=== PATIENT | female | born 1985 | race Caucasian/White ===

== ENCOUNTER 2018-10-19 10:06 | Emergency (ER) | payer OTHER, SELFPAY ==
[2018-10-19 10:07] VITALS: BP 125/81; PULSE 76; RESP 32; TEMP 36.5; O2SAT 98; BMI 34.6
--- NOTE | 2018-10-19 10:43 | RAD_ITS ---
STUDY: X-RAY CHEST REASON FOR EXAM: Female, 32 years old. Cough and bodyaches. Fatigue. TECHNIQUE: PA and lateral views of the chest. COMPARISON: None. FINDINGS: The lungs are clear and expanded. Scattered calcified granulomas. There is no demonstrated pleural abnormality. Normal size heart. Normal mediastinum and marbella. Normal visualized pulmonary arteries. Normal visualized aortic arch and descending thoracic aorta. Normal visualized thoracic spine. Normal visualized ribs, clavicles, and shoulders. There is no demonstrated abnormality of the visualized soft tissue structures of the upper abdomen. RAD/Chest PA and Lateral IMPRESSION: Normal x-ray examination of the chest. Electronically Signed: Amaury Arriaga MD at 12:21 EST , Service support ,
--- NOTE | 2018-10-19 10:48 | ED.DCSUM_ITS ---
- ER Visit Summary Date of Service: 10/19/18 Chief Complaint: fatigue and cough History of Present Illness: The patient is a 32 F who presents for 4 days of extreme fatigue and cough. Patient states she had a upper respiratory infection 2 weeks ago that improved, however she had lingering nasal congestion. 4 days ago she began having a cough and fatigue. She has since developed myalgias, vomiting secondary to cough, headache, continued congestion, generalized weakness, and is sleeping all the time. She has not been eating or drinking much. She is tried DayQuil and NyQuil without any improvement. She has not had the flu shot. She has history of migraines and hysterectomy. Physical Examination: Vital signs: afebrile, hemodynamically stable, tachypneic at 32 fuller per minute, no hypoxia on room air General: well nourished, well developed, appears ill Skin: warm, dry, no rash, no pallor HEENT: normocephalic and atraumatic; PERRL, EOMI, tacky mucous membranes, no oropharyngeal erythema, exudates or swelling, TMs are pearly with good light reflex bilaterally, no bulging, neck is supple with no meningismus or lymphadenopathy, harsh cough noted occasionally Cardiovascular: regular rate and rhythm without murmurs, no peripheral edema, 2+ pulses all distal extremities Respiratory: Mild increased work of breathing, lungs are clear to auscultation bilaterally, no rales, rhonchi or wheezing, tachypneic with deep breaths Abdominal: Abdomen is soft, nontender with normoactive bowel sounds, no guarding or rebound, no masses MSK: Moves all extremities, no deformities, generalized weakness Neuro: Awake and alert, oriented ?4. No facial droop, sensation and motor funct ion intact and symmetric Test Results: Abnormal Lab Results 10/19/18 10/19/18 11:20 11:20 WBC 6.1 RBC 4.86 Hgb 14.0 Hct 41.9 MCV 86.2 MCH 28.8 MCHC 33.4 RDW 12.9 RDW Differential 40.3 Plt Count 273 MPV 9.4 Immature Gran % (Auto) 0.000 Neut % (Auto) 62.3 Lymph % (Auto) 22.8 [place] % (Auto) 9.9 Eos % (Auto) 4.5 Baso % (Auto) 0.5 Absolute Neuts (auto) 3.8 Absolute Lymphs (auto) 1.38 Total Counted Not Reportable Sodium 141 Potassium 4.3 Chloride 113 H Carbon Dioxide 21.0 Anion Gap 7 BUN 9 Creatinine 1.01 Estim Creat Clear Calc 103.89 Est GFR (MDRD) Af Amer 81 Est GFR (MDRD) Non-Af 67 BUN/Creatinine Ratio 8.9 L Glucose 90 Calcium 8.1 L Total Bilirubin 0.50 AST 24 ALT 18 Alkaline Phosphatase 71 Total Protein 7.6 Albumin 3.5 Globulin 4.1 Albumin/Globulin Ratio 0.9 Lipase 164 Clinical Impression(s) from Imaging Studies Chest X-Ray 10/19/18 10:43 IMPRESSION: Normal x-ray examination of the chest. Electronically Signed: Amaury Arriaga MD at 12:21 EST , Service support , Medications Given Discontinued Medications Sodium Chloride () 1,000 mls @ 1,000 mls/hr IV .Q1H ONE Stop: 10/19/18 11:42 Last Admin: 10/19/18 11:46 Dose: 1,000 mls/hr Ketorolac Tromethamine (Toradol) 15 mg IV X1 ONE Stop: 10/19/18 10:44 Last Admin: 10/19/18 11:46 Dose: 15 mg Emergency Department Course and Treatment: Patient presents with rapid deep breathing and does not appear well. Her symptoms do sound influenza-like, but given the tachypnea and deep breathing, labs were performed to rule out this as a presentation of new onset diabetes. Patient had no leukocytosis. Blood glucose was within normal limits with no elevated anion gap or low bicarb that would be indicative of possible DKA. Flu was positive. EKG showed no pneumonia. Patient received IV fluids and Toradol for symptomatic relief. On reevaluation patient was sleeping and stated she felt somewhat better. Because of the severity of symptoms despite possibly being outside of the 48-hour window, patient was given a prescription for Tamiflu. She was given a work note for 3 days. She feels well enough to go home. She will return if any worsening of her condition. Treatment Plan: [] Disposition: [] Impression: Influenza A This note was generated with ESTmobation software. It may contain incorrect words, spelling, and punctuation that were not noted in review of the chart prior to signing ED Disposition - Plan for ED Patient: Disposition: Home or Assisted Living Instructions: ED Flu Prescriptions: Ondansetron [Zofran Odt] 4 mg PO Q8H PRN PRN #10 tab PRN Reason: Nausea Oseltamivir Phosphate [Tamiflu] 75 mg PO BID #10 cap Referrals: Jeet Scott DO [Primary Care Provider] - 1 Week if not improving Additional Instructions: Take the Tamiflu as prescribed. Take the first dose as soon as you get it filled this afternoon. Use Tylenol or ibuprofen as needed for discomfort and fever. Use the ondansetron as needed for nausea. Drink plenty of fluids to stay hydrated. If at any time you feel like your symptoms are worsening or you have any new concerning symptoms, return immediately to the emergency department for another evaluation.
--- NOTE | 2018-10-19 11:31 | ED.RN ---
POS FLU A CALLED FROM THE LAB. DR MACK AWARE
[2018-10-19 11:32] LABS: Absolute Lymphocyte Count 1.38 X10^3/ul (0.83-4.51); Absolute Neutrophil Count 3.8 X10^3/uL (2.0-7.7); Basophil# 0.03 X10^3/uL; Basophil% 0.5 % (0-1); Eosinophil# 0.27 X10^3/uL; Eosinophils% 4.5 % (0-5); Hematocrit 41.9 % (37-47); Lymphocyte # 1.38 X10^3/ul (4.0); Lymphocyte % 22.8 % (19-41); Mean Corp Hgb Conc 33.4 g/gl (32-36); Mean Corpuscular Hgb 28.8 pg (27.0-32.0); Mean Corpuscular Volume 86.2 fL (81-99); Mean Platelet Vol. 9.4 fl (6.2-12.0); Monocyte% 9.9 % (0-10); Neutrophil # 3.78 X10^3/uL (2.7-7.7); Neutrophil % 62.3 % (47-70); Platelet Count 273 K/mm3 (150-450); RBC Distribution Width CV 12.9 % (11.6-14.6); RBC Distribution Width SD 40.3 fl (35.1-43.9); Red Blood Count 4.86 M/mm3 (4.2-5.4); White Blood Count 6.1 K/mm3 (4.4-11.0)
[2018-10-19 11:34] LABS: POSITIVE COUNT NO; POSITIVE DIFFERENTIAL NO; POSITIVE MORPHOLOGY NO
[2018-10-19 11:45] LABS: ALB/GLOB Ratio 0.9 RATIO (0.9-2.4); AST(SGOT) 24 U/L (15-37); Alanine Aminotransfer ALT/SGPT 18 U/L (13-56); Albumin, Serum 3.5 g/dL (3.2-5.0); Alkaline Phosphatase 71 U/L (45-117); Anion Gap 7 (5-15); BUN 9 mg/dL (7-18); BUN/Creat Ratio 8.9 RATIO (10-20); Calcium,Total 8.1 mg/dL (8.5-10.1); Chloride 113 mmol/L (98-107); Creatinine, Serum 1.01 mg/dL (0.55-1.02); EST Glomerular Filtration Rate 67 mL/min (>60); Est Glom Filt Rate - Afr Amer 81 mL/min (>60); Estimated Creatinine Clearance 103.89 ml/min; Globulin 4.1 g/dL (2.2-4.2); Glucose 90 mg/dL (74-106); Lipase 164 U/L (73-393); Potassium 4.3 mmol/L (3.5-5.1); Protein, Total 7.6 g/dL (6.4-8.2); Sodium Level 141 mmol/L (136-145)
[2018-10-19] MEDS: Ketorolac 15 MG/ML Vial IV (11:46)
[2018-10-19] MEDS: 0.9% Normal Saline 1,000 ML 1000 ML IV (11:46)
[2018-10-19 11:47] VITALS: BP 124/70; PULSE 59; RESP 12; O2SAT 96
[2018-10-19 13:02] VITALS: PULSE 59; RESP 15; O2SAT 97
== END 2018-10-19 13:03 | disposition home or self-care (01) ==
PROVIDERS: Emergency Provider Emergency Medicine; Family Provider Student in an Organized Health Care Education/Training Program; PCP Student in an Organized Health Care Education/Training Program
DX: J09.X2 Influenza due to identified novel influenza A virus with other respiratory manifestations (principal); G43.909 Migraine, unspecified, not intractable, without status migrainosus; Z79.899 Other long term (current) drug therapy
CPT/HCPCS: 71046; 80053; 83690; 85025; 87804; 96361; 96374; 99283; J7030

== ENCOUNTER → 2019-03-30 | Outpatient (CLI) | payer OTHER, SELFPAY ==
[2019-03-30 12:11] LABS: Absolute Lymphocyte Count 2.06 X10^3/uL (0.83-4.51); Absolute Neutrophil Count 6.1 X10^3/uL (2.0-7.7); Basophil# 0.06 X10^3/uL; Basophil% 0.7 % (0-1); Eosinophil# 0.23 X10^3/uL; Eosinophils% 2.6 % (0-5); Hematocrit 41.1 % (37-47); Hemoglobin 13.8 g/dL (12.0-15.0); Lymphocyte # 2.06 X10^3/ul (4.0); Lymphocyte % 22.9 % (19-41); Mean Corp Hgb Conc 33.6 g/dL (32-36); Mean Corpuscular Hgb 29.1 pg (27.0-32.0); Mean Corpuscular Volume 86.7 fL (81-99); Mean Platelet Vol. 9.9 fl (6.2-12.0); Monocyte# 0.54 X10^3/uL; NRBC Flagged by Analyzer 0 % (0-5); Neutrophil # 6.08 X10^3/uL (2.7-7.7); Neutrophil % 67.5 % (47-70); Platelet Count 328 K/mm3 (150-450); RBC Distribution Width CV 12.1 % (11.6-14.6); RBC Distribution Width SD 38.5 fl (35.1-43.9); Red Blood Count 4.74 M/mm3 (4.2-5.4)
[2019-03-30 12:38] LABS: Vitamin B12 292 pg/mL (211-911); Vitamin D,25 Hydroxy 18.6 ng/mL (29.95-100.01)
[2019-03-30 13:19] LABS: ALB/GLOB Ratio 0.9 RATIO (0.9-2.4); AST(SGOT) 11 U/L (15-37); Alanine Aminotransfer ALT/SGPT 19 U/L (13-56); Albumin, Serum 3.4 g/dL (3.2-5.0); Alkaline Phosphatase 71 U/L (45-117); Anion Gap 12 (5-15); BUN 12 mg/dL (7-18); BUN/Creat Ratio 12.9 RATIO (10-20); Calcium,Total 8.3 mg/dL (8.5-10.1); Chloride 116 mmol/L (98-107); Cholesterol 168 mg/dL (200); Creatinine, Serum 0.93 mg/dL (0.55-1.02); EST Glomerular Filtration Rate 74 mL/min (>60); Est Glom Filt Rate - Afr Amer 89 mL/min (>60); Free T3 2.4 pg/mL (2.18-3.98); Globulin 3.6 g/dL (2.2-4.2); Glucose 99 mg/dL (74-106); High Density Lipoprotein 43 mg/dL; Potassium 3.9 mmol/L (3.5-5.1); Sodium Level 145 mmol/L (136-145); T4 Free Direct 1.01 ng/dL (0.76-1.46); Thyroid Stim Hormone (TSH) 1.94 uIU/mL (0.358-3.74); Triglycerides 128 mg/dL; Very Low Density Lipoprotein 26 mg/dL (5-40)
== END | disposition home or self-care (01) ==
PROVIDERS: Family Provider Family Medicine; PCP Family Medicine; Visit Provider Family Medicine
DX: Z00.00 Encounter for general adult medical examination without abnormal findings (principal); E55.9 Vitamin D deficiency, unspecified; E53.8 Deficiency of other specified B group vitamins; Z80.8 Family history of malignant neoplasm of other organs or systems
CPT/HCPCS: 36415; 80053; 80061; 82306; 82607; 82746; 84439; 84443; 84481; 85025

== ENCOUNTER → 2019-04-02 | Outpatient (CLI) | payer OTHER, SELFPAY ==
--- NOTE | 2019-04-02 12:16 | RAD_ITS ---
STUDY: X-RAY - LUMBAR SPINE REASON FOR EXAM: Female, 33 years old. Low back pain and stiffness TECHNIQUE: 5 view(s) of the lumbar spine were obtained. COMPARISON: None FINDINGS: Normal lumbar lordosis. There is no substantial scoliosis. There is a normal alignment of the vertebrae. Normal vertebral bodies and endplates. Normal disc space heights. The soft tissue structures are unremarkable. RAD/L/S Spine Min 4 Views IMPRESSION: Normal x-ray examination of the lumbar spine. Electronically Signed: Virginia Rodríguez, at 18:35 EDT Tel , Service support ,
== END | disposition home or self-care (01) ==
LOC: MTRAD 12:15
PROVIDERS: Family Provider Family Medicine; PCP Family Medicine; Referring Provider Family Medicine; Visit Provider Family Medicine
DX: L40.50 Arthropathic psoriasis, unspecified (principal)
CPT/HCPCS: 72110

== ENCOUNTER → 2019-05-18 | Outpatient (CLI) | payer OTHER, SELFPAY ==
--- NOTE | 2019-05-18 10:05 | NEURO_ITS ---
NCS and/or EMG Patient Report Ordering Doctor: Rolanda Mckinley DATE OF SERVICE: 05/18/19 This is a right upper extremity EMG and nerve conduction study performed on this 33-year-old female who has had symptoms for approximately 6 to 8 months including numbness and tingling in her arm and wrist including her right thumb. There is no neck pain and she is healthy otherwise. Right upper extremity sensory motor nerve conduction study demonstrates mild prolongation of the median motor distal latency with preservation of the median sensory distal latency. Amplitudes and conduction velocities are preserved. The ulnar motor and sensory and radial sensory responses normal in the median and ulnar F-wave latencies are normal. Right upper extremity needle electromyography is performed. Muscles evaluate included first dorsal osseous, abductor pollicis brevis, brachial radialis, biceps, triceps and deltoid muscles. All muscles demonstrated normal insertional activity with absence of pathologic spontaneous activity. Motor unit potential amplitude and recruitment pattern is normal in all muscles tested. Impression: This is an abnormal elective his logic study consistent with mild carpal tunnel syndrome at the right wrist. This should be clinically correlated. Dictated using Story[employer]ender software, not proofread
== END | disposition home or self-care (01) ==
LOC: PSN 06:42
PROVIDERS: Family Provider Family Medicine; PCP Family Medicine; Referring Provider Family Medicine; Visit Provider Family Medicine
DX: G56.00 Carpal tunnel syndrome, unspecified upper limb (principal)
CPT/HCPCS: 95886; 95910

== ENCOUNTER → 2019-10-06 09:07 | Outpatient (CLI) | payer OTHER, SELFPAY ==
[2019-09-12 11:56] VITALS: BMI 34.6
--- NOTE | 2019-10-06 09:22 | RAD_ITS ---
STUDY: X-RAY - RIGHT RADIUS AND ULNA REASON FOR EXAM: Female, 33 years old. Posterior arm pain, mid shaft, after falling this am TECHNIQUE: 2 view(s) of the forearm. COMPARISON: None. FINDINGS: Soft tissue swelling. Normal visualized radius. Normal visualized ulna. RAD/Forearm 2 Views IMPRESSION: Soft tissue swelling. Electronically Signed: Amaury Arriaga, at 16:18 EST , Service support ,
== END ==
LOC: HPRAD 09:09
PROVIDERS: PCP Family Medicine; Referring Provider Family Medicine; Visit Provider Family Medicine
DX: S59.911A Unspecified injury of right forearm, initial encounter (principal); W19.XXXA Unspecified fall, initial encounter
CPT/HCPCS: 73090

== ENCOUNTER → 2019-10-09 | Outpatient (CLI) | payer OTHER, SELFPAY ==
[2019-09-12 11:56] VITALS: BMI 34.6
--- NOTE | 2019-10-09 08:28 | US_ITS ---
STUDY: ABDOMINAL ULTRASOUND - RIGHT UPPER QUADRANT REASON FOR VISIT: Female, 33 years old RUQ PAIN- INTERMITTENT TECHNIQUE: Ultrasound evaluation of the right upper quadrant was performed with real-time and static zepeda-scale imaging. TECHNICAL QUALITY: Adequate. COMPARISON: None. FINDINGS: Liver: The liver measures 20 cm. There is mildly increased echogenicity of the liver. The bile ducts are within normal limits. There is hepatic color flow. The direction of portal flow is hepatopetal. There is no demonstrated mass lesion. Gallbladder: Normal distended gallbladder. The gallbladder wall measures 2.7 mm. There is a negative sonographic Hernandez''s sign. There is no pericholecystic fluid. There are no gallstones. Common Bile Duct (C.B.D.): The common bile duct measures 4.9 mm. Pancreas: There is normal echogenicity of the visualized pancreas. There is no demonstrated pancreatic mass or cyst. Right Kidney: Normal size of the right kidney. The right kidney measures 12.2 x 5.0 x 4.7 cm. Normal renal cortex. The right cortex measures 2.0 cm. There is no demonstrated renal mass or cyst. There is no right hydronephrosis. US/Abdomen Limited IMPRESSION: 1. No gallstones or biliary dilation. 2. Hepatomegaly. Increased echogenicity of the liver is nonspecific but most commonly associated with hepatic steatosis. Electronically Signed: Gabriel Maria MD (Brooks) at 14:42 EST , Service support ,
== END | disposition home or self-care (01) ==
LOC: US 08:59
PROVIDERS: PCP Family Medicine; Referring Provider Family Medicine; Visit Provider Family Medicine
DX: R10.11 Right upper quadrant pain (principal)
CPT/HCPCS: 76705

== ENCOUNTER → 2019-12-20 | Outpatient (CLI) | payer OTHER, SELFPAY ==
[2019-09-12 11:56] VITALS: BMI 34.6
--- NOTE | 2019-12-20 10:05 | NM_ITS ---
STUDY: HEPATOBILARY SCINTGRAPHY REASON FOR EXAM: Female, 34 years old. Abdominal pain, nausea, vomiting COMPARISON STUDIES : NM - None. CR - Not available for review at this time. CT - Not available for review at this time. MR - Not available for review at this time. Ultrasound 10/09/2019 Technique: After the administration of 5.6 mCi of technetium 99m Choletec intravenously, multiple scintigraphic images of the abdomen were obtained. After the administration of 2.6 mcg of Kinevac intravenously, a gallbladder ejection fraction was calculated. Findings: Homogeneous uptake of radiopharmaceutical throughout the hepatic parenchyma. Prompt excretion into the biliary tree first seen on the 15 minute image. Prompt visualization of the gallbladder first seen on the 15 minute image. Passage of radiopharmaceutical from the biliary tree into the small bowel ensuring patency of the common bile duct. After the administration of cholecystokinin intravenously, gallbladder ejection fraction is calculated. The gallbladder ejection fraction is 75% which is normal. NM/Hepatobilliary Img w/Pharm Int IMPRESSION: Normal hepatobiliary scintigraphy with a gallbladder ejection fraction of 75%. Electronically Signed: Kevin Valverde MD at 12:29 EDT Tel , Service support ,
== END | disposition home or self-care (01) ==
LOC: NM 10:03
PROVIDERS: PCP Family Medicine; Referring Provider Family Medicine; Visit Provider Family Medicine
DX: R10.11 Right upper quadrant pain (principal)
CPT/HCPCS: 78227; A9537; J2805

== ENCOUNTER → 2020-01-03 | Outpatient (CLI) | payer OTHER, SELFPAY ==
[2019-09-12 11:56] VITALS: BMI 34.6
[2020-01-03 15:18] LABS: Absolute Lymphocyte Count 2.84 X10^3/uL (0.83-4.51); Absolute Neutrophil Count 7.6 X10^3/uL (2.0-7.7); Basophil# 0.06 X10^3/uL; Basophil% 0.5 % (0-1); Eosinophil# 0.31 X10^3/uL; Eosinophils% 2.7 % (0-5); Hematocrit 41.5 % (37-47); Hemoglobin 13.4 g/dL (12.0-15.0); Lymphocyte # 2.84 X10^3/ul (4.0); Lymphocyte % 24.6 % (19-41); Mean Corp Hgb Conc 32.3 g/dL (32-36); Mean Corpuscular Hgb 28.4 pg (27.0-32.0); Mean Corpuscular Volume 87.9 fL (81-99); Mean Platelet Vol. 10.1 fl (6.2-12.0); Monocyte# 0.72 X10^3/uL; Monocyte% 6.2 % (0-10); NRBC Flagged by Analyzer 0 % (0-5); Neutrophil # 7.57 X10^3/uL (2.7-7.7); Neutrophil % 65.7 % (47-70); Platelet Count 292 K/mm3 (150-450); RBC Distribution Width CV 12.1 % (11.6-14.6); RBC Distribution Width SD 39.2 fl (35.1-43.9); Red Blood Count 4.72 M/mm3 (4.2-5.4); White Blood Count 11.5 K/mm3 (4.4-11.0)
[2020-01-03 15:35] LABS: ALB/GLOB Ratio 0.9 RATIO (0.9-2.4); AST(SGOT) 11 U/L (15-37); Alanine Aminotransfer ALT/SGPT 21 U/L (13-56); Albumin, Serum 3.7 g/dL (3.2-5.0); Alkaline Phosphatase 67 U/L (45-117); Anion Gap 6 (5-15); BUN 12 mg/dL (7-18); BUN/Creat Ratio 12.8 RATIO (10-20); Calcium,Total 8.8 mg/dL (8.5-10.1); Chloride 108 mmol/L (98-107); Creatinine, Serum 0.94 mg/dL (0.55-1.02); EST Glomerular Filtration Rate 73 mL/min (>60); Est Glom Filt Rate - Afr Amer 88 mL/min (>60); Globulin 3.9 g/dL (2.2-4.2); Glucose 100 mg/dL (74-106); Potassium 3.3 mmol/L (3.5-5.1); Protein, Total 7.6 g/dL (6.4-8.2); Sodium Level 138 mmol/L (136-145)
[2020-01-06 03:06] LABS: HEPATITIS B SURFACE AG Negative (Negative); Hepatitis A AB, Total Negative (Negative); Hepatitis A IgM Antibody Negative (Negative); Hepatitis B Core AB IgM Negative (Negative); Hepatitis B Core Ab Total Negative (Negative); Hepatitis C Ab <0.1 s/co ratio (0.0-0.9); QNTFERON TB Mitogen Value > 10.00 IU/mL (.); QNTFERON TB Nil Value 0.01 IU/mL (.); QNTFERON TB1+ Ag Value 0.02 IU/mL (.); QNTFERON TB2+ Ag Value 0.01 IU/mL (.)
[2020-01-06 15:43] LABS: Hep B Surface Antibodies Non Reactive (.); QNTIFERON TB Positive Criteria Negative (Negative)
== END | disposition home or self-care (01) ==
LOC: MTLAB 12:12
PROVIDERS: PCP Family Medicine; Referring Provider Dermatology Pediatric Dermatology; Visit Provider Dermatology Pediatric Dermatology
DX: L40.0 Psoriasis vulgaris (principal); L40.59 Other psoriatic arthropathy; K52.9 Noninfective gastroenteritis and colitis, unspecified; Z79.899 Other long term (current) drug therapy
CPT/HCPCS: 36415; 80053; 85025; 86480; 86704; 86705; 86706; 86708; 86709; 86803; 87340

== ENCOUNTER → 2020-02-23 | Outpatient (CLI) | payer OTHER, SELFPAY ==
[2019-09-12 11:56] VITALS: BMI 34.6
[2020-02-23 15:45] LABS: Absolute Lymphocyte Count 2.68 X10^3/uL (0.83-4.51); Absolute Neutrophil Count 8.3 X10^3/uL (2.0-7.7); Basophil# 0.08 X10^3/uL; Basophil% 0.7 % (0-1); Eosinophil# 0.32 X10^3/uL; Eosinophils% 2.6 % (0-5); Hematocrit 39.7 % (37-47); Lymphocyte # 2.68 X10^3/ul (4.0); Lymphocyte % 22.2 % (19-41); Mean Corp Hgb Conc 32.7 g/dL (32-36); Mean Corpuscular Hgb 29.3 pg (27.0-32.0); Mean Corpuscular Volume 89.6 fL (81-99); Mean Platelet Vol. 9.9 fl (6.2-12.0); Monocyte# 0.69 X10^3/uL; Monocyte% 5.7 % (0-10); NRBC Flagged by Analyzer 0 % (0-5); Neutrophil # 8.28 X10^3/uL (2.7-7.7); Neutrophil % 68.5 % (47-70); Platelet Count 303 K/mm3 (150-450); RBC Distribution Width CV 12.3 % (11.6-14.6); RBC Distribution Width SD 39.8 fl (35.1-43.9); Red Blood Count 4.43 M/mm3 (4.2-5.4); White Blood Count 12.1 K/mm3 (4.4-11.0)
[2020-02-23 16:35] LABS: ALB/GLOB Ratio 0.9 RATIO (0.9-2.4); AST(SGOT) 16 U/L (15-37); Alanine Aminotransfer ALT/SGPT 27 U/L (13-56); Albumin, Serum 3.5 g/dL (3.2-5.0); Alkaline Phosphatase 64 U/L (45-117); Anion Gap 8 (5-15); BUN 12 mg/dL (7-18); BUN/Creat Ratio 12.9 RATIO (10-20); CRP 3.05 mg/L (0.0-3.0); Calcium,Total 9.5 mg/dL (8.5-10.1); Chloride 109 mmol/L (98-107); Creatinine, Serum 0.93 mg/dL (0.55-1.02); EST Glomerular Filtration Rate 74 mL/min (>60); Est Glom Filt Rate - Afr Amer 89 mL/min (>60); Globulin 3.7 g/dL (2.2-4.2); Glucose 133 mg/dL (74-106); Potassium 3.7 mmol/L (3.5-5.1); Protein, Total 7.2 g/dL (6.4-8.2); Sodium Level 140 mmol/L (136-145)
== END | disposition home or self-care (01) ==
LOC: BFHLAB 13:02
PROVIDERS: Visit Provider Family Medicine
DX: R42 Dizziness and giddiness (principal); R07.9 Chest pain, unspecified
CPT/HCPCS: 36415; 80053; 85025; 86140

== ENCOUNTER → 2020-05-18 | Outpatient (CLI) | payer OTHER, SELFPAY ==
[2019-09-12 11:56] VITALS: BMI 34.6
--- NOTE | 2020-05-18 13:10 | RAD_ITS ---
STUDY: X-RAY - LUMBAR SPINE REASON FOR EXAM: Female, 34 years old. Pain, stiffness, psoriasis TECHNIQUE: 5 view(s) of the lumbar spine were obtained including oblique views. COMPARISON: Comparison is made with prior study dated 04/02/2019. FINDINGS: There is straightening of the normal lumbar lordosis. There is no substantial scoliosis. There is a normal alignment of the vertebrae. Disc space narrowing and spondylosis at the L4-L5 and L5-S1 levels. The soft tissue structures are unremarkable. RAD/L/S Spine Min 4 Views IMPRESSION: Degenerative changes of the spine, as detailed above. Electronically Signed: Amaury Arriaga, at 13:55 EDT , Service support ,
--- NOTE | 2020-05-18 13:10 | RAD_ITS ---
STUDY: X-RAY - CERVICAL SPINE REASON FOR EXAM: Female, 34 years old. Right shoulder pain, psoriatic arthritis TECHNIQUE: 5 view(s) of the cervical spine were obtained including oblique views. COMPARISON: None FINDINGS: Normal anterior atlantoaxial articulation. Normal odontoid process. There is straightening of the normal cervical lordosis. Normal vertebral bodies and endplates. Mild disc space narrowing at the C5-C6 level. Normal visualized intervertebral neuroforamina. The soft tissue structures are unremarkable. RAD/Cerv Spine 4 or 5 Views IMPRESSION: Straightening of the normal cervical lordosis. Mild degree of disc space narrowing at the C5-C6 level. Electronically Signed: Amaury Arriaga, at 13:38 EDT , Service support ,
== END | disposition home or self-care (01) ==
LOC: MTRAD 13:09
PROVIDERS: PCP Family Medicine; Referring Provider Family Medicine; Visit Provider Family Medicine
DX: M54.12 Radiculopathy, cervical region (principal); M54.5 Low back pain; M25.511 Pain in right shoulder; L40.50 Arthropathic psoriasis, unspecified
CPT/HCPCS: 72050; 72110

== ENCOUNTER 2020-06-15 13:30 | Outpatient (RCR) | payer OTHER, SELFPAY ==
[2019-09-12 11:56] VITALS: BMI 34.6
--- NOTE | 2020-06-08 12:52 | HP.PTEVAL_ITS ---
Patient's Visit Information DARYN HUNG is a 34 year old F referred to Physical Therapy by Dr. Rolanda Mckinley MD with a diagnosis of Lumbago. Date of Evaluation: 06/01/20 Physical Therapist: Yazan Parada DPT - Visit Plan Frequency: 1x/Week Duration: 6 Weeks Plan: Start with lumbar extension looking for reduction of symptoms. Add in core stability exercises in neutral spine. Progress HEP daily as she is coming x1 per week. Educate in proper body mechanics and exercise progression. - Subjective Pt. is here today for her initial evaluation with diagnosis of lumbago. Pt. reports having pain in her lumbar spine for years, but has started to become worse over the last few months. Pt. has had a history of sciatica with all 3 of her pregnancies. Pt. has pain in her R hip and lumbar spine. Pt. denies mech of injury. Pain is worse with standing, kneeling, bathing son, and lifting. Decreased pain: OTC meds, and heat, but only temporary changes. Pt. also reports having a family history of back pain an surgeries. 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 Pt. is hopeful to reduce her symptoms in order to have increased tolerance to all recreational and work activities. - Pain Lumbar spine Pain Intensity (Out of 10): 7 Pain Intensity Range: 3, 8 Cervical spine Pain Intensity (Out of 10): 3 Pain Intensity Range: 0, 6 - Objective POSTURE: Pt. has overall decent posture, slight flexed posture, increased kyphosis, exaggerated C/T junction and anterior pelvic tilt. PALPATION: Pt. has increased tenderness at R lumbar paraspinals, B multifidus. Pt. has some pain in her R gluteal region, but mostly SI region noted on R side. NEURO: normal se nsation and normal DTR of BLEs. ROM: LUMBAR SPINE: flexion nil/min loss mild increase NW, extension mod loss increase NW, rotation nil loss NE bilat, SB min loss B NE. Pt. has tight B HS and tight B hip flexors. MMT: Pt. has 5/5 strength throughout BLEs, except 4/5 hip abd and hip extensors. Cervical spine- 5/5 with isometrics, but 15sec with deep neck flexor endurance testing. GAIT: Pt. ambulate with equal step length, no antalgic pattern. Pt. does have reduced arm swing, guarded posture. Still has increased kyphosis with anterior pelvic tilt. STAIRS: reciprocal pattern no issues, uses 1 HR. - Goals Goal 1:: LTG: Pt. to be I with HEP. Goal Time Frame: 4-6 Weeks Goal 2:: STG: PT. to have increased lumbar ROM by 25% in all directions without increase in symptoms. Goal Time Frame: 2-4 Weeks Goal 3:: LTG: Pt. to have full lumbar ROM without increase in symptoms. Goal Time Frame: 4-6 Weeks Goal 4:: LTG: Pt. to have increase in core and cervical spine strength by 1/2 grade to reduce stress applied to the spine with all functional activities. Goal Time Frame: 4-6 Weeks Goal 5:: STG: Pt. to sleep throughout the night without increase in symptoms. Goal Time Frame: 2-4 Weeks Goal 6:: LTG: Pt. to complete all work related activities without increase in symptoms. Goal Time Frame: 4-6 Weeks - Rehabilitation Potential Physical Therapy Diagnosis: Pt. larsen signs and symptoms consistent with lumbar spine pain. She has her greatest issue at her SI joint which radiates into her hip. Pt. would benefit from core stability exercsies to reduce stress applied to lumbar spine with all functional activities. Rehabilitation Potential: Good - Anticipated Interventions Patient/Client Instruction: Educate patient on: Condition, Plan of Care, Risk Factors, Benefits of Fitness Program For the Purpose of:: To facilitate caregiver knowledge, To improve self management, To prevent re-injury, To improve ability to perform tasks related to life management, To improve tolerance to ADL's Therapeutic Exercise to Include: Strength training, Power training, Endurance training, Body mechanics, Postural training, Flexibilty training, Active ROM, Dynamic Lumbar Stabilization, Kal Exercises, Scapular Strength/Stabilization For the Purpose of:: To decrease pain, To decrease swelling/inflammation, To increase ROM, To improve nutrient delivery to tissue, To increase oxygenation perfusion, To improve muscle performance and motor function, To increase tolerance to activity/condition/position, To improve performance and independence with ADL's, To decrease level of supervision to perform tasks, To improve ability of physical actions for home/community/work/leisure, To improve health of tissue, To decrease soft tissue restriction Ultrasound (thermal/non thermal): Yes For the Purpose of:: To decrease pain, To decrease swelling/inflammation, To increase ROM, To improve nutrient delivery to tissue, To increase oxygenation perfusion, To improve muscle performance and motor function Thank you for the opportunity to evaluate your patient. For Medicare and Medicare HMO plans, please review the plan of care and approve it. It will need to be FAXED BACK to us at [phone] for Medicare purposes. For Medicare only, by signing this I certify the plan of care. Please let me know if there are questions or concerns regarding this plan of care. Physician Signature: Date:__
== END 2020-06-15 19:00 | disposition home or self-care (01) ==
LOC: PT 13:30
PROVIDERS: PCP Family Medicine; Referring Provider Family Medicine; Visit Provider Family Medicine
DX: M54.5 Low back pain (principal)
CPT/HCPCS: 97035; 97110; 97140; 97161

== ENCOUNTER → 2020-07-05 14:26 | Outpatient (CLI) | payer OTHER, SELFPAY ==
[2019-09-12 11:56] VITALS: BMI 34.6
[2020-07-05 16:33] LABS: Probe Check PASS; Specimen Processing Control PASS
== END ==
PROVIDERS: PCP Family Medicine; Visit Provider Family Medicine
DX: Z20.828 Contact with and (suspected) exposure to other viral communicable diseases (principal)
CPT/HCPCS: 87635; U0002

== ENCOUNTER → 2020-07-19 07:46 | Outpatient (CLI) | payer OTHER, SELFPAY ==
[2019-09-12 11:56] VITALS: BMI 34.6
[2020-07-19 12:26] LABS: Absolute Lymphocyte Count 2.26 X10^3/uL (0.83-4.51); Absolute Neutrophil Count 6.9 X10^3/uL (2.0-7.7); Basophil# 0.07 X10^3/uL; Basophil% 0.7 % (0-1); Hematocrit 42.8 % (37-47); Hemoglobin 13.8 g/dL (12.0-15.0); Lymphocyte # 2.26 X10^3/ul (4.0); Lymphocyte % 22.2 % (19-41); Mean Corp Hgb Conc 32.2 g/dL (32-36); Mean Corpuscular Hgb 28.7 pg (27.0-32.0); Mean Platelet Vol. 10.2 fl (6.2-12.0); Monocyte# 0.64 X10^3/uL; Monocyte% 6.3 % (0-10); NRBC Flagged by Analyzer 0 % (0-5); Neutrophil # 6.86 X10^3/uL (2.7-7.7); Neutrophil % 67.5 % (47-70); Platelet Count 309 K/mm3 (150-450); RBC Distribution Width CV 12.3 % (11.6-14.6); RBC Distribution Width SD 40.2 fl (35.1-43.9); Red Blood Count 4.81 M/mm3 (4.2-5.4); White Blood Count 10.2 K/mm3 (4.4-11.0)
[2020-07-19 12:56] LABS: ALB/GLOB Ratio 1.1 RATIO (0.9-2.4); AST(SGOT) 10 U/L (15-37); Alanine Aminotransfer ALT/SGPT 21 U/L (13-56); Albumin, Serum 3.7 g/dL (3.2-5.0); Alkaline Phosphatase 64 U/L (45-117); Anion Gap 6 (5-15); BUN 10 mg/dL (7-18); BUN/Creat Ratio 10.4 RATIO (10-20); Calcium,Total 8.4 mg/dL (8.5-10.1); Chloride 115 mmol/L (98-107); Creatinine, Serum 0.97 mg/dL (0.55-1.02); EST Glomerular Filtration Rate 70 mL/min (>60); Est Glom Filt Rate - Afr Amer 85 mL/min (>60); Globulin 3.4 g/dL (2.2-4.2); Glucose 102 mg/dL (74-106); Protein, Total 7.1 g/dL (6.4-8.2); Sodium Level 142 mmol/L (136-145)
== END ==
PROVIDERS: PCP Family Medicine; Visit Provider Dermatology Pediatric Dermatology
DX: L40.0 Psoriasis vulgaris (principal); Z79.899 Other long term (current) drug therapy
CPT/HCPCS: 36415; 80053; 85025

== ENCOUNTER → 2020-08-03 13:22 | Outpatient (CLI) | payer OTHER, SELFPAY ==
[2019-09-12 11:56] VITALS: BMI 34.6
[2020-08-07 20:07] LABS: Endomysial Antibody IgA Negative (Negative); Immunoglobulin A 247 mg/dL (87-352)
[2020-08-07 20:25] LABS: H.Pylori Breath Test Negative (Negative); t-Transglutaminase IgA <2 U/mL (0-3)
== END ==
PROVIDERS: PCP Family Medicine; Visit Provider Family Medicine
DX: K62.5 Hemorrhage of anus and rectum (principal); R10.9 Unspecified abdominal pain
CPT/HCPCS: 36415; 82784; 83013; 83516; 86255

== ENCOUNTER → 2020-08-28 10:54 | Outpatient (CLI) | payer OTHER, SELFPAY ==
[2019-09-12 11:56] VITALS: BMI 34.6
== END ==
PROVIDERS: PCP Family Medicine; Visit Provider Family Medicine
DX: U07.1 COVID-19 (principal)
CPT/HCPCS: 87635; U0002

== ENCOUNTER 2021-12-08 02:54 | Emergency (ER) | payer BC, SELFPAY ==
[2021-12-08 02:56] VITALS: BP 127/84; PULSE 104; RESP 18; TEMP 36.1; O2SAT 98; BMI 34.7
--- NOTE | 2021-12-08 03:11 | EDS_ITS ---
HPI History of Present Illness Chief Complaint: Back Detail of Chief Complaint: Back pain Informant: patient Narrative Narrative: Patient presents with back pain that she has had for several months. Patient has been seeing her primary care physician and has been seeing a appeals court associate justice. She tells me she has a history of an L5-S1 disc protrusion that was noted on an MRI in 2019. Patient has history of psoriasis and it is thought that she may have psoriatic arthritis. She was recently started on prednisone and Humira. Patient also is scheduled to have injections in her back in a couple weeks. Patient was seen by her primary care physician 6 days ago and was started on tramadol which does not seem to be helping her pain. Patient denies weakness of the extremities. She denies saddle anesthesia. She has had some constipation. She denies any new injury to her back. She denies urinary symptoms. Patient states that back problems run in her family and both her parents of had back surgeries Prior similar symptoms: Yes PFSH PFSH Medical History (Updated 12/08/21 @ 03:[address] Eric March, DO) Chronic neck and back pain Headache Lab test negative for COVID-19 virus Home Medications cyclobenzaprine 10 mg PO TID PRN #20 tablet 12/08/21 [Rx Last Taken Unknown] hydrocodone-acetaminophen 1 tab PO Q4H PRN PRN 3 Days #15 tablet 12/08/21 [Rx Last Taken Unknown] Allergy/AdvReac Type Severity Reaction Status Date / Time No Known Allergies Allergy Verified 12/08/21 02:55 Family History (Updated 05/31/21 @ 07:39 by Dia Goncalves RN) Other Cancer Diabetes Surgical History (Updated 12/08/21 @ 03:00 by Jose Raul Dejesus) S/P partial hysterectomy Surgical History no surgical history Social History Smoking Status: Never smoker ROS ROS ED Constitutional Constitutional ED: Reports systems reviewed and no addt'l complaints, except as documented; Denies body ache(s), change in weight or chills Eyes Eyes: Denies acute decrease in peripheral vision, change in vision, double vision or loss of vision ENT ENT ED: Reports none; Denies ear pain, lip swelling, loss taste/smell, neck pain, otalgia or sore throat Cardiovascular Cardiovascular: Reports none; Denies abdominal pain, chest pain with activity, leg edema, lightheadedness, palpitations, rapid heart rate or syncope Respiratory/Chest Respiratory/Chest: Reports none; Denies change in mental status, dry cough, dyspnea, hemoptysis, shortness of breath at rest or shortness of breath with exertion Gastrointestinal Gastrointestinal: Reports none; Denies abdominal pain, change in stool character, diarrhea, hematemesis, hematochezia, melena, rectal bleeding or vomiting Genitourinary Genitourinary ED: Reports none; Denies abdominal discomfort, anuria, dysuria, genital pain or polyuria Musculoskeletal Musculoskeletal: Reports none and back pain; Denies arthralgias, difficulty walking, extremity pain, muscle weakness or myalgias Integumentary Reports none; Denies abscess or rash Neurologic Neurologic: Reports none; Denies abnormal gait, confusion, focal weakness, frequent falls, headache(s), loss of vision, numbness, paresthesias, radicular pain, vertigo or weakness Psychiatric Psychiatric: Reports systems reviewed and no addt'l complaints, except as do cumented and none; Denies behavioral changes, confusion, difficulty concentrating, hallucinations, suicidal ideation, tactile hallucinations or visual hallucinations Endocrine Endocrinology: Denies none, cold intolerance, excessive sweating, fatigue or heat intolerance Hematologic/Lymphatic Hematologic/Lymphatic: Reports none; Denies anemia, easy bleeding or easy bruising Allergic/Immunologic Allergic/Immunologic ED: Denies as per HPI, none, lip swelling, mouth swelling, throat swelling, tongue swelling or hives EXAM Physical Exam Const Vital Signs: 12/08/21 02:56 Temperature 97.0 F L Temperature Source Temporal Pulse Rate 104 H Respiratory Rate 18 Blood Pressure 127/84 H Blood Pressure Mean 98 Pulse Ox 98 Oxygen Delivery Method Room Air Positive well nourished and well developed General Appearance ED: well developed and NAD HEENT Reports TM's clear and moist mucous membranes normocephalic and atraumatic; Negative for trauma or tenderness Tympanic Membrane ED: Yes TM's clear Eyes PERRL and EOMs intact bilaterally General Eye ED: Negative for pale conjunctiva or scleral icterus Neck no lymphadenopathy, supple and no JVD General: Negative for tenderness Chest Wall inspection of chest normal and palpation of chest normal Chest: Negative for tenderness Resp normal respiratory effort and clear to auscultation bilaterally Effort and Inspection: Negative for respiratory distress or pain with movement Auscultation: Negative for rhonchi, wheezes or diminished lung sounds Cardio regular rate, regular rhythm, S1 normal heart sound, S2 normal heart sound and no murmurs Peripheral Pulses: pulses 2+ throughout GI normal to inspection, nondistended, normoactive bowel sounds, soft to palpation, non-tender, non-distended and no masses Back/Spine no CVA tenderness and no thoracic nor lumbar tenderness Back/Spine Narrative: Evaluation of her back reveals no tenderness over the thoracic or lumbar spine. She has some mild tenderness over the right lumbar paraspinal musculature as well as the right SI joint and right piriformis. Patient has negative straight leg raises. Deep tendon reflexes are plus 1 out of 4 bilaterally at the patella and Achilles. She has normal 5 extension. She has normal sensation to light touch. Extremity normal to inspection General Extremety ED: Negative for edema General Extremity: Negative for edema Neuro oriented x3, CN's II-XII intact bilaterally, no sensory deficits noted and gait normal Sensorium / Orientation: awake, alert, oriented to person, oriented to place and oriented to time Motor Exam: strength 5/5 throughout and strength abnormal Psych mental status grossly normal Skin no rashes or lesions noted and no wounds MDM MDM MDM Narrative Medical decision making narrative: Patient was given Dilaudid 1 mg IM as well as Norflex 60 mg IM. At this point there are no red flag symptoms of cauda equina. I will manage her pain in the emergency department and write her prescription for Flexeril and [place] for pain. She will be given referral to back specialist for follow-up. Patient advised to return if weakness the extremity, severe pain, change in bowel or bladder function, or condition should worsen anyway. Patient understands I cannot obtain an MRI this morning at 3 in the morning and I do not feel clinically she has a surgical emergency. Discharge Plan Triage Chief Complaint: Back ED Provider: Eric March Dx/Rx/DC Orders Clinical Impression: Back pain Instructions: ED Back Pain (Acute or Chronic), ED Sciatica Prescriptions: New cyclobenzaprine [cyclobenzaprine] 10 MG tablet 10 mg PO TID PRN (Reason: Muscle Spasm) Qty: 20 RF: 0 hydrocodone-acetaminophen [hydrocodone-acetaminophen] 1 TABLET tablet 1 tab PO Q4H PRN PRN (Reason: Pain) 3 Days Qty: 15 RF: 0 Primary Care Provider: [facility] Doctor,Out of Referrals: Norbert Dobbins, [STAFF PHYSICIAN] - 3-5 Days [facility] Doctor,Out of [Primary Care Provider] - 3-5 Days Disposition Disposition: Home, Self Care
[2021-12-08] MEDS: Orphenadrine 60 MG/2 ML Ampul IM (03:23)
[2021-12-08] MEDS: HYDROmorphone 1 MG/ML Syringe IM ×2 (03:25→04:13)
[2021-12-08 04:15] VITALS: BP 147/98; PULSE 90; RESP 15; O2SAT 93
== END 2021-12-08 04:21 | disposition home or self-care (01) ==
LOC: ED 03:38
PROVIDERS: Emergency Provider Emergency Medicine; Visit Provider Emergency Medicine
DX: M54.9 Dorsalgia, unspecified (principal); L40.9 Psoriasis, unspecified; G89.29 Other chronic pain
CPT/HCPCS: 96372; 99282

== ENCOUNTER 2025-03-25 04:20 | Emergency (ER) | payer BC, SELFPAY ==
[2025-03-25 04:22] VITALS: BP 121/68; PULSE 79; RESP 18; TEMP 37.6; O2SAT 99; BMI 34.2
--- OUTSIDE RECORDS SUMMARY | 2025-03-25 05:06 | XMS RPT_ITS | CCD ---
Author Organization [facility] Care Team Providers Care Senior Clerk Name Role Phone Yvette Mancera Unavailable [phone] Unavailable Unavailable Jeet Scott DO Primary Care Provider Fiordaliza, Dr. Yvette Milner Admitting Quang Mancera, Dr. Yvette Milner Primary Care Quang Mancera, Dr. Yvette Milner Attending Unava ilcarlos alberto Unavailable Unavailable Yvette Mancera DO Primary Care Provider Yvette Mancera DO Unavailable Nafisa Donato Unavailable Unavail able Fiordaliza, Dr. Yvette Milner Primary Care Dr. Star Castillo Attending Unavailable Moustapha, Dr. Graves Attending Unavailable Fiordaliza, Dr. Yvette Milner Primary Care Dr. Star Castillo Referring Unavailable Moustapha, Dr. Graves Admitting Unavailable Moustapha, Dr. Graves Attending Unavailable Fiordaliza, Dr. Yvette Milner Primary Care Dr. Star Castillo Attending Unavailable Fiordaliza, Dr. Yvette Milner Primary Care Dr. Star Castillo Attending Unavailable Fiordaliza, Dr. Yvette Milner Primary Care Dr. Star Castillo Attending Unavailable Fiordaliza, Dr. Yvette Milner Primary Care Dr. Star Castillo Attending Unavailable Fiordaliza, Dr. Yvette Milner Primary Care BIB Anderson MD Attending Unavailable MESKO, YVETTE Primary Care Unavailable BIB PADILLA MD Attending Unavailable MESKO, YVETTE Primary Care Unavailable MESKO, YVETTE Primary Care Unavailable BIB PADILLA MD Attending Unavailable Mesko DO, Yvette L Unavailable [phone] Care Physician, No Primary Referring Unava ilable Chuck Harrington Attending Unavailable Care Physician, No Primary Primary Care Unava ilable Jake Riggins Attending Unavailable Care Physician, No Primary Primary Care Unava ilable Care Physician, No Primary Referring Unava ilable Deidre Garcia RN Unavailable Unavailable GUILLERMO MAKI Referring Unavailable MESKO, YVETTE L Primary Care Unavailable GUILLERMO MAKI Attending Unavailable MESKO, YVETTE L Primary Care Unavailable LYNDA BOO Attending Unavailable MESKO, YVETTE L Primary Care Unavailable LYNDA BOO Referring Unavailable DUSTIN NUÑEZ Admitting Unavailable DUSTIN NUÑEZ Attending Unavailable MESKO, YVETTE L Primary Care Unavailable DSUTIN NUÑEZ Attending Unavailable MESKO, YVETTE L Primary Care Unavailable MESKO, YVETTE L Referring Unavailable MESKO, YVETTE L Primary Care Unavailable MESKO, YVETTE L Referring Unavailable MESKO, YVETTE L Primary Care Unavailable DUSTIN NUÑEZ Referring Unavailable MESKO, YVETTE L Primary Care Unavailable Mesko DO, Yvette L Primary Care Provider Mesko DO, Yvette L Unavailable [phone] MESKO, YVETTE L Primary Care Unavailable MESKO, YVETTE L Attending Unavailable MESKO, YVETTE L Primary Care Unavailable MESKO, YVETTE L Attending Unavailable MESKO, YVETTE L Primary Care Unavailable MESKO, YVETTE L Primary Care Unavailable MESKO, YVETTE L Attending Unavailable MESKO, YVETTE L Primary Care Unavailable MESKO, YVETTE L Primary Care Unavailable MESKO, YVETTE L Attending Unavailable MESKO, YVETTE L Primary Care Unavailable MESKO, YVETTE L Referring Unavailable MESKO, YVETTE L Primary Care Unavailable MESKO, YVETTE L Primary Care Unavailable DUSTIN NUÑEZ Referring Unavailable MESKO, YVETTE L Primary Care Unavailable KATHRIN MANSFIELD Attending Unavailable CRISTO ROBERT Referring Unavailable MESKO, YVETTE L Primary Care Unavailable Medications Current Medications Medication Drug Class(es) Dates Sig (Normalized) Sig (Original) acetaminophen 500 mg oral tablet (20 sources) Start: 08-09-2024 End: 08-19-2024 take 1 tablet by mouth every six hours in the evening for pain acetaminophen (Tylenol) 500 mg tablet Indications: Cervical radiculitis , Postoperative pain after spinal surgery Take 1 tablet (500 mg) by mouth every 6 hours if needed for mild pain (1 - 3) for up to 10 days. 40 tablet 08/09/2024 2:26 PM EST 08/09/2024 08/19/2024 Active Start: 02-20-2022 take 325-650 mg by m outh every four hours as needed acetaminophen (Tylenol) 325 mg tablet Take 1-2 tablets (325-650 mg) by mouth every 4 hours if needed. 0 02/20/2022 Active acetaminophen 325 mg / HYDROcodone bitartrate 5 mg oral tablet (1 source) Opioid Agonist Start: 12-08-2021 take 1 tablet by mouth every four hours as needed Hydrocodone-Acetaminophen Active 1 TABLET PO EVERY 4 HOURS NEEDED 15 3 December 08, 2021 3:15am albuterol 0.83 mg/ml inhalation solution (1 source) beta2-Adrenergic Agonist Start: 08-09-2024 2.5 mg, nebulization, Once as needed, wheezing, Starting on Fri08/09/24 at 1135, For 1 dose, Recovery (only) ALPRAZolam 0.5 mg oral tablet (13 sources) Benzodiazepine Start: 10-27-2024 take 1 tablet by mouth twice daily as needed for anxiety ALPRAZolam (Xanax) 0.5 mg tablet Indications: Acute stress reaction Take 1 tablet (0.5 mg) by mouth 2 times a day as needed for anxiety for up to 5 days. 10 tablet 10/27/2024 Active Start: 01-07-2023 End: 08-31-2024 take 1 tablet by mouth twice daily as needed for anxiety ALPRAZolam (Xanax) 0.5 mg tablet Indications: Acute stress reaction Take 1 tablet (0.5 mg) by mouth 2 times a day as needed for anxiety for up to 7 days. 14 tablet 05/07/2023 08/31/2024 Discontinued (Med List Cleanup) azithromycin 250 mg oral tablet (1 source) Macrolide Antimicrobial Start: 07-18-2023 End: 11-18-2023 azithromycin (Zithromax) 250 mg tablet take 2 tablets by mouth on day 1 then 1 tablet by mouth every day after 6 tablet 0 07/18/2023 11/18/2023 Discontinued (Med List Cleanup) baclofen 10 mg oral tablet (2 sources) gamma-Aminobutyric Acid-ergic Agonist Start: 05-14-2024 End: 06-21-2024 take 1 tablet by mouth three times daily baclofen (Lioresal) 10 mg tablet Indications: Muscle spasm Take 1 tablet (10 mg) by mouth 3 times a day for 3 days. 9 tablet 05/14/2024 06/21/2024 Discontinued (Med List Cleanup) augmented betamethasone 0.5 mg/ml topical cream (14 sources) Corticosteroid Start: 04-30-2024 betamethasone, augmented, (Diprolene AF) 0.05 % cream 04/30/2024 Active betamethasone di propionate (Diprosone) 0.05 % ointment Indications: skin inflammation Apply 1 Application topically once daily. Active calcium chloride 0.0014 meq/ml / potassium chloride 0.004 meq/ml / sodium chloride 0.103 meq/ml / sodium lactate 0.028 meq/ml injectable solution (1 source) Start: 08-09-2024 End: 08-10-2024 take 100 mL intravenously every hour 100 mL/hr, intravenous, Continuous, Starting on 08/09/24 at 1200, For 1 day, Recovery (only) cephalexin 250 mg oral capsule (1 source) Cephalosporin Antibacterial Start: 08-24-2024 End: 08-31-2024 take 1 capsule by mouth four times daily cephalexin (Keflex) 250 mg capsule Indications: post-operative wound drainage Take 1 capsule (250 mg) by mouth 4 times a day for 7 days. 28 capsule 08/24/2024 08/31/2024 Active clobetasol propionate 0.5 mg/ml topical cream (17 sources) Corticosteroid Start: 06-24-2023 clobetasol (Temovate) 0.05 % cream Indications: Rash Apply to affected areas twice daily when active as needed. Use less than 14 days per month. 30 g 1 06/24/2023 Active cyclobenzaprine hydrochloride 10 mg oral tablet (1 source) Muscle Relaxant Start: 12-08-2021 take 10 mg by mouth three times daily Cyclobenzaprine Active 10 MG PO THREE TIMES A DAY December 08, 2021 3:15am docusate sodium 100 mg oral capsule (1 source) Start: 08-09-2024 End: 08-19-2024 take 1 capsule by mouth twice daily in the evening docusate sodium (Colace) 100 mg capsule Indications: Constipation due to opioid therapy Take 1 capsule (100 mg) by mouth 2 times a day for 10 days. 20 capsule 08/09/2024 2:26 PM EST 08/09/2024 08/19/2024 Active 1 ml guselkumab 100 mg/ml auto-injector (2 sources) Interleukin-23 Antagonist Start: 02-24-2023 [id number] Medication guselkumab 100 mg/mL subcutaneous auto-injector Tremfya 100 mg/mL subcutaneous auto-injector 100 mg/mL 1 Pen Needle as directed as directed 02/24/2023 Active (Current) 1 ml hydrALAZINE hydrochloride 20 mg/ml injection (1 source) Arteriolar Vasodilator Start: 08-09-2024 5 mg, intravenous, Administer over 2 Minutes, Every 30 min PRN, systolic blood pressure greater than 180 mmHg and heart rate less than 60 BPM, Starting on Fri08/09/24 at 1135, For 2 doses, Recovery (only) 0.5 ml HYDROmorphone hydrochloride 1 mg/ml prefilled syringe (2 sources) Opioid Agonist Start: 08-09-2024 0.5 mg, intravenous, Every 5 min PRN, pain severe (7-10), first line, Starting on Fri08/09/24 at 1135, Recovery (only), Max total of 4 mg regardless of dose. Start: 08-09-2024 0.2 mg, intrav enous, Every 5 min PRN, pain moderate (4-6), first line, Starting on Fri08/09/24 at 1135, Recovery (only), Max total of 4 mg regardless of dose. ketorolac tromethamine 10 mg oral tablet (1 source) Nonsteroidal Anti-inflammatory Drug, Cyclooxygenase Inhibitor Start: 08-09-2024 End: 08-14-2024 take 1 tablet by mouth every six hours in the evening for pain ketorolac (Toradol) 10 mg tablet Indications: Cervical radiculitis , Postoperative pain after spinal surgery Take 1 tablet (10 mg) by mouth every 6 hours if needed for moderate pain (4 - 6) for up to 5 days. 15 tablet 08/09/2024 2:26 PM EST 08/09/2024 08/14/2024 Active labetalol hydrochloride 5 mg/ml injectable solution (1 source) beta-Adrenergic Miriam Start: 08-09-2024 5 mg, intravenous, Administer over 1 Minutes, Once as needed, systolic blood pressure greater than 180 mmHg, dystolic blood pressure greater than 100 mmHg and heart rate greater than 60 BPM, Starting on Fri08/09/24 at 1135, For 1 dose, Recovery (only) metFORMIN hydrochloride 500 mg oral tablet (2 sources) Biguanide Start: 12-30-2024 End: 06-28-2025 take 1 tablet by mouth twice daily metFORMIN (Glucophage) 500 mg tablet Indications: Prediabetes Take 1 tablet (500 mg) by mouth 2 times daily (morning and late afternoon). 180 tablet 1 12/30/2024 06/28/2025 Active Start: 11-11-2024 End: 12-30-2024 take 1 tablet by mouth once daily at breakfast metFORMIN (Glucophage) 500 mg tablet Indications: Prediabetes Take 1 tablet (500 mg) by mouth once daily with breakfast. 90 tablet 1 11/11/2024 12/30/2024 Discontinued (Reorder) methocarbamol 500 mg oral tablet (20 sources) Muscle Relaxant Start: 08-09-2024 End: 08-31-2024 take 1 tablet by mouth four times daily as needed for muscle spasms methocarbamol (Robaxin) 500 mg tablet Indications: muscle spasm Take 1 tablet (500 mg) by mouth 4 times a day as needed for muscle spasms for up to 10 days. 40 tablet 08/09/2024 2:26 PM EST 08/09/2024 08/31/2024 Discontinued (Med List Cleanup) Start: 07-26-2024 End: 08-09-2024 take 1 tablet by mouth twice daily as needed for muscle spasms methocarbamol (Robaxin) 500 mg tablet Indications: Muscle spasm of back TAKE ONE TABLET BY MOUTH TWICE A DAY NEEDED FOR MUSCLE SPASMS 60 tablet 07/26/2024 08/09/2024 Discontinued (Stop Taking at Discharge) Start: 06-21-2024 End: 07-21-2024 take 1 tablet by mouth twice daily as needed for muscle spasms methocarbamol (Robaxin) 500 mg tablet Indications: Muscle spasm of back Take 1 tablet (500 mg) by mouth 2 times a day as needed for muscle spasms. 60 tablet 06/21/2024 07/21/2024 Active Start: 03-23-2021 take 1 tablet by tg th once daily as needed Methocarbamol 500 MG Oral Tablet 1 TABLET ONCE DAILY NEEDED Quantity: 90 Refills: 1 Ordered: 19-Sep-2021 Yvette Mancera DO Start : 23-Mar-2021 Active naratriptan 2.5 mg oral tablet (20 sources) Serotonin-1b and Serotonin-1d Receptor Agonist Start: 11-11-2024 take 1 tablet by mouth every four hours for headache naratriptan (Amerge) 2.5 mg tablet Indications: Migraine with visual aura Take 1 tablet (2.5 mg) by mouth if needed for migraine. AT ONSET OF HEADACHE, MAY REPEAT ONCE IN 4 HOURS 9 tablet 3 11/11/2024 Active Start: 11-17-2020 take 1 tablet by tg th every four hours naratriptan (Amerge) 2.5 mg tablet Take 1 tablet (2.5 mg) by mouth if needed. AT ONSET OF HEADACHE, MAY REPEAT ONCE IN 4 HOURS 11/17/2020 Active Start: 11-17-2020 Naratriptan HC l - 2.5 MG Oral Tablet Quantity: 9 Refills: 0 Ordered: 17-Nov-2020 DO Start : 17-Nov-2020 Active Comment on above: Take 1 tablet by tg th as directed. As needed for severe headaches. May repeat another dose in 4 hrs. No more than 2 tabs in 24 hrs. NON FORMULARY (12 sources) End: 06-21-2024 NON FORMULARY Vitamin D TABS 06/21/2024 Discontinued (Med List Cleanup) NON FORMULARY Vi tamin D TABS Active NON FORMULARY Vi tamin D TABS 0 Active ondansetron 4 mg oral tablet (3 sources) Serotonin-3 Receptor Antagonist Start: 08-09-2024 End: 08-14-2024 take 1 tablet by mouth every eight hours in the evening for nausea ondansetron (Zofran) 4 mg tablet Indications: Postoperative nausea Take 1 tablet (4 mg) by mouth every 8 hours if needed for nausea or vomiting for up to 5 days. 15 tablet 08/09/2024 2:26 PM EST 08/09/2024 08/14/2024 Active Start: 08-09-2024 End: 08-09-2024 4 mg, intravenous, Once as n eeded, nausea/vomiting, first line, Starting on Fri08/09/24 at 1135, For 1 dose, Recovery (only), When administering via IV Push, administer over 3-5 minutes. Start: 10-19-2018 End: 05-31-2021 take 4 mg by mouth every eight hours as needed Ondansetron Discontinued 4 MG PO EVERY 8 HOURS NEEDED October 19, 2018 1:49pm May 31, 2021 7:34am oxyCODONE hydrochloride 5 mg oral tablet (2 sources) Opioid Agonist Start: 08-09-2024 End: 08-16-2024 take 1 tablet by mouth every six hours in the evening for pain oxyCODONE (Roxicodone) 5 mg immediate release tablet Indications: Postoperative pain after spinal surgery Take 1 tablet (5 mg) by mouth every 6 hours if needed for severe pain (7 - 10) for up to 7 days. 28 tablet 08/09/2024 2:26 PM EST 08/09/2024 08/16/2024 Active Start: 08-09-2024 take 1 tablet by tg th every four hours as needed 5 mg, oral, Every 4 hours PRN, pain mild (1-3), first line, Starting on Fri08/09/24 at 1135, Recovery (only), When able to take oral medications., If ordered PRN for pain, nurse is permitted to administer this medication for higher pain scores based on patient preference? Yes oxygen (O2) therapy (1 source) Start: 08-09-2024 inhalation, Co ntinuous PRN - O2/gases, other, Starting on Fri08/09/24 at 1135, Recovery (only), Device: Nasal Cannula, Rate in liters per minute: Other, Custom Value: 1-6 LPM, Keep O2 Sat Above: 92% predniSONE 20 mg oral tablet (20 sources) Start: 06-21-2024 End: 06-28-2024 take 2 tablets by mouth once daily predniSONE (Deltasone) 20 mg tablet Indications: Chronic neck pain Take 2 tablets (40 mg) by mouth once daily for 7 days. 14 tablet 06/21/2024 06/28/2024 Active Start: 05-07-2023 End: 05-12-2023 take 2 tablets by mouth once daily predniSONE (Deltasone) 20 mg tablet Indications: Olfactory hallucination , Migraine with visual aura Take 2 tablets (40 mg) by mouth once daily for 5 days. 10 tablet 0 05/07/2023 05/12/2023 Active Start: 01-24-2022 take 1 tablet by tg once daily predniSONE 20 MG Oral Tablet TAKE 1 TABLET DAILY DIRECTED. Quantity: 7 Refills: 0 Ordered: 24-Jan-2022 Mari Saavedra PA-C Start : 24-Jan-2022 Active Start: 11-28-2021 predniSONE 20 MG Oral Tablet TAKE 2 TABLET Daily for 7 days then take 1 tablet daily for 7 days and 1/2 tablet for 6 days Quantity: 24 Refills: 0 Ordered: 28-Nov-2021 Zaria Correa MD Start : 28-Nov-2021 Active Start: 11-28-2021 take 1-2 tablets by mouth once daily as needed predniSONE 5 MG Oral Tablet take 1-2 tablets daily as needed Quantity: 60 Refills: 1 Ordered: 28-Nov-2021 Zaria Correa MD Start : 28-Nov-2021 Active Start: 08-06-2021 predniSONE 10 MG Oral Tablet 4 tabs po x 3 days then 3 tabs po x 3 days then 2 tabs po x 3 days then 1 tab po x 3 days Quantity: 30 Refills: 0 Ordered: 22-Oct-2021 Yvette Mancera DO Start : 06-Aug-2021 Active pregabalin 200 mg oral capsule (20 sources) Start: 12-05-2024 take 1 capsule by mouth three times daily pregabalin (Lyrica) 200 mg capsule Indications: Lumbar radiculopathy , Lumbar post-laminectomy syndrome Take 1 capsule (200 mg) by mouth 3 times a day. 90 capsule 12/05/2024 Active Start: 07-02-2024 take 1 capsule by mo [facility] three times daily pregabalin (Lyrica) 200 mg capsule Indications: Lumbar radiculopathy , Lumbar post-laminectomy syndrome Take 1 capsule (200 mg) by mouth 3 times a day. 90 capsule 3 07/02/2024 Active Start: 03-02-2024 take 1 capsule by mo [facility] three times daily pregabalin (Lyrica) 200 mg capsule Indications: Lumbar radiculopathy , Lumbar post-laminectomy syndrome Take 1 capsule (200 mg) by mouth 3 times a day. 90 capsule 3 03/02/2024 Active Start: 11-03-2023 take 1 capsule by mo ut three times daily pregabalin (Lyrica) 200 mg capsule Indications: Lumbar radiculopathy , Lumbar post-laminectomy syndrome Take 1 capsule (200 mg) by mouth 3 times a day. 90 capsule 3 11/03/2023 Active Start: 05-20-2023 pregabalin (Ly paloma) 200 mg capsule 1 capsule (200 mg) 3 times a day. 0 05/20/2023 Active Start: 05-20-2023 take 1 capsule by mo ut every eight hours Pregabalin 200 MG Oral Capsule TAKE 1 CAPSULE Every 8 hours Quantity: 90 Refills: 4 Ordered: 20-May-2023 Star Gerard MD Start : 20-May-2023 Active Start: 05-07-2022 End: 06-19-2023 take 1 capsule by mouth three times daily pregabalin (Lyrica) 150 mg capsule Take 1 capsule (150 mg) by mouth 3 times a day. 0 05/07/2022 06/19/2023 Discontinued (Med List Cleanup) promethazine (Phenergan) 6.25 mg in sodium chloride 0.9% 50 mL IV (1 source) Start: 08-09-2024 6.25 mg, intravenous, Administer over 15 Minutes, Once as needed, Nausea/vomiting, second line, Starting on 08/09/24 at 1135, For 1 dose, Recovery (only) spironolactone 25 mg oral tablet (1 source) Aldosterone Antagonist Start: 11-11-2024 End: 05-10-2025 take 1 tablet by mouth once daily spironolactone (Aldactone) 25 mg tablet Indications: Acne vulgaris Take 1 tablet (25 mg) by mouth once daily. 90 tablet 1 11/11/2024 05/10/2025 Active tacrolimus 0.001 mg/mg topical ointment (1 source) Calcineurin Inhibitor Immunosuppressant Start: 04-30-2024 tacrolimus (Protopic) 0.1 % ointment 04/30/2024 Active thioctic acid 600 mg oral capsule (20 sources) Start: 03-14-2022 End: 06-21-2024 take 1 capsule by mouth in the morning alpha lipoic acid 600 mg capsule Take 1 capsule by mouth in the morning and 1 capsule before bedtime. 03/14/2022 06/21/2024 Discontinued (Med List Cleanup) topiramate 50 mg oral tablet (20 sources) Start: 05-31-2024 take 3 tablets by mouth once daily topiramate (Topamax) 50 mg tablet Indications: Migraine with visual aura TAKE THREE TABLETS BY MOUTH EVERY DAY 270 tablet 3 05/31/2024 Active Start: 02-23-2024 take 3 tablets by mo uth once daily topiramate (Topamax) 50 mg tablet Indications: Migraine with visual aura TAKE THREE TABLETS BY MOUTH EVERY DAY 270 tablet 02/23/2024 Active Start: 05-27-2023 End: 11-22-2023 take 3 tablets by mouth once daily topiramate (Topamax) 50 mg tablet Indications: Migraine with visual aura TAKE THREE TABLETS BY MOUTH EVERY DAY 270 tablet 0 11/22/2023 Active Start: 11-17-2020 End: 11-19-2021 topiramate (TOPAMAX) 50 mg t ablet Indications: Migraine with aura and without status migrainosus, not intractable 1 tab in AM and 2 tabs in PM. 270 tablet 3 11/20/2021 Active Start: 10-13-2020 take 3 tablets by mo uth once daily Topiramate 50 MG Oral Tablet TAKE THREE TABLETS BY MOUTH EVERY DAY Quantity: 270 Refills: 1 Ordered: 23-May-2022 Yvette Mancera DO Start : 13-Oct-2020 Active Start: 10-13-2020 Topiramate 50 MG Oral Tablet Quantity: 90 Refills: 0 Ordered: 13-Oct-2020 DO Start : 13-Oct-2020 Active Comment on above: 1 tab in AM and 2 ta bs in PM. Completed/Discontinued Medications Medication Drug Class(es) Dates Sig (Normalized) Sig (Original) 0.4 ml adalimumab 100 mg/ml auto-injector (20 sources) Tumor Necrosis Factor Miriam Start: 09-13-2021 Humira Pen 40 MG/0.4ML Subcutaneous Pen-injector Kit inject 40mg sc every 2 weeks Quantity: 1 Refills: 5 Ordered: 13-Sep-2021 Zaria Correa MD Start : 13-Sep-2021 Active benzonatate 200 mg oral capsule (7 sources) Non-narcotic Antitussive Start: 06-04-2021 take 1 capsule by mouth three times daily as needed Benzonatate 200 MG Oral Capsule TAKE 1 CAPSULE 3 TIMES DAILY NEEDED. Quantity: 15 Refills: 0 Ordered: 04-Jun-2021 Yvette Mancera DO Start : 04-Jun-2021 Active brompheniramine maleate 0.4 mg/ml / dextromethorphan hydrobromide 2 mg/ml / pseudoephedrine hydrochloride 6 mg/ml oral solution (1 source) alpha-Adrenergic Agonist, Uncompetitive F-hghdxh-T-aspartat e Receptor Antagonist, Sigma-1 Agonist Start: 10-04-2018 take 5-10 mL by mouth every six hours as needed Brompheniramine-P seudoeph-DM (BROMFED DM) 2-30-10 mg/5 mL syrup Indications: URI with cough and congestion Take 5-10 ml po q6h prn 150 mL 0 10/04/2018 Active Comment on above: Take 5-10 ml po q6h prn busPIRone hydrochloride 5 mg oral tablet (2 sources) Start: 04-26-2021 take 1 tablet by mouth once daily as needed for anxiety busPIRone HCl - 5 MG Oral Tablet 1 tablet daily as needed for anxiety Quantity: 30 Refills: 0 Ordered: 26-Apr-2021 Yvette Mancera DO Start : 26-Apr-2021 Active Start: 05-21-2017 take 1 tablet by tg three times daily busPIRone (BUSPAR) 5 mg tablet Indications: Mood swings , Anxiety disorder, unspecified type Take 1 tablet by mouth three times daily. 30 tablet 0 05/21/2017 Active Comment on above: Take 1 tablet by tg th three times daily. calcipotriene 0.05 mg/ml topical cream (1 source) Vitamin D Analog Start: 02-04-20 calcipotriene (DOVONEX) 0.005 % cream Indications: Psoriasis Apply 1 application to affected area twice daily as needed. 60 g 3 02/03/2017 Active Comment on above: Apply 1 application to affected area twice daily as needed. celecoxib 200 mg oral capsule (20 sources) Nonsteroidal Anti-inflammatory Drug Start: 03-14-20 End: 08-09-20 take 1 capsule by mouth once daily at mealtime celecoxib (CeleBREX) 200 mg capsule Take 1 capsule (200 mg) by mouth once daily. With a meal 03/14/2022 08/09/2024 Discontinued (Stop Taking at Discharge) chlorhexidine gluconate 1.2 mg/ml mouthwash (1 source) Start: 08-03-20 End: 08-09-20 chlorhexidine (Peridex) 0.12 % solution Indications: Preop testing Swish for 30 seconds and spit 15mL of solution the night before and morning of surgery 475 mL 08/03/2024 08/09/2024 Discontinued (Stop Taking at Discharge) diclofenac sodium 75 mg delayed release oral tablet (9 sources) Nonsteroidal Anti-inflammatory Drug Start: 09-27-19 take 1 tablet by mouth twice daily Diclofenac Sodium 75 MG Oral Tablet Delayed Release Take one tablet by mouth twice a day Quantity: 60 Refills: 0 Ordered: 29-Oct-2021 Zaria Correa MD Start : 27-Sep-2021 Active doxycycline hyclate 100 mg oral capsule (2 sources) Tetracycline-class Drug Start: 06-11-20 End: 06-19-20 doxycycline (Vibramycin) 100 mg capsule Indications: Acute cough Take 1 capsule (100 mg) by mouth 2 times a day for 10 days. Take with at least 8 ounces (large glass) of water, do not lie down for 30 minutes after 20 capsule 0 06/11/2023 06/19/2023 Discontinued (Med List Cleanup) FA/MV,CA,IRON,MIN/LYC OPENE/LUT (MULTIVITAL ORAL) (1 source) FA/MV,CA,IRON,AZ N/LY COPENE/LUT (MULTIVITAL ORAL) Take by mouth. 0 Active Comment on above: Take by mouth. FLUoxetine 20 mg oral tablet (20 sources) Serotonin Reuptake Inhibitor Start: 06-21-20 End: 05-07-20 take 1 tablet by mouth once daily FLUoxetine HCl - 20 MG Oral Tablet TAKE 1 TABLET DAILY. Quantity: 90 Refills: 1 Ordered: 21-Jun-2022 Yvette Mancera DO Start : 21-Jun-2022 Active Start: 05-22-2022 take 1 tablet by tg once daily FLUoxetine HCl - 10 MG Oral Tablet TAKE 1 TABLET DAILY DIRECTED. Quantity: 30 Refills: 1 Ordered: 22-May-2022 Yvette Mancera DO Start : 22-May-2022 Active gabapentin 300 mg oral capsule (20 sources) Anti-epileptic Agent Start: 12-12-2021 take 2 capsules by mouth three times daily Gabapentin 300 MG Oral Capsule TAKE 2 CAPSULES 3 TIMES DAILY. Quantity: 180 Refills: 0 Ordered: 19-Apr-2022 Dia Borden MD Start : 12-Dec-2021 Active Start: 12-12-2021 take 1 capsule by mo [facility] three times daily Gabapentin 300 MG Oral Capsule TAKE 1 CAPSULE 3 TIMES DAILY. Quantity: 90 Refills: 1 Ordered: 12-Dec-2021 Guillaume Andrade PA-C Start : 12-Dec-2021 Active gadoterate meglumine (Dotarem) 0.5 mmol/mL contrast injection 27 mL (1 source) Start: 06-17-2023 End: 06-17-2023 gadoterate meglumine (Dotarem) 0.5 mmol/mL contrast injection 27 mL ibuprofen 600 mg oral tablet (2 sources) Nonsteroidal Anti-inflammatory Drug Start: 10-31-2016 take 1 tablet by mouth every six hours as needed ibuprofen (MOTRIN) 600 mg tablet Take 1 tablet by mouth every 6 hours as needed for Pain. 60 tablet 1 10/31/2016 Active IBUPROFEN ORAL T esperanza by mouth. 0 Active Comment on above: Take 1 tablet by tg th every 6 hours as needed for Pain. Take by mouth. 10 ml lidocaine hydrochloride 10 mg/ml injection (1 source) Antiarrhythmic, Amide Local Anesthetic Start: 06-13-20 End: 06-13-20 lidocaine PF (Xylocaine) 10 mg/mL (1 %) injection - [employer] Pull LORazepam 0.5 mg oral tablet (8 sources) Benzodiazepine Start: 05-09-20 take 1 tablet by mouth once daily as needed LORazepam 0.5 MG Oral Tablet TAKE 1 TABLET DAILY NEEDED. Quantity: 7 Refills: 0 Ordered: 09-May-2021 Yvette Mancera DO Start : 09-May-2021 Active meloxicam 15 mg oral tablet (3 sources) Nonsteroidal Anti-inflammatory Drug Start: 09-13-19 22 take 1 tablet by mouth once daily at mealtime Meloxicam 15 MG Oral Tablet TAKE 1 TABLET DAILY WITH FOOD. Quantity: 1 Refills: 1 Ordered: 13-Sep-2021 Zaria Correa MD Start : 13-Sep-2021 Active oseltamivir 75 mg oral capsule (1 source) Neuraminidase Inhibitor Start: 10-19-19 End: 05-31-20 21 take 75 mg by mouth twice daily Oseltamivir Discontinued 75 MG PO TWICE A DAY October 19, 2018 1:49pm May 31, 2021 7:33am 20 ml ropivacaine hydrochloride 5 mg/ml injection (1 source) Amide Local Anesthetic Start: 06-13-20 End: 06-13-20 ropivacaine (Naropin) injection - [employer] sennosides, residential 8.6 mg oral tablet (11 sources) Start: 12-20-19 take 1 tablet by mouth twice daily Senna 8.6 MG Oral Tablet Take 1 tablet twice a day Quantity: 60 Refills: 0 Ordered: 19-Dec-2021 Yvette Mancera DO Start : 19-Dec-2021 Active sertraline 50 mg oral tablet (20 sources) Serotonin Reuptake Inhibitor Start: 06-20-20 21 take 1 tablet by mouth once daily Sertraline HCl - 50 MG Oral Tablet TAKE 1 TABLET DAILY. Quantity: 1 Refills: 1 Ordered: 20-Jun-2021 Yvette Mancera DO Start : 20-Jun-2021 Active Start: 05-09-2021 take 1 tablet by tg th once daily Sertraline HCl - 25 MG Oral Tablet TAKE 1 TABLET DAILY DIRECTED. Quantity: 30 Refills: 1 Ordered: 09-May-2021 Yvette Mancera DO Start : 09-May-2021 Active traMADol hydrochloride 50 mg oral tablet (5 sources) Opioid Agonist Start: 12-03-2021 take 1 tablet by mouth every eight hours as needed for pain traMADol HCl - 50 MG Oral Tablet TAKE 1 TABLET BY MOUTH EVERY 8 HOURS NEEDED FOR PAIN Quantity: 21 Refills: 0 Ordered: 03-Dec-2021 Yvette Mancera DO Start : 03-Dec-2021 Active 1 ml triamcinolone acetonide 40 mg/ml injection (3 sources) Corticosteroid Start: 06-13-2023 End: 06-13-2023 triamcinolone acetonide (Kenalog-40) 40 mg/mL injection - [employer] Start: 08-06-2021 Triamcinolone Acetonide 40 MG/ML Injection Suspension INJECT 1.5 ML Intramuscular Quantity: 0 Refills: 0 Ordered: 06-Aug-2021 Yvette Mancera DO Start : 06-Aug-2021 Complete Start: 02-03-2017 triamcinolone acetonide (KENALOG) 0.1 % cream Indications: Psoriasis Apply 1 application to affected area twice daily as needed. Apply sparingly to area for rash/itching. 1 lb 3 02/03/2017 Active Comment on above: Apply 1 application to affected area twice daily as needed. Apply sparingly to area for rash/itching. Vitamin D TABS (20 sources) Vitamin D TABS Q uantity: 0 Refills: 0 Ordered: 27-Oct-2020 DO Active Problems Active Problems Problem Classification Problem Date Documented Da te Episodic/Chronic Allergic reactions (4 sources) Urticaria; Translations: [Urticaria, unspecified] Episodic Anxiety disorders (20 sources) Acute stress disorder; Translations: [Unspecified acute reaction to stress] Onset: 10-24-2022 12-10-2022 Chronic Diabetes mellitus without complication (20 sources) Hyperglycemia; Translations: [Impaired fasting glucose] Onset: 10-24-2022 Resolved: 06-19-2023 12-10-2022 Episodic Comment on above: A1c 5.5% in 2018; Disorders of lipid metabolism (1 source) Hypertriglyceridemia ; Translations: [Pure hyperglyceridemia] Onset: 12-14-2013 12-14-2013 Chronic E Codes: Adverse effects of medical drugs (2 sources) Adverse effect of other opioids, initial encounter; Translations: [Adverse effect of other opioids, initial encounter] Onset: 08-09-2024 Episodic Headache; including migraine (20 sources) Migraine with aura; Translations: [Migraine with aura, without mention of intractable migraine without mention of status migrainosus] Onset: 01-06-2013 Chronic Comment on above: Neurology: Dr.Pedro Carlisle; Hemorrhoids (1 source) Bleeding external hemorrhoids; Translations: [Residual hemorrhoidal skin tags] 11-21-2023 Episodic Malaise and fatigue (2 sources) Chronic fatigue, unspecified; Translations: [Chronic fatigue, unspecified] Onset: 01-06-2024 Chronic Nausea and vomiting (20 sources) Nausea; Translations: [Nausea alone] Onset: 08-09-2024 Resolved: 01-18-2021 08-09-2024 Episodic Nutritional deficiencies (20 sources) Vitamin D deficiency; Translations: [Unspecified vitamin D deficiency] Onset: 10-24-2022 12-10-2022 Chronic Other aftercare (3 sources) Drug therapy finding; Translations: [Long-term (current) use of other medications] Episodic Other aftercare (2 sources) 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; Translations: [Other retirement (current) drug therapy] Onset: 11-02-2024 Episodic Other connective tissue disease (2 sources) History of cervical spine fusion; Translations: [Arthrodesis status] 08-31-2024 Episodic Other connective tissue disease (2 sources) Arthrodesis status; Translations: [Arthrodesis status] Onset: 08-31-2024 Episodic Other endocrine disorders (20 sources) Polycystic ovary syndrome; Translations: [Polycystic ovaries] Onset: 10-24-2022 10-24-2022 Chronic Other gastrointestinal disorders (3 sources) Constipation; Translations: [Constipation, unspecified] 11-21-2023 Episodic Other gastrointestinal disorders (2 sources) Therapeutic opioid induced constipation; Translations: [Drug induced constipation] 08-09-2024 Episodic Other gastrointestinal disorders (2 sources) Drug induced constipation; Translations: [Drug induced constipation] Onset: 08-09-2024 Episodic Other inflammatory condition of skin (20 sources) Psoriasis; Translations: [Other psoriasis] Onset: 10-24-2022 10-24-2022 Chronic Other inflammatory condition of skin (20 sources) Psoriatic arthritis; Translations: [Psoriatic arthropathy] Onset: 10-24-2022 10-24-2022 Chronic Other inflammatory condition of skin (4 sources) Psoriasis vulgaris Onset: 01-15-2023 Chronic Other nervous system disorders (5 sources) Other chronic pain; Translations: [Other chronic pain] Onset: 10-24-2022 Chronic Other nervous system disorders (3 sources) Unspecified cord compression; Translations: [Unspecified disease of spinal cord] Onset: 07-21-2024 07-20-2024 Chronic Other nervous system disorders (9 sources) Spinal cord compression; Translations: [Unspecified cord compression] Onset: 07-21-2024 07-21-2024 Chronic Other nervous system disorders (16 sources) Paresthesia of hand ; Translations: [Anesthesia of skin] 06-21-2024 Episodic Other nervous system disorders (3 sources) Postoperative pain ; Translations: [Other acute postprocedural pain] 08-09-2024 Episodic Other nervous system disorders (2 sources) Other acute postprocedural pain; Translations: [Other acute postprocedural pain] Onset: 08-09-2024 Episodic Other nutritional; endocrine; and metabolic disorders (20 sources) Body mass index 30+ - obesity; Translations: [Body Mass Index 36.0-36.9, adult] Onset: 12-14-2013 12-14-2013 Chronic Other nutritional; endocrine; and metabolic disorders (1 source) Cholesterol level - finding; Translations: [Lipoprotein deficiency] Onset: 12-14-2013 12-14-2013 Chronic Other nutritional; endocrine; and metabolic disorders (20 sources) Obesity; Translations: [Obesity, unspecified] Onset: 10-24-2022 12-10-2022 Chronic Other skin disorders (20 sources) Loss of hair; Translations: [Alopecia, unspecified] Resolved: 05-22-2022 12-30-2024 Episodic Other skin disorders (2 sources) Nonscarring hair loss, unspecified; Translations: [Nonscarring hair loss, unspecified] Onset: 12-30-2024 Episodic Other upper respiratory disease (8 sources) Congestion of nasal sinus; Translations: [Other disease of nasal cavity and sinuses] Episodic Other upper respiratory disease (1 source) Respiratory tract congestion; Translations: [Nasal congestion] Episodic Residual codes; unclassified (1 source) Family history of malignant neoplasm of breast; Translations: [Family history of malignant neoplasm of breast] Onset: 07-11-2022 Episodic Residual codes; unclassified (2 sources) Olfactory hallucinations; Translations: [Other hallucinations] 05-07-2023 Episodic Residual codes; unclassified (2 sources) Other specified postprocedural states; Translations: [Other specified postprocedural states] Onset: 08-09-2024 Episodic Spondylosis; intervertebral disc disorders; other back problems (20 sources) Degeneration of lumbar intervertebral disc; Translations: [Other intervertebral disc degeneration, lumbar region] Onset: 02-05-2017 02-05-2017 Chronic Unclassified (1 source) Cough, unspecified; Translations: [Cough, unspecified] Onset: 02-10-2024 Unclassified (6 sources) Patient has spine surgery Onset: 07-21-2024 07-21-2024 Unclassified (1 source) History of cervical spine fusion 08-31-2024 Unclassified (1 source) Low back pain, unspecified; Translations: [Low back pain, unspecified] Onset: 10-24-2022 Past or Other Problems Problem Classification Problem Date Documented Da te Episodic/Chronic Disorders of teeth and jaw (3 sources) Jaw pain; Translations: [Jaw pain] Onset: 05-14-2024 05-14-2024 Episodic Headache; including migraine (20 sources) Acute headache; Translations: [Headache] Resolved: 01-18-2021 Episodic Immunizations and screening for infectious disease (20 sources) Patient encounter status; Translations: [Screening examination for venereal disease] Onset: 10-24-2022 Resolved: 11-19-2021 12-10-2022 Episodic Mood disorders (20 sources) Mood disorders Onset: 12-10-2022 Resolved: 05-07-2023 12-10-2022 Nonmalignant breast conditions (20 sources) Pain of breast; Translations: [Mastodynia] Onset: 07-11-2022 Resolved: 06-19-2023 Episodic Nutritional deficiencies (20 sources) Cobalamin deficiency; Translations: [Other B-complex deficiencies] Onset: 10-24-2022 12-10-2022 Episodic Other aftercare (20 sources) Follow-up orthopedic assessment; Translations: [Other orthopedic aftercare] Resolved: 05-22-2022 Episodic Other bone disease and musculoskeletal deformities (20 sources) Segmental and somatic dysfunction; Translations: [Nonallopathic lesions, sacral region] Onset: 10-24-2022 10-24-2022 Episodic Other bone disease and musculoskeletal deformities (1 source) Somatic dysfunction of head region; Translations: [Segmental and somatic dysfunction of head region] 05-14-2024 Episodic Other bone disease and musculoskeletal deformities (2 sources) Segmental and somatic dysfunction of head region; Translations: [Segmental and somatic dysfunction of head region] Onset: 05-14-2024 Episodic Other connective tissue disease (20 sources) Muscle spasm of cervical muscle of neck; Translations: [Spasm of muscle] Resolved: 11-19-2021 Episodic Other connective tissue disease (1 source) Spasm; Translations: [Other muscle spasm] 05-14-2024 Episodic Other connective tissue disease (2 sources) Other muscle spasm; Translations: [Other muscle spasm] Onset: 05-14-2024 Episodic Other female genital disorders (20 sources) History of gynecological disorder; Translations: [Personal history of other genital system and obstetric disorders] Resolved: 11-19-2021 Episodic Other female genital disorders (20 sources) Vaginal odor; Translations: [Other specified symptoms associated with female genital organs] Resolved: 08-06-2021 Episodic Other female genital disorders (1 source) Cervical intraepithelial neoplasia grade 2; Translations: [Moderate cervical dysplasia] Onset: 01-05-2013 01-05-2013 Episodic Other gastrointestinal disorders (20 sources) Acute constipation; Translations: [Constipation, unspecified] Onset: 10-24-2022 Resolved: 05-07-2023 10-24-2022 Episodic Other gastrointestinal disorders (20 sources) Diarrhea; Translations: [Diarrhea] Onset: 10-24-2022 Resolved: 05-07-2023 10-24-2022 Episodic Other gastrointestinal disorders (2 sources) Constipation, unspecified; Translations: [Constipation, unspecified] Onset: 09-17-2024 Episodic Other gastrointestinal disorders (2 sources) Diarrhea, unspecified; Translations: [Diarrhea, unspecified] Onset: 09-17-2024 Episodic Other lower respiratory disease (20 sources) H/O: respiratory disease; Translations: [Personal history of other diseases of respiratory system] Resolved: 11-19-2021 Episodic Other nervous system disorders (4 sources) Anesthesia of skin; Translations: [Anesthesia of skin] Onset: 06-21-2024 Episodic Other nervous system disorders (4 sources) Paresthesia of skin; Translations: [Paresthesia of skin] Onset: 06-21-2024 Episodic Other non-traumatic joint disorders (20 sources) Joint pain; Translations: [Pain in joint, site unspecified] Onset: 10-24-2022 10-24-2022 Episodic Other non-traumatic joint disorders (20 sources) Hip pain; Translations: [Pain in joint, pelvic region and thigh] Onset: 10-24-2022 10-24-2022 Episodic Other non-traumatic joint disorders (11 sources) Pain in right hip joint; Translations: [Pain in right hip] Onset: 10-24-2022 10-24-2022 Episodic Other screening for suspected conditions (not mental disorders or infectious disease) (2 sources) Encounter for screening mammogram for malignant neoplasm of breast; Translations: [Encounter for screening mammogram for malignant neoplasm of breast] Onset: 12-02-2023 Episodic Other skin disorders (20 sources) H/O: psoriasis; Translations: [Personal history of diseases of skin and subcutaneous tissue] Resolved: 08-06-2021 Episodic Other skin disorders (20 sources) History of urticaria; Translations: [Personal history of diseases of skin and subcutaneous tissue] Resolved: 05-22-2022 Episodic Other skin disorders (5 sources) Localized swelling, mass and lump, left upper limb; Translations: [Localized superficial swelling, mass, or lump] Onset: 12-03-2023 11-18-2023 Episodic Other upper respiratory infections (20 sources) Viral upper respiratory tract infection; Translations: [Acute upper respiratory infections of unspecified site] Resolved: 11-19-2021 Episodic Residual codes; unclassified (20 sources) Generalized aches and pains; Translations: [Generalized pain] Resolved: 11-19-2021 Episodic Residual codes; unclassified (20 sources) H/O: breast problem; Translations: [Personal history of other specified diseases] Resolved: 11-19-2021 Episodic Residual codes; unclassified (1 source) History of hysterectomy for benign disease; Translations: [Acquired absence of both cervix and uterus] Onset: 10-31-2016 10-31-2016 Episodic Spondylosis; intervertebral disc disorders; other back problems (20 sources) Chronic neck pain; Translations: [Cervicalgia] Onset: 02-05-2017 02-05-2017 Episodic Unclassified (20 sources) Normal cytology findings; Translations: [Normal Pap smear] Comment on above: 05/08/2017 (pap of vag inal cuff); Unclassified (19 sources) Onset: 06-13-2023 06-13-2023 Unclassified (1 source) Low back pain, unspecified; Translations: [Low back pain, unspecified] Onset: 08-31-2024 Viral infection (16 sources) Anal warts; Translations: [Anogenital (venereal) warts] Onset: 12-01-2023 11-26-2023 Episodic Results Test Name Value Interpretation Reference Range Facility CBC (H/H, RBC, INDICES, WBC, PLT)on 01-04-2025 Erythrocyte distribution width (RBC) [Ratio] 12.4 % Normal 11.0-15.0 [facility] Comment on above: Performed By: #### 5 081, 01898, 457, 1759, 7600, 47641 #### [facility] [place] [address] [employer] Operator: Jatin Matamoros MD Hematocrit (Bld) [Volume fraction] 38.8 % Normal 35.0-45.0 [facility] Comment on above: Performed By: #### 5 081, 10591, 457, 1759, 7600, 91107 #### [facility] [place] [address] [employer] Operator: Jatin Matamoros MD Hemoglobin (Bld) [Mass/Vol] 13.1 g/dL Normal 11.7-15.5 [facility] Comment on above: Performed By: #### 5 081, 51208, 457, 1759, 7600, 44049 #### [facility] [place] [address] [employer] Operator: Jatin Matamoros MD MCH (RBC) [Entitic mass] 29.8 pg Normal 27.0-33.0 [facility] Comment on above: Performed By: #### 5 081, 06726, 457, 1759, 7600, 93421 #### [facility] [place] [address] [employer] Operator: Jatin Matamoros MD MCHC (RBC) [Mass/Vol] 33.8 g/dL Normal 32.0-36.0 [facility] Comment on above: Result Comment: For adults, a slight decrease in the calculated MCHC value (in the range of 30 to 32 g/dL) is most likely not clinically significant; however, it should be interpreted with caution in correlation with other red cell parameters and the patient's clinical condition. Performed By: #### 5 081, 64598, 457, 1759, 7600, 71556 #### [facility] [place] [address] [employer] Operator: Jatin Matamoros MD MCV (RBC) [Entitic vol] 88.4 fL Normal 80.0-100.0 [facility] Comment on above: Performed By: #### 5 081, , 457, 175, 7600, 63443 #### [facility] [place] [address] [employer] Operator: Jatin Matamoros MD Platelet mean volume (Bld) [Entitic vol] 10.4 fL Normal 7.5-12.5 [facility] Comment on above: Performed By: #### 5 081, , 457, 1759, 7600, 41891 #### [facility] [place] [address] [employer] Operator: Jatin Matamoros MD Platelets (Bld) [#/Vol] 295 10*3/uL Normal 140-400 [facility] Comment on above: Performed By: #### 5 081, , 457, 175, 7600, 55352 #### [facility] [place] [address] [employer] Operator: Jatin Matamoros MD RBC (Bld) [#/Vol] 4.39 10*6/uL Normal 3.80-5.10 [facility] Comment on above: Performed By: #### 5 081, 59881, 457, 1759, 7600, 68182 #### [facility] [place] [address] [employer] Operator: Jatin Matamoros MD WBC (Bld) [#/Vol] 9.5 10*3/uL Normal 3.8-10.8 [facility] Comment on above: Performed By: #### 5 081, 76944, 457, 175, 7600, 86119 #### [facility] [place] [address] [employer] Operator: Jatin Matamoros MD COMPREHENSIVE METABOLIC PANE L W/ANION GAPon 01-04-2025 Albumin [Mass/Vol] 4.3 g/dL Normal 3.6-5.1 [facility] Comment on above: Performed By: #### 5 081, 73626, 457, 175, 7600, 76480 #### [facility] [place] [address] [employer] Operator: Jatin Matamoros MD ALP [Catalytic activity/Vol] 49 U/L Normal 31-125 [facility] Comment on above: Performed By: #### 5 081, 55404, 457, 175, 7600, 10229 #### [facility] [place] [address] [employer] Operator: Jatin Matamoros MD ALT [Catalytic activity/Vol] 11 U/L Normal 6-29 [facility] Comment on above: Performed By: #### 5 081, 18782, 457, 175, 7600, 32713 #### [facility] [place] [address] [employer] Operator: Jatin Matamoros MD AST [Catalytic activity/Vol] 12 U/L Normal 10-30 [facility] Comment on above: Performed By: #### 5 081, 39836, 457, 1759, 7600, 23486 #### [facility] [place] [address] [employer] Operator: Jatin Matamoros MD Bilirubin [Mass/Vol] 0.4 mg/dL Normal 0.2-1.2 [facility] Comment on above: Performed By: #### 5 081, 35333, 457, 1759, 7600, 09921 #### [facility] [place] [address] [employer] Operator: Jatin Matamoros MD Calcium [Mass/Vol] 8.7 mg/dL Normal 8.6-10.2 [facility] Comment on above: Performed By: #### 5 081, , 457, 175, 7600, 40894 #### [facility] [place] [address] [employer] Operator: Jatin Matamoros MD Chloride [Moles/Vol] 110 mmol/L Normal 98-110 [facility] Comment on above: Performed By: #### 5 081, , 457, 175, 7600, 95651 #### [facility] [place] [address] [employer] Operator: Jatin Matamoros MD CO2 [Moles/Vol] 23 mmol/L Normal 20-32 [facility] Comment on above: Performed By: #### 5 081, , 457, 175, 7600, 35248 #### [facility] [place] [address] [employer] Operator: Jatin Matamoros MD Creatinine [Mass/Vol] 0.80 mg/dL Normal 0.50-0.97 [facility] Comment on above: Performed By: #### 5 081, , 457, 175, 7600, 36892 #### [facility] [place] [address] [employer] Operator: Jatin Matamoros MD ELECTROLYTE BALANCE 9 mmol/L (calc) Normal 7-17 [facility] Comment on above: Performed By: #### 5 081, , 457, 175, 7600, 58135 #### [facility] [place] [address] [employer] Operator: Jatin Matamroos MD GFR/1.73 sq M.predicted among non-blacks MDRD (S/P/Bld) [Vol rate/Area] 96 mL/min/{1.73_m2} Normal > OR = 60 [facility] Comment on above: Performed By: #### 5 081, 24447, 457, 175, 7600, 01245 #### [facility] [place] [address] [employer] Operator: Jatin Matamoros MD Glucose [Mass/Vol] 118 mg/dL Normal 65-139 [facility] Comment on above: Result Comment: Non-fasting reference interval For someone without known diabetes, a glucose value between 100 and 125 mg/dL is consistent with prediabetes and should be confirmed with a follow-up test. Performed By: #### 5 081, 67466, 457, 175, 7600, 83280 #### [facility] [place] [address] [employer] Operator: Jatin Matamoros MD Potassium [Moles/Vol] 4.1 mmol/L Normal 3.5-5.3 [facility] Comment on above: Performed By: #### 5 081, , 457, 175, 7600, 17252 #### [facility] [place] [address] [employer] Operator: Jatin Matamoros MD Protein [Mass/Vol] 6.8 g/dL Normal 6.1-8.1 [facility] Comment on above: Performed By: #### 5 081, , 457, 175, 7600, 61747 #### [facility] [place] [address] [employer] Operator: Jatin Matamoros MD Sodium [Moles/Vol] 142 mmol/L Normal 135-146 [facility] Comment on above: Performed By: #### 5 081, , 457, 175, 7600, 84053 #### [facility] [place] [address] [employer] Operator: Jatin Matamoros MD Urea nitrogen [Mass/Vol] 20 mg/dL Normal 7-25 [facility] Comment on above: Performed By: #### 5 081, 05592, 457, 1759, 7600, 23689 #### [facility] [address], [address] [place] [address] [employer] Operator: Jatin Matamoros [facility] Ferritin [Mass/Vol] 69 ng/mL Normal 16-154 [facility] Comment on above: Performed By: #### 5 081, 79900, 457, 1759, 7600, 94628 #### [facility] [place] [address] [employer] Operator: Jatin Matamoros MD LIPID PANEL, [facility] [place] Cholesterol [Mass/Vol] 158 mg/dL Normal <200 [facility] Comment on above: Order Comment: FASTI NG:NO FASTING: NO Performed By: #### 5 081, 29125, 457, 1759, 7600, 26638 #### [facility] [place] [address] [employer] Operator: Jatin Matamoros MD Cholesterol in HDL [Mass/Vol] 38 mg/dL Low > OR = 50 [facility] Comment on above: Order Comment: FASTI NG:NO FASTING: NO Performed By: #### 5 081, 17268, 457, 1759, 7600, 22744 #### [facility] [place] [address] [employer] Operator: Jatin Matamoros MD Cholesterol in LDL [Mass/Vol] 94 mg/dL Normal [facility] Comment on above: Order Comment: FASTI NG:NO FASTING: NO Result Comment: Refe rence range: <100 Desirable range <100 mg/dL for primary prevention; <70 mg/dL for patients with CHD or diabetic patients with > or = 2 CHD risk factors. LDL-C is now calculated using the Gino calculation, which is a validated novel method providing better accuracy than the Friedewald equation in the estimation of LDL-C. Lev TORREZ et al. LALI. 2013;310(19): 0598-8118 (http://education.creads.[employer]/faq/MBS634) Performed By: #### 5 081, 87034, 457, 175, 7600, 23877 #### [facility] [address], [address] [place] [address] [employer] Operator: Jatin Matamoros MD Cholesterol.total/C holesterol in HDL [Mass ratio] 4.2 {ratio} Normal <5.0 [facility] Comment on above: Order Comment: FASTI NG:NO FASTING: NO Performed By: #### 5 081, 35517, 457, 175, 7600, 94171 #### [facility] [address], [address] [place] [address] [employer] Operator: Jatin Matamoros MD NON HDL CHOLESTEROL 120 mg/dL (calc) Normal <130 [facility] Comment on above: Order Comment: FASTI NG:NO FASTING: NO Result Comment: For patients with diabetes plus 1 major ASCVD risk factor, treating to a non-HDL-C goal of <100 mg/dL (LDL-C of <70 mg/dL) is considered a therapeutic option. Performed By: #### 5 081, , 457, 175, 7600, 35449 #### [facility] [place] [address] [employer]ill Operator: Jatin Matamoros MD Triglyceride [Mass/Vol] 163 mg/dL High <150 [facility] Comment on above: Order Comment: FASTI NG:NO FASTING: NO Performed By: #### 5 081, , 457, 175, 7600, 83554 #### [facility] [place] [address] [employer] Drill Operator: Jatin Matamoros MD THYROID PEROXIDASE ANTIBODIE Son 01-04-2025 THYROID PEROXIDASE ANTIBODIES <1 Normal <9 [facility] Comment on above: Performed By: #### 5 081, 59097, 457, 175, 7600, 10862 #### [facility] [address], [address] [place] [address] Wood Drill Operator: Jatin Matamoros MD TSH W/REFLEX TO FT4on 2024 TSH W/REFLEX TO FT4 1.30 mIU/L Normal [facility] Comment on above: Result Comment: Refe rence Range > or = 20 Years 0.40-4.50 Ranges First trimester 0.26-2.66 Second trimester 0.55-2.73 Third trimester 0.43-2.91 Performed By: #### 5 081, 20697, 457, 1759, 7600, 26834 #### [facility] of [address], [address] [place] [address] Wood Drill Operator: Jatin Matamoros MD POCT glycosylated hemoglobin (Hb A1C) manually resultedon 12-30-2024 HbA1c (Bld) [Mass fraction] 6.4 % 4.2 - 6.5 % [facility] Work Phone: Interpretation and review of laboratory results Abnormal [facility] Work Phone: [facility] Work Phone: DRUG MONITOR, PANEL 1, W/CON F, URINEon 11-04-2024 Amphetamines Negative Normal <500 [facility] Comment on above: Performed By: #### 3 9422 #### [facility] [address], [address] [place] [address] Wood Drill Operator: Jatin Matamoros MD Barbiturates Negative Normal <300 [facility] Comment on above: Performed By: #### 3 9422 #### [facility] of [address], [address] [place] [address] Wood Drill Operator: Jatin Matamoros MD Benzodiazepines Negative Normal <100 [facility] Comment on above: Performed By: #### 3 9422 #### [facility] of [address] , [address] [place] [address] Wood Drill Operator: Jatin Matamoros MD Cocaine Metabolite Negative Normal <150 [facility] Comment on above: Performed By: #### 3 9422 #### [facility] [address], [address] [place], [place] [address] Wood Drill Operator: Jatin Matamoros MD Creatinine (U) [Mass/Vol] 321.5 mg/dL Normal > or = 20.0 [facility] Comment on above: Performed By: #### 3 9422 #### [facility] of [place] [address] [address] , [address] [place] [address] Wood Drill Operator: Jatin Matamoros MD Marijuana Metabolite Negative Normal <20 [facility] Comment on above: Performed By: #### 3 9422 #### [facility] of [place] [address] [address] , [address] [place] [address] Wood Drill Operator: Jatin Matamoros MD Methadone Metabolite Negative Normal <100 [facility] Comment on above: Performed By: #### 3 9422 #### [facility] of [place] [address] [address] , [address] [place] [address] Wood Drill Operator: Jatin Matamoros MD Opiates Negative Normal <100 [facility] Comment on above: Performed By: #### 3 9422 #### [facility] of [place] [address] [address] , [address] [place] [address] Wood Drill Operator: Jatin Matamoros MD Oxidant Negative Normal <200 [facility] Comment on above: Performed By: #### 3 9422 #### [facility] of [place] [address] [address] , [address] [place] [address] Wood Drill Operator: aJtin Matamoros MD Oxycodone Negative Normal <100 [facility] Comment on above: Performed By: #### 3 9422 #### [facility] of [place] [address] [address] , [address] [place] [address] Wood Drill Operator: Jatin Matamoros MD pH (U) 5.3 [pH] Normal 4.5-9.0 [facility] Comment on above: Performed By: #### 3 9422 #### [facility] of [place] [address] [address] , [address] [place] [address] Wood Drill Operator: Jatin Matamoros MD Phencyclidine Negative Normal <25 [facility] Comment on above: Performed By: #### 3 9422 #### [facility] of [place] [address] [address] , [address] [place] [address] Wood Drill Operator: Jatin Matamoros MD DRUG MONITORING [facility] 0 11-04-2024 Notes and Comments Normal [facility] Comment on above: Result Comment: This drug testing is for medical treatment only. Analysis was performed as non-forensic testing and these results should be used only by healthcare providers to render diagnosis or treatment, or to monitor progress of medical conditions. Healthcare Providers needing Interpretation assistance, please contact us at [phone] ( ) M-F, 8am to 10pm EST Performed By: #### 3 9422 #### [facility] [address] [facility], [address] [place] [address] Wood Drill Operator: Jatin Matamoros MD COLONOSCOPYon 09-17-2024 Colonoscopy Table formatting fro m the original result was not included. Impression The ileocecal valve, appendiceal orifice, cecum, ascending colon, hepatic flexure, transverse colon, splenic flexure, descending colon, sigmoid colon, rectosigmoid and rectum appeared normal. Findings The ileocecal valve, appendiceal orifice, cecum, ascending colon, hepatic flexure, transverse colon, splenic flexure, descending colon, sigmoid colon, rectosigmoid and rectum appeared normal. Recommendation Repeat colonoscopy in 5 years, due: 09/16/2029 Family history of colon cancer Indication Constipation, unspecified constipation type, Diarrhea, unspecified type Staff Staff Role Kathrin Mansfield MD Proceduralist Medications See Anesthesia Record. Preprocedure A history and physical has been performed, and patient medication allergies have been reviewed. The patient's tolerance of previous anesthesia has been reviewed. The risks and benefits of the procedure and the sedation options and risks were discussed with the patient. All questions were answered and informed consent obtained. Details of the Procedure The patient underwent monitored anesthesia care, which was administered by an anesthesia professional. The patient's blood pressure, ECG, ETCO2, heart rate, level of consciousness, oxygen and respirations were monitored throughout the procedure. A digital rectal exam was performed. A perianal exam was performed. The scope was introduced through the anus and advanced to the cecum. The quality of bowel preparation was evaluated using the [place] Bowel Preparation Scale with scores of: right colon = 1, transverse colon = 3, left colon = 2. The total BBPS score was 6. Bowel prep was not adequate. The patient experienced no blood loss. The procedure was not difficult. The patient tolerated the procedure well. There were no apparent adverse events. Events Procedure Events Event Event Time ENDO SCOPE IN TIME 09/17/2024 10:18 AM ENDO CECUM REACHED 09/17/2024 10:23 AM ENDO SCOPE OUT TIME 09/17/2024 10:30 AM Specimens No specimens collected Procedure Location [facility] [address] [facility] [address] Referring Provider Cristo Robert, FILM EDITOR SUPERVISOR-FRETTED INSTRUMENT INSPECTOR Procedure Provider Kathrin Mansfield MD [facility] Colonoscopy studyon 09-17-19 25 Table formatting fro m the original result was not included. Impression The ileocecal valve, appendiceal orifice, cecum, ascending colon, hepatic flexure, transverse colon, splenic flexure, descending colon, sigmoid colon, rectosigmoid and rectum appeared normal. Findings The ileocecal valve, appendiceal orifice, cecum, ascending colon, hepatic flexure, transverse colon, splenic flexure, descending colon, sigmoid colon, rectosigmoid and rectum appeared normal. Recommendation Repeat colonoscopy in 5 years, due: 09/16/2029 Family history of colon cancer Indication Constipation, unspecified constipation type, Diarrhea, unspecified type Staff Staff Role Kathrin Mansfield MD Proceduralist Medications See Anesthesia Record. Preprocedure A history and physical has been performed, and patient medication allergies have been reviewed. The patient's tolerance of previous anesthesia has been reviewed. The risks and benefits of the procedure and the sedation options and risks were discussed with the patient. All questions were answered and informed consent obtained. Details of the Procedure The patient underwent monitored anesthesia care, which was administered by an anesthesia professional. The patient's blood pressure, ECG, ETCO2, heart rate, level of consciousness, oxygen and respirations were monitored throughout the procedure. A digital rectal exam was performed. A perianal exam was performed. The scope was introduced through the anus and advanced to the cecum. The quality of bowel preparation was evaluated using the [place] Bowel Preparation Scale with scores of: right colon = 1, transverse colon = 3, left colon = 2. The total BBPS score was 6. Bowel prep was not adequate. The patient experienced no blood loss. The procedure was not difficult. The patient tolerated the procedure well. There were no apparent adverse events. Events Procedure Events Event Event Time ENDO SCOPE IN TIME 09/17/2024 10:18 AM ENDO CECUM REACHED 09/17/2024 10:23 AM ENDO SCOPE OUT TIME 09/17/2024 10:30 AM Specimens No specimens collected Procedure Location [facility] [address] [facility] [address] Referring Provider Cristo Robert FILM EDITOR SUPERVISOR-FRETTED INSTRUMENT INSPECTOR Procedure Provider Kathrin Mansfield MD [facility] Work Phone: [facility] Work Phone: Radiology Study observation (narrative) [facility] Work Phone: XR CERVICAL SPINE 2-3 VIEWSo n 08-31-2024 XR CERVICAL SPINE 2-3 VIEWS Interpreted By: Dolores Dumont, STUDY: XR CERVICAL SPINE 2-3 VIEWS INDICATION: Signs/Symptoms:Post-op eval. COMPARISON: August 09 ACCESSION NUMBER(S): [id number] ORDERING CLINICIAN: GUILLERMO MAKI FINDINGS: Anterior cervical fusion C4 through C6 with a satisfactory appearance with plate and bone graft. Alignment normal. IMPRESSION: Satisfactory appearance status post C4 through C6 anterior fusion. Signed by: Dolores Dumont 09/03/2024 7:26 AM Dictation workstation: [id number] [facility] VERAB/VERIFY ABORHon 024 ABO group Nom (Bld) B [facility] Comment on above: Order Comment: Thi s is for confirming/verifying history of ABORh on file for transfusion of blood products. If this is not for transfusion, please order an ABO/RH [[id number]]. If you have any questions or unsure what to order, please call the blood bank. Review your Rh Negative female patient's potential need for Rh Immune Globulin (RhIg)administration. Performed By: #### V ERAB #### KIKI GAMEZ ([id number]) [facility] ([facility]) [address] [place] [address] [place] D Ag Ql (Bld) Negative [facility] Comment on above: Order Comment: Thi s is for confirming/verifying history of ABORh on file for transfusion of blood products. If this is not for transfusion, please order an ABO/RH [[id number]]. If you have any questions or unsure what to order, please call the blood bank. Review your Rh Negative female patient's potential need for Rh Immune Globulin (RhIg)administration. Performed By: #### V ERAB #### KIKI VERA ([id number]) [facility] ([facility]) [address] [place] [address] VERIFY ABO/Rh Group Teston 1 10-10-2023 ABO group Nom (Bld) B [facility] D Ag Ql (Bld) Negative [facility] Review your Rh Negat carolyn female patient's potential need for Rh Immune Globulin (RhIg)administration. [facility] XR CERVICAL SPINE 1 VIEWon 1 10-10-2023 XR CERVICAL SPINE 1 VIEW Interpreted By: Farnaz Feldman, STUDY: Cervical spine, single lateral view. INDICATION: Signs/Symptoms:cspine. COMPARISON: 06/04/2023 ACCESSION NUMBER(S): [id number] ORDERING CLINICIAN: DUSTIN NUÑEZ FINDINGS: Single limited lateral view intraoperative radiograph of the cervical spine. Metallic localizer device visualized at the level of C5-6 disc space anteriorly. Endotracheal tube visualized. Alignment is within normal limits. Vertebral body heights are preserved. Posterior elements are intact. Soft tissues are unremarkable. IMPRESSION: 1. Limited lateral view intraoperative cervical spine radiograph with findings as above. Correlate with real-time operative findings. MACRO: None. Signed by: Farnaz Feldman 08/10/2024 7:29 PM Dictation workstation: [id number] [facility] Comment on above: Order Comment: Intra -op XR CERVICAL SPINE 1 VIEW Interpreted By: Farnaz Feldman, STUDY: Cervical spine, single lateral view. INDICATION: Signs/Symptoms:cspine. COMPARISON: 08/09/2024 ACCESSION NUMBER(S): [id number] ORDERING CLINICIAN: DUSTIN NUÑEZ FINDINGS: Single limited lateral view intraoperative radiograph of the cervical spine. Interval ACDF changes visualized from C4-C6. Endotracheal tube visualized. Alignment is within normal limits. Vertebral body heights are preserved. Posterior elements are intact. Soft tissues are unremarkable. IMPRESSION: 1. Limited lateral view intraoperative cervical spine radiograph with findings as above. Correlate with real-time operative findings. MACRO: None. Signed by: Farnaz Feldman 08/10/2024 7:30 PM Dictation workstation: [id number] Normal [facility] Comment on above: Order Comment: Intra -op Basic metabolic 2000 panelon 08-03-2024 Anion gap [Moles/Vol] 11 mmol/L Normal 10-20 [facility] Comment on above: Performed By: #### 2 4321-2 #### KIKI GAMEZ ([id number]) [facility] ([facility]) [address] [place] [address] Calcium [Mass/Vol] 8.8 mg/dL Normal 8.6-10.3 [facility] Comment on above: Performed By: #### 2 4321-2 #### KIKI GAMEZ ([id number]) [facility] ([facility]) [address] [place] [address] Chloride [Moles/Vol] 112 mmol/L High 98-107 [facility] Comment on above: Performed By: #### 2 4321-2 #### KIKI GAMEZ ([id number]) [facility] ([facility]) [address] [place] [address] CO2 [Moles/Vol] 24 mmol/L Normal 21-32 [facility] Comment on above: Performed By: #### 2 4321-2 #### KIKI GAMEZ ([id number]) [facility] ([facility]) [address] [place] [address] Creatinine [Mass/Vol] 0.80 mg/dL Normal 0.50-1.05 [facility] Comment on above: Performed By: #### 2 4321-2 #### KIKI GAMEZ ([id number]) [facility] ([facility]) [address] [place] [address] GFR/1.73 sq M.predicted MDRD (S/P/Bld) [Vol rate/Area] mL/min/{1.73_m2} Normal >60 [facility] Comment on above: Result Comment: Calc ulations of estimated GFR are performed using the 2020 CKD-EPI Study Refit equation without the race variable for the IDMS-Traceable creatinine methods. https://jasn.asnjournals.org/content//ASN.88184459 88 Performed By: #### 2 4321-2 #### KIKI GAMEZ ([id number]) [facility] ([facility]) [address] [place] [address] Glucose [Mass/Vol] 90 mg/dL Normal 74-99 [facility] Comment on above: Performed By: #### 2 4321-2 #### KIKI GAMEZ ([id number]) [facility] ([facility]) [address] [place] [address] Potassium [Moles/Vol] 4.3 mmol/L Normal 3.5-5.3 [facility] Comment on above: Performed By: #### 2 4321-2 #### KIKI GAMEZ ([id number]) [facility] ([facility]) [address] [place], [place] [address] Sodium [Moles/Vol] 143 mmol/L Normal 136-145 [facility] Comment on above: Performed By: #### 2 4321-2 #### KIKI GAMEZ ([id number]) [facility] ([facility]) [address] [place] [address] Urea nitrogen [Mass/Vol] 12 mg/dL Normal 6-23 [facility] Comment on above: Performed By: #### 2 4321-2 #### KIKI GAMEZ ([id number]) [facility] ([facility]) [address] [place] [address] Blood type and Indirect anti body screen panel (Bld)on 08-03-2024 ABO group Nom (Bld) B Normal [facility] Comment on above: Order Comment: Revie w your Rh Negative female patient's potential need for Rh Immune Globulin (RhIg)administration. Performed By: #### 3 4532-2 #### KIKI GAMEZ ([id number]) [facility] ([facility]) [address] [place] [address] [place] Blood group antibody screen Ql Negative Normal [facility] Comment on above: Order Comment: Revie w your Rh Negative female patient's potential need for Rh Immune Globulin (RhIg)administration. Performed By: #### 3 4532-2 #### KIKI GAMEZ ([id number]) [facility] ([facility]) [address] [place] [address] [place] D Ag Ql (Bld) Negative Normal [facility] Comment on above: Order Comment: Revie w your Rh Negative female patient's potential need for Rh Immune Globulin (RhIg)administration. Result Comment: 2nd ABO test required. Order and Collect VERAB Performed By: #### 3 4532-2 #### KIKI GAMEZ ([id number]) [facility] ([facility]) [address] [place] [address] [place] CBC W Auto Differential pane l (Bld)on 08-03-2024 Basophils (Bld) [#/Vol] 0.08 x10*3/uL Normal 0.00-0.10 [facility] Comment on above: Performed By: #### 5 7021-8 #### KIKI GAMEZ ([id number]) [facility] ([facility]) [address] [place] [address] Basophils/100 WBC (Bld) 0.8 % Normal 0.0-2.0 [facility] Comment on above: Performed By: #### 5 7021-8 #### KIKI GAMEZ ([id number]) [facility] ([facility]) [address] [place] [address] Eosinophils (Bld) [#/Vol] 0.25 x10*3/uL Normal 0.00-0.70 [facility] Comment on above: Performed By: #### 5 7021-8 #### KIKI GAMEZ ([id number]) [facility] ([facility]) [address] [place] [address] Eosinophils/100 WBC (Bld) 2.6 % Normal 0.0-6.0 [facility] Comment on above: Performed By: #### 5 7021-8 #### KIKI GAMEZ ([id number]) [facility] ([facility]) [address] [place], [place] [address] Erythrocyte distribution width (RBC) [Ratio] 12.9 % Normal 11.5-14.5 [facility] Comment on above: Performed By: #### 5 7021-8 #### KIKI GAMEZ ([id number]) [facility] ([facility]) [address] [place] [address] Hematocrit (Bld) [Volume fraction] 42.6 % Normal 36.0-46.0 [facility] Comment on above: Performed By: #### 5 7021-8 #### KIKI GAMEZ ([id number]) [facility] ([facility]) [address] [place] [address] Hemoglobin (Bld) [Mass/Vol] 13.6 g/dL Normal 12.0-16.0 [facility] Comment on above: Performed By: #### 5 7021-8 #### KIKI GAMEZ ([id number]) [facility] ([facility]) [address] [place] [address] Immature granulocytes (Bld) [#/Vol] 0.03 x10*3/uL Normal 0.00-0.70 [facility] Comment on above: Performed By: #### 5 7021-8 #### KIKI GAMEZ ([id number]) [facility] ([facility]) [address] [place], [place] [phone] Immature granulocytes/100 WBC (Bld) 0.3 % Normal 0.0-0.9 [facility] Comment on above: Result Comment: Renée ture Granulocyte Count (IG) includes promyelocytes, myelocytes and metamyelocytes but does not include bands. Percent differential counts (%) should be interpreted in the context of the absolute cell counts (cells/UL). Performed By: #### 5 7021-8 #### KIKI GAMEZ ([id number]) [facility] ([facility]) [address] [place], [place] [phone] Lymphocytes (Bld) [#/Vol] 2.65 x10*3/uL Normal 1.20-4.80 [facility] Comment on above: Performed By: #### 5 7021-8 #### KIKI GAMEZ ([id number]) [facility] ([facility]) [address] [place] [phone] Lymphocytes/100 WBC (Bld) 28.0 % Normal 13.0-44.0 [facility] Comment on above: Performed By: #### 5 7021-8 #### KIKI GAMEZ ([id number]) [facility] ([facility]) [address] [place] [address] MCH (RBC) [Entitic mass] 27.9 pg Normal 26.0-34.0 [facility] Comment on above: Performed By: #### 5 7021-8 #### KIKI GAMEZ ([id number]) [facility] ([facility]) [address] [place] [address] MCHC (RBC) [Mass/Vol] 31.9 g/dL Low 32.0-36.0 [facility] Comment on above: Performed By: #### 5 7021-8 #### KIKI GAMEZ ([id number]) [facility] ([facility]) [address] [place] [address] MCV (RBC) [Entitic vol] 88 fL Normal 80-100 [facility] Comment on above: Performed By: #### 5 7021-8 #### KIKI GAMEZ ([id number]) [facility] ([facility]) [address] [place] [phone] Monocytes (Bld) [#/Vol] 0.68 x10*3/uL Normal 0.10-1.00 [facility] Comment on above: Performed By: #### 5 7021-8 #### KIKI GAMEZ ([id number]) [facility] ([facility]) [address] [place] [phone] Monocytes/100 WBC (Bld) 7.2 % Normal 2.0-10.0 [facility] Comment on above: Performed By: #### 5 7021-8 #### KIKI GAMEZ ([id number]) [facility] ([facility]) [address] [place] [address] Neutrophils (Bld) [#/Vol] 5.79 x10*3/uL Normal 1.20-7.70 [facility] Comment on above: Result Comment: Perc ent differential counts (%) should be interpreted in the context of the absolute cell counts (cells/uL). Performed By: #### 5 7021-8 #### KIKI GAMEZ ([id number]) [facility] ([facility]) [address] [place] [address] Neutrophils/100 WBC (Bld) 61.1 % Normal 40.0-80.0 [facility] Comment on above: Performed By: #### 5 7021-8 #### KIKI GAMEZ ([id number]) [facility] ([facility]) [address] [place] [address] Nucleated RBC/100 WBC (Bld) [Ratio] 0.0 /100 WBCs Normal 0.0-0.0 [facility] Comment on above: Performed By: #### 5 7021-8 #### KIKI GAMEZ ([id number]) [facility] ([facility]) [address] [place] [address] Platelets (Bld) [#/Vol] 326 x10*3/uL Normal 150-450 [facility] Comment on above: Performed By: #### 5 7021-8 #### KIKI GAMEZ ([id number]) [facility] ([facility]) [address] [place] [address] RBC (Bld) [#/Vol] 4.87 x10*6/uL Normal 4.00-5.20 [facility] Comment on above: Performed By: #### 5 7021-8 #### KIKI GAMEZ ([id number]) [facility] ([facility]) [address] [place] [address] WBC (Bld) [#/Vol] 9.5 x10*3/uL Normal 4.4-11.3 [facility] Comment on above: Performed By: #### 5 7021-8 #### KIKI GAMEZ ([id number]) [facility] ([facility]) [address] [place] [id number] ECG 12-LEADon 08-03-2024 ECG 12-LEAD Ventricular Rate 59 Atrial Rate 59 P-R Interval 144 QRS Duration 102 Q-T Interval 432 QTC Calculation(Bazett) 427 P Erlanger 16 R Erlanger -23 T Erlanger 27 QRS Count 10 Q Onset 208 P Onset 136 P Offset 176 T Offset 424 QTC Fredericia 429 Diagnosis Sinus bradycardia Incomplete right bundle branch block Borderline ECG No previous ECGs available Confirmed by Nhan Rivas ([id number]) on 08/03/2024 3:44:33 PM Normal [facility] HbA1c (Bld) [Mass fraction]o n 08-03-2024 Average glucose Estimated from glycated hemoglobin (Bld) [Mass/Vol] 117 mg/dL Normal Not Established [facility] Comment on above: Order Comment: Diagn osis of Diabetes-Adults Non-Diabetic: < or = 5.6% Increased risk for developing diabetes: 5.7-6.4% Diagnostic of diabetes: > or = 6.5% Performed By: #### 4 548-4 #### FARSHAD Burnett ([id number]) [facility] ([facility]) [address] [place] [address] Hemoglobin A1c/Hemoglobin.to anthony 08-03-2024 HbA1c (Bld) [Mass fraction] 5.7 % High See comment [facility] Comment on above: Order Comment: Diagn osis of Diabetes-Adults Non-Diabetic: < or = 5.6% Increased risk for developing diabetes: 5.7-6.4% Diagnostic of diabetes: > or = 6.5% Performed By: #### 4 548-4 #### FARSHAD Burnett ([id number]) [facility] ([facility]) [address] [place] [address] PT and aPTT panel Coag (PPP) on 08-03-2024 aPTT Coag (PPP) [Time] 32 s Normal 27-38 [facility] Comment on above: Order Comment: The A PTT is no longer used for monitoring Unfractionated Heparin Therapy. For monitoring Heparin Therapy, use the Heparin Assay. Performed By: #### 3 4529-8 #### KIKI GAMEZ ([id number]) [facility] ([facility]) [address] [place] [address] INR Coag (PPP) [Relative time] 1.0 Normal 0.9-1.1 [facility] Comment on above: Order Comment: The A PTT is no longer used for monitoring Unfractionated Heparin Therapy. For monitoring Heparin Therapy, use the Heparin Assay. Performed By: #### 3 4529-8 #### KIKI GAMEZ ([id number]) [facility] ([facility]) [address] [phone] PT Coag (PPP) [Time] 11.1 s Normal 9.8-12.8 [facility] Comment on above: Order Comment: The A PTT is no longer used for monitoring Unfractionated Heparin Therapy. For monitoring Heparin Therapy, use the Heparin Assay. Performed By: #### 3 4529-8 #### KIKI GAMEZ ([id number]) [facility] ([facility]) [address] [place] [address] Staphylococcus aureus.methic illin resistant isolateon 08-03-2024 MRSA isol Org specific cx Ql (Nose) Test: Staphylococcus aureus/MRSA colonization, Culture Specimen Source: Nares/Axilla/Groin Specimen Type: Swab Specimen Date: 08/03/2024 1441 Result Date: 08/05/2024 1152 Result Status: Final result Abnormal: No Resulting Lab: [facility] [address] [place] [address] CULTURE No Staphylococcus aureus isolated Normal [facility] Comment on above: Performed By: #### 5 2969-3 #### FARSHAD Burnett ([id number]) [facility] ([facility]) [address] [place] [address] MR CERVICAL SPINE WO IV CONT [facility] 07-06-2024 MR CERVICAL SPINE WO IV CONTRAST Interpreted By: Obed Dash, STUDY: MR CERVICAL SPINE WO IV CONTRAST; 07/06/2024 4:57 pm INDICATION: Signs/Symptoms:paresthesias , chronic worsening pain. ,M54.2 Cervicalgia,G89.29 Other chronic pain,R20.0 Anesthesia of skin,R20.2 Paresthesia of skin,R20.0 Anesthesia of skin,R20.2 Paresthesia of skin COMPARISON: None. ACCESSION NUMBER(S): [id number] ORDERING CLINICIAN: YVETTE MANCERA TECHNIQUE: The cervical spine was studied in the sagittal and axial planes utilizing T1 and T2 weighted images. FINDINGS: The craniovertebral junction is normal. The cord is normal in size and signal. The marrow signal is normal. Serial axial images reveal the following: C2/C3 There is normal alignment and vertebral body height. The disc space is normal. There is no evidence of canal or foraminal narrowing. There is no evidence of bulging or herniated disc. C3/C4 There is normal alignment and vertebral body height. The disc space is normal. There is no evidence of canal or foraminal narrowing. There is no evidence of bulging or herniated disc. C4/C5 Asymmetrical bulging and/or uncovertebral joint hypertrophy toward the left with minimal left-sided foraminal narrowing. No measurable canal stenosis.. C5/C6 Right-sided disc osteophyte complex measuring a proximally 3 mm x 7 mm in size. Flattening of the thecal sac on the right with deformity of the right hemicord. The sac measures a proximally 6 mm in AP dimension in the midline. Focal right-sided foraminal narrowing. C6/C7 There is normal alignment and vertebral body height. The disc space is normal. There is no evidence of canal or foraminal narrowing. There is no evidence of bulging or herniated disc. C7/T1 There is normal alignment and vertebral body height. The disc space is normal. There is no evidence of canal or foraminal narrowing. There is no evidence of bulging or herniated disc. IMPRESSION: * Disc osteophyte complex to the right at C5/C6 with focal narrowing of the right lateral recess and neural foramen. 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 MACRO: none Signed by: Obed Dash 07/08/2024 1:31 PM Dictation workstation: [id number] [facility] MR THORACIC SPINE WO IV CONT [facility] 07-06-2024 MR THORACIC SPINE WO IV CONTRAST Interpreted By: Obed Dash, STUDY: MR THORACIC SPINE WO IV CONTRAST; 07/06/2024 4:56 pm INDICATION: Signs/Symptoms:chronic worseing pain, numbness. 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 ACCESSION NUMBER(S): [id number] ORDERING CLINICIAN: YVETTE MANCERA TECHNIQUE: The thoracic spine was studied in the sagittal and axial planes utilizing T1 and T2 weighted images. FINDINGS: The marrow signal in vertebral body height are normal. Intervertebral disc spaces are preserved in height and signal. The cord is normal in size and signal. There is no evidence of bulging or herniated disc. There is no evidence of canal or foraminal stenosis. The visualized paraspinal soft tissues within the chest are normal. IMPRESSION: Normal exam MACRO: none Signed by: Obed Dash 07/08/2024 1:36 PM Dictation workstation: [id number] [facility] Internal Medicine Office Vis joel 02-10-2024 Internal Medicine Office Visit [facility] [place] [address] [place] [address] OFFICE VISIT Date of Service: 02/10/24 MR#: [id number] Acct: [id number] Name: TJ VILLANUEVA Rep #: [id number] : 1985 Provider: GEORGIE Turner Age/Sex: 38/F Location: [facility] Status: Signed Intake Vital Signs 11/10/23 10:22 02/10/24 06:36 Height 6 ft 4 in BP 110/84 H Blood Pressure Location Lt brachial Position Sitting Pulse 84 Pulse Source Monitor Temp 98 F Temp Source Temporal Pulse Oximetry (%) 99 Oxygen Delivery Method room air Intake Visit Reasons: COUGH/CONGESTION/BA Movers Required: No Accompanied by: Self Allergies No Known Allergies Allergy (Verified 02/10/24 06:44) Medications ???Medication ???Instructions ???Recorded ???Confirmed ???Type gabapentin 300 mg capsule 300 mg PO DAILY 02/10/24 02/10/24 History prednisone 20 mg tablet 20 mg PO BID #10 tabs 02/10/24 02/10/24 Rx topiramate 50 mg tablet (Topamax) 100 mg PO DAILY 02/10/24 02/10/24 History PFSH Medical History (Updated 02/10/24 @ 07:08 by Jake JACQUES, PA) Lab test negative for COVID-19 virus Headache Chronic neck and back pain Surgical History (Updated 12/08/21 @ 03:00 by Jose Raul Dejesus) S/P partial hysterectomy Family History (Updated 05/31/21 @ 07:39 by Dia Goncalves, RN) Other Cancer Diabetes Social History Smoking Status: Never smoker HPI HPI Details: TJ VILLANUEVA, is a 38 F who presents to the office today for cough and congestion as well as chills and bodyaches x 3 days. Patient states that initially she had a sore throat on friday and then quickly moved to where she was coughing. She states that she has not been able to check her temperature at the same time did chills with some sweats intermittently last evening. Patient has not noticed any wheezing or any shortness of breath or any chest pains or pressures. Patient's did have some upper respiratory symptoms last week at the same time she states this was more allergies and she did he did not have any type of body aches or chills or some of the symptoms she has. She has no history of having recurrent pulmonary issues and no history of asthma. At this time she has taken some cough medicine/expectorant with minimal results.. ROS Const Constitutional: Positive for body ache, chills, fatigue and decreased energy; No fever(s) or headache(s) Eyes Eyes: No change in vision or visual disturbances ENT ENT: Positive for tinnitus, sinus pressure and nasal discharge; No abnormal hearing, ear or mastoid pain, nasal congestion or headache(s) Resp Respiratory: Positive for cough Cough: Yes non-productive and chest congestion; No hemoptysis, pain on inspiration, shortness of breath, pain with cough or wheezing Cardio Cardiology: No chest pain at rest, chest pain with exertion or dyspnea on exertion Neuro Neurology: No abnormal hearing, headache(s) or visual disturbances Endo Endocrine: Positive for fatigue Aller/Imm Allergy/Immunologic: No wheezing Exam Const General: cooperative, healthy appearing, comfortable, no acute distress, well developed, well groomed, acute distress, in distress and ill appearing acutely (Can tell she does not feel well) Nutritional Appearance: overweight Orientation: alert, awake and oriented x3 HENMT Head: normocephalic and atraumatic Ears: hearing grossly normal bilaterally, external ears normal, TM's normal bilaterally and EAC's normal Nose: nares normal and nasal discharge clear bilaterally Face and sinus: sinuses nontender Mouth: tongue normal Throat: posterior oropharynx normal Neck Neck: full ROM and no lymphadenopathy Resp Effort Inspection: normal respiratory effort, able to speak in complete sentences, symmetric chest movement, normal respiratory pattern, no audible wheezes and cough Quality of cough: wet Auscultation: Bilateral: Clear to Auscultation Cardio Rate: regular rate Rhythm: regular rhythm and abnormal rhythm with ectopic beats (Patient has a few premature contractions noted throughout auscultation) Heart Sounds: S1 normal, S2 normal and no murmurs Results POC TR Covid FluAB PCR POC Tr Covid PCR Detected Last Edit by Keily Rausch on 02/10/24 07:03 POC TR FLU NOT DETECTED FLU A B Last Edit by Keily Rausch on 02/10/24 07:03 Coding Level of Care Code Off vis,est,level 3 Diagnoses COVID-19 U07.1 Assessment and Plan Assessment and Plan (1) COVID-19: Status: Acute Plan: Patient presents the office today with 3-day history of cough and upper respiratory symptoms. Patient states initially started with a little sore throat as well as some drainage developing into a cough relatively quickly. She states that she has had chills w (more content not included)... Normal [facility] CBC panel Auto (Bld)on 01-05 Erythrocyte distribution width (RBC) [Ratio] 12.6 % Normal 11.5-14.5 [facility] Comment on above: Performed By: #### 5 8410-2 #### FARSHAD Burnett ([id number]) [facility] ([facility]) [address] [place] [address] Hematocrit (Bld) [Volume fraction] 43.0 % Normal 36.0-46.0 [facility] Comment on above: Performed By: #### 5 8410-2 #### FARSHAD Burnett ([id number]) [facility] ([facility]) [address] [place] [address] Hemoglobin (Bld) [Mass/Vol] 13.8 g/dL Normal 12.0-16.0 [facility] Comment on above: Performed By: #### 5 8410-2 #### FARSHAD Burnett ([id number]) [facility] ([facility]) [address] [place] [address] MCH (RBC) [Entitic mass] 27.9 pg Normal 26.0-34.0 [facility] Comment on above: Performed By: #### 5 8410-2 #### FARSHAD Burnett ([id number]) [facility] ([facility]) [address] [place] [address] MCHC (RBC) [Mass/Vol] 32.1 g/dL Normal 32.0-36.0 [facility] Comment on above: Performed By: #### 5 8410-2 #### FARSHAD Burnett ([id number]) [facility] ([facility]) [address] [place] [address] MCV (RBC) [Entitic vol] 87 fL Normal 80-100 [facility] Comment on above: Performed By: #### 5 8410-2 #### FARSHAD Burnett ([id number]) [facility] ([facility]) [address] [place] [address] Nucleated RBC/100 WBC (Bld) [Ratio] 0.0 /100 WBCs Normal 0.0-0.0 [facility] Comment on above: Performed By: #### 5 8410-2 #### FARSHAD Burnett ([id number]) [facility] ([facility]) [id number] [place] [address] Platelets (Bld) [#/Vol] 309 x10*3/uL Normal 150-450 [facility] Comment on above: Performed By: #### 5 8410-2 #### FARSHAD Burnett ([id number]) [facility] ([facility]) [id number] [place] [address] RBC (Bld) [#/Vol] 4.94 x10*6/uL Normal 4.00-5.20 [facility] Comment on above: Performed By: #### 5 8410-2 #### FARSHAD Burnett ([id number]) [facility] ([facility]) [address] [place] [address] WBC (Bld) [#/Vol] 9.4 x10*3/uL Normal 4.4-11.3 [facility] Comment on above: Performed By: #### 5 8410-2 #### FARSHAD Burnett ([id number]) [facility] ([facility]) [address] [place] [address] Comprehensive metabolic 2000 panelon 01-06-2024 Albumin BCP dye [Mass/Vol] 4.2 g/dL Normal 3.4-5.0 [facility] Comment on above: Performed By: #### 2 4323-8 #### FARSHAD Burnett ([id number]) [facility] ([facility]) [address] [place] [address] ALP [Catalytic activity/Vol] 56 U/L Normal 33-110 [facility] Comment on above: Performed By: #### 2 4323-8 #### FARSHAD Burnett ([id number]) [facility] ([facility]) [id number] [place] [address] ALT With P-5'-P [Catalytic activity/Vol] 18 U/L Normal 7-45 [facility] Comment on above: Result Comment: Sarah ents treated with Sulfasalazine may generate falsely decreased results for ALT. Performed By: #### 2 4323-8 #### FARSHAD Burnett ([id number]) [facility] ([facility]) [address] [place] [address] Anion gap [Moles/Vol] 12 mmol/L Normal 10-20 [facility] Comment on above: Performed By: #### 2 4323-8 #### FARSHAD Burnett ([id number]) [facility] ([facility]) [address] [place] [address] AST With P-5'-P [Catalytic activity/Vol] 14 U/L Normal 9-39 [facility] Comment on above: Performed By: #### 2 4323-8 #### FARSHAD Burnett ([id number]) [facility] ([facility]) [address] [place] [address] Bilirubin [Mass/Vol] 0.3 mg/dL Normal 0.0-1.2 [facility] Comment on above: Performed By: #### 2 4323-8 #### FARSHAD Burnett ([id number]) [facility] ([facility]) [address] [place] [address] Calcium [Mass/Vol] 9.2 mg/dL Normal 8.6-10.6 [facility] Comment on above: Performed By: #### 2 4323-8 #### FARSHAD OSWALD L ([id number]) [facility] ([facility]) [address] [place] [address] Chloride [Moles/Vol] 110 mmol/L High 98-107 [facility] Comment on above: Performed By: #### 2 4323-8 #### FARSHAD Burnett ([id number]) [facility] ([facility]) [address] [place] [address] CO2 [Moles/Vol] 22 mmol/L Normal 21-32 [facility] Ambulatory Comment on above: Performed By: #### 2 4323-8 #### FARSHAD Burnett ([id number]) [facility] ([facility]) [address] [place] [address] Creatinine [Mass/Vol] 0.81 mg/dL Normal 0.50-1.05 [facility] Comment on above: Performed By: #### 2 4323-8 #### FARSHAD Burnett ([id number]) [facility] ([facility]) [address] [place] [address] GFR/1.73 sq M.predicted MDRD (S/P/Bld) [Vol rate/Area] mL/min/{1.73_m2} Normal >60 [facility] Comment on above: Result Comment: Calc ulations of estimated GFR are performed using the 2020 CKD-EPI Study Refit equation without the race variable for the IDMS-Traceable creatinine methods. https://jasn.asnjournals.org/content/early/ASN.06712912 88 Performed By: #### 2 4323-8 #### FARSHAD Burnett ([id number]) [facility] ([facility]) [address] [place] [address] Glucose [Mass/Vol] 130 mg/dL High 74-99 [facility] Comment on above: Performed By: #### 2 4323-8 #### FARSHAD Burnett ([id number]) [facility] ([facility]) [address] [place] [address] Potassium [Moles/Vol] 4.2 mmol/L Normal 3.5-5.3 [facility] Comment on above: Performed By: #### 2 4323-8 #### FARSHAD Burnett ([id number]) [facility] ([facility]) [address] [place] [address]34 Protein [Mass/Vol] 6.8 g/dL Normal 6.4-8.2 [facility] Comment on above: Performed By: #### 2 4323-8 #### FARSHAD Burnett ([id number]) [facility] ([facility]) [address] [place] [address] 21572 Sodium [Moles/Vol] 140 mmol/L Normal 136-145 [facility] Comment on above: Performed By: #### 2 4323-8 #### FARSHAD Burnett ([id number]) [facility] ([facility]) [address] [place] [address]773 Urea nitrogen [Mass/Vol] 13 mg/dL Normal 6-23 [facility] Comment on above: Performed By: #### 2 4323-8 #### FARSHAD Burnett ([id number]) [facility] ([facility]) [address] [place] [address]253 Estradiolon 01-06-2024 E2 [Mass/Vol] 22 pg/mL Normal [facility] Comment on above: Order Comment: REF V ALUES FOLLICULAR PHASE 20-144 MID CYCLE 64-357 LUTEAL PHASE 56-214 POSTMENOPAUSE < 32 PREPUBERTY < 20 FEMALE 10-18Y 8-110 MALE 10-18Y < 20 ADULT MALE < 40 Performed By: #### 2 243-4 #### FARSHAD Burnett ([id number]) [facility] ([facility]) [address] [place] [address]85[address] Follitropinon 01-06-2024 Follitropin Qn 10.4 IU/L [facility] Ambulatory Comment on above: Result Comment: FSH Ref Values Follicular 2.0-12.0 IU/L Mid-Cycle 12.0-25.0 IU/L Luteal Phase 2.0-12.0 IU/L Menopause 30.0-150.0 IU/L Pre-puberty 50% Adult IU/L Adult Male 2.0-10.0 IU/L Infants 0.0-1.0 IU/L Performed By: #### 1 5067-2 #### FARSHAD Burnett ([id number]) [facility] ([facility]) [address] [place] [address]57[address] HbA1c (Bld) [Mass fraction]o n 01-06-2024 Average glucose Estimated from glycated hemoglobin (Bld) [Mass/Vol] 123 mg/dL Normal Not Established [facility] Comment on above: Order Comment: Diagn osis of Diabetes-Adults Non-Diabetic: < or = 5.6% Increased risk for developing diabetes: 5.7-6.4% Diagnostic of diabetes: > or = 6.5% Monitoring of Diabetes Age (y)....................... Therapeutic Goal (%) Adults: >18.........................<7.0 Pediatrics: 13-18...................<7.5 Pediatrics: 7-12....................<8.0 Pediatrics: 0-6..................... 7.5-8.5 [place] [employer]. Diabetes Care 33(S1)Sep 2009 Performed By: #### 4 548-4 #### FARSHAD Burnett ([id number]) [facility] ([facility]) [address] [place] [address] Hemoglobin A1c/Hemoglobin.to anthony 01-06-2024 HbA1c (Bld) [Mass fraction] 5.9 % High see below [facility] Comment on above: Order Comment: Diagn osis of Diabetes-Adults Non-Diabetic: < or = 5.6% Increased risk for developing diabetes: 5.7-6.4% Diagnostic of diabetes: > or = 6.5% Monitoring of Diabetes Age (y)....................... Therapeutic Goal (%) Adults: >18.........................<7.0 Pediatrics: 13-18...................<7.5 Pediatrics: 7-12....................<8.0 Pediatrics: 0-6..................... 7.5-8.5 [place] [employer]. Diabetes Care 33(S1), Sep 2009 Performed By: #### 4 548-4 #### FARSHAD Burnett ([id number]) [facility] ([facility]) [address] [place] [address] Lipid 1996 panelon 4 Cholesterol [Mass/Vol] 182 mg/dL Normal 0-199 [facility] Comment on above: Result Comment: Age Desirable Borderline High High 0-19 Y 0 - 169 170 - 199 >/= 200 20-24 Y 0 - 189 190 - 224 >/= 225 >24 Y 0 - 199 200 - 239 >/= 240 All ranges are based on fasting samples. Specific therapeutic targets will vary based on patient-specific cardiac risk. Pediatric guidelines reference:Pediatrics 2011, 128(S5).Adult guidelines reference: NCEP ATPIII Guidelines,LALI 2001, 258:2486-97 Venipuncture immediately after or during the administration of Metamizole may lead to falsely low results. Testing should be performed immediately prior to Metamizole dosing. Performed By: #### 2 4331-1 #### FARSHAD Burnett ([id number]) [facility] ([facility]) [address] [place] [address] Cholesterol in HDL [Mass/Vol] 34.4 mg/dL Normal [facility] Comment on above: Result Comment: Age Very Low Low Normal High 0-19 Y < 35 < 40 40-45 ---- 20-24 Y ---- < 40 >45 ---- >24 Y ---- < 40 40-60 >60 Performed By: #### 2 4331-1 #### FARSHAD Burnett ([id number]) [facility] ([facility]) [address] [place] [address] Cholesterol in LDL [Mass/Vol] 104 mg/dL High <=99 [facility] Comment on above: Result Comment: Near Borderline AGE Desirable Optimal High High Very High 0-19 Y 0 - 109 --- 110-129 >/= 130 ---- 20-24 Y 0 - 119 --- 120-159 >/= 160 ---- >24 Y 0 - 99 100-129 130-159 160-189 >/=190 Performed By: #### 2 4331-1 #### FARSHAD Burnett ([id number]) [facility] ([facility]) [id number] [place] [address] Cholesterol in VLDL [Mass/Vol] 43 mg/dL High 0-40 [facility] Comment on above: Performed By: #### 2 4331-1 #### FARSHAD Burnett ([id number]) [facility] ([facility]) [id number] [place] [address] CHOLESTEROL/HDL RATIO 5.3 Normal [facility] Ambulatory Comment on above: Result Comment: Ref Values Desirable < 3.4 High Risk > 5.0 Performed By: #### 2 4331-1 #### FARSHAD Burnett ([id number]) [facility] ([facility]) [id number] [place] [address] 61632 NON HDL CHOLESTEROL 148 mg/dL Normal 0-149 [facility] Ambulatory Comment on above: Result Comment: Age Desirable Borderline High High Very High 0-19 Y 0 - 119 120 - 144 >/= 145 >/= 160 20-24 Y 0 - 149 150 - 189 >/= 190 ---- >24 Y 30 mg/dL above LDL Cholesterol goal Performed By: #### 2 4331-1 #### FARSHAD Burnett ([id number]) [facility] ([facility]) [id number] [place] [address] 93792 Triglyceride [Mass/Vol] 217 mg/dL High 0-149 [facility] Ambulatory Comment on above: Result Comment: Age Desirable Borderline High High Very High 0 D-90 D 19 - 174 ---- ---- ---- 91 D- 9 Y 0 - 74 75 - 99 >/= 100 ---- 10-19 Y 0 - 89 90 - 129 >/= 130 ---- 20-24 Y 0 - 114 115 - 149 >/= 150 ---- >24 Y 0 - 149 150 - 199 200- 499 >/= 500 Venipuncture immediately after or during the administration of Metamizole may lead to falsely low results. Testing should be performed immediately prior to Metamizole dosing. Performed By: #### 2 4331-1 #### FARSHAD Burnett ([id number]) [facility] ([facility]) [address] [place] [address] Lutropinon 01-06-2024 Lutropin Qn 2.9 IU/L Normal [facility] Ambulatory Comment on above: Result Comment: LH R eference Values Follicular Phase 1.9-12.5 IU/L Mid-Cycle 8.7-76.3 IU/L Luteal Phase 0.5-16.9 IU/L Post Menopause 5.0-55.2 IU/L Children 0- 6.0 IU/L Adult Male 18-70 years 1.5- 9.3 IU/L Adult Male >70 years 3.1-34.6 IU/L Performed By: #### 1 0501-5 #### FARSHAD Burnett ([id number]) [facility] ([facility]) [address] [place] [address] TSH WITH REFLEX TO FREE T4 I F ABNORMALon 01-06-2024 TSH Qn 2.71 m[IU]/L Normal 0.44-3.98 [facility] Amb[facility] Comment on above: Order Comment: TSH t esting is performed using different testing methodology at [facility] than at other [facility]. Direct result comparisons should only be made within the same method. Performed By: #### T HYDS #### FARSHAD Burnett ([id number]) [facility] ([facility]) [id number] [place], [place] [id number] Testosterone Free/Testostero ne.total [Mass fraction]on 01-06-2024 Testosterone [Mass/Vol] 11 ng/dL Normal 2-45 [facility] Comment on above: Result Comment: For additional information, please refer to http://education.Trippy/faq/ [email or web address] (This link is being provided for informational/ educational purposes only.) This test was developed and its analytical performance characteristics have been determined by [employer] [place], [place]. It has not been cleared or approved by the U.S. Food and Drug Administration. This assay has been validated pursuant to the CLIA regulations and is used for clinical purposes. Performed By: #### 1 5432-8 #### SAGRARIO DAVIS ([id number]) [address] [facility] [place], [place] Testosterone Free [Mass/Vol] 1.9 pg/mL Normal 0.1-6.4 [facility] Comment on above: Result Comment: This test was developed and its analytical performance characteristics have been determined by [employer] [place], [place]. It has not been cleared or approved by the U.S. Food and Drug Administration. This assay has been validated pursuant to the CLIA regulations and is used for clinical purposes. Performed By: #### 1 5432-8 #### QUEST SUSAN ([id number]) [address] [facility] [place], [place] BI US BREAST LIMITED LEFTon 12-03-2023 BI US BREAST LIMITED LEFT Interpreted By: Bienvenido Chiu, STUDY: BI MAMMO BILATERAL DIAGNOSTIC TOMOSYNTHESIS; BI US BREAST LIMITED LEFT; 12/02/2023 2:20 pm; 12/02/2023 2:30 pm ACCESSION NUMBER(S): [id number]; [id number] ORDERING CLINICIAN: YVETTE MANCERA INDICATION: Patient presents for annual exam with evaluation of an enlarging painful lump under her left axilla for 6 months. COMPARISON: 02/06/2021 FINDINGS: MAMMOGRAPHY: 2D and tomosynthesis images were reviewed at 1 mm slice thickness. Density: The breast tissue is heterogeneously dense, which may obscure small masses. A radiopaque marker was placed on the skin at the site of the patient's area of concern in the left axilla. No focal mammographic abnormality is seen underneath the radiopaque marker. No suspicious masses or calcifications are identified. ULTRASOUND: Targeted ultrasound was performed of the left axilla by a registered gold frame assembler for remote interpretation. No focal sonographic abnormalities are visualized in the patient's area of palpable concern in the left axilla. 3 morphologically normal lymph nodes are visualized. IMPRESSION: No mammographic or targeted sonographic evidence of malignancy. No imaging explanation for patient's palpable lump in the left axilla. Clinical follow-up and continued annual screening is recommended. BI-RADS CATEGORY: BI-RADS Category: 2 Benign. Recommendation: Clinical Follow-up and Continued Annual Screening. Recommended Date: Immediate. Laterality: Left. For any future breast imaging appointments, please call [phone]). MACRO: None Signed by: Bienvenido Chiu 12/03/2023 8:23 AM Dictation workstation: [id number] [facility] No Panel Informationon 12-02 No mammographic or t argeted sonographic evidence of malignancy. No imaging explanation for patient's palpable lump in the left axilla. Clinical follow-up and continued annual screening is recommended. BI-RADS CATEGORY: BI-RADS Category: 2 Benign. Recommendation: Clinical Follow-up and Continued Annual Screening. Recommended Date: Immediate. Laterality: Left. For any future breast imaging appointments, please call [phone] ([phone]). MACRO: None Signed by: Bienvenido Chiu 12/03/2023 8:23 AM Dictation workstation: [id number] MMODAL Interpreted By: Bienvenido Farris, STUDY: BI MAMMO BILATERAL DIAGNOSTIC TOMOSYNTHESIS; BI US BREAST LIMITED LEFT; 12/02/2023 2:20 pm; 12/02/2023 2:30 pm ACCESSION NUMBER(S): [id number]; [id number] ORDERING CLINICIAN: YVETTE MANCERA INDICATION: Patient presents for annual exam with evaluation of an enlarging painful lump under her left axilla for 6 months. COMPARISON: 02/06/2021 FINDINGS: MAMMOGRAPHY: 2D and tomosynthesis images were reviewed at 1 mm slice thickness. Density: The breast tissue is heterogeneously dense, which may obscure small masses. A radiopaque marker was placed on the skin at the site of the patient's area of concern in the left axilla. No focal mammographic abnormality is seen underneath the radiopaque marker. No suspicious masses or calcifications are identified. ULTRASOUND: Targeted ultrasound was performed of the left axilla by a registered gold frame assembler for remote interpretation. No focal sonographic abnormalities are visualized in the patient's area of palpable concern in the left axilla. 3 morphologically normal lymph nodes are visualized. MMODAL Bienvenido Chiu MD - 12/03/2023 Interpreted By: Bienvenido Chiu, STUDY: BI MAMMO BILATERAL DIAGNOSTIC TOMOSYNTHESIS; BI US BREAST LIMITED LEFT; 12/02/2023 2:20 pm; 12/02/2023 2:30 pm ACCESSION NUMBER(S): [id number]; [id number] ORDERING CLINICIAN: YVETTE MANCERA INDICATION: Patient presents for annual exam with evaluation of an enlarging painful lump under her left axilla for 6 months. COMPARISON: 02/06/2021 FINDINGS: MAMMOGRAPHY: 2D and tomosynthesis images were reviewed at 1 mm slice thickness. Density: The breast tissue is heterogeneously dense, which may obscure small masses. A radiopaque marker was placed on the skin at the site of the patient's area of concern in the left axilla. No focal mammographic abnormality is seen underneath the radiopaque marker. No suspicious masses or calcifications are identified. ULTRASOUND: Targeted ultrasound was performed of the left axilla by a registered gold frame assembler for remote interpretation. No focal sonographic abnormalities are visualized in the patient's area of palpable concern in the left axilla. 3 morphologically normal lymph nodes are visualized. IMPRESSION: No mammographic or targeted sonographic evidence of malignancy. No imaging explanation for patient's palpable lump in the left axilla. Clinical follow-up and continued annual screening is recommended. BI-RADS CATEGORY: BI-RADS Category: 2 Benign. Recommendation: Clinical Follow-up and Continued Annual Screening. Recommended Date: Immediate. Laterality: Left. For any future breast imaging appointments, please call [phone] ([phone]). MACRO: None Signed by: Bienvenido Chiu 12/03/2023 8:23 AM Dictation workstation: [id number] [facility] Work Phone: No Panel InformationOrdered By: Bienvenido Chiu on 12-03-2023 [facility] Work Phone: BI MAMMO BILATERAL DIAGNOSTI C TOMOSYNTHESISon 12-02-2023 BI MAMMO BILATERAL DIAGNOSTIC TOMOSYNTHESIS Interpreted By: Bienvenido Chiu, STUDY: BI MAMMO BILATERAL DIAGNOSTIC TOMOSYNTHESIS; BI US BREAST LIMITED LEFT; 12/02/2023 2:20 pm; 12/02/2023 2:30 pm ACCESSION NUMBER(S): [id number]; [id number] ORDERING CLINICIAN: YVETTE MANCERA INDICATION: Patient presents for annual exam with evaluation of an enlarging painful lump under her left axilla for 6 months. COMPARISON: 02/06/2021 FINDINGS: MAMMOGRAPHY: 2D and tomosynthesis images were reviewed at 1 mm slice thickness. Density: The breast tissue is heterogeneously dense, which may obscure small masses. A radiopaque marker was placed on the skin at the site of the patient's area of concern in the left axilla. No focal mammographic abnormality is seen underneath the radiopaque marker. No suspicious masses or calcifications are identified. ULTRASOUND: Targeted ultrasound was performed of the left axilla by a registered gold frame assembler for remote interpretation. No focal sonographic abnormalities are visualized in the patient's area of palpable concern in the left axilla. 3 morphologically normal lymph nodes are visualized. IMPRESSION: No mammographic or targeted sonographic evidence of malignancy. No imaging explanation for patient's palpable lump in the left axilla. Clinical follow-up and continued annual screening is recommended. BI-RADS CATEGORY: BI-RADS Category: 2 Benign. Recommendation: Clinical Follow-up and Continued Annual Screening. Recommended Date: Immediate. Laterality: Left. For any future breast imaging appointments, please call [phone] ([phone]). MACRO: None Signed by: Bienvenido Chiu 12/03/2023 8:23 AM Dictation workstation: [id number] [facility] DBT Breast - bilateral diagn osticon 12-02-2023 Radiology Study observation (narrative) [facility] Work Phone: US Breast - left limitedon 0 12-02-2023 Radiology Study observation (narrative) [facility] Work Phone: Anoscopyon 11-26-2023 AUDREY Ross RN-FRETTED INSTRUMENT INSPECTOR 11/26/2023 1:25 PM Anoscopy Date/Time: 11/26/2023 1:20 PM Performed by: SULEIMAN Ross Authorized by: SULEIMAN Ross Consent: Consent obtained: Verbal Consent given by: Patient Risks, benefits, and alternatives were discussed: yes Dennis protocol: Procedure explained and questions answered to patient or proxy's satisfaction: yes Patient identity confirmed: Verbally with patient Post-procedure details: Procedure completion: Tolerated Comments: She has 2 small anal condyloma on the right lateral position and a very tiny one on the left lateral position. No external hemorrhoids. On anoscopy, she has mild irritation of the internal hemorrhoids. No condyloma seen. No active bleeding. [facility] Work Phone: [facility] Work Phone: Urgent Care Visit Reporton 0 11-10-2023 Urgent Care Visit Report [facility] [address], [address] [place] [address] OFFICE VISIT Date of Service: 11/10/23 MR#: [id number] Acct: [id number] Name: TJ VILLANUEVA Sahndra Rep #: [id number] : 1985 Provider: GEORGIE Tsai Age/Sex: 37/F Location: [facility] Status: Signed Intake Vital Signs 12/08/21 02:56 11/10/23 10:22 11/10/23 11:14 Height 6 ft 4 in 6 ft 4 in BP 120/78 Blood Pressure Location Lt brachial Position Sitting Respiration 14 Pulse 99 Pulse Source Monitor Temp 98.7 F Temp Source Temporal Pulse Oximetry (%) 98 Oxygen Delivery Method room air Intake Visit Reasons: COUGH/SINUS PRESSURE/GRETCHEN/SORE THROAT Allergies No Known Allergies Allergy (Verified 11/10/23 11:15) PFSH Medical History (Updated 12/16/21 @ 00:02 by Katy Augustin) Chronic neck and back pain Headache Lab test negative for COVID-19 virus Surgical History (Updated 12/08/21 @ 03:00 by Jose Raul Dejesus) S/P partial hysterectomy Family History (Updated 05/31/21 @ 07:39 by Dia Goncalves, RN) Other Cancer Diabetes Social History Smoking Status: Never smoker HPI HPI Details: TJ VILLANUEVA, is a 37 F who presents to the office today for initial evaluation in the [facility] for approximately 3 day history of persistent cough, [place], fatigue, congestion. Requesting POC screening. Patient notes no complaints of chest pain or shortness of breath or dyspnea on exertion. Nonsmoker. Several close contacts recently dx???d w/ similar URI complaints. No vxds-rmc-ogiadnc taken to assist. No other associated symptoms and no other alleviating/aggravating factors. ROS Const Constitutional: No other (As above) Exam Const General: cooperative, healthy appearing and no acute distress Orientation: alert, awake and oriented x3 HENMT Head: normal to inspection Ears: hearing grossly normal bilaterally, external ears normal, TM's normal bilaterally and EAC's normal Nose: external nose normal, nares normal, septum normal and clear nasal discharge Face and sinus: normal facial exam, sinuses nontender and face symmetric Mouth: oral mucosae normal, lip normal, tongue normal and oropharynx normal Throat: posterior oropharynx normal, tonsils normal, uvula midline and no postnasal drainage Eyes General: appearance normal, both eyes and all related structures Neck Neck: normal visual inspection, full ROM, no lymphadenopathy, no meningeal signs and supple Neck mass: No Thyroid: thyroid normal Lymphatic: no lymphadenopathy noted Chest Chest palpation inspection: normal inspection of the chest Resp Effort Inspection: normal respiratory effort, able to speak in complete sentences and cough Quality of cough: wet (nonproductive in office today) Auscultation: Bilateral: Clear to Auscultation Cardio Palpation: normal PMI Rate: tachycardic Rhythm: regular rhythm Heart Sounds: S1 normal, S2 normal, no gallops, no murmurs and no rubs Pulses: radial pulses present Skin General: no rashes or lesions noted Neuro General: patient alert, patient awake and patient oriented x3 Cognition: normal cognition Speech: speech normal Psych Appearance: grossly normal Mental Status: mental status grossly normal Mood: congruent mood Affect: normal affect Speech and Movement: speech and movement normal Attitude: cooperative Diagnoses Contact with or exposure to other viral diseases Z20.828 URI (upper respiratory infection) J06.9 Assessment and Plan Assessment and Plan (1) Contact with or exposure to other viral diseases: Status: Acute (2) URI (upper respiratory infection): Status: Acute Plan: See POC results. Medrol and Benzonatate as prescribed today. Supportive measures as instructed today. Work excuse provided at patient request. Follow-up with PCP in 5 to 7 days should symptoms not improve, ED sooner should symptoms worsen or any other concerns develop. Pt states acknowledging understanding all the above Results POC TR Covid FluAB PCR POC Tr Covid PCR Not Detected Last Edit by Cathie Myrick on 11/10/23 11:34 POC TR FLU NOT DETECTED FLU A B Last Edit by Cathie Myrick on 11/10/23 11:34 Coding Level of Care Code Off vis,est,level 3 Assessment and Plan Assessment and Plan Orders: Orders POC Tr Covid FLUAB PCR Today R05.9 - Cough, unspecified Medications: New benzonatate 200 mg PO TID PRN 14 caps 0RF cough methylprednisolone (Medrol (Mani)) PO PER PKG DIR 21 tabs 0RF 11/10/23 1141 Date Chuck Jett Signature: Date (if applicable) CC: Normal [facility] Phone Msgon 10-23-2023 Phone Msg Entered by BIB PADILLA MD, FACOG on October 23, 2023 10:22:41 EST From: BIB PADILLA MD, FACOG To: [facility] Sent: 10/23/2023 10:22:41 EST Subject: Medication Management Not Approved: Patient should contact Prescriber first imiquimod topical (IMIQUIMOD 5% CREA) ONE APPLICATION TOPICALLY ON MONDAYS AND THURSDAYS Qty: 24 EA Days Supply: 290 Refills: 0 Substitutions Allowed Route To Pharmacy - [place] [id number] From: [facility] To: BIB PADILLA MD Sent: October 23, 2023 3:01:49 AM EST Subject: Medication Management Due: October 23, 2023 11:34:57 AM EST On Hold Pending Signature Drug: imiquimod topical (imiquimod 5% topical cream), ONE APPLICATION TOPICALLY ON MONDAYS AND THURSDAYS Quantity: 24 EA Days Supply: 290 Refills: 0 Substitutions Allowed Notes from Pharmacy: Dispensed Drug: imiquimod topical (imiquimod 5% topical cream), ONE APPLICATION TOPICALLY ON MONDAYS AND THURSDAYS Quantity: 24 EA Days Supply: 290 Refills: 0 Substitutions Allowed Notes from Pharmacy: Normal [facility] SARS coronavirus 2 RNAon SARS-CoV-2 (COVID-19) RNA KATT+probe Ql (Resp) Not detected Normal Not Detected [facility] Comment on above: Order Comment: This assay has received FDA Emergency Use Authorization (EUA) and is only authorized for the duration of time that circumstances exist to justify the authorization of the emergency use of in vitro diagnostic tests for the detection of SARS-CoV-2 virus and/or diagnosis of COVID-19 infection under section 564(b)(1) of the Act, 21 U.S.C. 360bbb-3(b)(1). This assay is an in vitro diagnostic nucleic acid amplification test for the qualitative detection of SARS-CoV-2 from nasopharyngeal specimens and has been validated for use at [facility]. Negative results do not preclude COVID-19 infections and should not be used as the sole basis for diagnosis, treatment, or other management decisions. Performed By: #### 9 4500-6 #### WHEATLEY MIGDALIA ([id number]) [facility] ([facility]) [address] [id number] Phone Msgon 07-29-2023 Phone Msg Entered by BIB PADILLA MD, FACOG on July 29, 2023 07:30:58 EST From: BIB PADILLA MD, FACOG To: [facility] Sent: 07/29/2023 07:30:58 EST Subject: Medication Management Submitted: Complete:imiquimod topical (Aldara 5% topical cream) Signed by BIB PADILLA MD, FACOG 07/29/2023 07:30:00 EST Approved imiquimod topical (IMIQUIMOD 5% CREA) ONE APPLICATION TOPICALLY ON MONDAYS AND THURSDAYS Qty: 24 EA Days Supply: 30 Refills: 0 Substitutions Allowed Route To Pharmacy - [facility] From: [facility] To: BIB PADILLA MD Sent: July 29, 2023 3:01:12 AM EST Subject: Medication Management Due: July 10, 2023 2:20:23 PM EST On Hold Pending Signature Drug: imiquimod topical (imiquimod 5% topical cream), ONE APPLICATION TOPICALLY ON MONDAYS AND THURSDAYS Quantity: 24 EA Days Supply: 30 Refills: 0 Substitutions Allowed Notes from Pharmacy: Dispensed Drug: imiquimod topical (imiquimod 5% topical cream), ONE APPLICATION TOPICALLY ON MONDAYS AND THURSDAYS Quantity: 24 EA Days Supply: 30 Refills: 0 Substitutions Allowed Notes from Pharmacy: Normal [facility] Phone Msgon 07-02-2023 Phone Msg - From: Ashly Bacon To: BIB PADILLA MD; Sent: 07/02/2023 10:27:20 EDT Subject: Pap smear Actions: Message Caller Name: TJ VILLANUEVA; Caller Number: H pt called in we had seen her as a referral from Dr Mancera for hx of cervical dysplasia and Genital warts, skin tag removals. 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 I tried to explain that after the hysterectomy that they were no longer needed but she requested a return phone call. Normal [facility] SURGICAL PATH REPORTon 07-01 SURGICAL PATH REPORT [facility] Department of Pathology [address] [place] [id number] [phone] Name: TJ VILLANUEVA : 1985 [facility] [phone] Number: Gender Female Locatio Lab Svc. : n: Admit 37 years Attending BIB PADILLA MD, FACOG Age: Provider: Ordering BIB PADILLA MD, FACOG Provider: Consulti Surgical Pathology Report ng: ACCESSION: COLLECTED DATE/TIME: RECEIVED DATE/TIME: PATHOLOGIST: [id number] 06/26/2023 08:10 EDT 06/27/2023 15:45 EDT MARIANEN CAMPBELL MD Final Diagnosis SKIN LESION, EXCISION: - FIBROEPITHELIAL POLYP (SKIN TAG). MARIANNE CAMPBELL PATHOLOGIST (Electronic Signature) Date Verified 07/01/2023 CL Clinical Data PRE-OP DIAGNOSIS: Skin tag POST-OP DIAGNOSIS: Not specified PROCEDURES: Skin tag removal SPECIMEN: Skin tag Gross Description Not labeled on container, requisition is labeled skin tag. Received in formalin are three shaves of pearson-pink skin. These measure in aggregate 2.0 x 1.0 x 0.8 cm. Each segment is bisected and entirely submitted in one cassette. MP/slb 06/27/2023 Microscopic Diagnosis The final diagnosis is based on a microscopic exam of pharmaceutical specialty representative sections. Codes CPT CODE: 64919 ____ Print 07/02/2023 09:50 EDT Number: Date/Time: Normal [facility] Comment on above: Performed By: #### 9 [id number] #### [facility] [address] [place] [address] Wood Drill Operator: Lev Farr MD [facility] Physician Progress No trung 06-26-2023 [facility] Physician Progress Note TJ VILLANUEVA Shandra :1985 Registration Date:06/26/2023 Assessment/Plan This Visit Diagnosis Cutaneous skin tags L91.8 removed x 3 Ordered: AMB Office/Outpt New Pt Low MDM / 30-44 min significant, separately identifiable [id number] - , 06/26/2023 09:02:00 EDT, Cutaneous skin tags / Genital warts AMB Remove skin tags any area, 15 or fewer [id number], 06/26/2023 09:01:00 EDT, Cutaneous skin tags, 1 Genital warts A63.0 will start aldara Ordered: imiquimod topical(Aldara 5% topical cream), 1 syeda, Topical, M,Th AMB Office/Outpt New Pt Low MDM / 30-44 min significant, separately identifiable [id number] - , 06/26/2023 09:02:00 EDT, Cutaneous skin tags / Genital warts Medication Reconciliation What How Much When Instructions New FLUoxetine (FLUoxetine 20 mg oral tablet) Oral 20 Unknown, 0 Refill(s), Take 1 tablet (20 mg) by mouth once daily. New pregabalin (pregabalin 200 mg oral capsule) 90 EA, 0 Refill(s) Unchanged topiramate (topiramate 50 mg oral tablet) 1 Tabs Oral THREE TIMES A DAY Chief Complaint [employer] here for vaginal lesion pt states hx of HPV and Pre-cancerous cells, menorrhagia s/p Hyst History of Present Illness Tj is a 37 year old here for possible genital warts. She had a hysterectomy for cervical dysplasia. MGM with breast cancer twice. Mom had testing and was negative. Physical Exam Vitals & Measurements BP: 124/80 HT: 193 cm WT: 145.9 kg BMI: 39.17 Depression Screening Scores Initial Depression Screen Score: 0 (06/26/23 08:21:00) Fall Risk Assessment Is the patient ambulatory (mobile): Yes (06/26/23 08:21:00) Have you had a fall within the past: No (06/26/23 08:21:00) Have you had 2 or more falls in the past: No (06/26/23 08:21:00) The vital signs were reviewed and are normal. General appearance: well developed and well nourished Lungs: Normal respiratory effort Extremities: no edema Psychiatric: Mood: normal FAST FOOD DELIVERY DRIVER: External genitalia: one skin tag on left labia majora, two others near each other on lower left labia majora Urethra: normal meatus Vagina: normal no lesions, scant discharge, vault normal Cervix: cuff Uterus: absent Perineum: warts noted near anus but several flat warts noted on right labia FAST FOOD DELIVERY DRIVER Procedure Details The skin tags were cleansed with alcohol. I then injected 0.5 mL of lidocaine into the bases of the three skin tags. I used scissors to remove the tags. The upper one stopped bleeding instantly with silver nitrate. The lower two I placed an interrupted suture for hemostasis. She tolerated it well. FAST FOOD DELIVERY DRIVER Additional Details-Patient Stated Menstrual History Menstrual StatusHysterectomy FAST FOOD DELIVERY DRIVER Screening Last Mammography Result, Pt StatedBenign Last Mammography Result CommentDense tissue Contraception Contraception MethodSterilization for contraception OB History History (3,0,0,3) # 1 Baby 1 Outcome Date: 07/05/2008 Outcome or Result: Vaginal Gest Age: 40 weeks Outcome: Live Sex: Female Wt: 5075 g [facility] Baby 1 Outcome Date: 09/16/2012 Outcome or Result: Vaginal Gest Age: 40 weeks Outcome: Live Sex: Female Wt: 4423 g [facility] Baby 1 Outcome Date: 07/21/2013 Outcome or Result: Vaginal Gest Age: 40 weeks Outcome: Live Sex: Male Wt: 3572 g Hospital: [facility] Problem List/Past Medical History Ongoing Anxiety Lower back pain Migraine with aura Historical Procedure/Surgical History Lumbar discectomy L5-S1: 12/2021 LAVH with BL Salpingectomy: 2016 Corrective eye surgery: 2000 Medications FLUoxetine(FLUoxetine 20 mg oral tablet), ORAL pregabalin(pregabalin 200 mg oral capsule) topiramate(topiramate 50 mg oral tablet), 50 mg= 1 tabs, ORAL, TID Allergies No Known Medication Allergies Social History Alcohol - Denies Alcohol Use Sexual Other contraceptive use:Hyst Substance Abuse - Denies Substance Abuse Tobacco Use:Never (less than 100 in lifetime) Family History Breast cancer: Grandmother (Dx about 50), Grandmother (Dx at 50) and Grandmother (Dx at 50). Colon cancer..: Grandmother (Dx about 70). Health Status Family Member(s) Family Member(s) Relationship: Grandmother, Name: Melquiades Osorio, Age: Unknown, Cause: Breast ca Normal [facility] Ambulatory Clinical Summaryo n 06-26-2023 Ambulatory Clinical Summary TJ VILLANUEVA Shandra :1985 Registration Date:06/26/2023 Ambulatory Visit Instructions Your Diagnosis Cutaneous skin tags Genital warts Your Care Team Attending Physician - BIB PADILLA MD, FACOG Primary Care Physician - YVETTE MANCERA Procedures Performed Lumbar discectomy L5-S1 (12/2021) LAVH with BL Salpingectomy (2016) Corrective eye surgery (2000) Discharge Vitals Blood Pressure 124/80 Height 75.98 in (193 cm) Weight 321.71 lb (145.9 kg) BMI 39.17 Systolic Blood Pressure: 124 mmHg (06/26/23 08:21:00) Diastolic Blood Pressure: 80 mmHg (06/26/23 08:21:00) Mean Arterial Pressure: 95 mmHg (06/26/23 08:21:00) Height/Length Measured: 193 cm (06/26/23 08:21:00) Weight Measured: 145.9 kg (06/26/23 08:21:00) Body Mass Index Measured: 39.17 kg/m2 (06/26/23 08:21:00) Height/Length Measured - in2: 76 in (06/26/23 08:21:00) Ht/Wt Measurement Refused by Patient?2: No (06/26/23 08:21:00) What to do next Scheduled Follow-Up Appointments No results Medications What How Much When Why Instructions New FLUoxetine (FLUoxetine 20 mg oral tablet) Oral 20 Unknown, 0 Refill(s), Take 1 tablet (20 mg) by mouth once daily. New imiquimod topical (Aldara 5% topical cream) 1 Application Topical NAM IBARRA Genital warts Pickup at [facility] New pregabalin (pregabalin 200 mg oral capsule) 90 EA, 0 Refill(s) Unchanged topiramate (topiramate 50 mg oral tablet) 1 Tabs Oral THREE TIMES A DAY Pharmacy Information [facility]: [address] [place], [place] [id number] [phone] Allergies No Known Medication Allergies Problems Ongoing - Any problem that you are currently receiving treatment for. Anxiety Lower back pain Migraine with aura Common Emergency Awareness Tips IS IT A STROKE? Act FAST and Check for these signs: FACE Does the face look uneven? ARM Does one arm drift down? SPEECH Does their speech sound strange? TIME Call at any sign of stroke Heart Attack Signs Chest discomfort: Most heart attacks involve discomfort in the center of the chest and lasts more than a few minutes, or goes away and comes back. It can feel like uncomfortable pressure, squeezing, fullness or pain. Discomfort in upper body: Symptoms can include pain or discomfort in one or both arms, back, neck, jaw or stomach. Shortness of breath: With or without discomfort. Other signs: Breaking out in a cold sweat, nausea, or lightheaded. Remember, MINUTES DO MATTER. If you experience any of these heart attack warning signs, call to get immediate medical attention! Normal [facility] Comprehensive Intake - Texto n 06-26-2023 Comprehensive Intake - Text Comprehensive Intake Entered On: 06/26/2023 8:27 EDT Performed On: 06/26/2023 8:21 EDT by Ashly Bacon Summary Chief Complaint : [employer] here for vaginal lesion pt states hx of HPV and Pre-cancerous cells, menorrhagia s/p Hyst Menstrual Status : Hysterectomy Bladder Control Issues? : No Urine Leakage? : No Presence or absence of urinary incontinence assessed : Yes CPT-II Medication list doc'd in medical record : Yes Influenza immunization administered or previously received : No Pneumococcal vaccine administered or previously received : No Ashly Bacon - 06/26/2023 8:21 EDT Measurements Ht/Wt Measurement Refused by Patient? : No Weight Measured : 145.9 kg(Converted to: 321 lb 10 oz, 321.654 lb) Height/Length Measured : 193 cm(Converted to: 6 ft 4 in, 75.98 in) Body Mass Index Measured : 39.17 kg/m2 Body Mass Index documented : Yes Height/Length Measured - in : 76 in(Converted to: 6 ft 4 in, 193 cm) Ashly Bacon - 06/26/2023 8:21 EDT Vitals Require BP : Yes Systolic Blood Pressure : 124 mmHg Diastolic Blood Pressure : 80 mmHg Mean Arterial Pressure : 95 mmHg Last Systolic BP : less than 130 mmHg Last Diastolic BP : 80-89 mmHg Pain Present : No actual or suspected pain Pain : 0 Pain severity quantified : No pain present Ashly Bacon - 06/26/2023 8:21 EDT Infection Screening - Ambulatory Exposure AND/OR close contact with a person under investigation or laboratory-confirmed COVID-19 individual within 14 days of symptom onset AND/OR any of the following: : No Do you live/work in a high risk situation (congregated living, hemodialysis, infusion clinic, jail, assisted living, alf, homeless custodial, etc.)? : No Ashly Bacon 06/26/2023 8:21 EDT Depression Screening Is patient currently : None of the Below Feeling Down, Depressed, Hopeless : Not at all Little Interest - Pleasure in Activities : Not at all Initial Depression Screen Score : 0 Depression Screening Score 0 : No Ashly Bacon 06/26/2023 8:21 EDT Problems (As Of: 06/26/2023 08:27:26 EDT) Falls Risk Assessment Is the patient ambulatory (mobile) : Yes Have you had 2 or more falls in the past year : No Have you had a fall within the past year that has caused an injury : No Patient screen for fall risk : no falls in last year OR 1 fall with no injury in last year Ashly Bacon - 06/26/2023 8:21 EDT Normal [facility] FAST FOOD DELIVERY DRIVER Visit - [place] FAST FOOD DELIVERY DRIVER Visit - Text FAST FOOD DELIVERY DRIVER Visit Entered On : 06/26/2023 8:28 EDT Performed On: 06/26/2023 8:27 EDT by Ashly Bacon FAST FOOD DELIVERY DRIVER Menstrual History Menstrual Status : Hysterectomy Ashly Bacon - 06/26/2023 8:27 EDT FAST FOOD DELIVERY DRIVER Screenings Date of Last Mammogram : 2021 Last Mammography Result : Benign Last Mammography Result Comment : Dense tissue Ashly Bacon - 06/26/2023 8:27 EDT Contraception Contraception Method : Sterilization for contraception Sterilization Type : Hysterectomy Ashly Bacon - 06/26/2023 8:27 EDT Normal [facility] MR Brain WO and W contrast I Von 06-18-2023 Unremarkable MRI of brain. Signed by: Kathya Zapata 06/18/2023 8:36 AM Dictation workstation: [id number] [facility] Interpreted By: Kathya Dorsey, STUDY: MR BRAIN W AND WO IV CONTRAST; 06/17/2023 4:54 pm INDICATION: Signs/Symptoms:change in headache, olfactory changes. COMPARISON: None. ACCESSION NUMBER(S): [id number] ORDERING CLINICIAN: YVETTE MANCERA TECHNIQUE: Axial T2, FLAIR, DWI, gradient echo T2 and T1 weighted images of brain were acquired. Post contrast T1 weighted images were acquired after administration of gadolinium based intravenous contrast. FINDINGS: CSF Spaces: The ventricles, sulci and basal cisterns are within normal limits. Parenchyma: There is no diffusion restriction abnormality to suggest acute infarct. There is no focal parenchymal signal abnormality. There is no mass effect or midline shift. There is no focus of abnormal parenchymal enhancement. There is no focus of abnormal leptomeningeal enhancement. Specifically there is no focal parenchymal abnormality, mass lesion or mass effect in the anterior cranial fossa along the olfactory bulbs. The suprasellar cistern, optic chiasm and the pituitary gland appear grossly unremarkable. Paranasal Sinuses and Mastoids: Mild mucosal thickening is seen within scattered ethmoidal air cells. Bilateral mastoids are clear. [facility] Kathya Zapata MD - 06/18/2023 Interpreted By: Kathya Zapata, STUDY: MR BRAIN W AND WO IV CONTRAST; 06/17/2023 4:54 pm INDICATION: Signs/Symptoms:change in headache, olfactory changes. COMPARISON: None. ACCESSION NUMBER(S): [id number] ORDERING CLINICIAN: YVETTE MANCERA TECHNIQUE: Axial T2, FLAIR, DWI, gradient echo T2 and T1 weighted images of brain were acquired. Post contrast T1 weighted images were acquired after administration of gadolinium based intravenous contrast. FINDINGS: CSF Spaces: The ventricles, sulci and basal cisterns are within normal limits. Parenchyma: There is no diffusion restriction abnormality to suggest acute infarct. There is no focal parenchymal signal abnormality. There is no mass effect or midline shift. There is no focus of abnormal parenchymal enhancement. There is no focus of abnormal leptomeningeal enhancement. Specifically there is no focal parenchymal abnormality, mass lesion or mass effect in the anterior cranial fossa along the olfactory bulbs. The suprasellar cistern, optic chiasm and the pituitary gland appear grossly unremarkable. Paranasal Sinuses and Mastoids: Mild mucosal thickening is seen within scattered ethmoidal air cells. Bilateral mastoids are clear. IMPRESSION: Unremarkable MRI of brain. Signed by: Kathya Zapata 06/18/2023 8:36 AM Dictation workstation: [id number] [facility] Work Phone: MR Brain WO and W contrast I VOrdered By: Kathya Zapata on 06-18-2023 [facility] Work Phone: MR Brain WO and W contrast I Von 06-17-2023 Radiology Study observation (narrative) [facility] Work Phone: Established Visit (Pain Medi cine)on 05-20-2023 Established Visit (Pain Medicine) Diagnoses/Problems Lumbar post-laminectomy syndrome (722.83) (M96.1) Lumbar radiculopathy (724.4) (M54.16) Lumbar spondylosis (721.3) (M47.816) Orders Lumbar post-laminectomy syndrome, Lumbar radiculopathy, Lumbar spondylosis Start: Pregabalin 200 MG Oral Capsule (Lyrica); TAKE 1 CAPSULE Every 8 hours Provider Impressions This 37-year-old female here for follow-up of chronic low back pain. She is status post L4-5 lumbar laminectomy and discectomy last year, however continues to have significant pain in the low back area. Last visit she had bilateral SI joint injection which did not provide her with any long-lasting relief of pain. On physical examination she does have tenderness over lower lumbar paraspinous area as well as increased pain with extension. Review of her imaging does reveal lower lumbar facet arthrosis. Would recommend trial of diagnostic lumbar medial branch blocks as next step in managing her pain. Currently also taking Lyrica and Celebrex which has provided her with more than 50% relief of pain. Would increase the Lyrica to maximum 200 mg 3 times daily. I have personally reviewed the OARRS report. This report is scanned into the electronic medical record. I have considered the risks of abuse, dependence, addiction and diversion. Chief Complaint fuv for b/l SI joint injection on 01/03 with 50% relief that lasted about 2 weeks. Todays pain is in the lower back down right leg. take Pregablin and it does help with pain want to increase it, and take alpha-lipioc acid and celebrex that help Adult Risk Screening There are no spiritual/cultural practices/values/needs that are important to know Initial Fall Risk Screening: TJ has not fallen in the last 6 months. Her fall did not result in injury. TJ does not have a fear of falling. She does not need assistance with sitting, standing or walking. Does not need assistance walking in her home. She does not need assistance in an unfamiliar setting. The patient is not using an assistive device. Fall Risk Screening: Patient is identified as a fall risk. Care Plan: Low Risk: Environmental for all patients and low risk patients: Offer assistance as needed or requested, keep environment free of obstacles, keep floor clean and dry, keep room lighting, wheelchair brakes on, bed/ stretcher locked and in low position if applicable, non-slip footwear if applicable, walker/cane available if needed, side rails up if applicable and pre-emptive toileting. Altered Mobility: none. Alteration in Mental Status: no. Relevant Medical History/Diagnosis: Multiple Dx: . Altered Elimination: no. Medications That May Alter Equilibrium: none. Sensory Deficit: no. Unable or Unwilling to Follow Directions: no. Low: current pain. Pain Scale: On a scale of 0 to 10, the patient rates the pain at 6. Please identify location of pain: right hip and buttocks. Pain Quality: aching. The pain makes it hard for the patient to do these things: walking, exercise, sleep, work and house work. Living Will. Living Will: No living will on file. Healthcare POA: No healthcare proxy on file. Declaration of Mental Health Treatment: No mental health treatment on file. Tobacco Screening: TJ does not use tobacco. Has not used tobacco in the past 6 months. Has not tried to quit or thought about quitting tobacco. Domestic Violence Screen: Does not feel threatened or abused physically, emotionally or sexually. Do you feel UNSAFE? The patient feels safe in the home. Depression/Suicide Screening: During the past 2 weeks, the patient has not felt down, depressed or hopeless. During the past 2 weeks, the patient has not felt little interest or pleasure in doing things. She does not have a risk of suicide. She has not had thoughts of harming others. [place]IA-SUICIDE SEVERITY RATING SCALE 1. Have you wished you were or wished you could go to sleep and not wake up? -NO 2. Have you actually had any thoughts of killing yourself? - NO 6. Have you done anything, started to do anything, or prepared to do anything to end your life? - NO. Single alcohol screening question: In the past year the patient has had 5 or more drinks (men) or 4 or more drinks (women)? 0 time(s). Single substance abuse screening question: In the past year the patient has used a recreational drug or used a prescription drug for non-medical reasons? 0 time(s). Procedure or Sedation Areas: patient has not had alcohol, recreational drugs, or prescription drugs for non-medical reasons this morning. Nutrition Screening: In the past month, there was not a day when I or anyone in my family went hungry because there was not enough food. Patient Education: The patient denies that they or the person with them has problems with hearing, speaking, seeing, moving around or learning The patient is comfortable filling out medical forms. Food Insecurity: 1. Within the past 12 months, you worried that your food would run out before you (more content not included)... Normal [facility] - Drug toxicology on 05-20-2023 Amphetamines Screen Ql (U) Negative NEGATIVE [facility] Work Phone: Comment on above: CUTOFF LEVEL: 500 NG /ML Cross-reactivity has been reported with high concentrations of the following drugs: buproprion, chloroquine, chlorpromazine, ephedrine, mephentermine, fenfluramine, phentermine, phenylpropanolamine, pseudoephedrine, and propranolol. Barbiturates Screen Ql (U) Negative NEGATIVE [facility] Work Phone: Comment on above: CUTOFF LEVEL: 200 NG /ML Benzodiazepines Ql (U) Negative NEGATIVE [facility] Work Phone: Comment on above: CUTOFF LEVEL: 200 NG /ML Benzoylecgonine Screen Ql (U) Negative NEGATIVE [facility] Work Phone: Comment on above: CUTOFF LEVEL: 150 NG /ML Cannabinoids Screen Ql (U) Negative NEGATIVE [facility] Work Phone: Comment on above: CUTOFF LEVEL: 50 NG/ ML Opiates Screen Ql (U) Negative NEGATIVE [facility] Work Phone: Comment on above: CUTOFF LEVEL: 300 NG /ML The opiate screen does not detect fentanyl, meperidine, or tramadol. Oxycodone is not consistently detected (refer to Oxycodone Screen, Urine result). oxyCODONE+oxyMORpho ne Screen Ql (U) Negative NEGATIVE [facility] Work Phone: Comment on above: CUTOFF LEVEL: 100 NG /ML This test will accurately detect both oxycodone and oxymorphone. Phencyclidine Ql (U) Negative NEGATIVE [facility] Work Phone: Comment on above: CUTOFF LEVEL: 25 NG/ ML Cross-reactivity has been reported with dextromethorphan. Pregabalin Confirm (U) [Mass/Vol] 54.0 ug/mL [facility] Work Phone: Comment on above: INTERPRETIVE INFORMA TION: Pregabalin, UrinePositive cutoff: 5.0 ug/mLFor medical purposes only; not valid for forensic use.The absence of expected drug(s) and/or drug metabolite(s) may indicate non-compliance, inappropriate timing of specimen collection relative to drug administration, poor drug absorption, diluted/adulterated urine, or limitations of testing. The concentration value must be greater than or equal to the cutoff to be reported as a quantitative result. Interpretive questions should be directed to the laboratory.This test was developed and its performance characteristics determined by [facility]. It has not been cleared or approved by the [place] Food and Drug Administration. This test was performed in a CLIA certified laboratory and is intended for clinical purposes.Performed By: [facility] [place] [address] [id number] Director: Suhas Cedeno MD, PhDCLIA Number: [id number] No Panel Informationon 05-20 Negative NEGATIVE [facility] Work Phone: Comment on above: CUTOFF LEVEL: 5 NG/M L SEE BELOW [facility] Work Phone: Comment on above: Drug screen results are presumptive and should not be used to assess compliance with prescribed medication. Definitive confirmatory drug testing has been added to this sample for any positive screen result and will be reported separately. .Toxicology screening results are reported qualitatively. The concentration must be greater than or equal to the cutoff to be reported as positive. The concentration at which the screening test can detect an individual drug or metabolite varies. The absence of expected drug(s) and/or drug metabolite(s) may indicate non-compliance, inappropriate timing of specimen collection relative to drug administration, poor drug absorption, diluted/adulterated urine, or limitations of testing. For medical purposes only; not valid for forensic use. .Interpretive questions should be directed to the laboratory medical directors. Established Visit (Pain Medi cine)on 12-10-2022 Established Visit (Pain Medicine) Diagnoses/Problems Sacroiliitis (720.2) (M46.1) Lumbar post-laminectomy syndrome (722.83) (M96.1) Provider Impressions This 36-year-old female here for follow-up of chronic low back pain. She is status post L4-5 laminectomy with discectomy done last year however she continues to have pain after the surgery. He is currently managing her pain with Lyrica and Celebrex which does provide her significant relief as far as radicular symptoms are concerned. Her current pain is located in low back area. She has been seen by spine surgery who recommended trial of an SI joint injection. On physical examination today she does have tenderness over bilateral sacral sulcus area as well as positive Rebecca Da, Chirag finger test and thigh thrust test. Would recommend trial of diagnostic and therapeutic bilateral SI joint injection as next up in managing her pain. Continue with Lyrica and Celebrex as previously prescribed. Chief Complaint Hip Pain FUV for pain in right side of hip and buttocks. Had xray done on 11/28. Would like to go over. currently taking alpha-lipioc acid, Celebrex,and Pregablin. Adult Risk Screening There are no spiritual/cultural practices/values/needs that are important to know Initial Fall Risk Screening: TJ has not fallen in the last 6 months. Her fall did not result in injury. TJ does not have a fear of falling. She does not need assistance with sitting, standing or walking. Does not need assistance walking in her home. She does not need assistance in an unfamiliar setting. The patient is not using an assistive device. Fall Risk Screening: Patient is identified as a fall risk. Care Plan: Low Risk: Environmental for all patients and low risk patients: Offer assistance as needed or requested, keep environment free of obstacles, keep floor clean and dry, keep room lighting, wheelchair brakes on, bed/ stretcher locked and in low position if applicable, non-slip footwear if applicable, walker/cane available if needed, side rails up if applicable and pre-emptive toileting. Altered Mobility: none. Alteration in Mental Status: no. Relevant Medical History/Diagnosis: Multiple Dx: . Altered Elimination: no. Medications That May Alter Equilibrium: none. Sensory Deficit: no. Unable or Unwilling to Follow Directions: no. Low: current pain. Pain Scale: On a scale of 0 to 10, the patient rates the pain at 5. Please identify location of pain: right hip and buttocks. Pain Quality: aching. The pain makes it hard for the patient to do these things: walking, exercise, sleep, work and house work. Living Will. Living Will: No living will on file. Healthcare POA: No healthcare proxy on file. Declaration of Mental Health Treatment: No mental health treatment on file. Tobacco Screening: TJ does not use tobacco. Domestic Violence Screen: Does not feel threatened or abused physically, emotionally or sexually. Do you feel UNSAFE? The patient feels safe in the home. Depression/Suicide Screening: During the past 2 weeks, the patient has not felt down, depressed or hopeless. During the past 2 weeks, the patient has not felt little interest or pleasure in doing things. She does not have a risk of suicide. She has not had thoughts of harming others. COLUMBIA-SUICIDE SEVERITY RATING SCALE 1. Have you wished you were or wished you could go to sleep and not wake up? -NO 2. Have you actually had any thoughts of killing yourself? - NO 6. Have you done anything, started to do anything, or prepared to do anything to end your life? - NO. Single alcohol screening question: In the past year the patient has had 5 or more drinks (men) or 4 or more drinks (women)? 0 time(s). Single substance abuse screening question: In the past year the patient has used a recreational drug or used a prescription drug for non-medical reasons? 0 time(s). Procedure or Sedation Areas: patient has not had alcohol, recreational drugs, or prescription drugs for non-medical reasons this morning. Nutrition Screening: In the past month, there was not a day when I or anyone in my family went hungry because there was not enough food. Patient Education: The patient denies that they or the person with them has problems with hearing, speaking, seeing, moving around or learning The patient is comfortable filling out medical forms. Food Insecurity: 1. Within the past 12 months, you worried that your food would run out before you got money to buy more: No 2. Within the past 12 months, the food you bought just didn't last and you didn't have money to get more: No History of Present Illness This [] year-old patient here for follow-up of []. The patient rates the pain at [] on a scale from 0-10. The patient describes pain as []. The pain is making it hard for the patient to do []. Since the last visit the pain has []. The patient denies any side effects from the current medications. Review of Systems Cardiovascular: no chest pain. Re (more content not included)... Normal [facility] Established Visit (Orthopaed ic Surgery)on 09-30-2022 Established Visit (Orthopaedic Surgery) Provider Impressions Ms. Tj Villanueva is a 36-year-old female with chronic axial low back pain and occasional right radicular leg pain. Back pain worse than leg pain. She had a previous disc extrusion at L4-L5 and is status post L4-L5 laminectomy discectomy. New MRI shows removal of the extruded disc. She does have degenerative disc disease which can contribute to her back pain she also has tight hamstrings and also had positive Rebecca on the right side which would suggest sacroiliitis. She is otherwise neurologically intact. Her back pain seems to bother her more than her leg symptoms. I recommend conservative treatments. I recommend physical therapy for core back and lower extremity stretching and strengthening. I offered her a referral for physical therapy but she deferred today. She wants to continue her home exercises. I also recommend trying a right SI joint injection with Dr. Gerard to see if that will help with some of her low back pain. Also possible trying a right L5-S1 transforaminal injection and see if that helps with the radicular leg pain. Her recent MRI does show some foraminal stenosis on the right at L5-S1 from a far lateral disc protrusion. If this does provide relief then she can continue with injection however if the leg pain gets worse then she can see me back or Dr. Tay spencer to discuss surgical options. I think these can be diagnostic and therapeutic. I also discussed the importance of weight management and getting into a aerobic exercise program or yoga and Pilates to strengthen up her core and lower back. Recommend avoiding sitting in 1 position for long peers of time. I advised her that she should get up every so often throughout the day at work so she is not sitting all the time. Patient can follow-up as needed. Chief Complaint Established patient; 2nd opinion for continue low back pain History of Present Illness Ms. Tj Villanueva is a 36-year-old female who was seen in our clinic today for second opinion for chronic low back pain. States that she has a history of chronic low back pain and was also having right radicular leg pain. She was seeing Dr. Cross at that time and was found to have a large disc extrusion at L4-L5. She underwent an L4-L5 laminectomy and discectomy in December 2021. No complication with surgery. Majority of the radicular leg pain seem to have resolved. She was having pain along the right anterior thigh and rausch and foot. After the surgery she continued to have low back pain and occasional pain in the right buttock anterior thigh And Top of the right foot. States that the leg pain comes and goes depending on activity usually worse with standing walking repetitive bending and lifting. However the low back pain is constant. About 80% of the pain is low back pain 20% leg pain. No bowel or bladder disturbances occasionally she will have some mild leakage after urination but that is been present even before her surgery likely from her history of vaginal deliveries. Patient did do some physical therapy after her surgery however she did only a couple sessions of physical therapy and then stopped going in started doing home exercises on her own. She states that she may be does not twice a week. She is also seeing Dr. Gerard from pain management. She underwent a L4-L5 right transforaminal injection in March which she states did not help. She also underwent ketamine infusion which she states also did not help with her back pain. She is currently on Lyrica which helps with the leg pain but not with the back pain. She has a pedroza does not smoke does not drink alcohol. 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 Does not follow any routine exercise program except for the occasional exercises she does on her own. Review of Systems CONSTITUTIONAL: no fatigue, no fever, chills, sweats and no weight change. EYES: no diplopia and no vision loss/change. ENMT: no hearing loss and no dizziness, no ring in the ears, no sinus problems. RESPIRATORY: no cough and no dyspnea. DENTAL: no dental problems, CARDIOVASCULAR: no chest pain and no palpitations. GASTROINTESTINAL: no nausea, no vomiting, no dysphagia and no bleeding, no diarrhea, no stomach problems GENITOURINARY: no hematuria and no urinary frequency. SKIN: no rashes, no nail changes, no skin problems/conditions NEUROLOGICAL: no headaches, no numbness, no paresthesia, no weakness, no tremors ENDORCIN: No thyroid problems. PSYCH: no sleep disturbances, no depression. MUSCULOSKELETAL: + arthritis, + muscle cramps as listed above in history HEMATOLOGIC/LYMPHATIC: no easy bruising no uncontrolled bleeding, no swollen glands, no anemia All other systems have been reviewed and are negative for complaint. All pertinent positive and negative as listed in history of present illness. Active Problems Problems Acute bilateral thoracic back pain (724.1) (M54.6) Acute stress reaction (308.9) (F43.0) Arthralgia, unspecified joint (719.40) (M25.50) Back pain, sacroiliac (724.6) (M (more content not included)... Normal [facility] No Panel Informationon 09-30 Please click on the link to view the study images Normal [facility] Work Phone: Normal MG-Orthopaed [facility] Work Phone: Established Visit (Pain Medi cine)on 09-05-2022 Established Visit (Pain Medicine) Diagnoses/Problems Lumbar post-laminectomy syndrome (722.83) (M96.1) Lumbar radiculopathy (724.4) (M54.16) Provider Impressions This 36-year-old female here for follow-up chronic low back pain extremity. She is status post L4-5 laminectomy with discectomy done last year however she continues to have pain after surgery. Most recent lead an MRI of her lumbar spine done in January did not reveal paracentral disc extrusion which may be in contact with L5 nerve root on the lateral recess at L4-5. She did not respond to L4-5 transforaminal dural steroid injection. She tried 3 ketamine infusions without any significant benefit. Currently managing her pain with combination of Lyrica, Celebrex which has been providing her with modest relief of pain. Would continue with the current regimen. Discussed various options of treatment including going back to spine surgery for consideration of surgical options, spinal stimulator trial, we are doing transforaminal injection with lysis of adhesions. Explained to the process of spinal stimulator trial. She would get a second opinion from a surgeon and get back to us if she wants to consider SCS, I would order a psych evaluation. Chief Complaint Back Pain FUV for infusion, last infusion as 08/07 and had 50% relief for 12 hours and back to baseline of 01/08. Had 3 infusions all together with no relief. currently still having back pain. no new images at the time. still taking [place]-Liporic Acid, Celebrex and Pregablin. It helps and can tell the difference when off of it. currently do not smoke. Adult Risk Screening There are no spiritual/cultural practices/values/needs that are important to know Initial Fall Risk Screening: TJ has not fallen in the last 6 months. Her fall did not result in injury. TJ does not have a fear of falling. She does not need assistance with sitting, standing or walking. Does not need assistance walking in her home. She does not need assistance in an unfamiliar setting. The patient is not using an assistive device. Fall Risk Screening: Patient is identified as a fall risk. Care Plan: Low Risk: Environmental for all patients and low risk patients: Offer assistance as needed or requested, keep environment free of obstacles, keep floor clean and dry, keep room lighting, wheelchair brakes on, bed/ stretcher locked and in low position if applicable, non-slip footwear if applicable, walker/cane available if needed, side rails up if applicable and pre-emptive toileting. Altered Mobility: none. Alteration in Mental Status: no. Relevant Medical History/Diagnosis: Multiple Dx: . Altered Elimination: no. Medications That May Alter Equilibrium: none. Sensory Deficit: no. Unable or Unwilling to Follow Directions: no. Low: current pain. Pain Scale: On a scale of 0 to 10, the patient rates the pain at 5. Please identify location of pain: lower back. Pain Quality: aching. The pain makes it hard for the patient to do these things: walking, exercise, sleep, work and house work. Living Will. Living Will: No living will on file. Healthcare POA: No healthcare proxy on file. Declaration of Mental Health Treatment: No mental health treatment on file. Domestic Violence Screen: Does not feel threatened or abused physically, emotionally or sexually. Do you feel UNSAFE? The patient feels safe in the home. Depression/Suicide Screening: During the past 2 weeks, the patient has not felt down, depressed or hopeless. During the past 2 weeks, the patient has not felt little interest or pleasure in doing things. She does not have a risk of suicide. She has not had thoughts of harming others. [place]-SUICIDE SEVERITY RATING SCALE 1. Have you wished you were or wished you could go to sleep and not wake up? -NO 2. Have you actually had any thoughts of killing yourself? - NO 6. Have you done anything, started to do anything, or prepared to do anything to end your life? - NO. Single alcohol screening question: In the past year the patient has had 5 or more drinks (men) or 4 or more drinks (women)? 0 time(s). Single substance abuse screening question: In the past year the patient has used a recreational drug or used a prescription drug for non-medical reasons? 0 time(s). Procedure or Sedation Areas: patient has not had alcohol, recreational drugs, or prescription drugs for non-medical reasons this morning. Nutrition Screening: In the past month, there was not a day when I or anyone in my family went hungry because there was not enough food. Patient Education: The patient denies that they or the person with them has problems with hearing, speaking, seeing, moving around or learning The patient is comfortable filling out medical forms. Food Insecurity: 1. Within the past 12 months, you worried that your food would run out before you got money to buy more: No 2. Within the past 12 months, the food you bought just didn't last and you didn't have money to get more: No Hist (more content not included)... Normal [facility] Initial Visit (Breast Surger y)on 08-15-2022 Initial Visit (Breast Surgery) Diagnoses/Problems Assessed Breast pain, left (611.71) (N64.4) Lump of breast, left (611.72) (N63.20) Orders SocHx: Non-smoker Tobacco Use Screening; Status:Complete; Done: [id number] Perform:Not Applicable;Ordered; For:SocHx: Non-smoker; Ordered By:Saadia Flores; Tobacco Use Screening; Status:Complete; Done: [id number] Perform:Not Applicable;Ordered; For:SocHx: Non-smoker; Ordered By:Saadia Flores; Patient Discussion/Summary Your clinical examination and imaging are normal. Breast pain education given. You no longer need to be seen by a breast specialist for an annual physical breast examination. It is important to continue annual screening mammograms and breast exams through your primary care provider. Please return to see me if you have a new breast problem or abnormal mammogram. It has been a pleasure having you as a patient. You can view your health information, review clinical summaries from office visits and test results online when you follow your health with MY [facility], a personal health care record. To sign up, go to [email or web address] . If you need assistance with signing up or trouble getting into your account, please call from 8am-8pm. My office phone number is [phone] if you need to get in touch with me or have additional questions or concerns. Thank you for choosing [facility] and trusting me as your healthcare provider. I am honored to be a provider on your health care team and I remain dedicated to helping you achieve your health goals. Provider Impressions Normal clinical exam and imaging, left 1 breast pain, left 1 breast lump, family history of breast cancer, no breast surgery or biopsy, heterogeneous fibroglandular tissue Plan: Breast pain education given. Return to office if pain persists or develops a new breast problem. 1 Amended By: Saadia Flores; Aug 15 2022 3:09 PM ESTChief Complaint New patient, left breast pain and lump History of Present IllnessTj Villanueva is a very pleasant 36 year old female [facility] by [facility] breast pain and lump. She is here today with her daughter Rodolfo. She first noticed the pain 1-2 year ago. She describes the pain as sharp and states it starts from the nipple and radiates up. She feels a lump at the site of the pain. She denies trauma to the breast. She denies trauma to the breast. She denies nipple discharge, fever or chills. She denies caffeine, fatty food and does not smoke. She has family history of breast cancer. She denies breast surgery or biopsy. BREAST IMAGIN07/14/2022 Bilateral full breast MRI: indicates, BI-RADS Category 1. FEMALE HISTORY: menarche age 12, , first age 21, breastfed x 2 years, OCP's x 10 years, menopause age unknown, hysterectomy with one ovary intact in 10/2016 due to endometriosis and precancer cells, heterogeneous fibroglandular tissue FAMILY CANCER HISTORY: Maternal Grandmother: Breast cancer, age 40, and colon/rectal cancer, 60's Maternal Great Aunt x3: Breast cancer, unknown ages Paternal Grandfather: Prostate cancer, 60's Mother: Thyroid cancer, 40's-50's Daughter: Leukemia, age 4 Father: Skin cancer, age unknown Review of Systems Constitutional: no fever, no chills, no recent weight gain and no recent weight loss. Eyes: no loss of vision, no discharge from the eyes and no itching of the eyes. no diplopia no blurred vision ENT: no hearing loss, no neck pain and no hoarseness. Cardiovascular: no chest pain, no palpitations and no lower extremity edema. Respiratory: no dyspnea, no dyspnea during exertion and no cough. Breast: as noted in HPI. Gastrointestinal: no abdominal pain, no constipation, no heartburn, no diarrhea, no vomiting, no blood in stools, bowel movement frequency normal. Genitourinary: no dysuria, no hematuria and no vaginal discharge. Musculoskeletal: no arthralgias, no myalgias and no muscle weakness. Integumentary: no rashes and no skin lesions. Neurological: no headache, no dizziness, no numbness, no tingling and no limb weakness. Psychiatric: no anxiety, no depression and no emotional problems. Endocrine: no heat or cold intolerance and no increased thirst. Hematologic/Lymphatic: no swollen glands, no tendency for easy bleeding and no tendency for easy bruising. All other systems have been reviewed and are negative for complaint. Past Medical History Problems History of Acute nonintractable headache, unspecified headache type (784.0) (R51.9) Resolved Date: 18 Jan 2021 History of Body aches (780.96) (R52) Resolved Date: 18 Jan 2021 History of Body aches (780.96) (R52) Resolved Date: 19 Nov 2021 History of Breast pain in female (611.71) (N64.4) Resolved Date: 19 Nov 2021 History of Breast pain, left (611.71) (N64.4) Resolved Date: 19 Nov 2021 History of Elevated fasting glucose (790.21) (R73.01) Resolved Date: 06 Aug 2021 A1c 5.5% in 2018 History of Encounter for other o (more content not included)... Normal [facility] LMPon 08-15-2022 Last menstrual period start date 02Oct2020 [facility] Work Phone: BR MRI BREAST BILATERAL WITH CONTRAST FULL PROTOCOLon 07-11-2022 BR MRI BREAST BILATERAL WITH CONTRAST FULL PROTOCOL Patient Name: TJ VILLANUEVA STUDY: MRI BREAST BILATERAL WITH CONTRAST FULL PROTOCOL; 07/11/2022 7:20 pm ACCESSION NUMBER(S): [id number] ORDERING CLINICIAN: YVETTE MANCERA INDICATION: Left breast pain and firmness increasing in size over the last few months. Family history of breast cancer. COMPARISON: Diagnostic mammogram and ultrasound 02/06/2021. TECHNIQUE: Using a dedicated breast coil, STIR axial and T1-weighted fat saturation axial images of the breasts were obtained, the latter both before and after intravenous administration of Gadolinium DTPA. On an independent workstation, 3-D images were formulated using [employer] including time enhancement curves, subtraction images and MIP images. Intravenous contrast: 20 milliliter of DOTAREM GADOTERATE MEGLUMINE INJECTION FINDINGS: No palpable marker is visualized. There is symmetric minimal bilateral background enhancement. There is heterogenous fibroglandular tissue. RIGHT BREAST: No suspicious mass or nonmass enhancement is identified. No axillary or internal mammary lymphadenopathy is appreciated. LEFT BREAST: No suspicious mass or nonmass enhancement is identified. No axillary or internal mammary lymphadenopathy is appreciated. NON-BREAST FINDINGS: None. IMPRESSION: No MRI evidence of malignancy in either breast. No abnormality to explain patient's symptomatology. Recommend clinical management and follow-up. BI-RADS CATEGORY: Category: 1 - Negative. Recommendation: Clinical follow-up for the patient's symptoms is recommended. I personally reviewed the images/study and I agree with the findings as stated by Dr. Diaz. Electronically signed by: KAUR FRANCIS MD Normal [facility] [place][note 2] MRI Breast Bilateral with co ntrast full protocolon 07-11-2022 MRI Breast Bilateral with contrast full protocol Normal [facility] Work Phone: MRI Breast Bilateral with contrast full protocol FINAL REPORT Interpreted by: KAUR FRANCIS MARIA, MD and TOBY DIAZ MD 07/12/22 10:06 Patient Name: TJ VILLANUEVA STUDY: MRI BREAST BILATERAL WITH CONTRAST FULL PROTOCOL; 07/11/2022 7:20 pm ACCESSION NUMBER(S): [id number] Normal [facility] Work Phone: Laboratory - Chemistry and C hemistry - challengeon 07-09-2022 Calprotectin (Stl) [Mass/Mass] <5 <=49 [facility] Work Phone: Comment on above: REFERENCE INTERVAL: Calprotectin, Fecal by Immunoassay Less than 50 ug/g.........Normal 50-120 ug/g...............Borderline elevated, test should be re-evaluated in 4-6 weeks. 121 ug/g or greater.......ElevatedPerformed By: [facility] [place] [id number] Director: Suhas Cedeno MD, PhD Coronavirus 2019 RNA by PCR, Symptomaticon 05-31-2022 Coronavirus 2019 RNA by PCR, Symptomatic Detected Abnormal See Below [facility] Work Phone: Comment on above: SOURCE: Nasal, Nasop haryngealReference Range: Not Detected.This test has received FDA Emergency Use Authorization (EUA) and has been verified by [facility]. This test is only authorized for the duration of time that circumstances exist to justify the authorization of the emergency use of in vitro diagnostic tests for the detection of SARS-CoV-2 virus and/or diagnosis of COVID-19 infection under section 564(b)(1) of the Act, 21 U.S.C. 360bbb-3(b)(1), unless the authorization is terminated or revoked sooner. [facility] is certified under CLIA-88 as qualified to perform high complexity testing. Testing is performed in the [facility] laboratory located at [address] [place] [address].SARS-CoV-2/Flu/RSV Multiplex Test: Fact sheet for providers: https://www.fda.gov/media/298773/downloadFact sheet for patients: https://www.fda.gov/media/283617/download Hepatic Function Panelon Albumin BCP dye [Mass/Vol] 4.3 g/dL 3.4 - 5.0 [facility] Work Phone: ALP [Catalytic activity/Vol] 58 U/L 33 - 110 [facility] Work Phone: ALT With P-5'-P [Catalytic activity/Vol] 15 U/L 7 - 45 [facility] Work Phone: Comment on above: Patients treated wit h Sulfasalazine may generate falsely decreased results for ALT. AST With P-5'-P [Catalytic activity/Vol] 14 U/L 9 - 39 [facility] Work Phone: Bilirubin [Mass/Vol] 0.5 mg/dL 0.0 - 1.2 [facility] Work Phone: Bilirubin.direct [Mass/Vol] 0.1 mg/dL 0.0 - 0.3 [facility] Work Phone: Protein [Mass/Vol] 6.7 g/dL 6.4 - 8.2 [facility] Work Phone: Laboratory - Allergyon 05-30 Clam IgE Qn (S) <0.10 <0.35 [facility] Work Phone: Comment on above: SEE IMMUNOCAP INTERP .IGE Codfish IgE Qn (S) <0.10 <0.35 [facility] Work Phone: Comment on above: SEE IMMUNOCAP INTERP .IGE Sealy IgE Qn (S) <0.10 <0.35 [facility] Work Phone: Comment on above: SEE IMMUNOCAP INTERP .IGE Egg white IgE Qn (S) 0.10 {KU/L} <0.35 [facility] Work Phone: Comment on above: SEE IMMUNOCAP INTERP .IGE Milk IgE Qn (S) <0.10 <0.35 [facility] Work Phone: Comment on above: SEE IMMUNOCAP INTERP .IGE Peanut IgE Qn (S) <0.10 <0.35 [facility] Work Phone: Comment on above: SEE IMMUNOCAP INTERP .IGE Scallop IgE Qn (S) <0.10 <0.35 [facility] Work Phone: Comment on above: SEE IMMUNOCAP INTERP .IGE Sesame Seed IgE Qn (S) <0.10 <0.35 [facility] Work Phone: Comment on above: SEE IMMUNOCAP INTERP .IGE Shrimp IgE Qn (S) <0.10 <0.35 [facility] Work Phone: Comment on above: SEE IMMUNOCAP INTERP .IGE Soybean IgE Qn (S) <0.10 <0.35 [facility] Work Phone: Comment on above: SEE IMMUNOCAP INTERP .IGE [place] IgE Qn (S) <0.10 <0.35 [facility] Work Phone: Comment on above: SEE IMMUNOCAP INTERP .IGE Wheat IgE Qn (S) <0.[address] [facility] Work Phone: Comment on above: SEE IMMUNOCAP INTERP .IGE Laboratory - Chemistry and C hemistry - challengeon 05-30-2022 Anion gap [Moles/Vol] 12 mmol/L 10 - 20 [facility] Work Phone: Calcium [Mass/Vol] 9.0 mg/dL 8.6 - 10.6 [facility] Work Phone: Chloride [Moles/Vol] 108 mmol/L above high threshold 98 - 107 [facility] Work Phone: CO2 [Moles/Vol] 23 mmol/L 21 - 32 [facility] Work Phone: Creatinine [Mass/Vol] 1.01 mg/dL See Below [facility] Work Phone: Comment on above: Reference Range: 0.5 0 - 1.05 Glucose [Mass/Vol] 108 mg/dL above high threshold 74 - 99 [facility] Work Phone: Potassium [Moles/Vol] 3.8 mmol/L 3.5 - 5.3 [facility] [facility] Work Phone: Sodium [Moles/Vol] 139 mmol/L 136 - 145 [facility] Work Phone: Urea nitrogen [Mass/Vol] 8 mg/dL 6 - 23 [facility] Work Phone: Laboratory - Serology - non- microon 05-30-2022 Gliadin peptide IgA IA Qn (S) <1 0 - 14 [facility] Work Phone: Comment on above: False negative Deami dated Gliadin Peptide Antibody, IgA results can occur in patients already adhering to a gluten-free diet or patients with IgA deficiency. Tissue Transglutaminase Antibody, IgA is the preferred test for screening patients with suspected Celiac Disease. tTG IgA IA Qn (S) <1 0 - 14 [facility] on [facility] Work Phone: Comment on above: Celiac disease is un likely. False negative Tissue Transglutaminase Antibody, IgA results can occur in approximately 10% of patients with celiac disease, patients already adhering to a gluten-free diet, or patients with IgA deficiency. tTG IgG IA Qn (S) <1 0 - 14 [facility] on [facility] Work Phone: Comment on above: False negative Tissu e Transglutaminase Antibody, IgG results can occur in patients already adhering to a gluten-free diet. Tissue Transglutaminase Antibody, IgA is the preferred test for screening patients with suspected Celiac Disease. Lipid Panelon 05-30-2022 Cholesterol [Mass/Vol] 180 mg/dL 0 - 199 [facility] Work Phone: Comment on above: . AGE DESIRABLE [place] HIGH HIGH 0-19 Y 0 - 169 170 - 199 >/= 200 20-24 Y 0 - 189 190 - 224 >/= 225 >24 Y 0 - 199 200 - 239 >/= 240 All ranges are based on fasting samples. Specific therapeutic targets will vary based on patient-specific cardiac risk.. Pediatric guidelines reference:Pediatrics 2011, 128(S5). Adult guidelines reference: NCEP ATPIII Guidelines, LALI 2001, 258:2486-97. Venipuncture immediately after or during the administration of Metamizole may lead to falsely low results. Testing should be performed immediately prior to Metamizole dosing. Cholesterol in HDL [Mass/Vol] 35.6 mg/dL Abnormal [facility] Work Phone: Comment on above: . AGE VERY LOW LOW N ORMAL HIGH 0-19 Y < 35 < 40 40-45 ---- 20- 24 Y ---- < 40 >45 ---- >24 Y ---- < 40 40-60 >60. Cholesterol in LDL [Mass/Vol] 117 mg/dL above high threshold 0 - 99 [facility] Work Phone: Comment on above: . NEAR BORD AGE KYRIE RABLE OPTIMAL HIGH HIGH VERY HIGH 0-19 Y 0 - 109 --- 110-129 >/= 130 ---- 20-24 Y 0 - 119 --- 120-159 >/= 160 ---- >24 Y 0 - 99 100-129 130-159 160-189 >/=190. Cholesterol.total/C holesterol in HDL [Mass ratio] 5.1 {ratio} Abnormal [facility] Work Phone: Comment on above: REF VALUESDESIRABLE < 3.4HIGH RISK > 5.0 Triglyceride [Mass/Vol] 136 mg/dL 0 - 149 [facility] Work Phone: Comment on above: . AGE DESIRABLE [place] HIGH HIGH VERY HIGH 0 D-90 D 19 - 174 ---- ---- ----91 D- 9 Y 0 - 74 75 - 99 >/= 100 ---- 10-19 Y 0 - 89 90 - 129 >/= 130 ---- 20-24 Y 0 - 114 115 - 149 >/= 150 ---- >24 Y 0 - 149 150 - 199 200- 499 >/= 500. Venipuncture immediately after or during the administration of Metamizole may lead to falsely low results. Testing should be performed immediately prior to Metamizole dosing. Lipid Panel 27 mg/dL 0 - 40 [facility] Work Phone: No Panel Informationon 05-30 <1 0 - 14 [facility] Work Phone: Comment on above: False negative Deami dated Gliadin Peptide Antibody, IgG results can occur in patients already adhering to a gluten-free diet. Tissue Transglutaminase Antibody, IgA is the preferred test for screening patients with suspected Celiac Disease. 74 {mL/min/1.73m2} >90 [facility] Work Phone: Comment on above: CALCULATIONS OF SURESH MATED GFR ARE PERFORMED USING THE 2020 CKD-EPI STUDY REFIT EQUATION WITHOUT THE RACE VARIABLE FOR THE IDMS-TRACEABLE CREATININE METHODS.https://jasn.asnjournals.org/content/early//ASN. 1828181022 SEE COMMENT [facility] Work Phone: Comment on above: REFERENCE RANGE (IMM UNOCAP) IGE KU/L CLASS INTERPRETATION < 0.10 0 BELOW DETECTION 0.10- 0.34 0/1 EQUIVOCAL 0.35- 0.69 1 LOW POSITIVE 0.70- 3.49 2 MODERATE POSITIVE 3.50- 17.49 3 HIGH [id number]- 49 4 VERY HIGH [id number] - 99 5 VERY HIGH POSITIVE >100 6 VERY HIGH POSITIVE TOBACCO SCREEN MEDICAL PL AN ONLYon 05-30-2022 Cotinine Screen Ql (U) Negative [facility] Work Phone: Comment on above: Cotinine, a metaboli te of nicotine, is measured to screen for nicotine exposure. The cut-off is set at 300ng/mL to detect active exposure (smoking).This test was developed and its performance characteristics were determined by the [facility]. PHQ-2 VITALSon 05-22-2022 Adult depression screening assessment No [facility] [place] Work Phone: Tobacco use status [facility] b) No [facility] [place] Work Phone: PHQ-2 VITALS Large [facility] [place] Work Phone: Laboratory - Drug toxicology on 05-07-2022 Pregabalin Confirm (U) [Mass/Vol] <5.0 [facility] Work Phone: Comment on above: INTERPRETIVE INFORMA TION: Pregabalin, UrinePositive cutoff: 5.0 ug/mLFor medical purposes only; not valid for forensic use.The absence of expected drug(s) and/or drug metabolite(s) may indicate non-compliance, inappropriate timing of specimen collection relative to drug administration, poor drug absorption, diluted/adulterated urine, or limitations of testing. The concentration value must be greater than or equal to the cutoff to be reported as a quantitative result. Interpretive questions should be directed to the laboratory.This test was developed and its performance characteristics determined by [facility]. It has not been cleared or approved by the US Food and Drug Administration. This test was performed in a CLIA certified laboratory and is intended for clinical purposes.Performed By: [facility] [place] [id number] Director: Suhas Cedeno MD, PhD Tobacco Screening.on 022 Fall risk assessment a) No falls within the last year [facility] Work Phone: Tobacco use status [facility] b) No [facility] Work Phone: Laboratory - Chemistry and C hemistry - challengeon 04-26-2022 TSH Qn 2.90 m[IU]/L See Below [facility] Work Phone: Comment on above: Reference Range: 0.4 4 - 3.98 TSH testing is performed using different testing methodology at [facility] than at other [facility]. Direct result comparisons should only be made within the same method. No Panel Informationon 03-27 Please click on the link to view the study images Normal [facility] Work Phone: Tobacco Screening.on 022 Adult depression screening assessment No [facility] Work Phone: Fall risk assessment a) No falls within the last year [facility] Work Phone: Tobacco use status [facility] b) No [facility] Work Phone: MRI L Spine without Contrast on 02-13-2022 MR Lumbar spine WO contrast Normal [facility] Work Phone: Radiologyon 01-01-2022 XR Lumbar spine Views Please click on the link to view the study images Normal [facility] Work Phone: Coronavirus 2019 RNA by PCR, Screening Asymptomticon 12-29-2021 Coronavirus 2019 RNA by PCR, Screening Asymptomtic Not detected Normal See Below [facility] Work Phone: Comment on above: SOURCE: Nasal, Nasop haryngealReference Range: Not Detected.This assay is designed to detect the N, ORF1ab and/or S genes of SARS-CoV-2 via nucleic acid amplification. A Negative (NOT DETECTED) result does not preclude 2019-nCoV infection since the adequacy of sample collection and/or low viral burden may result in presence of viral nucleic acids below the clinical sensitivity of this test method. Negative (NOT DETECTED) result should not be used as the sole basis for treatment or other patient management decisions. Rather negative results should be combined with clinical observations, patient history, and epidemiological information to make patient management decisions.Fact sheet for providers: https://www.fda.gov/media/830677/downloadFact sheet for patients: https://www.fda.gov/media/648551/downloadThis test has received FDA Emergency Use Authorization (EUA) and has been verified by [facility] ([facility]). This test is only authorized for the duration of time that circumstances exist to justify the authorization of the emergency use of in vitro diagnostic tests for the detection of SARS-CoV-2 virus and/or diagnosis of COVID-19 infection under section 564(b)(1) of the Act, 21 U.S.C. 360bbb-3(b)(1), unless the authorization is terminated or revoked sooner. [facility] is certified under CLIA-88 as qualified to perform high complexity testing. Testing is performed in the [facility] laboratories located at [address] [place] [address]. BASIC METABOLIC PANELon 04-2 Anion gap [Moles/Vol] 17 mmol/L Normal 10 - 20 [facility] Comment on above: Performed By: #### B MP #### [facility] [address] [place] [address] Calcium [Mass/Vol] 9.3 mg/dL Normal 8.6 - 10.3 [facility] Comment on above: Performed By: #### B MP #### [facility] [address] [place] [address] Chloride [Moles/Vol] 108 mmol/L High 98 - 107 [facility] Comment on above: Performed By: #### B MP #### [facility] [address] [place] [address] Creatinine [Mass/Vol] 0.87 mg/dL Normal 0.50 - 1.05 [facility] Comment on above: Performed By: #### B MP #### [facility] [address] [place] [address] GFR/1.73 sq M.predicted among non-blacks MDRD (S/P/Bld) [Vol rate/Area] 88 mL/min/{1.73_m2} Normal >90 [facility] Comment on above: Result Comment: CALC ULATIONS OF ESTIMATED GFR ARE PERFORMED USING THE 2020 CKD-EPI STUDY REFIT EQUATION WITHOUT THE RACE VARIABLE FOR THE IDMS-TRACEABLE CREATININE METHODS. https://jasn.asnjournals.org/content/early/ASN.81802321 88 Performed By: #### B MP #### [facility] [address] [place] [address] Glucose [Mass/Vol] 115 mg/dL High 74 - 99 [facility] Comment on above: Performed By: #### B MP #### [facility] [address] [place] [address] HCO3 (Bld) [Moles/Vol] 18 mmol/L Low 21 - 32 [facility] Comment on above: Performed By: #### B MP #### [facility] [address] [place] [address] Potassium [Moles/Vol] 3.8 mmol/L Normal 3.5 - 5.3 [facility] Comment on above: Performed By: #### B MP #### [facility] [address] [facility] [place] [address] Sodium [Moles/Vol] 139 mmol/L Normal 136 - 145 [facility] Comment on above: Performed By: #### B MP #### [facility] [address] [place] [address] Urea nitrogen [Mass/Vol] 11 mg/dL Normal 6 - 23 [facility] Comment on above: Performed By: #### B MP #### [facility] [address] [facility] [place] [address] CBC AND DIFFERENTIALon 12-20 % AUTOMATED IMMATURE GRAN 0.3 % Normal 0.0 - 0.9 [facility] Comment on above: Result Comment: Renée ture Granulocyte Count (IG) includes promyelocytes, myelocytes and metamyelocytes but does not include bands. Percent differential counts (%) should be interpreted in the context of the absolute cell counts (cells/L). Performed By: #### C BCDF #### [facility] [address] [place] [address] Basophils (Bld) [#/Vol] 0.08 10*3/uL Normal 0.00 - 0.10 [facility] Comment on above: Performed By: #### C BCDF #### [facility] [address] [facility] [place] [address] Basophils/100 WBC (Bld) 0.7 % Normal 0.0 - 2.0 [facility] Comment on above: Performed By: #### C BCDF #### [facility] [address] [place] [address] Eosinophils (Bld) [#/Vol] 0.29 10*3/uL Normal 0.00 - 0.70 [facility] Comment on above: Performed By: #### C BCDF #### [facility] [address] [place] [address] Eosinophils/100 WBC (Bld) 2.5 % Normal 0.0 - 6.0 [facility] Comment on above: Performed By: #### C BCDF #### [facility] [address] [place] [address] Erythrocyte distribution width (RBC) [Ratio] 12.7 % Normal 11.5 - 14.5 [facility] Comment on above: Performed By: #### C BCDF #### [facility] [id number] [place] [address] Hematocrit (Bld) [Volume fraction] 43.6 % Normal 36.0 - 46.0 [facility] Comment on above: Performed By: #### C BCDF #### [facility] [address] [place] [address] Hemoglobin (Bld) [Mass/Vol] 15.0 g/dL Normal 12.0 - 16.0 [facility] Comment on above: Performed By: #### C BCDF #### [facility] [id number] [place] [address] Lymphocytes (Bld) [#/Vol] 2.77 10*3/uL Normal 1.20 - 4.80 [facility] Comment on above: Performed By: #### C BCDF #### [facility] [id number] [place] [address] Lymphocytes/100 WBC (Bld) 24.0 % Normal 13.0 - 44.0 [facility] Comment on above: Performed By: #### C BCDF #### [facility] [address] [place] [address] MCHC (RBC) [Mass/Vol] 34.4 g/dL Normal 32.0 - 36.0 [facility] Comment on above: Performed By: #### C BCDF #### [facility] [id number] [place] [address] MCV (RBC) [Entitic vol] 85 fL Normal 80 - 100 [facility] Comment on above: Performed By: #### C BCDF #### [facility] [address] [place] [address] Monocytes (Bld) [#/Vol] 0.76 10*3/uL Normal 0.10 - 1.00 [facility] Comment on above: Performed By: #### C BCDF #### [facility] [id number] [place] [address] [place] [address] Monocytes/100 WBC (Bld) 6.6 % Normal 2.0 - 10.0 [facility] Comment on above: Performed By: #### C BCDF #### [facility] [id number] [place] [address] [place] [address] Neutrophils (Bld) [#/Vol] 7.61 10*3/uL Normal 1.20 - 7.70 [facility] Comment on above: Performed By: #### C BCDF #### [facility] [id number] [place] [address] Neutrophils/100 WBC (Bld) 65.9 % Normal 40.0 - 80.0 [facility] Comment on above: Performed By: #### C BCDF #### [facility] [id number] [place], [place] [address] [address] Platelets (Bld) [#/Vol] 354 10*3/uL Normal 150 - 450 [facility] Comment on above: Performed By: #### C BCDF #### [facility] [id number] [place] [address] [place] [address] RBC 5.11 x10E12/L Normal 4.00 - 5.20 [facility] Comment on above: Performed By: #### C BCDF #### [facility] [id number] [place] [address] [place] [address] WBC (Bld) [#/Vol] 11.5 10*3/uL High 4.4 - 11.3 [facility] Comment on above: Performed By: #### C BCDF #### [facility] [address] [place] [address] COAGULATION SCREENon 022 aPTT Coag (Bld) [Time] 29 s Normal 26 - 39 [facility] Comment on above: Result Comment: THE APTT IS NO LONGER USED FOR MONITORING UNFRACTIONATED HEPARIN THERAPY. FOR MONITORING HEPARIN THERAPY, USE THE HEPARIN ASSAY. Performed By: #### C OAGS #### [facility] [address] [place] [address] PT Coag (PPP) [Time] 10.2 s Normal 9.8 - 13.4 [facility] Comment on above: Performed By: #### C OAGS #### [facility] [address] [place] [address] PT, INR 0.9 Normal 0.9 - 1.1 [facility] Comment on above: Performed By: #### C OAGS #### [facility] [address] [place] [address] STAPH/MRSA SCREENon 12-21-19 22 STAPH/MRSA SCREEN PATIENT: PETE VILLANUEVA [id number] : 85 AGE: SEX: F ORDERED BY: RAISSA CROSS SOURCE: NASOPHARYNGEAL COLLECTED: 12/20/21 16:02 ANTIBIOTICS AT [facility].: RECEIVED : 12/21/21 00:13 SITE: R E S U L T S STAPH/MRSA SCREEN FINAL 12/22/21 09:26 NO Staphylococcus aureus ISOLATED. Normal [facility] Comment on above: Performed By: #### S TAPH #### [facility] [address] [place] [address] PHQ-2 VITALSon 12-19-2021 Adult depression screening assessment No [facility] Work Phone: Last menstrual period start date hyst [facility] Work Phone: PHQ-2 VITALS Large [facility] Work Phone: MRI L Spine without Contrast on 12-14-2021 MR Lumbar spine WO contrast Normal [facility] Work Phone: No Panel Informationon 12-12 Please click on the link to view the study images Normal [facility] Work Phone: Normal [facility] Work Phone: Radiologyon 12-12-2021 XR Pelvis and Hip - left 2 Views Please click on the link to view the study images Normal [facility] Work Phone: XR Pelvis and Hip - left 2 Views Normal [facility] Work Phone: Blood Pressure Cuff Sizeon 0 12-03-2021 Blood Pressure Cuff Size Large [facility] Work Phone: Radiologyon 10-02-2021 XR Sacroiliac Joint 3 Views Normal [facility] Work Phone: XR Sacroiliac Joint 3 Views FINAL REPORT Interpreted by: DOLORES DUMONT CHRISTOPHER, MD 10/03/21 17:53 Patient Name: TJ VILLANUEVA STUDY: SACROILIAC JOINTS; 3 OR MORE VIEWS INDICATION: chronic SI joint pain, degeneration noted on MRI 2019 M53.3: Back pain, sacroil Normal [facility] Work Phone: C Reactive Protein, Serumon 09-13-2021 CRP [Mass/Vol] 0.59 mg/dL [facility] [place] Work Phone: Comment on above: REF VALUE< 1.00 Laboratory - Chemistry and C hemistry - challengeon 09-13-2021 Albumin BCP dye [Mass/Vol] 4.1 g/dL 3.4 - 5.0 [facility] [place] Work Phone: ALP [Catalytic activity/Vol] 56 U/L 33 - 110 [facility] [place] Work Phone: ALT With P-5'-P [Catalytic activity/Vol] 12 U/L 7 - 45 [facility] [place] Work Phone: Comment on above: Patients treated wit h Sulfasalazine may generate falsely decreased results for ALT. Anion gap [Moles/Vol] 12 mmol/L 10 - 20 [facility] [place] Work Phone: AST With P-5'-P [Catalytic activity/Vol] 10 U/L 9 - 39 [facility] [place] Work Phone: Bilirubin [Mass/Vol] 0.3 mg/dL 0.0 - 1.2 [facility] [place] Work Phone: Calcium [Mass/Vol] 9.0 mg/dL 8.6 - 10.3 [facility] um[facility]ol [facility] [place] Work Phone: Chloride [Moles/Vol] 108 mmol/L above high threshold 98 - 107 [facility] [place] Work Phone: CO2 [Moles/Vol] 23 mmol/L 21 - 32 [facility]Rheuma rolando [facility] [place] Work Phone: Creatinine [Mass/Vol] 0.93 mg/dL See Below [facility] [place] Work Phone: Comment on above: Reference Range: 0.5 0 - 1.05 Glucose [Mass/Vol] 85 mg/dL 74 - 99 [facility] [place] Work Phone: Potassium [Moles/Vol] 3.8 mmol/L 3.5 - 5.3 [facility] [place] Work Phone: Protein [Mass/Vol] 7.1 g/dL 6.4 - 8.2 [facility] umatol [facility]michael-[place] [facility] [place] Work Phone: Sodium [Moles/Vol] 139 mmol/L 136 - 145 [facility] um[facility]ol [facility] [place] Work Phone: Urea nitrogen [Mass/Vol] 16 mg/dL 6 - 23 [facility] [place] Work Phone: Laboratory - Hematology and Cell countson 09-13-2021 Erythrocyte distribution width (RBC) [Ratio] 12.7 % See Below [facility] [place] Work Phone: Comment on above: Reference Range: 11. 5 - 14.5 Hematocrit (Bld) [Volume fraction] 43.4 % See Below [facility] [place] Work Phone: Comment on above: Reference Range: 36. 0 - 46.0 Hemoglobin (Bld) [Mass/Vol] 14.0 g/dL See Below [facility] [place] Work Phone: Comment on above: Reference Range: 12. 0 - 16.0 MCHC (RBC) [Mass/Vol] 32.3 g/dL See Below [facility] [place] Work Phone: Comment on above: Reference Range: 32. 0 - 36.0 MCV (RBC) [Entitic vol] 90 fL 80 - 100 [facility] [place] Work Phone: Platelets (Bld) [#/Vol] 324 10*3/uL 150 - 450 [facility] [place] Work Phone: RBC (Bld) [#/Vol] 4.80 {x10E12/L} See Below [facility] [place] Work Phone: Comment on above: Reference Range: 4.0 0 - 5.20 WBC (Bld) [#/Vol] 10.6 10*3/uL 4.4 - 11.3 [facility] e[facility]ol y[facility] [place] Work Phone: Laboratory - Serology - non- microon 09-13-2021 Centromere protein B Ab Qn (S) <0.2 [facility] Work Phone: Comment on above: REF VALUES < 1.0 = N EGATIVE >=1.0 = POSITIVE Chromatin Ab Qn <0.2 [facility] Work Phone: Comment on above: REF VALUES < 1.0 = N EGATIVE >=1.0 = POSITIVE DNA double strand Ab Qn (S) [IU]/mL [facility] Work Phone: Comment on above: REF VALUESNEGATIVE: <= 4 IU/MLEQUIVOCAL: 5- 9 IU/MLPOSITIVE: >=10 IU/ML Bushra-1 extractable nuclear Ab IA Ql (S) <0.2 [facility] Work Phone: Comment on above: REF VALUES < 1.0 = N EGATIVE >=1.0 = POSITIVE Ribonucleoprotein extractable nuclear Ab IA Qn (S) <0.2 [facility] Work Phone: Comment on above: REF VALUES < 1.0 = N EGATIVE >=1.0 = POSITIVE Ribosomal P Ab Qn (S) <0.2 [facility] Work Phone: Comment on above: REF VALUES < 1.0 = N EGATIVE >=1.0 = POSITIVE SCL-70 extractable nuclear Ab IA Ql (S) <0.2 [facility] Work Phone: Comment on above: REF VALUES < 1.0 = N EGATIVE >=1.0 = POSITIVE Sjogrens syndrome-A extractable nuclear Ab IA Qn (S) 0.2 {AI} [facility] Work Phone: Comment on above: REF VALUES < 1.0 = N EGATIVE >=1.0 = POSITIVE Sjogrens syndrome-B extractable nuclear Ab IA Qn (S) <0.2 [facility] Work Phone: Comment on above: REF VALUES < 1.0 = N EGATIVE >=1.0 = POSITIVE Shafer extractable nuclear Ab IA Qn (S) <0.2 [facility] Work Phone: Comment on above: REF VALUES < 1.0 = N EGATIVE >=1.0 = POSITIVE Shafer extractable nuclear Ab+Ribonucleoprotei n extractable nuclear Ab IA Ql (S) <0.2 [facility] Work Phone: Comment on above: REF VALUES < 1.0 = N EGATIVE >=1.0 = POSITIVE No Panel Informationon 09-13 82 {mL/min/1.73m2} >90 [facility] [place] Work Phone: Comment on above: CALCULATIONS OF SURESH MATED GFR ARE PERFORMED USING THE 2020 CKD-EPI STUDY REFIT EQUATION WITHOUT THE RACE VARIABLE FOR THE IDMS-TRACEABLE CREATININE METHODS.https://jasn.asnjournals.org/content/early/ASN. 6824141114 T-SPOT. TBon 09-13-2021 T-SPOT. TB Passed [facility] Work Phone: T-SPOT. TB 0 1 [facility] Work Phone: T-SPOT. TB 1 1 [facility] Work Phone: T-SPOT. TB Negative [facility] Work Phone: Comment on above: Reference Range: Nor mal Value: NegativeA negative test result does not exclude the possibility of exposure to or infection with Mycobacterium tuberculosis (M. tuberculosis). Patients with recent exposure to TB infected individuals exhibiting a negative T-SPOT.TB result should be considered for retesting within 6 weeks or if other relevant clinical symptoms indicate. Results from T-SPOT.TB testing must be used in conjunction with each individual's epidemiological history, current medical status, and results of other diagnostic evaluations. The T-SPOT.TB test is qualitative and results are reported as positive, borderline or negative, given that the test controls perform as expected. In line with the Centers for Disease Control and Prevention's 2010 recommendation to report quantitative measurements alongside the qualitative result, the laboratory provides spot counts for informational purposes only. The T-SPOT.TB test should not be interpreted as a quantitative test. This test was develo ped without FDA review. The test performancecharacteristics were defined and validated by the [facility] HLA LaboratoryDepartment of Pathology, under the accreditation guidelines of NASIM.Test performed at [facility] Histocompatibility and Immunogenetics Laboratory [facility], [address]th [address] [place], [place] [id number] Blood Pressure Cuff Sizeon 1 10-17-2020 Last menstrual period start date [facility] [place] Work Phone: Blood Pressure Cuff Size Large [facility] [place] Work Phone: Radiologyon 07-03-2021 XR Thoracic spine 3 Views FINAL REPORT Interpreted by: DOLORES DUMONT CHRISTOPHER, MD 07/04/21 19:01 Patient Name: TJ VILLANEUVA STUDY: SPINE, THORACIC, 3 VIEWS INDICATION: acute sudden onset mid back pain post injury M54.6: Acute bilateral thoracic back pain. Normal [facility] Work Phone: XR Thoracic spine 3 Views Please click on the link to view the study images Normal [facility] Work Phone: No Panel Informationon 06-19 Several days - 1 [facility] Work Phone: Over half the days - 2 [facility]: Moderate Anxiety [facility] Work Phone: Very difficult [facility] Work Phone: Comment on above: How difficult have t hose problems made it for you to do your work, take care of things at home, or get along with other people? 10 1 [facility] Work Phone: Comment on above: Over the last two we eks, how often have you been bothered by the following problems? Feeling nervous, anxious, or on edge: Over half the days - 2Not being able to stop or control worrying: Over half the days - 2Worrying too much about different things: Over half the days - 2Trouble relaxing: Several days - 1Being so restless that it's hard to sit still: Several days - 1Becoming easily annoyed or irritable: Several days - 1Feeling afraid as if something awful might happen: Several days - 1 Adult depression screening assessment Moderate Depression [facility] Work Phone: Not at all - 0 [facility] Work Phone: Several days - 1 [facility] Work Phone: More than half the days - 2 [facility] Work Phone: Very difficult [facility] Work Phone: Positive Abnormal [facility] Work Phone: Blood Pressure Cuff Sizeon 1 Last menstrual period start date [facility] Work Phone: Blood Pressure Cuff Size Large [facility] Work Phone: LMPon 05-09-2021 Last menstrual period start date hyst [facility] Work Phone: LMP Large [facility] Work Phone: No Panel Informationon 05-09 Several days - 1 [facility] Work Phone: Over half the days - 2 [facility] Work Phone: Moderate Anxiety [facility] Work Phone: Somewhat difficult [facility] Work Phone: Comment on above: How difficult have t hose problems made it for you to do your work, take care of things at home, or get along with other people? 12 1 [facility] Work Phone: Comment on above: Over the last two we eks, how often have you been bothered by the following problems? Feeling nervous, anxious, or on edge: Over half the days - 2Not being able to stop or control worrying: Over half the days - 2Worrying too much about different things: Over half the days - 2Trouble relaxing: Several days - 1Being so restless that it's hard to sit still: Over half the days - 2Becoming easily annoyed or irritable: Over half the days - 2Feeling afraid as if something awful might happen: Several days - 1 Not at all - 0 [facility] Work Phone: More than half the days - 2 [facility] Work Phone: Nearly every day - 3 [facility]: [phone] Moderate Depression [facility] Work Phone: [phone] Positive Abnormal [facility] Work Phone: Anti Nuclear Antibody Titero n 03-20-2021 Nuclear Ab IF (S) [Titer] 1:80 [facility] Work Phone: [phone] Nuclear Ab pattern (S) [Interp] HOMOGENEOUS [facility] Work Phone: CRP, High Sensitivityon 03-02 CRP High sensitivity method [Mass/Vol] 4.7 mg/L Abnormal [facility] Work Phone: Comment on above: hsCRP INTERPRETATION mg/L < 1.0 LOW RELATIVE RISK OF CVD 1.0-3.0 AVERAGE RELATIVE RISK OF CVD > 3.0 HIGH RELATIVE RISK OF CVD Source:ELENA, T. A. et al. CIRCULATION 2003;[id number]. Laboratory - Serology - non- microon 03-20-2021 Nuclear Ab Hep2 substrate Ql (S) Positive Abnormal NEGATIVE [facility] Work Phone: Comment on above: The Antinuclear Anti body (HARMEET) test was performed using indirect immunofluorescence assay with HEp-2 cells slide. Rheumatoid Factor, Serum or Plasmaon 03-20-2021 Rheumatoid factor Nephelometry Qn (S) <10 0 - 15 [facility] Work Phone: Sedimentation Rate, Erythroc yteon 03-20-2021 ESR (Bld) [Velocity] 13 mm/h 0 - 20 [facility] Work Phone: OBSOLETEon 03-07-2021 OBSOLETE Refill ([facility]) TJ VILLANUEVA ([id number]) 1985 F Date Time Provider Department 03/07/21 [facility] During your visit today, we recorded the following information about you: Liliya Spencer 03/07/2021 10:36 AM Signed Physician: Orestes Call from pharmacy requesting refill. Please E-Scribe Last OV: 10/30/2017 with Orestes Pending Prescriptions Disp Refills NARATRIPTAN 2.5 MG TABLET 10 tablet 3 Sig: Take 1 tablet by mouth as directed. As needed for severe headaches. May repeat another dose in 4 hrs. No more than 2 tabs in 24 hrs. BETSY: No Pharmacy Name: [facility] Phone #: [phone] Liliya Mendoza RN 03/07/2021 3:27 PM Addendum NEUROLOGY CARE COORDINATION [facility] QUICK NOTE Chart reviewed. Noted Dr. Carlisle's ELMO note dated 10/30/2017. Prescription reviewed. Staff message sent to front end drupal developer staff to call patient and schedule patient for f/u appointment with Dr. Carlisle. After patient scheduled for f/u appointment, encounter to be routed to [place] [facility] Pool per coverage for Dr. Carlisle. Azra Mendoza RN March 07, 2021 11:17 AM Informed by front end drupal developer staff that patient does not have insurance and that message has been sent to in regards to scheduling f/u appointment with Dr. Carlisle and that response can take anywhere from 1-2 weeks, front end drupal developer staff to call patient and schedule appointment if able to after response received. Routing encounter to covering neurologists per patient request for refill at this time. Azra Mendoza RN March 07, 2021 3:25 PM Emanuel Cross MD 03/07/2021 4:22 PM Signed Signed Azra Mendoza RN 03/07/2021 4:35 PM Addendum NEUROLOGY CARE COORDINATION [facility] QUICK NOTE Noted. No further action required by this RN at this time. Azra Mendoza RN March 07, 2021 4:35 PM Allergies As of Date: 03/07/2021 (No Known Allergies) Date Reviewed: 06/10/2019 Reviewed by: Steffany Bonilla - Fully Assessed Reason for Visit: Refill Request [94] Order(s):naratriptan (AMERGE) 2.5 mg tabletTake 1 tablet by mouth as directed. As needed for severe headaches. May repeat another dose in 4 hrs. No more than 2 tabs in 24 hrs.Disp: 10 tabletRfl: 3 Prescriptions as of 03/07/2021 - naratriptan (AMERGE) 2.5 mg tablet Take 1 tablet by mouth as directed. As needed for severe headaches. May repeat another dose in 4 hrs. No more than 2 tabs in 24 hrs. - topiramate (TOPAMAX) 50 mg tablet 1 tab in AM and 2 tabs in PM. - Oyvdslzsxnzsjwz-Qflrysqst-Z M (BROMFED DM) 2-30-10 mg/5 mL syrup Take 5-10 ml po q6h prn - IBUPROFEN ORAL Take by mouth. - busPIRone (BUSPAR) 5 mg tablet Take 1 tablet by mouth three times daily. - calcipotriene (DOVONEX) 0.005 % cream Apply 1 application to affected area twice daily as needed. - triamcinolone acetonide (KENALOG) 0.1 % cream Apply 1 application to affected area twice daily as needed. Apply sparingly to area for rash/itching. - ibuprofen (MOTRIN) 600 mg tablet Take 1 tablet by mouth every 6 hours as needed for Pain. - FA/MV,CA,IRON,MIN/LYCOPENE/ LUT (MULTIVITAL ORAL) Take by mouth. Problem List As Of Date 03/07/2021 Noted Resolved Patient requested diagnostic testing [Z01.89] 04/30/2012 07/01/2012 Obesity, unspecified [E66.9] 04/30/2012 08/31/2013 History of macrosomia in in prior pregna*04/30/2012 10/29/2012 History of hemorrhoids [Z87.19] 04/30/2012 08/31/2013 Rh negative status during [O26.899, Z*04/30/2012 10/29/2012 UTI in [O23.40] 04/30/2012 10/29/2012 Vulvar pruritus [L29.2] 05/18/2012 01/05/2013 Vulval lesion [N90.89] 05/18/2012 01/05/2013 related back pain, antepartum [O26.89*07/01/2012 10/29/2012 LGSIL (low grade squamous intraepithelial dyspl*11/25/2012 01/05/2013 JAELYN II (cervical intraepithelial neoplasia II) *01/05/2013 Migraines [G43.909] 01/06/2013 Short interval between pregnancies complicating*03/15/2013 08/31/2013 Late care [O09.30] 03/15/2013 08/31/2013 IUD [T83.31XA, Z33.1] 03/15/2013 08/31/2013 Family history of leukemia [Z80.6] 03/15/2013 08/31/2013 History of macrosomia in infant in prior pregna*03/15/2013 08/31/2013 Rash [R21] 03/15/2013 08/31/2013 Patient requested diagnostic testing [Z01.89] 03/15/2013 08/31/2013 Tattoos [L81.8] 03/15/2013 08/31/2013 Abnormal glucose complicating [O99.81*05/12/2013 08/31/2013 Low HDL (under 40) [E78.6] 12/14/2013 Hypertriglyceridemia [E78.1] 12/14/2013 Obesity (BMI 30-39.9) [E66.9] 12/14/2013 Menorrhagia with regular cycle [N92.0] 09/03/2016 11/11/2016 H/O hysterectomy for benign disease [Z90.710] 10/31/2016 DDD (degenerative disc disease), lumbar [M51.36]02/05/2017 Bilateral low back pain with sciatica [M54.40] 02/05/2017 Neck pain, bilateral posterior [M54.2] 02/05/2017 Prescriptions ordered this encounter Disp Refills Start End NARATRIPTAN 2.5 MG TAB (more content not included)... Normal [facility] Radiologyon 02-06-2021 MG Breast Diagnostic FINAL REPORT Interpreted by: ELISABETH LYN HOPE, MD 02/06/21 09:41 Patient Name: TJ VILLANUEVA STUDY: DIGITAL DIAG MAMM BILAT WITH NANI; BREAST ULTRASOUND; 02/06/2021 9:12 am; 02/06/2021 9:31 am ACCESSION NUMBER(S): [id number]; [id number] OR Normal [facility] Work Phone: Ultrasound Limited [place] 02-06-2021 MG Breast Screening FINAL REPORT Interpreted by: ELISABETH LYN HOPE, MD 02/06/21 09:41 Patient Name: TJ VILLANUEVA STUDY: DIGITAL DIAG MAMM BILAT WITH NANI; BREAST ULTRASOUND; 02/06/2021 9:12 am; 02/06/2021 9:31 am ACCESSION NUMBER(S): [id number]; [id number] OR Normal [facility] Work Phone: Blood Pressure Cuff Sizeon 0 01-18-2021 Blood Pressure Cuff Size Large [facility] Work Phone: OBSOLETEon 11-17-2020 OBSOLETE Refill (BENJAMINADH) TJ VILLANUEVA N ([id number]) 1985 F Date Time Provider [facility] your visit today, we recorded the following information about you: Azra Mendoza RN, RN 11/17/2020 2:25 PM Signed NEUROLOG[facility] CARE COORD[facility]ATION [facility] QUICK NOTE Chart reviewed. Noted Dr. Carlisle's ELMO note dated 10/30/2017. Prescription reviewed, patient due for refill. Routing to Dr. Carlisle. No further action required by this RN at this time. Azra Mendoza RN November 17, 2020 2:25 PM Allergies As of Date: 11/17/2020 (No Known Allergies) Date Reviewed: 06/10/2019 Reviewed by: Steffany Bonilla - Fully Assessed Reason for Visit: Refill Request [94] Visit Diagnosis:Migraine with aura and without status migrainosus, not intractable [G43.109] Order(s):topiramate (TOPAMAX) 50 mg tablet1 tab in AM and 2 tabs in PM.Disp: 270 tabletRfl: 3 Prescriptions as of 11/17/2020 Sig: TOPIRAMATE 50 MG TABLET 1 tab in AM and 2 tabs in PM. NARATRIPTAN 2.5 MG TABLET Take 1 tablet by mouth as dir* BROMPHENIRAMINE-PSEUDOEPHED RI* Take 5-10 ml po q6h prn Patient not taking: Reported on 06/10/2019 IBUPROFEN ORAL Take by mouth. BUSPIRONE 5 MG TABLET Take 1 tablet by mouth three * Patient not taking: Reported on 06/10/2019 CALCIPOTRIENE 0.005 % TOPICAL* Apply 1 application to affect* TRIAMCINOLONE ACETONIDE 0.1 %* Apply 1 application to affect* IBUPROFEN 600 MG TABLET Take 1 tablet by mouth every * Patient not taking: Reported on 06/10/2019 MULTIVITAL ORAL Take by mouth. Problem List As Of Date 11/17/2020 Noted Resolved Patient requested diagnostic testing [Z01.89] 04/30/2012 07/01/2012 More... Obesity, unspecified [E66.9] 04/30/2012 08/31/2013 More... History of macrosomia in in prior pregna*04/30/2012 10/29/2012 More... History of hemorrhoids [Z87.19] 04/30/2012 08/31/2013 More... Rh negative status during [O26.899, Z*04/30/2012 10/29/2012 More... UTI in [O23.40] 04/30/2012 10/29/2012 More... Vulvar pruritus [L29.2] 05/18/2012 01/05/2013 Vulval lesion [N90.89] 05/18/2012 01/05/2013 related back pain, antepartum [O26.89*07/01/2012 10/29/2012 More... LGSIL (low grade squamous intraepithelial dyspl*11/25/2012 01/05/2013 JAELYN II (cervical intraepithelial neoplasia II) *01/05/2013 Migraines [G43.909] 01/06/2013 Short interval between pregnancies complicating*03/15/2013 08/31/2013 More... Late care [O09.30] 03/15/2013 08/31/2013 More... IUD [T83.31XA, Z33.1] 03/15/2013 08/31/2013 More... Family history of leukemia [Z80.6] 03/15/2013 08/31/2013 More... History of macrosomia in in prior pregna*03/15/2013 08/31/2013 More... Rash [R21] 03/15/2013 08/31/2013 More... Patient requested diagnostic testing [Z01.89] 03/15/2013 08/31/2013 More... Tattoos [L81.8] 03/15/2013 08/31/2013 More... Abnormal glucose complicating [O99.81*05/12/2013 08/31/2013 More... Low HDL (under 40) [E78.6] 12/14/2013 Hypertriglyceridemia [E78.1] 12/14/2013 Obesity (BMI 30-39.9) [E66.9] 12/14/2013 Menorrhagia with regular cycle [N92.0] 09/03/2016 11/11/2016 H/O hysterectomy for benign disease [Z90.710] 10/31/2016 DDD (degenerative disc disease), lumbar [M51.36]02/05/2017 Bilateral low back pain with sciatica [M54.40] 02/05/2017 Neck pain, bilateral posterior [M54.2] 02/05/2017 Prescriptions ordered this encounter Disp Refills Start End TOPIRAMATE 50 MG TABLET 270 * 3 11/17/2020 Si tab in AM and 2 tabs in PM. Medications Discontinued During This Encounter Prescriptions - topiramate (TOPAMAX) 50 mg tablet (Discontinued) 1 tab in AM and 2 tabs in PM. Encounter Status:Closed by SPENCER CARLISLE MD on 11/17/20 [facility] OBSOLETE Refill ([facility]) TJ VILLANUEVA ([id number]) 1985 F Date Time Provider Department 11/17/20 [facility] During your visit today, we recorded the following information about you: Azra Mendoza RN, RN 11/17/2020 2:22 PM Signed [facility] CARE COORD[facility]ATION [facility] QUICK NOTE Chart reviewed. Noted Dr. Carlisle's ELMO note dated 10/30/2017. Prescription reviewed. Routing to Dr. Carlisle. No further action required by this RN at this time. Azra Mendoza RN November 17, 2020 2:21 PM Allergies As of Date: 11/17/2020 (No Known Allergies) Date Reviewed: 06/10/2019 Reviewed by: Steffany Bonilla - Fully Assessed Reason for Visit: Refill Request [94] Order(s):naratriptan (AMERGE) 2.5 mg tabletTake 1 tablet by mouth as directed. As needed for severe headaches. May repeat another dose in 4 hrs. No more than 2 tabs in 24 hrs.Disp: 10 tabletRfl: 3 Prescriptions as of 11/17/2020 Sig: NARATRIPTAN 2.5 MG TABLET Take 1 tablet by mouth as dir* X TOPIRAMATE 50 MG TABLET 1 tab in AM and 2 tabs in PM. BROMPHENIRAMINE-PSEUDOEPHED RI* Take 5-10 ml po q6h prn Patient not taking: Reported on 06/10/2019 IBUPROFEN ORAL Take by mouth. BUSPIRONE 5 MG TABLET Take 1 tablet by mouth three * Patient not taking: Reported on 06/10/2019 CALCIPOTRIENE 0.005 % TOPICAL* Apply 1 application to affect* TRIAMCINOLONE ACETONIDE 0.1 %* Apply 1 application to affect* IBUPROFEN 600 MG TABLET Take 1 tablet by mouth every * Patient not taking: Reported on 06/10/2019 MULTIVITAL ORAL Take by mouth. Problem List As Of Date 11/17/2020 Noted Resolved Patient requested diagnostic testing [Z01.89] 04/30/2012 07/01/2012 More... Obesity, unspecified [E66.9] 04/30/2012 08/31/2013 More... History of macrosomia in infant in prior pregna*04/30/2012 10/29/2012 More... History of hemorrhoids [Z87.19] 04/30/2012 08/31/2013 More... Rh negative status during [O26.899, Z*04/30/2012 10/29/2012 More... UTI in [O23.40] 04/30/2012 10/29/2012 More... Vulvar pruritus [L29.2] 05/18/2012 01/05/2013 Vulval lesion [N90.89] 05/18/2012 01/05/2013 related back pain, antepartum [O26.89*07/01/2012 10/29/2012 More... LGSIL (low grade squamous intraepithelial dyspl*11/25/2012 01/05/2013 JAELYN II (cervical intraepithelial neoplasia II) *01/05/2013 Migraines [G43.909] 01/06/2013 Short interval between pregnancies complicating*03/15/2013 08/31/2013 More... Late care [O09.30] 03/15/2013 08/31/2013 More... IUD [T83.31XA, Z33.1] 03/15/2013 08/31/2013 More... Family history of leukemia [Z80.6] 03/15/2013 08/31/2013 More... History of macrosomia in in prior pregna*03/15/2013 08/31/2013 More... Rash [R21] 03/15/2013 08/31/2013 More... Patient requested diagnostic testing [Z01.89] 03/15/2013 08/31/2013 More... Tattoos [L81.8] 03/15/2013 08/31/2013 More... Abnormal glucose complicating [O99.81*05/12/2013 08/31/2013 More... Low HDL (under 40) [E78.6] 12/14/2013 Hypertriglyceridemia [E78.1] 12/14/2013 Obesity (BMI 30-39.9) [E66.9] 12/14/2013 Menorrhagia with regular cycle [N92.0] 09/03/2016 11/11/2016 H/O hysterectomy for benign disease [Z90.710] 10/31/2016 DDD (degenerative disc disease), lumbar [M51.36]02/05/2017 Bilateral low back pain with sciatica [M54.40] 02/05/2017 Neck pain, bilateral posterior [M54.2] 02/05/2017 Prescriptions ordered this encounter Disp Refills Start End NARATRIPTAN 2.5 MG TABLET 10 t* 3 11/17/2020 Route: ORAL Sig: Take 1 tablet by mouth as directed. As needed for severe headaches. May repeat another dose in 4 hrs. No more than 2 tabs in 24 hrs. Medications Discontinued During This Encounter Prescriptions - naratriptan (AMERGE) 2.5 mg tablet (Discontinued) Take 1 tablet by mouth as directed. As needed for severe headaches. May repeat another dose in 4 hrs. No more than 2 tabs in 24 hrs. Encounter Status:Closed by SPENCER CARLISLE MD on 11/17/20 Normal [facility] MRI LUMBAR SPINE WO IVCONon 07-26-2020 MRI LUMBAR SPINE WO IVCON * * *Final Report* * * DATE OF EXAM: Jul 26 2020 4:25PM [facility] 0303 - MRI LUMBAR SPINE WO IVCON / PROCEDURE REASON: M46.1 SACROILIAC PAIN ,PSORIATIC ARTHRISTIS * * * * Physician Interpretation * * * * EXAMINATION: MRI LUMBAR SPINE WO IVCON CLINICAL HISTORY: Low back pain extending to right hip. TECHNIQUE: Routine lumbosacral spine MR protocol without gadolinium. MQ: [id number] COMPARISON: Lumbar radiographs 02/19/2017, sacral radiographs 01/10/2015 RESULT: Counting reference: Lumbosacral junction. For the purposes of this report, L4-5 is considered the level of the iliac crest and assume there are 5 lumbar-type vertebrae. Anatomic variant: None. Localizer images: Bilateral ovarian cysts incidentally noted. Alignment: Alignment is anatomic. Bone marrow signal/fracture: No evidence of pathologic marrow infiltration. No evidence of prior fracture. No evidence of enthesitis or other inflammatory changes. Conus: The conus is within normal limits of signal intensity and morphology. The conus terminates at T12-L1. Paraspinal soft tissues: Paraspinal soft tissues are within normal limits. Lower thoracic spine: Visualized lower thoracic canal and foramina are patent. T12-L1: Canal and foramina are patent. L1-L2: Canal and foramina are patent. L2-L3: Canal and foramina are patent L3-L4: Canal and foramina are patent L4-L5: Posterior disc bulge without significant narrowing of the spinal canal. Foramina are patent. L5-S1: Spinal canal and left foramen are patent. Moderate right foraminal stenosis due to right foraminal disc protrusion with small annular fissure. Sacrum and iliac wings: T1/T2 hypointensity adjacent to the bilateral visualized sacroiliac joints may relate to sclerotic osseous changes. Sacrum and iliac bones are otherwise unremarkable. IMPRESSION: Right foraminal disc protrusion results in moderate right foraminal stenosis at L5-S1. Otherwise, no significant spinal canal or foraminal stenosis. T1/T2 hypointensity along the bilateral sacroiliac joints may correspond to fibrotic/sclerotic osseous changes. Anatomic Thoracic/Lumbar Variant: None. L4-5 is considered the level of the iliac crest and assume there are 5 lumbar-type vertebrae. Manager Endoscopy: ROBY Transcribe Date/Time: Jul 26 2020 4:31P Dictated by : OTONIEL ALBRECHT MD This examination was interpreted and the report reviewed and electronically signed by: OTONIEL ALBRECHT MD on Jul 26 2020 4:43PM EST [id number] [facility] PROGRESSon 07-26-2020 PROGRESS HNO ID: [id number] Author: Sultana Arcos (Rt) Service: Radiology Author Type: Fire Equipment Inspector Helper Type: Progress Notes Filed: 07/26/2020 3:19 PM Note Text: Radiology Service Progress Note PATIENT NAME: Tj Villanueva DATE OF SERVICE: July 26, 2020 TIME: 3:17 PM PATIENT IDENTITY VERIFICATION COMPLETED USING TWO (2) IDENTIFIERS: Name and Date of confirmed by patient verbally and Name and Date of confirmed by identification band. FALL SCREENING: Has the patient had 2 falls in the last year or 1 fall with injury or currently using an Ambulatory Assistive Device (Walker, Cane, Wheelchair, Crutches, etc.)? No PATIENT GENDER DATA: Female. status: : No status: NO. PATIENT RELEVANT IMPLANT DATA REVIEWED: Yes RADIOLOGY DEPARTMENT: MR; Exam(s) Completed: Spine: Lumbar spine PERIPHERAL IV DATA: Not applicable SIGNED BY: chance Arcos tech July 26, 2020 3:17 PM [facility] Vital Signs Date Time Vital Sign Value Performing Clinician Facility 12-30-2024 11:38-0400 Body mass index (BMI) [Ratio] 34.65 kg/m2 Yvette Mesko DO Work Phone: [facility] 12-30-2024 11:38-0400 Body temperature 98.49 [degF] Yvette Benjaminko DO Work Phone: [facility] 12-30-2024 11:38-0400 Body weight 129.14 kg Yvette Mesko DO Work Phone: [facility] 12-30-2024 11:38-0400 Heart rate 77 /min Yvette Benjaminko DO Work Phone: [facility] 12-30-2024 11:38-0400 Respiratory rate 16 /min Yvette Mesko DO Work Phone: [facility] 12-30-2024 11:38-0400 SaO2% (BldA) [Mass fraction] 98 % Yvette Mesko DO Work Phone: [facility] 09-17-2024 11:00-0500 Diastolic blood pressure 75 mm[Hg] Kathrin Mansfield MD Work Phone: [facility] 09-17-2024 11:00-0500 Heart rate 58 /min Kathrin Mansfield MD Work Phone: [facility] 09-17-2024 11:00-0500 Respiratory rate 18 /min Kathrin Mansfield MD Work Phone: [facility] 09-17-2024 11:00-0500 SaO2% (BldA) [Mass fraction] 98 % Kathrin Mansfield MD Work Phone: [facility] 09-17-2024 11:00-0500 Systolic blood pressure 138 mm[Hg] Kathrin Mansfield MD Work Phone: [facility] 09-17-2024 10:37-0500 Body temperature 97.7 [degF] Kathrin Mansfield MD Work Phone: [facility] 09-17-2024 09:04-0500 Body mass index (BMI) [Ratio] 36.76 kg/m2 Kathrin Mansfield MD Work Phone: [facility] 09-17-2024 09:04-0500 Body weight 137 kg Kathrin [place] MD Work Phone: [facility] 08-09-2024 14:00-0500 Body temperature 97.7 [degF] Dustin Nuñez MD Work Phone: [facility] 08-09-2024 14:00-0500 Diastolic blood pressure 52 mm[Hg] Dustin Nuñez MD Work Phone: [facility] 08-09-2024 14:00-0500 Heart rate 60 /min Dustin Nuñez MD Work Phone: [facility] 08-09-2024 14:00-0500 Respiratory rate 13 /min Dustin Nuñez MD Work Phone: [facility] 08-09-2024 14:00-0500 SaO2% (BldA) [Mass fraction] 93 % Dustin Nuñez MD Work Phone: [facility] 08-09-2024 14:00-0500 Systolic blood pressure 107 mm[Hg] Dustin Nuñez MD Work Phone: [facility] 08-09-2024 08:17-0500 Body height 193 cm Dustin Nuñez MD Work Phone: [facility] 08-09-2024 08:17-0500 Body mass index (BMI) [Ratio] 36.71 kg/m2 Dustin Nuñez MD Work Phone: [facility] 08-09-2024 08:17-0500 Body weight 136.8 kg Dustin Nuñez MD Work Phone: [facility] 07-26-2024 11:14-0500 Body mass index (BMI) [Ratio] 36.17 kg/m2 Yvette Mesko DO Work Phone: [facility] 07-26-2024 11:14-0500 Body temperature 97.81 [degF] Yvette Mesko DO Work Phone: [facility] 07-26-2024 11:140500 Body weight 138.35 kg Yvette Mesko DO Work Phone: [facility] 07-26-2024 11:14-0500 Diastolic blood pressure 61 mm[Hg] Yvette Mesko DO Work Phone: [facility] 07-26-2024 11:14-0500 Heart rate 78 /min Yvette Mesko DO Work Phone: [facility] 07-26-2024 11:14-0500 Respiratory rate 16 /min Yvette Mesko DO Work Phone: [facility] 07-26-2024 11:14-0500 SaO2% (BldA) [Mass fraction] 96 % Yvette Mesko DO Work Phone: [facility] 07-26-2024 11:14-0500 Systolic blood pressure 130 mm[Hg] Yvette Mesko DO Work Phone: [facility] 07-20-2024 14:04-0500 Body height 195.6 cm Dustin Nuñez MD Work Phone: [facility] 07-20-2024 14:04-0500 Body mass index (BMI) [Ratio] 36.4 kg/m2 Dustin Nuñez MD Work Phone: [facility] 07-20-2024 14:04-0500 Body weight 139.25 kg Dustin Nuñez MD Work Phone: [facility] 06-21-2024 11:33-0400 Body mass index (BMI) [Ratio] 37.37 kg/m2 Yvette Mesko DO Work Phone: [facility] 06-21-2024 11:33-0400 Body temperature 97.3 [degF] Yvette Mesko DO Work Phone: [facility] 06-21-2024 11:33-0400 Body weight 139.25 kg Yvette Mesko DO Work Phone: [facility] 06-21-2024 11:33-0400 Diastolic blood pressure 73 mm[Hg] Yvette Mesko DO Work Phone: [facility] 06-21-2024 11:33-0400 Heart rate 70 /min Yvette Mesko DO Work Phone: [facility] 06-21-2024 11:33-0400 Respiratory rate 16 /min Yvette Mesko DO Work Phone: [facility] 06-21-2024 11:33-0400 SaO2% (BldA) [Mass fraction] 97 % Yvette Mesko DO Work Phone: [facility] 06-21-2024 11:33-0400 Systolic blood pressure 112 mm[Hg] Yvette Mesko DO Work Phone: [facility] 11-21-2023 14:50-0400 Body height 193 cm Cristo Robert FILM EDITOR SUPERVISOR-[employer]RETTED INSTRUMENT INSPECTOR Work Phone: [facility] 11-21-2023 14:50-0400 Body mass index (BMI) [Ratio] 38.22 kg/m2 Cristo Robert FILM EDITOR SUPERVISOR-FRETTED INSTRUMENT INSPECTOR Work Phone: [facility] 11-21-2023 14:50-0400 Body weight 142.43 kg Cristo Robert FILM EDITOR SUPERVISOR-FRETTED INSTRUMENT INSPECTOR Work Phone: [facility] 11-21-2023 14:50-0400 Diastolic blood pressure 76 mm[Hg] Cristo Robert FILM EDITOR SUPERVISOR-FRETTED INSTRUMENT INSPECTOR Work Phone: [facility] 11-21-2023 14:50-0400 Heart rate 74 /min Cristo Robert FILM EDITOR SUPERVISOR-FRETTED INSTRUMENT INSPECTOR Work Phone: [facility] 11-21-2023 14:50-0400 Systolic blood pressure 124 mm[Hg] Cristo Robert FILM EDITOR SUPERVISOR-FRETTED INSTRUMENT INSPECTOR Work Phone: [facility] 11-18-2023 12:32-0400 Body mass index (BMI) [Ratio] 38.22 kg/m2 Yvette Mesko DO Work Phone: [facility] 11-18-2023 12:32-0400 Body temperature 97.9 [degF] Yvette Mesko DO Work Phone: [facility] 11-18-2023 12:32-0400 Body weight 142.43 kg Yvette Mesko DO Work Phone: [facility] 11-18-2023 12:32-0400 Diastolic blood pressure 71 mm[Hg] Yvette Mesko DO Work Phone: [facility] 11-18-2023 12:32-0400 Heart rate 75 /min Yvette Mesko DO Work Phone: [facility] 11-18-2023 12:32-0400 Respiratory rate 16 /min Yvette Mesko DO Work Phone: [facility] 11-18-2023 12:32-0400 SaO2% (BldA) [Mass fraction] 98 % Yvette Mesko DO Work Phone: [facility] 11-18-2023 12:32-0400 Systolic blood pressure 121 mm[Hg] Yvette Mesko DO Work Phone: [facility] 06-13-2023 08:38-0400 Heart rate 62 /min Par Room [facility] 06-13-2023 08:38-0400 Respiratory rate 18 /min Par Room [facility] 06-13-2023 08:38-0400 SaO2% (BldA) [Mass fraction] 97 % Par Room [facility] 06-13-2023 08:11-0400 Body temperature 96.3 [degF] Par Room [facility] 05-07-2023 12:33-0400 Body mass index (BMI) [Ratio] 38.61 kg/m2 Yvette Mesko DO Work Phone: [facility] 05-07-2023 12:33-0400 Body temperature 97.2 [degF] Yvette Mesko DO Work Phone: [facility] 05-07-2023 12:33-0400 Body weight 143.88 kg Yvette Mesko DO Work Phone: [facility] 05-07-2023 12:33-0400 Diastolic blood pressure 71 mm[Hg] Yvette Mesko DO Work Phone: [facility] 05-07-2023 12:33-0400 Heart rate 62 /min Yvette Mesko DO Work Phone: [facility] 05-07-2023 12:33-0400 Respiratory rate 16 /min Yvette Mesko DO Work Phone: [facility] 05-07-2023 12:33-0400 SaO2% (BldA) [Mass fraction] 98 % Yvette Mesko DO Work Phone: [facility] 05-07-2023 12:33-0400 Systolic blood pressure 121 mm[Hg] Yvette Mesko DO Work Phone: [facility] 12-10-2022 15:23-0400 Body height 193.04 cm Yvette L Mesko Work Phone: [facility] Work Phone: 12-10-2022 15:23-0400 Body mass index (BMI) [Ratio] 36.88 kg/m2 Yvettecora Alexanderko Work Phone: [facility] Work Phone: 12-10-2022 15:23-0400 Body surface area Derived from formula 2.64 m2 Yvettecora Mancera Work Phone: [facility] Work Phone: 12-10-2022 15:23-0400 Body temperature 37.2 [degF] Yvette Mancera Work Phone: [facility] Work Phone: 12-10-2022 15:23-0400 Body weight 137.44 kg Yvette Mancera Work Phone: [facility] Work Phone: 12-10-2022 15:23-0400 Diastolic blood pressure 61 mm[Hg] Yvettecora Mancera Work Phone: [facility] Work Phone: 12-10-2022 15:23-0400 Heart rate 72 /min Yvettecora Mancera Work Phone: [facility] Work Phone: 12-10-2022 15:23-0400 Respiratory rate 18 /min Yvette Mancera Work Phone: [facility] Work Phone: 12-10-2022 15:23-0400 SaO2% (BldA) [Mass fraction] 97 % Yvette Mancera Work Phone: [facility] Work Phone: 12-10-2022 15:23-0400 Systolic blood pressure 123 mm[Hg] Yvette Mancera Work Phone: [facility] Work Phone: 12-10-2022 13:30-0400 Body height 193 cm Yvette Mancera DO Work Phone: [facility] 12-10-2022 13:30-0400 Body mass index (BMI) [Ratio] 38.38 kg/m2 Yvette Mesko DO Work Phone: [facility] 12-10-2022 13:30-0400 Body temperature 99.19 [degF] Yvette Mesko DO Work Phone: [facility] 12-10-2022 13:30-0400 Body weight 143.02 kg Yvette Mesko DO Work Phone: [facility] 12-10-2022 13:30-0400 Diastolic blood pressure 69 mm[Hg] Yvette Mesko DO Work Phone: [facility] 12-10-2022 13:30-0400 Heart rate 70 /min Yvette Mesko DO Work Phone: [facility] 12-10-2022 13:30-0400 Respiratory rate 12 /min Yvette Mesko DO Work Phone: [facility] 12-10-2022 13:30-0400 SaO2% (BldA) [Mass fraction] 96 % Yvette Mesko DO Work Phone: [facility] 12-10-2022 13:30-0400 Systolic blood pressure 110 mm[Hg] Yvette Mesko DO Work Phone: [facility] 09-30-2022 12:56-0500 Body height 193.04 cm Yvette L Benjaminko Work Phone: [facility] Work Phone: 09-30-2022 12:56-0500 Body mass index (BMI) [Ratio] 36.88 kg/m2 Yvette L Mesko Work Phone: [facility] Work Phone: 09-30-2022 12:56-0500 Body surface area Derived from formula 2.64 m2 Yvette L Mesko Work Phone: [facility] Work Phone: 09-30-2022 12:56-0500 Body weight 137.44 kg Yvettecora Mancera Work Phone: [facility] Work Phone: 09-30-2022 12:56-0500 Diastolic blood pressure 71 mm[Hg] Yvettecora Mancera Work Phone: [facility] Work Phone: 09-30-2022 12:56-0500 Heart rate 74 /min Yvettecora AlexanderMYTRND Work Phone: [facility] Work Phone: 09-30-2022 12:56-0500 Systolic blood pressure 108 mm[Hg] Yvettecora Mancera Work Phone: [facility] Work Phone: 09-05-2022 13:44-0500 Body height 193.04 cm Yvette Mancera Work Phone: SL-Sahxgqnamzvw-Dwu [address] Work Phone: 09-05-2022 13:44-0500 Body mass index (BMI) [Ratio] 35.3 kg/m2 Yvette Mancera Work Phone: EE-Gsuvryhizwox-Wnl [address] Work Phone: 09-05-2022 13:44-0500 Body surface area Derived from formula 2.59 m2 Yvette Mancera Work Phone: MH-Icatoummuqsm-Hpl [address] Work Phone: 09-05-2022 13:44-0500 Body temperature 36.5 [degF] Yvettecora Mancera Work Phone: VP-Fuhlisndlvkg-Xxb [address] Work Phone: 09-05-2022 13:44-0500 Body weight 131.54 kg Yvettecora Mancera Work Phone: AP-Saaxvrkdasln-Uys [address] Work Phone: 09-05-2022 13:44-0500 Diastolic blood pressure 68 mm[Hg] Yvettecora Mancera Work Phone: AM-Jxndagbfactr-Qvg [address] Work Phone: 09-05-2022 13:44-0500 Heart rate 70 /min Yvettecora Mancera Work Phone: XD-Kdhaeyfuxvjj-Aaz [address] Work Phone: 09-05-2022 13:44-0500 Respiratory rate 18 /min Yvettecora Mancera Work Phone: KK-Dtbgpnyvoxxc-Sjy [address] Work Phone: 09-05-2022 13:44-0500 SaO2% (BldA) [Mass fraction] 97 % Yvette Mancera Work Phone: RU-Lctudxhpqghp-Pyc [address] Work Phone: 09-05-2022 13:44-0500 Systolic blood pressure 109 mm[Hg] Yvette Mancera Work Phone: YP-Vpasuapxrvil-Qil [address] Work Phone: 08-15-2022 15:31-0500 Body height 193.04 cm Yvette Mancera Work Phone: [facility] Work Phone: 08-15-2022 15:31-0500 Body mass index (BMI) [Ratio] 35.3 kg/m2 Yvette Mancera Work Phone: [facility] Work Phone: 08-15-2022 15:31-0500 Body surface area Derived from formula 2.59 m2 Yvette Mancera Work Phone: [facility] Work Phone: 08-15-2022 15:31-0500 Body weight 131.54 kg Yvette Alexanderko Work Phone: [facility] Work Phone: 08-15-2022 15:31-0500 Diastolic blood pressure 82 mm[Hg] Yvette Alexanderko Work Phone: [facility] Work Phone: 08-15-2022 15:31-0500 Heart rate 70 /min Yvettecora Alexanderko Work Phone: [facility] Work Phone: 08-15-2022 15:31-0500 Respiratory rate 18 /min Yvettecora Alexanderko Work Phone: [facility] Work Phone: 08-15-2022 15:31-0500 Systolic blood pressure 138 mm[Hg] Yvette Mancera Work Phone: [facility] Work Phone: 08-15-2022 15:31-0500 3 1 Yvette Alexanderko Work Phone: [facility] Work Phone: Comment on above: [facility] 05-22-2022 12:06-0400 Body height 193.04 cm Yvette Mancera Work Phone: [facility] [place] Work Phone: 05-22-2022 12:06-0400 Body mass index (BMI) [Ratio] 36.98 kg/m2 Yvette Alexanderko [facility] [place] Work Phone: 05-22-2022 12:06-0400 Body surface area Derived from formula 2.65 m2 Yvette Alexanderko Work Phone: [facility] [place] Work Phone: 05-22-2022 12:06-0400 Body temperature 98 [degF] Yvettecora Alexanderko Work Phone: [facility] [place] Work Phone: 05-22-2022 12:06-0400 Body weight 137.8 kg Yvettecora Alexanderko Work Phone: [facility] [place] Work Phone: 05-22-2022 12:06-0400 Diastolic blood pressure 77 mm[Hg] Yvette L Mesko Work Phone: [facility] [place] Work Phone: 05-22-2022 12:06-0400 Heart rate 80 /min Yvettecora Alexanderko Work Phone: [facility] [place] Work Phone: 05-22-2022 12:06-0400 Respiratory rate 16 /min Yvettecora Alexanderko Work Phone: [facility] [place] Work Phone: 05-22-2022 12:06-0400 SaO2% (BldA) [Mass fraction] 97 % Yvette Alexanderko Work Phone: [facility] [place] Work Phone: 05-22-2022 12:06-0400 Systolic blood pressure 122 mm[Hg] Yvette Burnett Mesko Work Phone: [facility] [place] Work Phone: 05-07-2022 14:55-0400 Body height 193.04 cm Yvettecora Alexanderko Work Phone: [facility] Work Phone: 05-07-2022 14:55-0400 Body mass index (BMI) [Ratio] 36.15 kg/m2 Yvettecora Alexanderko Work Phone: [facility] Work Phone: 05-07-2022 14:55-0400 Body surface area Derived from formula 2.62 m2 Yvettecora Alexanderko Work Phone: [facility] Work Phone: 05-07-2022 14:55-0400 Body temperature 97.7 [degF] Yvette L Mesko Work Phone: [facility] Work Phone: 05-07-2022 14:55-0400 Body weight 134.72 kg Yvettecora Alexanderko Work Phone: [facility] Work Phone: 05-07-2022 14:55-0400 Diastolic blood pressure 62 mm[Hg] Yvettecora Alexanderko Work Phone: [facility] Work Phone: 05-07-2022 14:55-0400 Heart rate 70 /min Yvettecora Alexanderko Work Phone: [facility] Work Phone: 05-07-2022 14:55-0400 Respiratory rate 18 /min Yvettecora Alexanderko Work Phone: [facility] Work Phone: 05-07-2022 14:55-0400 SaO2% (BldA) [Mass fraction] 97 % Yvettecora Alexanderko Work Phone: [facility] Work Phone: 05-07-2022 14:55-0400 Systolic blood pressure 180 mm[Hg] Yvettecora Alexanderko Work Phone: [facility] Work Phone: 03-14-2022 09:50-0400 Body height 193.04 cm Yvettecora Alexanderko Work Phone: [facility] Work Phone: 03-14-2022 09:50-0400 Body mass index (BMI) [Ratio] 36.2 kg/m2 Yvette Mancera Work Phone: [facility] Work Phone: 03-14-2022 09:50-0400 Body surface area Derived from formula 2.62 m2 Yvette Mancera Work Phone: [facility] Work Phone: 03-14-2022 09:50-0400 Body temperature 97.34 [degF] Yvette Mancera Work Phone: [facility] Work Phone: 03-14-2022 09:50-0400 Body weight 134.89 kg Yvette Mancera Work Phone: [facility] Work Phone: 03-14-2022 09:50-0400 Diastolic blood pressure 81 mm[Hg] Yvettecora Mancera Work Phone: [facility] Work Phone: 03-14-2022 09:50-0400 Heart rate 71 /min Yvette Mancera Work Phone: [facility] Work Phone: 03-14-2022 09:50-0400 Respiratory rate 18 /min Yvette Mancera Work Phone: [facility] Work Phone: 03-14-2022 09:50-0400 SaO2% (BldA) [Mass fraction] 98 % Yvette Alexanderko Work Phone: [facility] Work Phone: 03-14-2022 09:50-0400 Systolic blood pressure 123 mm[Hg] Yvette Alexanderko Work Phone: [facility] Work Phone: 12-19-2021 13:50-0400 Body mass index (BMI) [Ratio] 36.88 kg/m2 Yvette L Mesko Work Phone: [facility] Work Phone: 12-19-2021 13:50-0400 Body surface area Derived from formula 2.6 m2 Yvette L Mesko Work Phone: [facility] Work Phone: 12-19-2021 13:50-0400 Body temperature 98 [degF] Yvette L Mesko Work Phone: [facility] Work Phone: 12-19-2021 13:50-0400 Body weight 134.72 kg Yvette L Mesko Work Phone: [facility] Work Phone: 12-19-2021 13:50-0400 Diastolic blood pressure 78 mm[Hg] Yvette L Mesko Work Phone: [facility] Work Phone: 12-19-2021 13:50-0400 Heart rate 110 /min Yvette L Mesko Work Phone: [facility] Work Phone: 12-19-2021 13:50-0400 Respiratory rate 20 /min Yvette L Mesko Work Phone: [facility] Work Phone: 12-19-2021 13:50-0400 SaO2% (BldA) [Mass fraction] 98 % Yvette L Mesko Work Phone: [facility] Work Phone: 12-19-2021 13:50-0400 Systolic blood pressure 133 mm[Hg] Yvette L Mesko Work Phone: [facility] Work Phone: 12-19-2021 13:50-0400 6 1 Yvette Mancera Work Phone: [facility] Work Phone: Comment on above: [employer] 12-08-2021 04:15-0400 Diastolic blood pressure 98 mm[Hg] [facility] Work Phone: 12-08-2021 04:15-0400 Heart rate 90 /min [facility] Work Phone: 12-08-2021 04:15-0400 Respiratory rate 15 /min [facility] Work Phone: 12-08-2021 04:15-0400 SaO2% (BldA) [Mass fraction] 93 % [facility] Work Phone: 12-08-2021 04:15-0400 Systolic blood pressure 147 mm[Hg] [facility] Work Phone: 12-08-2021 02:56-0400 Body height 193.04 cm [facility] Work Phone: 12-08-2021 02:56-0400 Body mass index (BMI) [Ratio] 34.7 kg/m2 [facility] Work Phone: 12-08-2021 02:56-0400 Body temperature 97 [degF] [facility] Work Phone: 12-08-2021 02:56-0400 Body weight 129.27 kg [facility] Work Phone: 12-03-2021 10:53-0400 Body mass index (BMI) [Ratio] 36.85 kg/m2 Yvettecora Alexanderko Work Phone: [facility] Work Phone: 12-03-2021 10:53-0400 Body surface area Derived from formula 2.6 m2 Yvette Hortencia Benjaminko Work Phone: [facility] Work Phone: 12-03-2021 10:53-0400 Body temperature 98 [degF] Yvette L Mesko Work Phone: [facility] Work Phone: 12-03-2021 10:53-0400 Body weight 134.63 kg Yvette L Mesko Work Phone: [facility] Work Phone: 12-03-2021 10:53-0400 Diastolic blood pressure 77 mm[Hg] Yvette L Mesko Work Phone: [facility] Work Phone: 12-03-2021 10:53-0400 Heart rate 80 /min Yvette L Mesko Work Phone: [facility] Work Phone: 12-03-2021 10:53-0400 Respiratory rate 16 /min Yvette L Mesko Work Phone: [facility] Work Phone: 12-03-2021 10:53-0400 SaO2% (BldA) [Mass fraction] 97 % Yvette L Mesko Work Phone: [facility] Work Phone: 12-03-2021 10:53-0400 Systolic blood pressure 118 mm[Hg] Yvette L Mesko Work Phone: [facility] Work Phone: 12-03-2021 10:53-0400 10 1 Yvette L Mesko Work Phone: [facility] Work Phone: Comment on above: [employer] 09-13-2021 08:14-0500 Body height 191.13 cm Yvette L Mesko Work Phone: TL-Ivelbzycwblx-Jwk [facility] [address] [place] Work Phone: 09-13-2021 08:14-0500 Body mass index (BMI) [Ratio] 36.87 kg/m2 Yvette Alexanderko Work Phone: ZJ-Kmqlhpkopciq-Egc [facility] [address] [place] Work Phone: 09-13-2021 08:14-0500 Body surface area Derived from formula 2.6 m2 Yvette Alexanderko Work Phone: JS-Npmeyirfnsxa-Dju [facility] [address] [place] Work Phone: 09-13-2021 08:14-0500 Body temperature 97.9 [degF] Yvettecora Alexanderko Work Phone: GW-Htobpejrdzdo-Vrf [facility] [address] [place] Work Phone: 09-13-2021 08:14-0500 Body weight 134.72 kg Yvette Alexanderko Work Phone: WX-Gdqvmtpiatnw-Cbt son [address] [place] Work Phone: 09-13-2021 08:14-0500 Diastolic blood pressure 74 mm[Hg] Yvette Alexanderko Work Phone: FJ-Hepuzfrycbvp-Awx [facility] [address] [place] Work Phone: 09-13-2021 08:14-0500 Systolic blood pressure 118 mm[Hg] Yvette Burnett Mesko Work Phone: KH-Hvtkjpnvggjg-Uie [facility] [address] [place] Work Phone: 08-16-2021 12:12-0500 Body temperature 98 [degF] Yvette Burnett Mesko Work Phone: ER-Ebwkrohmhjyl-Qgk [facility] [address] [place] Work Phone: 08-16-2021 12:12-0500 Diastolic blood pressure 73 mm[Hg] Yvette Burnett Mesko Work Phone: DX-Hjxntdulvvch-Jpa son [address] [place] Work Phone: 08-16-2021 12:12-0500 Heart rate 68 /min Yvette L Mesko Work Phone: MD-Hbrxhfnhovih-Rvr son [address] [place] Work Phone: 08-16-2021 12:12-0500 Respiratory rate 20 /min Yvette L Mesko Work Phone: II-Icbgnghdotgp-Vfu son [address] [place] Work Phone: 08-16-2021 12:12-0500 SaO2% (BldA) [Mass fraction] 96 % Yvette L Mesko Work Phone: MA-Ruwgoumbwuem-Awc son [address] [place] Work Phone: 08-16-2021 12:12-0500 Systolic blood pressure 119 mm[Hg] Yvette L Mesko Work Phone: SM-Sftzrybjllyi-Fbh son [address] [place] Work Phone: 06-04-2021 12:09-0400 Body mass index (BMI) [Ratio] 31.03 kg/m2 Yvette L Mesko Work Phone: [facility] Work Phone: 06-04-2021 12:09-0400 Body surface area Derived from formula 2.42 m2 Yvette L Mesko Work Phone: [facility] Work Phone: 06-04-2021 12:09-0400 Body temperature 98.6 [degF] Yvette L Mesko Work Phone: [facility] Work Phone: 06-04-2021 12:09-0400 Body weight 113.35 kg Yvette L Mesko Work Phone: [facility] Work Phone: 06-04-2021 12:09-0400 Diastolic blood pressure 66 mm[Hg] Yvette L Mesko Work Phone: [facility] Work Phone: 06-04-2021 12:09-0400 Heart rate 68 /min Yvette L Mesko Work Phone: [facility] Work Phone: 06-04-2021 12:09-0400 Respiratory rate 16 /min Yvette L Mesko Work Phone: [facility] Work Phone: 06-04-2021 12:09-0400 SaO2% (BldA) [Mass fraction] 98 % Yvette L Mesko Work Phone: [facility] Work Phone: 06-04-2021 12:09-0400 Systolic blood pressure 112 mm[Hg] Yvette L Mesko Work Phone: [facility] Work Phone: 05-09-2021 12:09-0400 Body height 191.13 cm Yvette L Mesko Work Phone: [facility] Work Phone: 05-09-2021 12:09-0400 Body mass index (BMI) [Ratio] 37.12 kg/m2 Yvette L Mesko Work Phone: [facility] Work Phone: 05-09-2021 12:09-0400 Body surface area Derived from formula 2.61 m2 Yvette L Mesko Work Phone: [facility] Work Phone: 05-09-2021 12:09-0400 Body temperature 98.5 [degF] Yvette L Mesko Work Phone: [facility] Work Phone: 05-09-2021 12:09-0400 Body weight 135.63 kg Yvette L Mesko Work Phone: [facility] Work Phone: 05-09-2021 12:09-0400 Diastolic blood pressure 71 mm[Hg] Yvette L Mesko Work Phone: [facility] Work Phone: 05-09-2021 12:09-0400 Heart rate 60 /min Yvette L Mesko Work Phone: [facility] Work Phone: 05-09-2021 12:09-0400 Respiratory rate 18 /min Yvette L Mesko Work Phone: [facility] Work Phone: 05-09-2021 12:09-0400 SaO2% (BldA) [Mass fraction] 98 % Yvette L Mesko Work Phone: [facility] Work Phone: 05-09-2021 12:09-0400 Systolic blood pressure 110 mm[Hg] Yvette L Mesko Work Phone: [facility] Work Phone: 01-18-2021 12:35-0400 Body mass index (BMI) [Ratio] 37.23 kg/m2 Yvette L Mesko Work Phone: [facility] Work Phone: 01-18-2021 12:35-0400 Body surface area Derived from formula 2.61 m2 Yvette L Mesko Work Phone: [facility] Work Phone: 01-18-2021 12:35-0400 Body temperature 96.9 [degF] Yvette L Mesko Work Phone: [facility] Work Phone: 01-18-2021 12:35-0400 Body weight 135.99 kg Yvette L Mesko Work Phone: [facility] Work Phone: 01-18-2021 12:35-0400 Diastolic blood pressure 69 mm[Hg] Yvette L Mesko Work Phone: [facility] Work Phone: 01-18-2021 12:35-0400 Heart rate 73 /min Yvettecora Alexanderko Work Phone: [facility] Work Phone: 01-18-2021 12:35-0400 Respiratory rate 16 /min Yvette L Mesko Work Phone: [facility] Work Phone: 01-18-2021 12:35-0400 SaO2% (BldA) [Mass fraction] 97 % Yvettecora [place] Work Phone: [facility] Work Phone: 01-18-2021 12:35-0400 Systolic blood pressure 113 mm[Hg] Yvettecora Alexanderko Work Phone: [facility] Work Phone: 01-10-2021 09:30-0400 Body temperature 97.2 [degF] Yvettecora Alexanderko Work Phone: [facility] Work Phone: 1985 23:00-0500 >na< Nafisa Donato Dept. of Dermatology Encounters Encounter Date Encounter Type Care Provider Facility Start: 12-30-2024 End: 12-30-2024 Office outpatient visit 25 minutes Yvette Mancera DO Work Phone: [facility] Comment on above: Prediabetes (Primary Dx); Elevated glucose level; Hair loss; Routine health maintenance; Anxiety; Acute stress reaction Start: 12-30-2024 End: 12-30-2024 Patient encounter status Yvette Mancera DO Work Phone: [facility] Work Phone: Start: 12-30-2024 End: 12-30-2024 ambulatory [facility] Start: 11-02-2024 End: 11-02-2024 ambulatory [facility] Start: 09-17-2024 End: 09-17-2024 Subsequent hospital visit by physician Fazel Dinary MD Work Phone: [facility] Comment on above: Constipation, unspec ified constipation type; Diarrhea, unspecified type Start: 09-17-2024 End: 09-17-[facility] Start: 08-31-2024 End: 08-31-2024 Postop follow up visit related to original px Guillermo Ihsan PA-C Work Phone: [facility] Comment on above: Status post cervical spinal fusion (Primary Dx); Lumbar pain; Cervical radiculitis Start: 08-31-2024 End: 08-31-2024 Subsequent hospital visit by physician Daylin Hallman X-[facility] 1 [facility] Comment on above: Status post cervical spinal fusion Start: 08-31-2024 End: 08-31-2024 ambulatory [facility] Start: 08-12-2024 End: 08-12-2024 ambulatory [facility] Start: 08-09-2024 End: 08-09-2024 [facility] Start: 08-09-2024 End: 08-09-2024 Subsequent hospital visit by physician Dustin Nuñez MD Work Phone: [facility] [place] Comment on above: Cervical radiculitis (Primary Dx); Cervical spinal stenosis; Spinal cord compression (Multi); Constipation due to opioid therapy; Postoperative nausea; Postoperative pain after spinal surgery Start: 08-03-2024 End: 08-03-2024 ambulatory LYNDA [facility] Start: 08-03-2024 End: 08-03-2024 Encounter for other preprocedural examination LYNDA Arsalan [facility] Start: 07-30-2024 End: 07-30-2024 ambulatory [facility] Start: 07-26-2024 End: 07-26-2024 Office outpatient visit 25 minutes Yvette Mancera DO Work Phone: [facility] Comment on above: Preoperative clearan ce (Primary Dx) Start: 07-26-2024 End: 07-26-2024 Preoperative state Yvette Mancera DO Work Phone: [facility] Work Phone: Start: 07-26-2024 End: 07-26-2024 ambulatory [facility] Start: 07-26-2024 End: 07-26-2024 Encounter for other preprocedural examination [facility] Start: 07-20-2024 End: 07-20-2024 Office outpatient new 45 minutes Dustin [facility] Comment on above: Cervical spinal sten osis (Primary Dx); Cervical spinal cord compression; Cervical radiculopathy; Cervical disc displacement Start: 07-20-2024 End: 07-20-2024 ambulatory DUSTIN [facility] Start: 07-06-2024 End: 07-06-2024 Subsequent hospital visit by physician [facility] Comment on above: Chronic neck pain; Numbness and tingling in left hand; Numbness and tingling in right hand Chronic midline thor acic back pain; DDD (degenerative disc disease), thoracic; Numbness and tingling in left hand; Numbness and tingling in right hand Start: 07-06-2024 End: 07-06-2024 ambulatory [facility] Start: 06-30-2024 End: 06-30-2024 ambulatory [facility] Start: 06-21-2024 End: 06-21-2024 ambulatory [facility] Start: 06-21-2024 End: 06-21-2024 Office outpatient visit 15 minutes Yvette Mancera DO Work Phone: [facility] Comment on above: Chronic neck pain (P rimary Dx); Chronic midline thoracic back pain; DDD (degenerative disc disease), thoracic; Numbness and tingling in left hand; Numbness and tingling in right hand; Muscle spasm of back Start: 05-14-2024 End: 05-14-2024 Office outpatient visit 15 minutes Yvette Mancera DO Work Phone: [facility] Comment on above: Jaw pain (Primary Dx ); Muscle spasm; Somatic dysfunction of head region Start: 05-14-2024 End: 05-14-2024 ambulatory [facility] Start: 02-10-2024 End: 02-10-2024 ambulatory Jake JACQUES [facility] Start: 01-06-2024 End: 01-06-2024 ambulatory [facility] Start: 01-06-2024 End: 01-06-2024 Encounter for general adult medical examination without abnormal findings [facility] Start: 12-02-2023 End: 12-03-2023 ambulatory [facility] Start: 12-02-2023 End: 12-02-2023 ambulatory [facility] Start: 12-02-2023 End: 12-02-2023 Subsequent hospital visit by physician Daylin FioreWakwfka312p Mammo 1 [facility] Comment on above: Screening mammogram for breast cancer Axillary mass, left Start: 11-21-2023 End: 11-21-2023 Office outpatient new 30 minutes Cristo Robert FILM EDITOR SUPERVISOR-FRETTED INSTRUMENT INSPECTOR Work Phone: [facility] Comment on above: Constipation, unspec ified constipation type (Primary Dx); Bleeding external hemorrhoids; Diarrhea, unspecified type; Anal condyloma Start: 11-18-2023 End: 11-18-2023 Office outpatient visit 15 minutes Yvette Alexanderko DO Work Phone: [facility] Comment on above: Axillary mass, left (Primary Dx); Screening mammogram for breast cancer Start: 11-10-2023 End: 11-10-2023 ambulatory No Primary Care Physician Facility:[facility] Start: 06-26-2023 End: 06-27-2023 ambulatory BIB PADILLA MD Facility:[id number] Start: 06-26-2023 End: 06-27-2023 ambulatory BIB PADILLA MD Facility:[id number] Start: 06-17-2023 End: 06-17-2023 Subsequent hospital visit by physician [facility] Comment on above: Olfactory hallucinat ion; Migraine with visual aura Start: 06-13-2023 End: 06-13-2023 Subsequent hospital visit by physician Star Gerard MD Work Phone: [facility] Comment on above: Lumbosacral spondylo sis without myelopathy Start: 05-23-2023 Chart Update Yvette Delcid sko Work Phone: [facility] Work Phone: Start: 05-22-2023 Chart Update Yvette Delcid sko Work Phone: [facility] Work Phone: Start: 05-20-[address] Yvette Mancera Facility:[id number] Start: 05-07-2023 End: 05-07-2023 Office outpatient visit 25 minutes Yvette Mancera DO Work Phone: [facility] Comment on above: Class 2 obesity due to excess calories without serious comorbidity with body mass index (BMI) of 38.0 to 38.9 in adult (Primary Dx); Acute stress reaction; Olfactory hallucination; Migraine with visual aura Start: 01-15-2023 Office outpatient ne w 45 minutes Nafisa Donato Dept. of Dermatology Start: 01-15-2023 Office outpatient vi sit 15 minutes Nafisa Donato Dept. of Dermatology Start: 01-03-2023 Current tobacco non- user cad cap copd pv dm Yvette Mancera Work Phone: [facility] Work Phone: Start: 01-03-2023 INJECTION, Provider: Star Gerard, Status: Pen, Time: 8:30 AM Yvette Mancera Work Phone: [facility] Work Phone: Start: 01-03-2023 End: 01-03-[address] Star Gerard Facility:[id number] Start: 01-01-2023 AUDIT Yvette Delcid sko Work Phone: [facility] Work Phone: Start: 12-26-2022 AUDIT Yvette Delcid sko Work Phone: [facility] Work Phone: Start: 12-10-2022 Current tobacco non- user cad cap copd pv dm Yvette L Bejnaminko Work Phone: [facility] Work Phone: Start: 12-10-[address] Star Gerard Faci lity:[id number] Start: 12-10-2022 End: 12-10-2022 Patient encounter status Yvette Hortencia Mancera DO Work Phone: [facility] Work Phone: Start: 12-10-2022 End: 12-10-2022 Periodic preventive med est patient 18-39 yrs Yvette Mancera DO Work Phone: [facility] Comment on above: Encounter for [facility] ss examination in adult (Primary Dx); Elevated fasting glucose; Vitamin D deficiency; Vitamin B12 deficiency; Immunization due; Acute stress reaction; History of hysterectomy; Class 2 obesity due to excess calories without serious comorbidity with body mass index (BMI) of 38.0 to 38.9 in adult Start: 10-23-2022 AUDIT Yvette Burnett sko Work Phone: [facility] Work Phone: Start: 10-02-2022 Chart Update Yvette Burnett sko Work Phone: HY-Tyeusgsymjbw-Ssvmaq 209 Work Phone: Start: 09-30-2022 Office outpatient vi sit 15 minutes Yvette Alexanderko Work Phone: [facility] Work Phone: Start: 09-25-2022 AUDIT Yvette L Me sko Work Phone: OA-Rpvvdmbhzyuv-Yfwrqw 209 Work Phone: Start: 09-05-[address] Star Bardales lity:[id number] Start: 08-19-2022 AUDIT Yvette L Me sko Work Phone: [facility] Work Phone: Start: 08-15-2022 Office outpatient ne w 30 minutes Yvette Hortencia Mesko Work Phone: [facility] Work Phone: Start: 07-21-2022 AUDIT Yvette L Me sko Work Phone: [facility] Work Phone: Start: 07-19-2022 AUDIT Yvette L Me sko Work Phone: [facility] Work Phone: Start: 07-18-2022 [id number], Provider: GEORGIE MCKAY [facility] INFUSION ROOM 02,[id number], Status: Pen, Time: 9:30 AM Yvette Burnett Mesko Work Phone: [facility] Work Phone: Start: 07-18-[address] Star Gerard Facpretty lity:[id number] Start: 07-16-2022 AUDIT Yvette L Me sko Work Phone: [facility] Work Phone: Start: 07-14-2022 Chart Update Yvette L Me sko Work Phone: [facility] Work Phone: Start: 07-11-[address] Yvette Mancera Facility:[facility] Start: 07-04-[address] Star Bardales lity:[id number] Start: 06-26-2022 AUDIT Yvette L Me sko Work Phone: [facility] Work Phone: Start: 06-20-2022 AUDIT Yvette L Me sko Work Phone: [facility] Work Phone: Start: 06-17-[address] Star Gerard Faci lity:[id number] Start: 06-03-2022 [id number], Provider: GEORGIE MCK[facility] INFUSION ROOM 02,[id number], Status: Pen, Time: 1:00 PM Yvette L Mesko Work Phone: [facility] Work Phone: Start: 06-02-2022 Chart Update Yvette L Me sko Work Phone: [facility] Work Phone: Start: 05-30-2022 Chart Update Yvette L Me sko Work Phone: [facility] Work Phone: Start: 05-24-2022 AUDIT Yvette L Me sko Work Phone: [facility] Work Phone: Start: 05-23-2022 Rx Renewal Yvette L Me sko Work Phone: [facility] Work Phone: Start: 05-22-2022 Office outpatient vi sit 25 minutes Yvette L Mesko Work Phone: [facility] Work Phone: Start: 05-22-2022 Chart Update Yvette L Me sko Work Phone: [facility] [address] [place] Work Phone: Start: 05-14-2022 Chart Update Yvette L Me sko Work Phone: [facility] Work Phone: Start: 05-07-2022 Office outpatient vi sit 15 minutes Yvette L Mesko Work Phone: [facility] Work Phone: Start: 04-27-2022 Chart Update Yvette L Me sko Work Phone: [facility] Work Phone: Start: 04-24-2022 Patient encounter procedure Yvette Burnett Mesko Work Phone: [facility] Work Phone: Start: 04-24-2022 AUDIT Yvette L Me sko Work Phone: [facility] Work Phone: Start: 04-19-2022 AUDIT Yvette L Me sko Work Phone: [facility] Work Phone: Start: 04-17-2022 AUDIT Yvette L Me sko Work Phone: [facility] Work Phone: Start: 03-27-2022 AUDIT Yvette Burnett Me sko Work Phone: [facility] Work Phone: Start: 03-14-2022 [id number], Provider : Delia Cabezas, Status: Pen, Time: 5:45 PM Yvette Alexanderko Work Phone: [facility] [place] Work Phone: Start: 03-14-2022 Current tobacco non- user cad cap copd pv dm Yvettecora Alexanderko Work Phone: [facility] Work Phone: Start: 03-14-2022 NPV, Provider: Star Gerard, Status: Pen, Time: 9:30 AM Yvette Alexanderko Work Phone: [facility] [place] Work Phone: Start: 03-12-2022 Chart Update Yvette Burnett Me sko Work Phone: [facility] [place] Work Phone: Start: 03-07-2022 [id number], Provider : Delia Cabezas, Status: Pen, Time: 5:45 PM Yvette Alexanderko Work Phone: LS-Whqnrdmfwitp-Wkmpbl 200 Work Phone: Start: 03-06-2022 AUDIT Yvette Delcid sko Work Phone: EY-Poeeqgeecncn-Aullli 200 Work Phone: Start: 02-28-2022 Patient encounter procedure Yvette Mancera Work Phone: [facility] [place] Work Phone: Start: 02-14-2022 Chart Update Yvette Delcid sko Work Phone: YJ-Ulenqzjbwhhl-Spqzxg Work Phone: Start: 02-04-2022 AUDIT Yvette Delcid sko Work Phone: VH-Rnsawnknijlp-Qzutqwh rg Work Phone: Start: 01-24-2022 Postop follow up vis it related to original px Yvette Alexanderko Work Phone: IQ-Oemcqndmjcja-Cebmqo Work Phone: Start: 01-01-2022 [facility] Provider: Raissa Cross, Status: Pen, Time: 4:00 PM Yvette Alexanderko Work Phone: WC-Ttoywfzejdrump-Eggmh an Work Phone: Start: 12-31-2021 Chart Update Yvette Delcid sko Work Phone: AT-Adpwhuxwcwjnaa-Ttkyk an Work Phone: Start: 12-20-2021 [facility], Provider: Raissa Cross, Status: Pen, Time: 3:15 PM Yvette Alexanderko Work Phone: [facility] Work Phone: Start: 12-20-2021 Office outpatient ne w 60 minutes Yvette L Mesko Work Phone: BJ-Bweenenjegip-Tgekgp Work Phone: Start: 12-19-2021 EPV, Provider: Yvette Mancera, Status: Pen, Time: 1:30 PM Yvette L Mesko Work Phone: [facility] Work Phone: Start: 12-19-2021 Office outpatient vi sit 15 minutes Yvette L Mesko Work Phone: [facility] Work Phone: Start: 12-15-2021 AUDIT Yvette L Me sko Work Phone: VT-Cvdotwjolhwm-Yqtfjf 210 Work Phone: Start: 12-12-2021 NPV, Provider: Guillaume Andrade, Status: Pen, Time: 2:00 PM Yvette L Mesko Work Phone: [facility] Work Phone: Start: 12-12-2021 Office consultation new/estab patient 80 min Yvette L Mesko Work Phone: VE-Fbbyfdojbodt-Hkctrr Work Phone: Start: 12-10-2021 AUDIT Yvette L Me sko Work Phone: [facility] Work Phone: Start: 12-08-2021 End: 12-08-2021 Emergency department patient visit [facility] Start: 12-03-2021 Office outpatient vi sit 15 minutes Yvette L Mesko Work Phone: [facility] Work Phone: Start: 11-28-2021 AUDIT Yvette L Me sko Work Phone: WS-Pthozlczzbkk-Uhonjy 105 [place] Work Phone: Start: 11-27-2021 Image Encounter Yvette Burnett Me sko Work Phone: zz DO NOT USE - [employer] Only Start: 11-19-2021 AUDIT Yvette L Me sko Work Phone: [facility] Work Phone: Start: 11-19-2021 Refill Spencer hemphill MD Work Phone: Neurosurgery Comment on above: Refill Request Start: 10-29-2021 Rx Renewal Yvette Burnett Me sko Work Phone: [facility] Work Phone: Start: 10-22-2021 AUDIT Yvette L Me sko Work Phone: [facility] Work Phone: Start: 10-04-2021 Chart Update Yvette L Me sko Work Phone: [facility] Work Phone: Start: 09-27-2021 AUDIT Yvette L Me sko Work Phone: [facility] Work Phone: Start: 09-19-2021 AUDIT Yvette L Me sko Work Phone: [facility] Work Phone: Start: 09-13-2021 Chart Update Yvette L Me sko Work Phone: MZ-Vwoujfleiynu-Lrgbkb 105 [place] Work Phone: Start: 09-13-2021 Office consultation new/estab patient 60 min Yvette L Mesko Work Phone: YH-Tojhjmwdybin-Nigpjc 105 [place] Work Phone: Start: 08-06-2021 Office outpatient vi sit 15 minutes Yvette L Mesko Work Phone: [facility] Work Phone: Start: 07-05-2021 Chart Update Yvette L Me sko Work Phone: [facility] Work Phone: Start: 07-04-2021 AUDIT Yvette L Me sko Work Phone: [facility] Work Phone: Start: 07-03-2021 AUDIT Yvette L Me sko Work Phone: [facility] Work Phone: Start: 06-20-2021 AUDIT Yvette L Me sko Work Phone: [facility] Work Phone: Start: 06-04-2021 Office outpatient vi sit 15 minutes Yvette L Mesko Work Phone: [facility] Work Phone: Start: 05-09-2021 Office outpatient vi sit 15 minutes Yvette L Mesko Work Phone: [facility] Work Phone: Start: 04-26-2021 AUDIT Yvette L Me sko Work Phone: [facility] Work Phone: Start: 03-23-2021 AUDIT Yvette L Me sko Work Phone: [facility] Work Phone: Start: 03-21-2021 Chart Update Yvette L Me sko Work Phone: [facility] Work Phone: Start: 03-16-2021 AUDIT Yvette L Me sko Work Phone: [facility] Work Phone: Start: 02-07-2021 Chart Update Yvette L Me sko Work Phone: [facility] Work Phone: Start: 01-31-2021 AUDIT Yvette L Me sko Work Phone: [facility] Work Phone: Patient encounter status Nehemias Mancera Work Phone: [facility] [place] Work Phone: Procedures Date Procedure Procedure Detail Performing Clinician Start: 12-30-2024 Hemoglobin glycosyla melodie a1c Yvette Mancera DO Work Phone: Start: 09-17-2024 Colonoscopy flx dx w/collj spec when pfrmd Cristo Arsalan Robert FILM EDITOR SUPERVISOR-FRETTED INSTRUMENT INSPECTOR Work Phone: Start: 09-17-2024 PULSE OXIMETRY, SPOT Am steve Gerard MD Work Phone: Start: 09-17-2024 Colonoscopy Kathrin reyez MD Work Phone: Start: 08-09-2024 PULSE OXIMETRY, CONTINUOUS Victoriano Frances MD Work Phone: Start: 08-09-2024 VERAB/VERIFY PEACEH Herminia Nuñez MD Work Phone: Start: 01-06-2024 CBC panel - Blood by Automated count YVETTE MANCERA Start: 01-06-2024 Comprehensive metabo lic 2000 panel - Serum or Plasma YVETTE FIORDALIZA Start: 01-06-2024 ESTRADIOL YVETTE MANCERA Start: 01-06-2024 FOLLICLE STIMULATING HORMONE YVETTE MESKO Start: 01-06-2024 Hemoglobin A1c/Hemoglobin.total in Blood YVETTE MESKO Start: 01-06-2024 Lipid panel YVETTECORA MANCERA Start: 01-06-2024 LUTEINIZING HORMONE KEVIN PHANIE FIORDALIZA Start: 01-06-2024 TESTOSTERONE,FREE AN D TOTAL YVETTE MANCERA Start: 01-06-2024 TSH WITH REFLEX TO F REE T4 IF ABNORMAL YVETTE MANCERA Start: 01-06-2024 Lipid 1996 panel - S kylah or Plasma Yvette Mancera DO Work Phone: Start: 12-02-2023 BI US BREAST LIMITED LEFT GUILLERMO MAKI Start: 12-02-2023 BI MAMMO BILATERAL DIAGNOSTIC TOMOSYNTHESIS GUILLERMO MAKI Start: 12-02-2023 Us breast uni real t jonny with image limited Yvette Mancera DO Work Phone: Start: 12-02-2023 Diagnostic mammograp hy computer-aided detcj bi Yvette Mancera DO Work Phone: Start: 11-26-2023 Anoscopy dx w/collj spec br/wa spx when prfrmd Cristo M [place] FILM EDITOR SUPERVISOR-FRETTED INSTRUMENT INSPECTOR Work Phone: Start: 06-17-2023 Mri brain brain stem w/o w/contrast material Yvette Mancera DO Work Phone: Start: 02-11-2023 Lipid 1996 panel - S kylah or Plasma Yvette Mancera DO Work Phone: Start: 05-30-2022 Lipid 1996 panel - S kylah or Plasma Yvette Mancera DO Work Phone: Start: 05-21-2017 Adult depression screening assessment Spencer Carlisle MD Work Phone: H/O: hysterectomy History of hysterectomy Yvette Mancera DO Work Phone: Hysterectomy Yvette morgan Work Phone: Comment on above: h/o endometriosis an d PCOS-IRREGULAR MENSES. ABNORMAL PAP SMEARS. HPV PRECANCEROUS CELLS.10/31/2016; Surgical procedure o n eye proper Yvette Mancera Work Phone: Plan of Treatment Date Care Activity Detail Author Start: 11-25-2035 Zoster Vaccines (1 of 2) Zoste r Vaccines (1 of 2) [facility] Start: 12-10-2032 DTaP/Tdap/Td Vaccine s (3 - Td or Tdap) DTaP/Tdap/Td Vaccines (3 - Td or Tdap) [facility] Start: 09-16-2029 Screening for malign ant neoplasm of colon [facility] Start: 01-05-2029 Lipid panel Lipid Panel [facility] Start: 02-12-2028 Lipid panel Lipid Panel [facility] Start: 05-30-2027 Lipid panel Lipid Panel [facility] Start: 12-30-2025 Hemoglobin A1c measurement Abimbola betes: Hemoglobin A1C [facility] Start: 08-03-2025 Diabetes mellitus screening Diabetes Screening [facility] Start: 08-03-2025 Hemoglobin A1c measurement Abimbola betes: Hemoglobin A1C [facility] Start: 01-05-2025 Diabetes mellitus screening Diabetes Screening [facility] Start: 01-05-2025 Hemoglobin A1c measurement Abimbola betes: Hemoglobin A1C [facility] Start: 12-30-2024 End: 12-30-2025 CBC panel - Blood by Automated count CBC Lab Routine Routine health maintenance Expected: 12/30/2024 (Approximate), Expires: 12/30/2025 [facility] Work Phone: Comment on above: Expected: 12/30/2024 (Approximate), Expires: 12/30/2025 Start: 12-30-2024 End: 12-30-2025 Comprehensive metabolic 2000 panel - Serum or Plasma Comprehensive metabolic panel Lab Routine Routine health maintenance Expected: 12/30/2024 (Approximate), Expires: 12/30/2025 [facility] Work Phone: Comment on above: Expected: 12/30/2024 (Approximate), Expires: 12/30/2025 Start: 12-30-2024 End: 12-30-2025 Ferritin [Mass/volume] in Serum or Plasma Ferritin Lab Routine Routine health maintenance Expected: 12/30/2024 (Approximate), Expires: 12/30/2025 [facility] Work Phone: Comment on above: Expected: 12/30/2024 (Approximate), Expires: 12/30/2025 Start: 12-30-2024 End: 12-30-2025 Lipid 1996 panel - Serum or Plasma Lipid Panel Lab Routine Routine health maintenance Expected: 12/30/2024 (Approximate), Expires: 12/30/2025 [facility] Work Phone: Comment on above: Expected: 12/30/2024 (Approximate), Expires: 12/30/2025 Start: 12-30-2024 End: 12-30-2025 Thyroperoxidase Ab [Units/volume] in Serum or Plasma Thyroid Peroxidase (TPO) Antibody Lab Routine Routine health maintenance Expected: 12/30/2024 (Approximate), Expires: 12/30/2025 [facility] Service Area Work Phone: Comment on above: Expected: 12/30/2024 (Approximate), Expires: 12/30/2025 Start: 12-30-2024 End: 12-30-2025 Tsh With Reflex To Free T4 If Abnormal Tsh With Reflex To Free T4 If Abnormal Lab Routine Hair loss Expected: 12/30/2024 (Approximate), Expires: 12/30/2025 [facility] Work Phone: Comment on above: Expected: 12/30/2024 (Approximate), Expires: 12/30/2025 Start: 09-23-2024 End: 09-23-2024 Nutrition therapy 09/23/2024 11:30 AM EST Nutrition [place] [id number] [facility] [address] [phone] Kamini Mcginnis, RD 6707 [facility] 2, [address] [id number] [place] [id number] Start: 09-23-2024 End: 09-23-2024 Patient encounter procedure 09/23/2024 10:45 AM EST Office Visit [place] [id number] [facility] [address] [phone] [place] [id number] [address] [place] [address] [place] [id number] Start: 09-20-2024 End: 09-20-2024 Patient encounter procedure 09/20/2024 9:45 AM EST Appointment [facility] [address] [place] [phone] [facility] Start: 09-17-2024 End: 09-17-2024 Patient encounter procedure 09/17/2024 9:30 AM EST Appointment [facility] [address] [place] [phone] Kathrin Mansfield MD [address] [facility] [address] [place], [place] [id number] [facility] Start: 08-31-2024 End: 08-31-2024 Patient encounter procedure 08/31/2024 12:30 PM EST Office Visit Jumanaalicia Hallmanyarelis [facility] [address] [place] [id number] Guillermo Maki PA-C [address] [place] [address] [facility] Start: 08-09-2024 End: 08-09-2024 Admission to same day surgery center 08/09/2024 2:00 PM EST - 08/09/2024 4:00 PM EST Surgery [facility] [place] 2] OR [address] [place] [place] [address] Dustin [place] [address] [address] Department [place] [address] C4-C6 ACDF [57041 (CPT ) +4 more] [facility] [place] OR Comment on above: C4-C6 ACDF [19064 (C PT ) +4 more] Start: 08-09-2024 Subsequent hospital visit by physician 08/09/2024 12:30 PM EST Hospital Encounter [facility] [place] OR [address] [place] [address] Dustin Nuñez [place] [address] [address] Department [place] [address] [facility] [place][note 2] OR Start: 08-09-2024 End: 08-09-2024 Arthrd ant interbody decompress cervical belw c2 [facility] OR Start: 08-03-2024 End: 08-03-2024 Admission to establishment 08/03/2024 2:30 PM EST Pre-Admission Testing [facility] [place][note 2] [address] [place] [phone] Lynda Boo PA-C [address] [place] [address] [facility] [place][note 2] Start: 07-30-2024 End: 07-30-2024 Clinical Support 07/30/2024 9:00 AM EST Clinical Support [facility] [place][note 2] [address] [place] [phone] [facility] [place][note 2] Start: 07-23-2024 End: 07-23-2024 Patient encounter procedure 07/23/2024 9:30 AM EST Appointment [facility] [address] [place] [phone] Dontrell Gerard MD [address] [facility] [address] [place] [address] [facility] Start: 07-22-2024 End: 07-22-2024 Patient encounter procedure 07/22/2024 2:00 PM EST Appointment [facility] [address] [place] [address] [facility] Start: 07-20-2024 End: 07-20-2024 Patient encounter procedure 07/20/2024 2:30 PM EST Office Visit Jumana Hayden [facility] [address] [place] [phone] Dustin Nuñez [place] [address] [address] Department [place] [address] Jumana Ventura Start: 07-06-2024 End: 07-06-2024 Patient encounter procedure [facility] Start: 07-01-2024 End: 07-01-2024 Patient encounter procedure 07/01/2024 12:30 PM EDT Office Visit [facility] [address] [place] [address] Yvette Mancera DO [address] [facility], [address] [place] [address] [facility] Start: 06-21-2024 End: 06-21-2025 EMG & nerve conduction EMG & nerve conduction Neurology Routine Chronic neck pain Numbness and tingling in left hand Numbness and tingling in right hand Expected: 06/21/2024 (Approximate), Expires: 06/21/2025 [facility] Work Phone: Comment on above: Expected: 06/21/2024 (Approximate), Expires: 06/21/2025 Start: 06-21-2024 End: 06-21-2025 MR Cervical spine WO contrast MR cervical spine wo IV contrast Imaging Routine Chronic neck pain Numbness and tingling in left hand Numbness and tingling in right hand Expected: 06/21/2024, Expires: 06/21/2025 [facility] Service Area Work Phone: Comment on above: Expected: 06/21/2024 , Expires: 06/21/2025 Start: 06-21-2024 End: 06-21-2025 MR Thoracic spine WO contrast MR thoracic spine wo IV contrast Imaging Routine Chronic midline thoracic back pain DDD (degenerative disc disease), thoracic Numbness and tingling in left hand Numbness and tingling in right hand Expected: 06/21/2024, Expires: 06/21/2025 [facility] Work Phone: Comment on above: Expected: 06/21/2024 , Expires: 06/21/2025 Start: 05-02-2024 COVID-19 Vaccine () COVID-19 Vaccine () [facility] Start: 05-02-2024 COVID-19 Vaccine () COVID-19 Vaccine () [facility] Start: 05-02-2024 Influenza vaccination Influenza Vacc ine (#1) [facility] Start: 01-16-2024 End: 01-16-2024 Admission to same day surgery center 01/16/2024 2:30 PM EDT - 01/16/2024 3:15 PM EDT Surgery [facility] OR [address] [place] [phone] [place] [address] [address] [facility] [place] [address] High Resolution Anoscopy with Biopsy, Excision of condyloma [61767 (CPT )] [facility] OR Comment on above: High Resolution Anos copy with Biopsy, Excision of condyloma [77697 (CPT )] Start: 01-16-2024 End: 01-16-2024 Anoscopy ablation lesion Anoscopy with Excision Lesion Condyloma 01/16/2024 2:30 PM EDT [facility] OR Start: 01-16-2024 Subsequent hospital visit by physician 01/16/2024 1:00 PM EDT Hospital Encounter [facility] [place] [address] [place] [phone] [place] [address] [address] [facility] [place] [address] [facility] OR Start: 12-18-2023 End: 12-18-2023 Patient encounter procedure 12/18/2023 12:30 PM EDT Office Visit [facility] [address] [place] [phone] Yvette Mancera DO [address] [facility], [address] [place] [address] [facility] Start: 12-12-2023 Yearly Adult Physical Yearly Adult P hysical [facility] Start: 12-02-2023 End: 12-02-2023 Patient encounter procedure Jumana Salmeron [facility] Start: 11-21-2023 End: 11-21-2023 Patient encounter procedure 11/21/2023 3:10 PM EDT Office Visit [facility] [address] [place] [address] Cristo Robert, FILM EDITOR SUPERVISOR-FRETTED INSTRUMENT INSPECTOR [address] [facility], [address] [place] [address] [facility] Start: 11-21-2023 End: 11-20-2024 Colonoscopy study Colonoscopy Screening; Average Risk Patient Endoscopy Routine Constipation, unspecified constipation type Diarrhea, unspecified type Expected: 11/21/2023, Expires: 11/20/2024 [facility] Service Area Work Phone: Comment on above: Expected: 11/21/2023 , Expires: 11/20/2024 Start: 11-18-2023 End: 01-17-2025 DBT Breast - bilateral BI mammo bilateral screening tomosynthesis Imaging Routine Screening mammogram for breast cancer Expected: 11/18/2023, Expires: 01/17/2025 [facility] Work Phone: Comment on above: Expected: 11/18/2023 , Expires: 01/17/2025 Start: 11-18-2023 End: 11-17-2024 US guidance for percutaneous biopsy of Lymph node US lymph nodes Imaging Routine Axillary mass, left Expected: 11/18/2023, Expires: 11/17/2024 [facility] Service Area Work Phone: Comment on above: Expected: 11/18/2023 , Expires: 11/17/2024 Start: 10-26-2023 Diabetes mellitus screening Diabetes Screening [facility] Start: 05-02-2023 COVID-19 Vaccine () COVID-19 Vaccine () [facility] Start: 05-02-2023 Influenza vaccination U [facility] Start: 01-22-2023 NPV, Provider: Jing Ritter, Status: Pen, Time: 2:00 PM NPV, Provider: Jing Ritter, Status: Pen, Time: 2:00 PM [facility] Work Phone: Start: 01-03-2023 INJECTION, Provider: Star Gerard, Status: Pen, Time: 8:30 AM INJECTION, Provider: Star Gerard, Status: Pen, Time: 8:30 AM [facility] Work Phone: Start: 09-30-2022 NEWPROB, Provider: Qiana Trujillo, Status: Pen, Time: 1:00 PM NEWPROB, Provider: Qiana Trujillo, Status: Pen, Time: 1:00 PM QH-Xiqudodtadde-Tfo tor [address] Work Phone: Start: 09-05-2022 FUV, Provider: Star Gerard, Status: Pen, Time: 1:15 PM FUV, Provider: Star Gerard, Status: Pen, Time: 1:15 PM [facility] Work Phone: Start: 09-04-2022 FUV, Provider: Star Gerard, Status: Pen, Time: 9:30 AM FUV, Provider: Star Gerard, Status: Pen, Time: 9:30 AM [facility] Work Phone: Start: 08-22-2022 [id number], Provider: GEORGIE MCKAY [facility] INFUSION ROOM 01,[id number], Status: Pen, Time: 10:30 AM [id number], Provider: LYRIC OP CTR INFUSION ROOM 01,[id number], Status: Pen, Time: 10:30 AM [facility] Work Phone: Start: 08-15-2022 [id number], Provider: Saadia Flores, Status: Pen, Time: 2:30 PM MAMMOGVST, Provider: Saadia Flores, Status: Pen, Time: 2:30 PM [facility] Work Phone: Start: 08-07-2022 NPV, Provider: Kyung Amato, Status: Pen, Time: 1:30 PM NPV, Provider: Kyung Amato, Status: Pen, Time: 1:30 PM [facility] Work Phone: Start: 08-07-2022 [id number], Provider: GEORGIE RMA OP CTR INFUSION ROOM 04,[id number], Status: Pen, Time: 8:00 AM [id number], Provider: PARMA OP CTR INFUSION ROOM 04,[id number], Status: Pen, Time: 8:00 AM [facility] Work Phone: Start: 07-18-2022 [id number], Provider: GEORGIE RMA OP CTR INFUSION ROOM 02,[id number], Status: Pen, Time: 9:30 AM [id number], Provider: PARMA OP CTR INFUSION ROOM 02,[id number], Status: Pen, Time: 9:30 AM [facility] Work Phone: Start: 07-16-2022 Urine microalbumin profile DTA P,TDAP,TD (2 - Td or Tdap) [facility] Start: 07-04-2022 [id number], Provider: GEORGIE RMA OP CTR INFUSION ROOM 01,[id number], Status: Pen, Time: 10:30 AM [id number], Provider: PARMA OP CTR INFUSION ROOM 01,[id number], Status: Pen, Time: 10:30 AM [facility] Work Phone: Start: 06-17-2022 [id number], Provider: GEORGIE RMA OP CTR INFUSION ROOM 02,[id number], Status: Pen, Time: 2:30 PM [id number], Provider: PARMA OP CTR INFUSION ROOM 02,[id number], Status: Pen, Time: 2:30 PM [facility] Work Phone: Start: 06-03-2022 [id number], Provider: GEORGIE RMA OP CTR INFUSION ROOM 02,[id number], Status: Pen, Time: 1:00 PM [id number], Provider: PARMA OP CTR INFUSION ROOM 02,[id number], Status: Pen, Time: 1:00 PM [facility] Work Phone: Start: 05-22-2022 PHYSICAL, Provider: Yvette Mancera, Status: Pen, Time: 12:00 PM PHYSICAL, Provider: Yvette Mancera, Status: Pen, Time: 12:00 PM [facility] Work Phone: Start: 05-08-2022 PAP TESTING PAP TESTING [facility] Start: 05-07-2022 FUV, Provider: Star Gerard, Status: Pen, Time: 2:45 PM FUV, Provider: Star Gerard, Status: Pen, Time: 2:45 PM [facility] Work Phone: Start: 03-28-2022 FUV, Provider: Mari Saavedra, Status: Pen, Time: 10:30 AM FUV, Provider: Mari Saavedra, Status: Pen, Time: 10:30 AM AS-Bpmafgljxpxg-Cgg uga Work Phone: Start: 03-27-2022 INJECTION, Provider: Star Gerard, Status: Pen, Time: 2:00 PM INJECTION, Provider: Star Gerard, Status: Pen, Time: 2:00 PM [facility] Work Phone: Start: 03-14-2022 PTFUADULT4, Provider : Delia Cabezas, Status: Pen, Time: 5:30 PM PTFUADULT4, Provider: Delia Cabezas, Status: Pen, Time: 5:30 PM OS-Nwjlbtvuocey-Bbb uga Work Phone: Start: 03-14-2022 NPV, Provider: Star Gerard, Status: Pen, Time: 9:30 AM NPV, Provider: Star Gerard, Status: Pen, Time: 9:30 AM [facility] Work Phone: Start: 03-12-2022 [id number], Provider : Delia Cabezas, Status: Pen, Time: 5:30 PM PTFUADULT4, Provider: Delia Cabezas, Status: Pen, Time: 5:30 PM NI-Dyntkifkgkyk-Uwq uga Work Phone: Start: 03-07-2022 PTFUADULT4, Provider : Delia Cabezas, Status: Pen, Time: 5:45 PM PTFUADULT4, Provider: Delia Cabezas, Status: Pen, Time: 5:45 PM IM-Wkcmwonwfvjd-Soy uga Work Phone: Start: 02-28-2022 PTFUADULT4, Provider : Delia Cabezas, Status: Pen, Time: 5:45 PM PTFUADULT4, Provider: Delia Cabezas, Status: Pen, Time: 5:45 PM AK-Gsncjbqnxuye-Osn uga Work Phone: Start: 02-20-2022 PTFUADULT4, Provider : Delia Cabezas, Status: Pen, Time: 7:45 AM PTFUADULT4, Provider: Delia Cabezas, Status: Pen, Time: 7:45 AM FS-Gukxzngossmh-Vce uga Work Phone: Start: 02-14-2022 [id number], Provider : Delia Cabezas, Status: Pen, Time: 5:00 PM [id number], Provider: Delia Cabezas, Status: Pen, Time: 5:00 PM QX-Jmotfxrshanw-Lkm [place] Work Phone: Start: 01-24-2022 FUV, Provider: Zaria Correa, Status: Pen, Time: 2:00 PM FUV, Provider: Zaria Correa, Status: Pen, Time: 2:00 PM DN-Yqhddsafcwqt-Qfy son [address] [place] Work Phone: Start: 01-24-2022 POV, Provider: Mari Saavedra, Status: Pen, Time: 9:00 AM POV, Provider: Mari Saavedra, Status: Pen, Time: 9:00 AM XG-Gcpogeffpbguyg-M eidman Work Phone: Start: 01-01-2022 SURGCMC, Provider: Raissa Cross, Status: Pen, Time: 4:00 PM SURGCMC, Provider: Raissa Cross, Status: Pen, Time: 4:00 PM [facility] Work Phone: Start: 12-21-2021 FUV, Provider: Guillaume Andrade, Status: Pen, Time: 3:00 PM FUV, Provider: Guillaume Andrade, Status: Pen, Time: 3:00 PM LS-Oykkouydqggq-Qms man [address] Work Phone: Start: 12-20-2021 NEWPROB, Provider: Raissa Cross, Status: Pen, Time: 3:15 PM NEWPROB, Provider: Raissa Cross, Status: Pen, Time: 3:15 PM [facility] Work Phone: Start: 12-19-2021 EPV, Provider: Yvette Mancera, Status: Pen, Time: 1:30 PM EPV, Provider: Yvette Mancera, Status: Pen, Time: 1:30 PM PL-Jdxilmovnhin-Hzv man [address] Work Phone: Start: 12-17-2021 NPV, Provider: Miguel Ángel Walker, Status: Pen, Time: 4:20 PM NPV, Provider: Miguel Ángel Parrish, Status: Pen, Time: 4:20 PM [facility] Work Phone: Start: 10-26-2021 Diabetes mellitus screening Diabetes Screening [facility] Start: 09-13-2021 NPV, Provider: Zaria Correa, Status: Pen, Time: 8:20 AM NPV, Provider: Zaria Correa, Status: Pen, Time: 8:20 AM [facility] Work Phone: Start: 07-08-2021 HPV TESTING HPV TESTING [facility] Start: 06-19-2021 NPV, Provider: Yanet Mauricio, Status: Pen, Time: 9:00 AM NPV, Provider: Yanet Mauricio, Status: Pen, Time: 9:00 AM [facility] Work Phone: Start: 12-11-2020 COVID-19 Vaccine (3 - Booster for Moderna series) COVID-19 Vaccine (3 - Booster for Moderna series) [facility] Start: 12-11-2020 COVID-19 Vaccine (3 - Moderna series) COVID-19 Vaccine (3 - Moderna series) [facility] Start: 11-13-2020 COVID-19 Vaccine (3 - Moderna risk series) COVID-19 Vaccine (3 - Moderna risk series) [facility] Start: 05-21-2018 Adult depression scr eening assessment DEPRESSION SCREENING [facility] Start: 2004 Hepatitis B Vaccines (1 of 3 - 19+ 3-dose series) Hepatitis B Vaccines (1 of 3 - 19+ 3-dose series) [facility] Start: 1998 Varicella vaccination Varicell a Vaccines (1 of 2 - 13+ 2-dose series) [facility] Start: 1990 COVID-19 VACCINE (1) COVID-19 VACCIN E (1) [facility] Start: 1986 MMR Vaccines (1 of 1 - Standard series) MMR Vaccines (1 of 1 - Standard series) [facility] Start: 1986 Varicella vaccination Varicell a Vaccines (1 of 2 - 2-dose childhood series) [facility] Start: 1985 Hepatitis B Vaccines (1 of 3 - 3-dose series) Hepatitis B Vaccines (1 of 3 - 3-dose series) [facility] Start: 1985 Screening for malign ant neoplasm of colon [facility] Start: 1985 Yearly Adult Physical Yearly Adult P hysical [facility] End: 08-09-2024 Choriogonadotropin ( test) [Presence] in Urine [facility] Work Phone: Comment on above: Once (Lab) for 1 Occ urrences starting 08/09/2024 until 08/09/2024 End: 09-17-2024 Choriogonadotropin ( test) [Presence] in Urine POCT , urine Point of Care Testing Routine Once (Lab) for 1 Occurrences starting 09/17/2024 until 09/17/2024 [facility] Service Area Work Phone: Comment on above: Once (Lab) for 1 Occ urrences starting 09/17/2024 until 09/17/2024 End: 12-02-2023 DBT Breast - bilateral diagnostic [facility] Service Area Work Phone: Comment on above: Once for 1 Occurrenc es starting 12/02/2023 until 12/02/2023 End: 06-13-2023 Medial Nerve Branch Block Medial Nerve Branch Block Procedures Routine Lumbosacral spondylosis without myelopathy Once for 1 Occurrences starting 06/13/2023 until 06/13/2023 [facility] Service Area Work Phone: Comment on above: Once for 1 Occurrenc es starting 06/13/2023 until 06/13/2023 End: 07-06-2024 MR Cervical spine WO contrast [facility] Work Phone: Comment on above: Once for 1 Occurrenc es starting 07/06/2024 until 07/06/2024 End: 07-06-2024 MR Thoracic spine WO contrast [facility] Work Phone: Comment on above: Once for 1 Occurrenc es starting 07/06/2024 until 07/06/2024 Patient Education ED Back Pain ( Acute or Chronic) ED Sciatica [facility] Work Phone: Patient referral [facility] Work Phone: End: 09-17-2024 Pulse oximetry, continuous Pulse oximetry, continuous Respiratory Care Routine Continuous until discontinued starting 09/17/2024 [facility] Work Phone: Comment on above: Continuous until dis continued starting 09/17/2024 End: 08-31-2024 XR Cervical spine 2 or 3 Views [facility] Service Area Work Phone: Comment on above: Once for 1 Occurrenc es starting 08/31/2024 until 08/31/2024 End: 08-09-2024 XR Cervical spine Single view [facility] Work Phone: Comment on above: Once for 1 Occurrenc es starting 08/09/2024 until 08/09/2024 Immunizations Immunization Date Immunization Notes Care Provider Morena bunn 06-30-2024 influenza, seasonal, injectable, preservative free [facility] 06-17-2023 influenza virus vaccine, unspecified formulation Yvette Mesko DO Work Phone: [facility] Work Phone: 12-10-2022 tetanus toxoid, redu derek diphtheria toxoid, and acellular pertussis vaccine, adsorbed Yvette Mesko DO Work Phone: [facility] 10-16-2020 Moderna COVID-19 Vaccine 100 MCG/0.5ML Intramuscular Suspension Yvette L Mesko Work Phone: [facility] 09-18-2020 Moderna COVID-19 Vaccine 100 MCG/0.5ML Intramuscular Suspension Yvette L Mesko Work Phone: [facility] 06-01-2020 influenza, injectabl e, quadrivalent, preservative free Yvette L Mesko Work Phone: [facility] Work Phone: Comment on above: Series: 06-01-2020 influenza, seasonal, injectable Yvette Mesko DO Work Phone: [facility] Work Phone: 06-01-2020 influenza virus vaccine, unspecified formulation Yvette Mesko DO Work Phone: [facility] Work Phone: 06-18-2017 influenza virus vaccine, unspecified formulation Spencer Carlisle MD Work Phone: [facility] 06-04-2016 influenza virus vaccine, unspecified formulation Spencer Carlisle MD Work Phone: [facility] 06-14-2015 influenza virus vaccine, unspecified formulation Spencer Carlisle MD Work Phone: [facility] 06-22-2014 influenza, seasonal, injectable Yvette L Mesko Work Phone: [facility] Work Phone: 05-12-2013 RHO(D) immune globul in- IV or IM Spencer Carlisle MD Work Phone: [facility] 09-15-2012 RHO(D) immune globul in- IV or IM Spencer Carlisle MD Work Phone: [facility] Work Phone: 07-16-2012 tetanus toxoid, redu derek diphtheria toxoid, and acellular pertussis vaccine, adsorbed Yvette Mancera Work Phone: [facility] Work Phone: Comment on above: Series: 06-16-2012 influenza virus vaccine, unspecified formulation Spencer Carlisle MD Work Phone: [facility] 06-16-2012 RHO(D) immune globul in- IV or IM Spencer Carlisle MD Work Phone: [facility] 1985 pneumococcal conjuga te vaccine, 7 valent [facility] Donato [facility] Payers Date Payer Category Payer Self-pay [id number] 2022 Managed Care (Private) 1.2.8 [id number] 2022 Unknown 2022 Unknown [id number] 1985 Unknown [id number] 2.16.840.1.530629.3.579.2.356 1985 Unknown [id number] 2.16.840.1.283924.3.579.2.1045 1985 Unknown [id number] 2.16.840.1.309880.3.579.2.1045 1985 Unknown [id number] 2.16.840.1.191695.3.579.2.1045 1985 Unknown [id number] 2.16.840.1.615220.3.579.2.6 1985 Unknown [id number] 2.16.840.1.395920.3.579.2.1045 1985 Unknown [id number] 2.16.840.1.123314.3.579.2.1046 1985 Unknown [id number] 2.16.840.1.932665.3.579.2.6 1985 Unknown [id number] 2.16.840.1.595229.3.579.2.159 1985 Unknown [id number] 2.16.840.1.359034.3.579.2.159 1985 Unknown [id number] 2.16.840.1.646135.3.579.2.1241 1985 Unknown [id number] 2.16.840.1.309115.3.579.2.1241 1985 Unknown [id number] 2.16.840.1.982673.3.579.2.1241 1985 Unknown [id number] 2.16.840.1.487460.3.579.2.1241 1985 Unknown [id number] 2.16.840.1.640317.3.579.2.1241 1985 Unknown [id number] 2.16.840.1.711960.3.579.2.1241 1985 Unknown [id number] 2.16.840.1.589350.3.579.2.1241 1985 Unknown [id number] 2.16.840.1.119368.3.579.2.1241 1985 Unknown [id number] 2.16.840.1.997667.3.579.2.1243 1985 Unknown [id number] 2.16.840.1.250884.3.579.2.1243 1985 Unknown [id number] 2.16.840.1.783569.3.579.2.4 1985 Unknown [id number] 2.16.840.1.050314.3.579.2.1243 1985 Unknown [id number] 2.16.840.1.341668.3.579.2.1243 1985 Unknown [id number] 2.16.840.1.788724.3.579.2.1244 1985 Unknown [id number] 2.16.840.1.660682.3.579.2.124 1985 Unknown [id number] 2.16840.1.830875.3.579.2.1244 1985 Unknown [id number] 2.16.840.1.190496.3.579.2.1244 1985 Unknown [id number] 2.16.840.1.547150.3.579.2.1244 1985 Unknown [id number] 2.16840.1.936011.3.579.2.1244 1985 Unknown [id number] 2.16840.1.723265.3.579.2.1247 Unknown [id number] Unknown [employer] INSURANCE [id number] Unknown SELF PAY INSURANCE [id number] Unknown [id number] Unknown [id number] 2..840.1.775547.3.579.2.462 Unknown [id number] 2.16.840.1.284017.3.579.2.462 Social History Date Type Detail Facility Start: 12-10-2022 End: 06-21-2024 No tobacco smoke exposure No tobacco smoke exposure [facility] Work Phone: Start: 04-30-2012 End: 05-07-2023 Tobacco smoking status ARIS Never smoked tobacco [facility] Work Phone: Start: 04-30-2012 End: 05-07-2023 Tobacco use and exposure Smokeless tobacco non-user [facility] Work Phone: Start: 06-10-2019 Alcohol intake Current drinker of alcohol (finding) [facility] Start: 04-30-2012 History SDOH Alcohol Comment 2 DRINKS A YEAR, NOT WHILE [facility] Start: 1985 Sex Assigned At Not on file [facility] Start: 02-24-2023 Tobacco smoking status NHIS Unknown if ever smoked [facility] Work Phone: Start: 1985 End: 1985 Sex Assigned At Female [facility] Start: 12-10-2022 End: 12-30-2024 Alcohol intake Ex-drinker (finding) [facility] Work Phone: Start: 12-10-2022 End: 06-21-2024 Tobacco use panel [facility] Work Phone: Start: 12-10-2022 Alcohol Comment Sober for 2 years [facility] Work Phone: Start: 10-25-2022 Gender identity Identifies as female gender (finding) [facility] Work Phone: Start: 10-25-2022 Sexual orientation Heterosexual (finding) [facility] Work Phone: Start: 11-30-2022 End: 09-17-2024 Exposure to SARS-CoV-2 (event) Not sure [facility] Work Phone: History of tobacco use Passive smoker [facility] Work Phone: How often do you fee l lonely or isolated from those around you [CMS Assessment] Never [facility] Work Phone: Lack of Transportati on (Medical) No [facility] Work Phone: Medical Equipment Procedure Code Equipment Code Equipment Origin al Text Equipment Identifier Dates Plate, Matrix St r - [id number] - [id number], [id number] FDA Start: 08-09-2024 [id number] Start: 08-09-2024 [id number] Start: 08-09-2024 [id number] Start: 08-09-2024 Spacer [id number] Start: 08-09-2024 Spacer [id number] Start: 08-09-2024 Goals Date Patient Goal Desired Activity /State Personal health goal Functional Status Date Assessment Result Facility 06-19-2021 PHQ-9 Adult Depressi on Score PHQ-9 Adult Depression Score 12 [facility] Work Phone: Comment on above: Q1: 2, Q2: 2, Q3: 2, Q4: 2, Q5: 1, Q6: 2, Q7: 0, Q8: 1, Q9: 0, 05-09-2021 PHQ-9 Adult Depressi on Score PHQ-9 Adult Depression Score 12 [facility] Work Phone: Comment on above: Q1: 1, Q2: 2, Q3: 2, Q4: 3, Q5: 1, Q6: 0, Q7: 1, Q8: 2, Q9: 0, Clinical Notes 09-03-2016 to 12-30-2024 Yvette Mancera DO - 12/30/2024 11:30 AM EDTDischarkelly Mansfield MD - 09/17/2024 10:00 AM Nadine Mansfield MD - 09/17/2024 10:00 AM Adrián Maki PA-C - 08/31/2024 12:30 PM EST Note Date & Type Note Facility 12-30-2024 History of Present illness Narrative Subjective Patient ID: Tj Villanueva is a 39 y.o. female who presents for Follow-up (The patient was made aware that AI (artificial intelligence) technology will be utilized during today's visit. The patient expressed understanding and verbally accepts the use of AI technology. /). History of Present Illness Tj Villanueva is a 39 year old female with prediabetes who presents for follow-up on blood sugar management and anxiety. Prediabetes Her HbA1c has increased to 6.4% from 5.7%. She is currently on metformin once a day, which she feels has helped with her symptoms, particularly with hair growth on her chin, and she has no gastrointestinal side effects. She acknowledges stress eating (carbs) and is trying to increase her physical activity as the weather improves. There is a family history of diabetes on her father's side. She has not started spironolactone. She is trying to manage her diet by reducing sugar and carbohydrate intake and is considering healthier food swaps. She has not seen a dietitian. Stress/Anxiety PHQ-9: 8 ADAMA-7: 9 She experiences significant stress and anxiety due to personal and family issues. She has a history of using Wellbutrin and Prozac for mood management without finding them effective. Xanax is used for acute anxiety episodes, which she finds helpful, using it a couple of times a day (2x) only when needed and sparingly. Her anxiety causes irritability and difficulty staying asleep, though she can fall asleep easily. She has experienced heart racing in the past, associated with potential panic attacks. She is set up to start counseling on Friday, she has engaged in counseling in the past. Hair loss She reports hair loss, noticing excessive shedding in the shower and hairbrush. There is a family history of thyroid cancer on her mother's side, and she is concerned about thyroid issues contributing to her symptoms. She has not been diagnosed with iron deficiency and has not had hormone levels checked. She underwent a hysterectomy but retains her ovaries. She experiences occasional hot flashes and temperature fluctuations, which she attributes to possible hormonal changes. Review of Systems ROS otherwise negative aside from what was mentioned above in HPI. Objective Pulse 77 Temp 36.9 C (98.5 F) (Temporal) Resp 16 Wt 129 kg (284 lb 11.2 oz) LMP 10/02/2020 SpO2 98% BMI 34.65 kg/m Current Outpatient Medications Medication Instructions ALPRAZolam (XANAX) 0.5 mg, oral, 2 times daily PRN betamethasone dipropionate (Diprosone) 0.05 % ointment 1 Application, Daily betamethasone, augmented, (Diprolene AF) 0.05 % cream clobetasol (Temovate) 0.05 % cream Apply to affected areas twice daily when active as needed. Use less than 14 days per month. metFORMIN (GLUCOPHAGE) 500 mg, oral, 2 times daily (morning and late afternoon) naratriptan (AMERGE) 2.5 mg, oral, As needed, AT ONSET OF HEADACHE, MAY REPEAT ONCE IN 4 HOURS pregabalin (LYRICA) 200 mg, oral, 3 times daily spironolactone (ALDACTONE) 25 mg, oral, Daily tacrolimus (Protopic) 0.1 % ointment topiramate (TOPAMAX) 150 mg, oral, Daily Physical Exam Constitutional: Well developed, well nourished, alert and in no acute distress Eyes: Normal external exam. Neck: Supple, no lymphadenopathy or masses. No thyromegaly. Cardiovascular: No peripheral edema. Pulmonary: No respiratory distress Skin: Warm, well perfused, normal skin turgor and color. Neurologic: Cranial nerves II-XII grossly intact. Psychiatric: Mood calm and affect normal. Results Lab Results Component Value Date HGBA1C 6.4 12/30/2024 HGBA1C 5.7 (H) 08/03/2024 HGBA1C 5.9 (H) 01/06/2024 Assessment & Plan Prediabetes A1c increased to 6.4 from 5.7, indicating progression. Family history of diabetes on the paternal side. Tolerating metformin well without gastrointestinal side effects. Diet and stress eating may contribute to increased A1c. Motivated to improve lifestyle and started counseling for stress management. - Increase metformin to twice daily with food. - Recheck A1c in three months. - Discussed glucometer for daily fasting glucose monitoring; she prefers to wait and will inform me if she wants to start this. - Encouraged lifestyle modifications, including increased physical activity and dietary changes. - Discussed dietary swaps to reduce carbohydrate intake, such as chickpea pasta and mashed cauliflower. Anxiety Experiences anxiety related to situational stressors, including family dynamics and personal relationships. Xanax effective for acute episodes. Reports irritability, sleep disturbances, and occasional palpitations. Previous trials of Wellbutrin and Prozac were ineffective. Starting counseling to address underlying stressors. Discussed potential need for alternative medications if Xanax use increases. - Continue Xanax as needed for acute episodes. I personally have reviewed the OARRS report for this patient. This report is scanned into the electronic medical record. I have considered the risks of abuse, dependence, addiction and diversion. I believe that it is clinically appropriate for the patient to be prescribed this medication. - Consider alternative medications such as buspirone or propranolol if Xanax use increases. - Encourage continuation of counseling for stress management and coping strategies. Hair loss Significant hair loss potentially related to stress, thyroid dysfunction, or iron deficiency. Family history of thyroid cancer. Has not started spironolactone. Discussed evaluating thyroid function and iron levels. - Order TSH, TPO antibody, CBC, and ferritin to evaluate for thyroid dysfunction and iron deficiency. VISIT SUMMARY: During your visit, we discussed your blood sugar management, anxiety, and hair loss. Your HbA1c has increased, indicating a progression in your prediabetes. We also talked about your anxiety and its impact on your daily life, as well as your concerns about hair loss and potential thyroid issues. Yvette Mancera DO This medical note was created with the assistance of artificial intelligence (AI) for documentation purposes. The content has been reviewed and confirmed by the healthcare provider for accuracy and completeness. Patient consented to the use of audio recording and use of AI during their visit. documented in this encounter [facility] Work Phone: 09-17-2024 Hospital Discharge instructions Kathrin Mansfield MD - 09/17/2024 10:32 AM EST Patient Instructions after a Colonoscopy The anesthetics, sedatives or narcotics which were given to you today will be acting in your body for the next 24 hours, so you might feel a little sleepy or groggy. This feeling should slowly wear off. Carefully read and follow the instructions. You received sedation today: - Do not drive or operate any machinery or power tools of any kind. - No alcoholic beverages today, not even beer or wine. - Do not make any important decisions or sign any legal documents. - No over the counter medications that contain alcohol or that may cause drowsiness. - Do not make any important decisions or sign any legal documents. - Make sure you have someone with you for first 24 hours. While it is common to experience mild to moderate abdominal distention, gas, or belching after your procedure, if any of these symptoms occur following discharge from the GI Lab or within one week of having your procedure, call the [facility] to be advised whether a visit to your nearest Urgent Care or Emergency Department is indicated. Take this paper with you if you go. - If you develop an allergic reaction to the medications that were given during your procedure such as difficulty breathing, rash, hives, severe nausea, vomiting or lightheadedness. - If you experience chest pain, shortness of breath, severe abdominal pain, fevers and chills. -If you develop signs and symptoms of bleeding such as blood in your spit, if your stools turn black, tarry, or bloody - If you have not urinated within 8 hours following your procedure. - If your IV site becomes painful, red, inflamed, or looks infected. If you received a biopsy/polypectomy/sphincterotomy the following instructions apply below: __ Do not use Aspirin containing products, non-steroidal medications or anti-coagulants for one week following your procedure. (Examples of these types of medications are: Advil, Arthrotec, Aleve, Coumadin, Ecotrin, Heparin, Ibuprofen, Indocin, Motrin, Naprosyn, Nuprin, Plavix, Vioxx, and Voltarin, or their generic forms. This list is not all-inclusive. Check with your physician or pharmacist before resuming medications.) __ Eat a soft diet today. Avoid foods that are poorly digested for the next 24 hours. These foods would include: nuts, beans, lettuce, red meats, and fried foods. Start with liquids and advance your diet as tolerated, gradually work up to eating solids. __ Do not have a Barium Study or Enema for one week. Your physician recommends the additional following instructions: -You have a contact number available for emergencies. The signs and symptoms of potential delayed complications were discussed with you. You may return to normal activities tomorrow. -Resume your previous diet. -Continue your present medications. -We are waiting for your pathology results. -Your physician has recommended a repeat colonoscopy (date to be determined after pending pathology results are reviewed) for surveillance based on pathology results. -The findings and recommendations have been discussed with you. -The findings and recommendations were discussed with your family. - Please see Medication Reconciliation Form for new medication/medications prescribed. If you experience any problems or have any questions following discharge from the GI Lab, please call: Nurse Signature Date Patient/Responsible Libertarian Signature Date documented in this encounter [facility] Work Phone: 09-17-2024 Attending History and physical note H&P reviewed. The patient was examined and there are no changes to the H&P. Source Note - Guillermo Maki PA-C - 08/31/2024 12:30 PM EST HPI: Tj Villanueva is a 38-year-old female who presents today for initial postoperative visit for C4-C6 anterior cervical discectomy and fusion with Dr. Nuñez on 08/09/2024. Overall, she is doing well. She has very occasional radicular pain in the right shoulder/upper arm which is coming and going. She still has some numbness and tingling in the hands. No issues with balance and coordination, no issues with dexterity. She is not taking anything for pain control currently. Overall, pleased with the surgical outcome thus far. Of note, the patient has a history of L4-5 laminectomy and right-sided partial discectomy with Dr. Cross on 01/28/2022. She states she has been struggling with pain since the surgery. Her pain is mainly in L4/5 distribution in the right leg. Occasional symptoms in the left leg. Numbness and tingling periodically throughout the day. She has not done physical therapy within the past year. She has tried injections which did not help. No other questions or concerns at time of visit. ROS: Reviewed on EMR and patient intake sheet. PMH/SH: Reviewed on EMR and patient intake sheet. Exam: MSK: Full strength range of motion of upper extremities bilaterally. Cervical collar removed and anterior cervical incision appears well-healing without signs of infection, erythema, drainage. General: No acute distress. Awake and conversant. Eyes: Normal conjunctiva, anicteric. Round symmetric pupils. ENT: Hearing grossly intact. No nasal discharge. Neck: Neck is supple. No masses or thyromegaly. Respiratory: Respirations are non-labored. No wheezing. Skin: Warm. No rashes or ulcers. Psych: Alert and oriented. Cooperative, appropriate mood and affect, normal judgement. CV: No lower extremity edema. Neuro: Sensation and CN II-XII grossly normal. Radiology: X-rays personally reviewed and demonstrate stable C4-C6 ACDF with interbody spacers and instrumentation seated appropriately. Alignment with normal limits. No signs of hardware failure. Diagnosis: Status post cervical fusion Lumbar radiculopathy Assessment and Plan: Status post cervical fusion Patient was seen today for initial post-operative visit following ACDF. Overall, the patient is doing well. I educated the patient on their soft collar and they may wear it on an as-needed basis. Patient should continue to limit excessive flexion and extension of the neck, but may start to implement gentle ROM of flexion, extension, and rotation to help reduce stiffness. They should avoid NSAIDs for 2 more months as NSAIDs may decrease the efficacy of the fusion. Patient should avoid excessive overhead lifting as this may aggravate the neck and shoulders. We discussed a slow return to activity over the next 1-2 months. Patient feels all questions were answered appropriately at time of visit today. Patient should follow up in 1 year, or sooner if needed. Patient agrees to the plan above. Lumbar radiculopathy We discussed her lumbar radicular symptoms today. She should continue her current pain regimen for this. I referred her to physical therapy today. She should follow-up after completion of physical therapy if her symptoms are still persisting or worsening. At that point, a new MRI may be appropriate. Guillermo Maki PA-C Department of Orthopaedic Surgery 12:55 PM 08/31/24 [id number] [place] [address] Voicemail: Appts: [phone] [facility] Work Phone: 09-17-2024 History and physical note H&P reviewed. The patient was examined and there are no changes to the H&P. Source Note - Guillermo Maki PA-C - 08/31/2024 12:30 PM EST HPI: Tj Villanueva is a 38-year-old female who presents today for initial postoperative visit for C4-C6 anterior cervical discectomy and fusion with Dr. Nuñez on 08/09/2024. Overall, she is doing well. She has very occasional radicular pain in the right shoulder/upper arm which is coming and going. She still has some numbness and tingling in the hands. No issues with balance and coordination, no issues with dexterity. She is not taking anything for pain control currently. Overall, pleased with the surgical outcome thus far. Of note, the patient has a history of L4-5 laminectomy and right-sided partial discectomy with Dr. Cross on 01/28/2022. She states she has been struggling with pain since the surgery. Her pain is mainly in L4/5 distribution in the right leg. Occasional symptoms in the left leg. Numbness and tingling periodically throughout the day. She has not done physical therapy within the past year. She has tried injections which did not help. No other questions or concerns at time of visit. ROS: Reviewed on EMR and patient intake sheet. PMH/SH: Reviewed on EMR and patient intake sheet. Exam: MSK: Full strength range of motion of upper extremities bilaterally. Cervical collar removed and anterior cervical incision appears well-healing without signs of infection, erythema, drainage. General: No acute distress. Awake and conversant. Eyes: Normal conjunctiva, anicteric. Round symmetric pupils. ENT: Hearing grossly intact. No nasal discharge. Neck: Neck is supple. No masses or thyromegaly. Respiratory: Respirations are non-labored. No wheezing. Skin: Warm. No rashes or ulcers. Psych: Alert and oriented. Cooperative, appropriate mood and affect, normal judgement. CV: No lower extremity edema. Neuro: Sensation and CN II-XII grossly normal. Radiology: X-rays personally reviewed and demonstrate stable C4-C6 ACDF with interbody spacers and instrumentation seated appropriately. Alignment with normal limits. No signs of hardware failure. Diagnosis: Status post cervical fusion Lumbar radiculopathy Assessment and Plan: Status post cervical fusion Patient was seen today for initial post-operative visit following ACDF. Overall, the patient is doing well. I educated the patient on their soft collar and they may wear it on an as-needed basis. Patient should continue to limit excessive flexion and extension of the neck, but may start to implement gentle ROM of flexion, extension, and rotation to help reduce stiffness. They should avoid NSAIDs for 2 more months as NSAIDs may decrease the efficacy of the fusion. Patient should avoid excessive overhead lifting as this may aggravate the neck and shoulders. We discussed a slow return to activity over the next 1-2 months. Patient feels all questions were answered appropriately at time of visit today. Patient should follow up in 1 year, or sooner if needed. Patient agrees to the plan above. Lumbar radiculopathy We discussed her lumbar radicular symptoms today. She should continue her current pain regimen for this. I referred her to physical therapy today. She should follow-up after completion of physical therapy if her symptoms are still persisting or worsening. At that point, a new MRI may be appropriate. Guillermo Maki PA-C Department of Orthopaedic Surgery 12:55 PM 08/31/[address] [place] [address] Voicemail: Appts: [phone] documented in this encounter [facility] Work Phone: 08-31-2024 History of Present illness Narrative HPI: Tj Villanueva is a 38-year-old female who presents today for initial postoperative visit for C4-C6 anterior cervical discectomy and fusion with Dr. Nuñez on 08/09/2024. Overall, she is doing well. She has very occasional radicular pain in the right shoulder/upper arm which is coming and going. She still has some numbness and tingling in the hands. No issues with balance and coordination, no issues with dexterity. She is not taking anything for pain control currently. Overall, pleased with the surgical outcome thus far. Of note, the patient has a history of L4-5 laminectomy and right-sided partial discectomy with Dr. Cross on 01/28/2022. She states she has been struggling with pain since the surgery. Her pain is mainly in L4/5 distribution in the right leg. Occasional symptoms in the left leg. Numbness and tingling periodically throughout the day. She has not done physical therapy within the past year. She has tried injections which did not help. No other questions or concerns at time of visit. ROS: Reviewed on EMR and patient intake sheet. PMH/SH: Reviewed on EMR and patient intake sheet. Exam: MSK: Full strength range of motion of upper extremities bilaterally. Cervical collar removed and anterior cervical incision appears well-healing without signs of infection, erythema, drainage. General: No acute distress. Awake and conversant. Eyes: Normal conjunctiva, anicteric. Round symmetric pupils. ENT: Hearing grossly intact. No nasal discharge. Neck: Neck is supple. No masses or thyromegaly. Respiratory: Respirations are non-labored. No wheezing. Skin: Warm. No rashes or ulcers. Psych: Alert and oriented. Cooperative, appropriate mood and affect, normal judgement. CV: No lower extremity edema. Neuro: Sensation and CN II-XII grossly normal. Radiology: X-rays personally reviewed and demonstrate stable C4-C6 ACDF with interbody spacers and instrumentation seated appropriately. Alignment with normal limits. No signs of hardware failure. Diagnosis: Status post cervical fusion Lumbar radiculopathy Assessment and Plan: Status post cervical fusion Patient was seen today for initial post-operative visit following ACDF. Overall, the patient is doing well. I educated the patient on their soft collar and they may wear it on an as-needed basis. Patient should continue to limit excessive flexion and extension of the neck, but may start to implement gentle ROM of flexion, extension, and rotation to help reduce stiffness. They should avoid NSAIDs for 2 more months as NSAIDs may decrease the efficacy of the fusion. Patient should avoid excessive overhead lifting as this may aggravate the neck and shoulders. We discussed a slow return to activity over the next 1-2 months. Patient feels all questions were answered appropriately at time of visit today. Patient should follow up in 1 year, or sooner if needed. Patient agrees to the plan above. Lumbar radiculopathy We discussed her lumbar radicular symptoms today. She should continue her current pain regimen for this. I referred her to physical therapy today. She should follow-up after completion of physical therapy if her symptoms are still persisting or worsening. At that point, a new MRI may be appropriate. Guillermo Maki PA-C Department of Orthopaedic Surgery 12:55 PM 08/31/[address] [place] [address] Voicemail: Appts: [phone] documented in this encounter [facility] Work Phone: 08-09-2024 Miscellaneous Notes C4-C6 Anterior Cervical Discectomy and Fusion Operative Note Date: 08/09/2024 OR Location: [facility] OR Name: Tj Villanueva, : 1985, Age: 38 y.o., , Sex: female Diagnosis Pre-op Diagnosis * Cervical spinal stenosis [M48.02] * Cervical radiculitis [M54.12] * Spinal cord compression (Multi) [G95.20] Post-op Diagnosis * Cervical spinal stenosis [M48.02] * Cervical radiculitis [M54.12] * Spinal cord compression (Multi) [G95.20] Procedures C4 to C6 anterior cervical discectomy and fusion with allograft spacer, demineralized bone matrix, and [place] anterior cervical instrumentation Surgeons * Dustin Nuñez - Primary Resident/Fellow/Other [place]: Surgeons and Role: * Gretchen Aguiar PA-C - Assisting Staff: Scrub Person: Assistant: Desiree Assistant: Kaylen Assistant: Buzz Anesthesia Staff: Anesthesiologist: Victoriano Frances MD C-AA: MERI Batista Procedure Summary Anesthesia: General ASA: II Estimated Blood Loss: 10mL Intra-op Medications: Administrations occurring from 0930 to 1130 on 08/09/24: Medication Name Total Dose gelatin absorbable (Gelfoam) 100 sponge 1 each lidocaine 4 % patch 1 patch sodium chloride 0.9 % irrigation solution 1,000 mL thrombin-bovine (JMI) 5,000 unit topical solution 10,000 Units ceFAZolin (Ancef) vial 1 g 3 g dexAMETHasone (Decadron) injection 4 mg/mL 10 mg fentaNYL (Sublimaze) injection 50 mcg/mL 100 mcg gentamicin (Garamycin) injection 40 mg/mL 400 mg HYDROmorphone (Dilaudid) injection 1 mg/mL 0.4 mg ketorolac (Toradol) injection 30 mg 30 mg lidocaine PF (Xylocaine-MPF) local injection 2 % 100 mg methocarbamol (Robaxin) injection 1,000 mg midazolam PF (Versed) injection 1 mg/mL 2 mg ondansetron (Zofran) 2 mg/mL injection 4 mg propofol (Diprivan) injection 10 mg/mL 200 mg rocuronium (ZeMuron) 50 mg/5 mL injection 90 mg NaCl 0.9 % infusion 210.42 mL Anesthesia Record Intraprocedure I/O Totals None Specimen: No specimens collected Drains and/or Catheters: * None in log * Tourniquet Times: Implants: Implants Type Name Action Serial No. Tissue SPACER Implanted [id number] Screw PLATE, [employer] STR - [id number] - [id number] Implanted [id number] SPACER Implanted [id number] Spinal Hardware PLATE, 42.5MM VISION ELITE - [id number] Implanted Spinal Hardware SCREW, CERV 4.[address] VA - [id number] Implanted Spinal Hardware SCREW, CERV 4.[address] FA - [id number] Implanted Indications: Tj Villanueva is an 38 y.o. female who is having surgery for Cervical spinal stenosis [M48.02] Cervical radiculitis [M54.12] Spinal cord compression (Multi) [G95.20]. The patient was seen in the preoperative area. The risks, benefits, complications, treatment options, non-operative alternatives, expected recovery and outcomes were discussed with the patient. The possibilities of reaction to medication, pulmonary aspiration, injury to surrounding structures, bleeding, recurrent infection, the need for additional procedures, failure to diagnose a condition, and creating a complication requiring transfusion or operation were discussed with the patient. The patient concurred with the proposed plan, giving informed consent. The site of surgery was properly noted/marked if necessary per policy. The patient has been actively warmed in preoperative area. Preoperative antibiotics have been ordered and given within 1 hours of incision. Venous thrombosis prophylaxis have been ordered including bilateral sequential compression devices Procedure Details: Patient was taken to the operating room where a formal timeout was done according to hospital protocol. Patient was intubated without difficulty. Patient was given preoperative antibiotics. Patient was positioned supine on the OR table. The neck was gently extended and then prepped and draped in usual fashion. We did a standard left-sided approach to the cervical spine. We got an x-ray to confirm our level at C5-C6. Attention was turned to that level. Retractors were placed. [place] pins were placed. Under slight distraction we then did a complete discectomy from uncus to uncus. We took down the posterior longitudinal ligament. Patient had a very large osteophyte on the right side extending into the neuroforamen. This required a considerable amount of bony resection of the inferior portion of C5 to sufficiently decompress into the neuroforamen and remove the osteophyte until the nerve was free traversing out to the neuroforamen. Once we completed the decompression a allograft spacer packed with demineralized bone matrix was then placed in the appropriate position. Attention was then turned proximally up to C4-5 where we did an identical procedure including a complete discectomy, and then subsequent interbody fusion with a similar allograft spacer. Floseal was placed around the implants. There was good hemostasis. Finally, attention was turned to placing an [place] anterior cervical plate. Screws were tightened to the manufacture specification. X-ray confirmed satisfactory placement. Wound was then closed in the usual fashion. Sterile dressing was applied. Patient was placed to a soft cervical collar. I was present and scrubbed for the entire procedure. The physician shampoo assistant was present, scrubbed and participated in all portions of the procedure, as no qualified surgeon physician and/or resident surgeon was available to assist in the case. Dustin Nuñez MD Chief of Spine Surgery, [facility] Director of Spine Service, [facility] [employer], Department of Orthopaedics [facility] [employer] [facility] [address] [place] [address] P: [phone] This note was dictated with voice recognition software. It has not been proofread for grammatical errors, typographical mistakes or other semantic inconsistencies. Complications: None; patient tolerated the procedure well. Disposition: PACU - hemodynamically stable. Condition: stable Attending Attestation: Dustin Nuñez documented in this encounter [facility] Work Phone: 08-09-2024 Note Formatting of this n ote is different from the original. C4-C6 Anterior Cervical Discectomy and Fusion Operative Note Date: 08/09/2024 OR Location: [facility] OR Name: Tj Villanueva, : 1985, Age: 38 y.o., , Sex: female Diagnosis Pre-op Diagnosis * Cervical spinal stenosis [M48.02] * Cervical radiculitis [M54.12] * Spinal cord compression (Multi) [G95.20] Post-op Diagnosis * Cervical spinal stenosis [M48.02] * Cervical radiculitis [M54.12] * Spinal cord compression (Multi) [G95.20] Procedures C4 to C6 anterior cervical discectomy and fusion with allograft spacer, demineralized bone matrix, and [place] anterior cervical instrumentation Surgeons * Dustin Nuñez - Primary Resident/Fellow/Other Register Of Wills: Surgeons and Role: * Gretchen Aguiar PA-C - Assisting Staff: Scrub Person: Assistant: Desiree Assistant: Kaylen Assistant: Buzz Anesthesia Staff: Anesthesiologist: Victoriano Frances MD C-AA: MERI Batista Procedure Summary Anesthesia: General ASA: II Estimated Blood Loss: 10mL Intra-op Medications: Administrations occurring from 0930 to 1130 on 08/09/24: Medication Name Total Dose gelatin absorbable (Gelfoam) 100 sponge 1 each lidocaine 4 % patch 1 patch sodium chloride 0.9 % irrigation solution 1,000 mL thrombin-bovine (JMI) 5,000 unit topical solution 10,000 Units ceFAZolin (Ancef) vial 1 g 3 g dexAMETHasone (Decadron) injection 4 mg/mL 10 mg fentaNYL (Sublimaze) injection 50 mcg/mL 100 mcg gentamicin (Garamycin) injection 40 mg/mL 400 mg HYDROmorphone (Dilaudid) injection 1 mg/mL 0.4 mg ketorolac (Toradol) injection 30 mg 30 mg lidocaine PF (Xylocaine-MPF) local injection 2 % 100 mg methocarbamol (Robaxin) injection 1,000 mg midazolam PF (Versed) injection 1 mg/mL 2 mg ondansetron (Zofran) 2 mg/mL injection 4 mg propofol (Diprivan) injection 10 mg/mL 200 mg rocuronium (ZeMuron) 50 mg/5 mL injection 90 mg NaCl 0.9 % infusion 210.42 mL Anesthesia Record Intraprocedure I/O Totals None Specimen: No specimens collected Drains and/or Catheters: * None in log * Tourniquet Times: Implants: Implants Type Name Action Serial No. Tissue SPACER Implanted [id number] Screw PLATE, MATRIX STR - [id number] - [id number] Implanted [id number] SPACER Implanted [id number] Spinal Hardware PLATE, 42.5MM VISION [place]ITE - [id number] Implanted Spinal Hardware SCREW, CERV 4.[address] VA - [id number] Implanted Spinal Hardware SCREW, CERV 4.[address] FA - [id number] Implanted Indications: Tj Villanueva is an 38 y.o. female who is having surgery for Cervical spinal stenosis [M48.02] Cervical radiculitis [M54.12] Spinal cord compression (Multi) [G95.20]. The patient was seen in the preoperative area. The risks, benefits, complications, treatment options, non-operative alternatives, expected recovery and outcomes were discussed with the patient. The possibilities of reaction to medication, pulmonary aspiration, injury to surrounding structures, bleeding, recurrent infection, the need for additional procedures, failure to diagnose a condition, and creating a complication requiring transfusion or operation were discussed with the patient. The patient concurred with the proposed plan, giving informed consent. The site of surgery was properly noted/marked if necessary per policy. The patient has been actively warmed in preoperative area. Preoperative antibiotics have been ordered and given within 1 hours of incision. Venous thrombosis prophylaxis have been ordered including bilateral sequential compression devices Procedure Details: Patient was taken to the operating room where a formal timeout was done according to hospital protocol. Patient was intubated without difficulty. Patient was given preoperative antibiotics. Patient was positioned supine on the OR table. The neck was gently extended and then prepped and draped in usual fashion. We did a standard left-sided approach to the cervical spine. We got an x-ray to confirm our level at C5-C6. Attention was turned to that level. Retractors were placed. [place] pins were placed. Under slight distraction we then did a complete discectomy from uncus to uncus. We took down the posterior longitudinal ligament. Patient had a very large osteophyte on the right side extending into the neuroforamen. This required a considerable amount of bony resection of the inferior portion of C5 to sufficiently decompress into the neuroforamen and remove the osteophyte until the nerve was free traversing out to the neuroforamen. Once we completed the decompression a allograft spacer packed with demineralized bone matrix was then placed in the appropriate position. Attention was then turned proximally up to C4-5 where we did an identical procedure including a complete discectomy, and then subsequent interbody fusion with a similar allograft spacer. Floseal was placed around the implants. There was good hemostasis. Finally, attention was turned to placing an [place] anterior cervical plate. Screws were tightened to the manufacture specification. X-ray confirmed satisfactory placement. Wound was then closed in the usual fashion. Sterile dressing was applied. Patient was placed to a soft cervical collar. I was present and scrubbed for the entire procedure. The physician shampoo assistant was present, scrubbed and participated in all portions of the procedure, as no qualified surgeon physician and/or resident surgeon was available to assist in the case. Dustin Nuñez MD Chief of Spine Surgery, [facility] Director of Spine Service, [facility] [employer], Department of Orthopaedics [facility] [employer] [address] [place] [address] P: [phone] This note was dictated with voice recognition software. It has not been proofread for grammatical errors, typographical mistakes or other semantic inconsistencies. Complications: None; patient tolerated the procedure well. Disposition: PACU - hemodynamically stable. Condition: stable Attending Attestation: Dustin Nuñez [facility] Work Phone: 08-09-2024 Hospital Discharge instructions Gretchen Aguiar PA-C - 08/09/2024 9:29 AM EST Cervical Decompression and Fusion (Dr. Nuñez) ACTIVITY / RESTRICTIONS: Do not drive for at least 24 hours after surgery or while taking narcotics (Percocet/oxycodone, hydrocodone, tramadol, etc) pain medication. No pushing, pulling, or lifting of objects greater than 5-10 pounds for 3 weeks. A gallon of milk is 8 pounds for reference Limit Excessive neck rotation, flexion/extension in cervical collar Caution with overhead lifting, activities that strain the head/neck No NSAIDs (Advil, Aleve, Motrin, ibuprofen, naproxen, diclofenac, meloxicam, Celebrex, etc) for 3 months following fusion surgery Exception: you may be prescribed one week of Ketorolac postop COLLAR Instruction: If given a collar, MUST wear cervical collar at all times (including sleep) take off when showering/hygiene/changing clothing. No driving while in Cervical Collar Hard collar instructions: Two pieces Velcro on sides. Should be placed under the chin. Dial around [place] pulls forward and twists to change height of collar under chin. Hard collar pads may be removed and hand washed. There should be a second set of cervical collar pads with personal items to alternate. Collar may be off to exchange pads. Soft collar instructions: Curve rests under chin and Velcro in back of neck. BLOOD THINNERS / ANTICOAGULANTS / ANTIPLATELETS: Anticoagulants: (Coumadin, warfarin, Lovenox, etc) Restart 5 days after surgery, or as directed by prescribing provider. Antiplatelets: (Plavix, etc) Restart 5 days after surgery, or as directed by prescription provider Continue aspirin daily without restriction. WOUND CARE: Do not shower for 48 hours following surgery. Keep surgical incision clean and dry until shower. Change with non-adherent dressing daily and as needed. If no drainage, may cover or leave uncovered based on personal preference. Showering: let warm soapy water run down back. Do not scrub. Pat dry. Do not remove Steri-Strips they will fall off on their own after getting wet Any nylon sutures will be removed by provider at follow up visit. Remove lidocaine patch after 12 hours. DIET: Continue on soft diet until swelling/difficulty swallowing has decreased. Then may resume regular diet. Continue Bowel Regimen until bowel movement. If you do not have a bowel movement in 72 hours with addition of magnesium citrate, go to the Emergency Department. REMEMBER: It is normal to have post-surgical neck and back pain/spasms, even with small incisions. Ice and/or heat may be helpful. It is normal to have coming and going nerve pain in the arms as the nerve heals. Nerve pain may be replaced initially with numbness and tingling/ pins and needles. Week to week, post-surgical pain should become less often and less intense. Continue medication as prescribed. CALL PHYSICIAN: Signs of infection at incision site: progressive drainage or an unusual odor increased redness and or swelling increased pain and or tenderness Excessive Bleeding: Slow general oozing that completely soaks dressing Fresh bright red bleeding or bleeding that will not stop. It is normal to have a couple of days of drainage, but continues beyond 5 days of surgery Inability to go to the bathroom FOR PRESCRIPTION REFILLS GIVE 48 HOURS NOTICE. Please do not wait until Friday after 3pm to call Follow-up 2-3 weeks from surgery for radiographs and suture removal if needed Dr. Dustin Nuñez' Office [facility] Lock - Tray Line Worker: GEORGIE Voicemail (Reese): *Please leave Name, , & call back number Deidre Garcia RN - 08/09/2024 9:23 AM EST Please call Deidre Garcia RN (at [phone]) for any post-op questions. As part of the [employer] enhanced benefit, you will receive a total of 5 home care visits. This will include one nursing visit, three physical therapy visits and one occupational therapy visit. Please reach out to your nurse navigator if you have any additional questions regarding this enhanced benefit. documented in this encounter [facility] Work Phone: 08-09-2024 Attending History and physical note H&P reviewed. The patient was examined and there are no changes to the H&P. Source Note - Lynda Boo PA-C - 08/03/2024 2:30 PM EST Images from the original note were not included. [facility]/PAT Evaluation Name: Tj Villanueva (Tj Villanueva) /Age: 311/24/1985/38 y.o. Date of Consult: 08/03/24 Referring Provider: Dr. Nuñez Surgery, Date, and Length: C4-C6 ACDF , 08/09/24, 120MIN Tj Villanueva is a 38 year-old female who presents to the [facility] for perioperative risk assessment prior to surgery. Patient presents with a primary diagnosis of cervical spinal stenosis. She underwent lumbar spine surgery in 2021 which unfortunately did not relieve her symptoms. Over the last few months she has developed bilateral upper extremity numbness and tingling. She reports arm pain and neck pain. She denies dropping objects, but does admit to weakness in R>L hand. She has tried ASTER injections without much relief. She takes Lyrica which does not help much with pain relief. She has had medications including methocarbimol as well as pain management. This note was created in part upon personal review of patient's medical records. Patient is scheduled to have C4-C6 ACDF Pt denies any past history of anesthetic complications such as PONV, awareness, prolonged sedation, dental damage, aspiration, cardiac arrest, difficult intubation, difficult I.V. access or unexpected hospital admissions. NO malignant hyperthermia and or pseudocholinesterase deficiency. No history of blood transfusions The patient is not a Buddhist and will accept blood and blood products if medically indicated. Type and screen sent. Past Medical History: Diagnosis Date Anxiety Breast cyst 2022 Breast pain, left 10/24/2022 Chronic pain disorder Constipation Depression Eczema Elevated hemoglobin A1c 01/06/24 5.9 Essential tremor waiting to see neurology Headache, unspecified 01/10/2021 Acute nonintractable headache, unspecified headache type Impaired fasting glucose 10/26/2020 01/06/24 glucose 130 Low back pain Mass of upper outer quadrant of left breast 10/24/2022 Mastodynia 01/31/2021 Breast pain, left Migraine Neck pain Ovarian cyst 10/24/2020 Psoriasis 08/06/2021 Psoriatic arthritis (Multi) Spinal stenosis Past Surgical History: Procedure Laterality Date BACK SURGERY OTHER SURGICAL HISTORY 10/24/2020 Eye surgery OTHER SURGICAL HISTORY 10/30/2020 Hysterectomy WISDOM TOOTH EXTRACTION Patient reports being sexually active and has had partner(s) who are male. She reports using the following method of control/protection: None. Family History Problem Relation Name Age of Onset Hyperlipidemia Mother Mani Thyroid cancer Mother Mani Surgically removed- radiation done Cancer Mother Mani Other (histoplasmosis) Father Otoniel Skin cancer Father Otoniel Diabetes Father Otoniel Arthritis Father Otoniel Cancer Father Otoniel GI problems Father Otoniel Aplastic anemia Brother Buzz in remission Hyperlipidemia Brother Buzz Acute lymphoblastic leukemia Daughter Bernabe in remission Cancer Daughter Bernabe Depression Daughter Bernabe ADD / ADHD Daughter Alex Depression Daughter Alex Breast cancer Maternal Grandmother Maria Elena Colon cancer Maternal Grandmother Maria Elena Rectal cancer Maternal Grandmother Maria Elena Dementia Maternal Grandmother Maria Elena Alzheimer's disease Maternal Grandmother Maria Elena Cancer Maternal Grandmother Maria Elena Breast cancer Paternal Grandmother Debo Lung cancer Paternal Grandmother Edbo Skin cancer Paternal Grandmother Debo Celiac disease Paternal Grandmother Debo Arthritis Paternal Grandmother Debo Cancer Paternal Grandmother Debo GI problems Paternal Grandmother Debo Prostate cancer Paternal Grandfather Cledipete Metastisized into bone cancer Cancer Paternal Grandfather Cledith Diabetes Paternal Grandfather Cledith Social History Socioeconomic History Marital status: Spouse name: Not on file Number of children: Not on file Years of education: Not on file Highest education level: Not on file Occupational History Not on file Tobacco Use Smoking status: Never Passive exposure: Past Smokeless tobacco: Never Vaping Use Vaping status: Some Days Substance and Sexual Activity Alcohol use: Not Currently Comment: Sober for 2 years Drug use: Never Sexual activity: Yes Partners: Male control/protection: None Other Topics Concern Not on file Social History Narrative Not on file Social Drivers of Health Financial Resource Strain: Not on file Food Insecurity: Not on file Transportation Needs: Not on file Physical Activity: Not on file Stress: Not on file Social Connections: Not on file Intimate Partner Violence: Not on file Housing Stability: Not on file No Known Allergies Current Outpatient Medications: acetaminophen (Tylenol) 500 mg tablet, Take by mouth every 6 hours if needed for mild pain (1 - 3)., Disp: , Rfl: betamethasone, augmented, (Diprolene AF) 0.05 % cream, , Disp: , Rfl: celecoxib (CeleBREX) 200 mg capsule, Take 1 capsule (200 mg) by mouth once daily. With a meal, Disp: , Rfl: clobetasol (Temovate) 0.05 % cream, Apply to affected areas twice daily when active as needed. Use less than 14 days per month., Disp: 30 g, Rfl: 1 methocarbamol (Robaxin) 500 mg tablet, TAKE ONE TABLET BY MOUTH TWICE A DAY NEEDED FOR MUSCLE SPASMS, Disp: 60 tablet, Rfl: 0 naratriptan (Amerge) 2.5 mg tablet, Take 1 tablet (2.5 mg) by mouth if needed. AT ONSET OF HEADACHE, MAY REPEAT ONCE IN 4 HOURS, Disp: , Rfl: pregabalin (Lyrica) 200 mg capsule, Take 1 capsule (200 mg) by mouth 3 times a day., Disp: 90 capsule, Rfl: 3 topiramate (Topamax) 50 mg tablet, TAKE THREE TABLETS BY MOUTH EVERY DAY, Disp: 270 tablet, Rfl: 3 ALPRAZolam (Xanax) 0.5 mg tablet, Take 1 tablet (0.5 mg) by mouth 2 times a day as needed for anxiety for up to 7 days., Disp: 14 tablet, Rfl: 0 chlorhexidine (Peridex) 0.12 % solution, Swish for 30 seconds and spit 15mL of solution the night before and morning of surgery, Disp: 475 mL, Rfl: 0 PAT ROS: Constitutional: no fever no chills no unexpected weight change Neuro/Psych: no numbness no weakness no light-headedness no confusion Eyes: no discharge no pain no vision loss no diplopia no visual disturbance use of corrective lenses Ears: no ear pain no hearing loss no tinnitus Nose: no nasal discharge no sinus congestion no epistaxis Mouth: no dental issues no mouth pain no oral bleeding no mouth lesions Throat: no throat pain no dysphagia Neck: neck pain no neck stiffness Cardio: Functional 4 Mets. 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 no palpitations no peripheral edema no dyspnea no MATTSON Respiratory: no cough no wheezing no hemoptysis no shortness of breath Endocrine: no cold intolerance no heat intolerance GI: no abdominal distention no abdominal pain no constipation no diarrhea no nausea no vomiting no blood in stool : no difficulty urinating no dysuria no oliguria Musculoskeletal: arthralgias (neck, LBP) no myalgias decreased ROM (neck; decreased right rotation) Hematologic: does not bruise/bleed easily no excessive bleeding no history of blood transfusion no blood clots Skin: no skin changes no sores/wound rash (left forearm eczema) Physical Exam Constitutional: General: She is not in acute distress. Appearance: Normal appearance. She is not ill-appearing, toxic-appearing or diaphoretic. HENT: Head: Normocephalic and atraumatic. Nose: Nose normal. No congestion or rhinorrhea. Mouth/Throat: Mouth: Mucous membranes are moist. Pharynx: No posterior oropharyngeal erythema. Eyes: Extraocular Movements: Extraocular movements intact. Conjunctiva/sclera: Conjunctivae normal. Cardiovascular: Rate and Rhythm: Normal rate and regular rhythm. Pulses: Normal pulses. Heart sounds: Normal heart sounds. No murmur heard. No friction rub. No gallop. Pulmonary: Effort: Pulmonary effort is normal. No respiratory distress. Breath sounds: Normal breath sounds. No stridor. No wheezing, rhonchi or rales. Abdominal: General: Bowel sounds are normal. There is no distension. Palpations: Abdomen is soft. There is no mass. Tenderness: There is no abdominal tenderness. There is no guarding or rebound. Hernia: No hernia is present. Musculoskeletal: General: Tenderness (pain with right neck rotation, causing limited ROM in neck) present. No swelling, deformity or signs of injury. Cervical back: Normal range of motion and neck supple. No rigidity or tenderness. Skin: General: Skin is warm and dry. Coloration: Skin is not jaundiced or pale. Findings: No bruising, erythema or rash. Neurological: General: No focal deficit present. Mental Status: She is alert and oriented to person, place, and time. Cranial Nerves: No cranial nerve deficit. Sensory: No sensory deficit. Motor: Weakness (right manager it security is < left manager it security strength) present. Coordination: Coordination normal. Psychiatric: Mood and Affect: Mood normal. Behavior: Behavior normal. PAT AIRWAY: Airway: Mallampati:: II Neck ROM:: Full No broken teeth, no dentures and no missing teeth Visit Vitals BP 135/61 Pulse 60 Temp 36.2 C (97.2 F) Resp 18 Ht 1.93 m (6' 4) Wt 138 kg (304 lb 3.8 oz) LMP 10/02/2020 SpO2 97% BMI 37.03 kg/m OB Status Hysterectomy Smoking Status Never BSA 2.72 m LABS: Lab Results Component Value Date WBC 9.5 08/03/2024 HGB 13.6 08/03/2024 HCT 42.6 08/03/2024 MCV 88 08/03/2024 PLT 326 08/03/2024 Lab Results Component Value Date GLUCOSE 90 08/03/2024 CALCIUM 8.8 08/03/2024 NA 143 08/03/2024 K 4.3 08/03/2024 CO2 24 08/03/2024 CL 112 (H) 08/03/2024 BUN 12 08/03/2024 CREATININE 0.80 08/03/2024 Coagulation Screen Order: [id number] Status: Final result Visible to patient: Yes (seen) Dx: Preop testing 1 Result Note 1 Patient Communication Component Ref Range & Units 2 d ago 2 yr ago Protime 9.8 - 12.8 seconds 11.1 10.2 R INR 0.9 - 1.1 1.0 0.9 aPTT 27 - 38 seconds 32 29 R, CM Resulting Agency [facility] Narrative Performed by: [facility] The APTT is no longer used for monitoring Unfractionated Heparin Therapy. For monitoring Heparin Therapy, use the Heparin Assay. Specimen Collected: 08/03/24 15:01 Lab Results Component Value Date HGBA1C 5.7 (H) 08/03/2024 EKG 08/03/24 NSR Incomplete RBBB Borderline EKG Vent rate = 59 bpm Assessment and Plan: Patient is a 38-year-old female scheduled for a C4-C6 ACDF with Dr. Nuñez on 08/09/24. Patient has no active cardiac symptoms. Patient denies any chest pain, tightness, heaviness, pressure, radiating pain, palpitations, irregular heartbeats, lightheadedness, cough, congestion, shortness of breath, MATTSON, PND, near syncope, weight loss or gain. RCRI 0 , 3.9 % Risk of MACE Neuro: Migraine H/A - hold triptan dos; cont topiramate on dos Hematology: Patient instructed to ambulate as soon as possible postoperatively to decrease thromboembolic risk. Initiate mechanical DVT prophylaxis as soon as possible and initiate chemical prophylaxis when deemed safe from a bleeding standpoint post surgery. LABS: CBC, BMP, T&S, Coag, MRSA , A1c and EKG ordered Followup: Labs, MRSA and A1c pending Addendum 08/05/24: Labs reviewed and unremarkable STOP BANG: obese = 1 Caprini: 3 Risk assessment complete. Patient is scheduled for a intermediate surgical risk procedure. Preoperative medication instructions were provided and reviewed with the patient. Any additional testing or evaluation was explained to the patient. Nothing by mouth instructions were discussed and patient's questions were answered prior to conclusion to this encounter. Patient verbalized understanding of preoperative instructions given in preadmission testing; discharge instructions available in EMR. This note was dictated by a speech recognition. Minor errors may have been detected in a speech recognition. [facility] Work Phone: 08-09-2024 History and physical note H&P reviewed. The patient was examined and there are no changes to the H&P. Source Note - Lynda Boo PA-C - 08/03/2024 2:30 PM EST Images from the original note were not included. [facility]/PAT Evaluation Name: Tj Villanueva (Tj Villanueva) /Age: 311/24/1985/38 y.o. Date of Consult: 08/03/24 Referring Provider: Dr. Nuñez Surgery, Date, and Length: C4-C6 ACDF , 08/09/24, 120MIN Tj Villanueva is a 38 year-old female who presents to the [facility] for perioperative risk assessment prior to surgery. Patient presents with a primary diagnosis of cervical spinal stenosis. She underwent lumbar spine surgery in 2021 which unfortunately did not relieve her symptoms. Over the last few months she has developed bilateral upper extremity numbness and tingling. She reports arm pain and neck pain. She denies dropping objects, but does admit to weakness in R>L hand. She has tried ASTER injections without much relief. She takes Lyrica which does not help much with pain relief. She has had medications including methocarbimol as well as pain management. This note was created in part upon personal review of patient's medical records. Patient is scheduled to have C4-C6 ACDF Pt denies any past history of anesthetic complications such as PONV, awareness, prolonged sedation, dental damage, aspiration, cardiac arrest, difficult intubation, difficult I.V. access or unexpected hospital admissions. NO malignant hyperthermia and or pseudocholinesterase deficiency. No history of blood transfusions The patient is not a Buddhist and will accept blood and blood products if medically indicated. Type and screen sent. Past Medical History: Diagnosis Date Anxiety Breast cyst 2022 Breast pain, left 10/24/2022 Chronic pain disorder Constipation Depression Eczema Elevated hemoglobin A1c 01/06/24 5.9 Essential tremor waiting to see neurology Headache, unspecified 01/10/2021 Acute nonintractable headache, unspecified headache type Impaired fasting glucose 10/26/2020 01/06/24 glucose 130 Low back pain Mass of upper outer quadrant of left breast 10/24/2022 Mastodynia 01/31/2021 Breast pain, left Migraine Neck pain Ovarian cyst 10/24/2020 Psoriasis 08/06/2021 Psoriatic arthritis (Multi) Spinal stenosis Past Surgical History: Procedure Laterality Date BACK SURGERY OTHER SURGICAL HISTORY 10/24/2020 Eye surgery OTHER SURGICAL HISTORY 10/30/2020 Hysterectomy WISDOM TOOTH EXTRACTION Patient reports being sexually active and has had partner(s) who are male. She reports using the following method of control/protection: None. Family History Problem Relation Name Age of Onset Hyperlipidemia Mother Mani Thyroid cancer Mother Mani Surgically removed- radiation done Cancer Mother Mani Other (histoplasmosis) Father Otoniel Skin cancer Father Otoniel Diabetes Father Otoniel Arthritis Father Otoniel Cancer Father Otoniel GI problems Father Otoniel Aplastic anemia Brother Buzz in remission Hyperlipidemia Brother Buzz Acute lymphoblastic leukemia Daughter Bernabe in remission Cancer Daughter Bernabe Depression Daughter Bernabe ADD / ADHD Daughter Alex Depression Daughter Alex Breast cancer Maternal Grandmother Maria Elena Colon cancer Maternal Grandmother Maria Elena Rectal cancer Maternal Grandmother Maria Elena Dementia Maternal Grandmother Maria Elena Alzheimer's disease Maternal Grandmother Maria Elena Cancer Maternal Grandmother Maria Elena Breast cancer Paternal Grandmother Debo Lung cancer Paternal Grandmother Debo Skin cancer Paternal Grandmother Debo Celiac disease Paternal Grandmother Debo Arthritis Paternal Grandmother Debo Cancer Paternal Grandmother Debo GI problems Paternal Grandmother Debo Prostate cancer Paternal Grandfather Cleadalberto Metastisized into bone cancer Cancer Paternal Grandfather Cledith Diabetes Paternal Grandfather Cledith Social History Socioeconomic History Marital status: Spouse name: Not on file Number of children: Not on file Years of education: Not on file Highest education level: Not on file Occupational History Not on file Tobacco Use Smoking status: Never Passive exposure: Past Smokeless tobacco: Never Vaping Use Vaping status: Some Days Substance and Sexual Activity Alcohol use: Not Currently Comment: Sober for 2 years Drug use: Never Sexual activity: Yes Partners: Male control/protection: None Other Topics Concern Not on file Social History Narrative Not on file Social Drivers of Health Financial Resource Strain: Not on file Food Insecurity: Not on file Transportation Needs: Not on file Physical Activity: Not on file Stress: Not on file Social Connections: Not on file Intimate Partner Violence: Not on file Housing Stability: Not on file No Known Allergies Current Outpatient Medications: acetaminophen (Tylenol) 500 mg tablet, Take by mouth every 6 hours if needed for mild pain (1 - 3)., Disp: , Rfl: betamethasone, augmented, (Diprolene AF) 0.05 % cream, , Disp: , Rfl: celecoxib (CeleBREX) 200 mg capsule, Take 1 capsule (200 mg) by mouth once daily. With a meal, Disp: , Rfl: clobetasol (Temovate) 0.05 % cream, Apply to affected areas twice daily when active as needed. Use less than 14 days per month., Disp: 30 g, Rfl: 1 methocarbamol (Robaxin) 500 mg tablet, TAKE ONE TABLET BY MOUTH TWICE A DAY NEEDED FOR MUSCLE SPASMS, Disp: 60 tablet, Rfl: 0 naratriptan (Amerge) 2.5 mg tablet, Take 1 tablet (2.5 mg) by mouth if needed. AT ONSET OF HEADACHE, MAY REPEAT ONCE IN 4 HOURS, Disp: , Rfl: pregabalin (Lyrica) 200 mg capsule, Take 1 capsule (200 mg) by mouth 3 times a day., Disp: 90 capsule, Rfl: 3 topiramate (Topamax) 50 mg tablet, TAKE THREE TABLETS BY MOUTH EVERY DAY, Disp: 270 tablet, Rfl: 3 ALPRAZolam (Xanax) 0.5 mg tablet, Take 1 tablet (0.5 mg) by mouth 2 times a day as needed for anxiety for up to 7 days., Disp: 14 tablet, Rfl: 0 chlorhexidine (Peridex) 0.12 % solution, Swish for 30 seconds and spit 15mL of solution the night before and morning of surgery, Disp: 475 mL, Rfl: 0 PAT ROS: Constitutional: no fever no chills no unexpected weight change Neuro/Psych: no numbness no weakness no light-headedness no confusion Eyes: no discharge no pain no vision loss no diplopia no visual disturbance use of corrective lenses Ears: no ear pain no hearing loss no tinnitus Nose: no nasal discharge no sinus congestion no epistaxis Mouth: no dental issues no mouth pain no oral bleeding no mouth lesions Throat: no throat pain no dysphagia Neck: neck pain no neck stiffness Cardio: Functional 4 Mets. 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 no palpitations no peripheral edema no dyspnea no MATTSON Respiratory: no cough no wheezing no hemoptysis no shortness of breath Endocrine: no cold intolerance no heat intolerance GI: no abdominal distention no abdominal pain no constipation no diarrhea no nausea no vomiting no blood in stool : no difficulty urinating no dysuria no oliguria Musculoskeletal: arthralgias (neck, LBP) no myalgias decreased ROM (neck; decreased right rotation) Hematologic: does not bruise/bleed easily no excessive bleeding no history of blood transfusion no blood clots Skin: no skin changes no sores/wound rash (left forearm eczema) Physical Exam Constitutional: General: She is not in acute distress. Appearance: Normal appearance. She is not ill-appearing, toxic-appearing or diaphoretic. HENT: Head: Normocephalic and atraumatic. Nose: Nose normal. No congestion or rhinorrhea. Mouth/Throat: Mouth: Mucous membranes are moist. Pharynx: No posterior oropharyngeal erythema. Eyes: Extraocular Movements: Extraocular movements intact. Conjunctiva/sclera: Conjunctivae normal. Cardiovascular: Rate and Rhythm: Normal rate and regular rhythm. Pulses: Normal pulses. Heart sounds: Normal heart sounds. No murmur heard. No friction rub. No gallop. Pulmonary: Effort: Pulmonary effort is normal. No respiratory distress. Breath sounds: Normal breath sounds. No stridor. No wheezing, rhonchi or rales. Abdominal: General: Bowel sounds are normal. There is no distension. Palpations: Abdomen is soft. There is no mass. Tenderness: There is no abdominal tenderness. There is no guarding or rebound. Hernia: No hernia is present. Musculoskeletal: General: Tenderness (pain with right neck rotation, causing limited ROM in neck) present. No swelling, deformity or signs of injury. Cervical back: Normal range of motion and neck supple. No rigidity or tenderness. Skin: General: Skin is warm and dry. Coloration: Skin is not jaundiced or pale. Findings: No bruising, erythema or rash. Neurological: General: No focal deficit present. Mental Status: She is alert and oriented to person, place, and time. Cranial Nerves: No cranial nerve deficit. Sensory: No sensory deficit. Motor: Weakness (right manager it security is < left manager it security strength) present. Coordination: Coordination normal. Psychiatric: Mood and Affect: Mood normal. Behavior: Behavior normal. PAT AIRWAY: Airway: Mallampati:: II Neck ROM:: Full No broken teeth, no dentures and no missing teeth Visit Vitals BP 135/61 Pulse 60 Temp 36.2 C (97.2 F) Resp 18 Ht 1.93 m (6' 4) Wt 138 kg (304 lb 3.8 oz) LMP 10/02/2020 SpO2 97% BMI 37.03 kg/m OB Status Hysterectomy Smoking Status Never BSA 2.72 m LABS: Lab Results Component Value Date WBC 9.5 08/03/2024 HGB 13.6 08/03/2024 HCT 42.6 08/03/2024 MCV 88 08/03/2024 PLT 326 08/03/2024 Lab Results Component Value Date GLUCOSE 90 08/03/2024 CALCIUM 8.8 08/03/2024 NA 143 08/03/2024 K 4.3 08/03/2024 CO2 24 08/03/2024 CL 112 (H) 08/03/2024 BUN 12 08/03/2024 CREATININE 0.80 08/03/2024 Coagulation Screen Order: [id number] Status: Final result Visible to patient: Yes (seen) Dx: Preop testing 1 Result Note 1 Patient Communication Component Ref Range & Units 2 d ago 2 yr ago Protime 9.8 - 12.8 seconds 11.1 10.2 R INR 0.9 - 1.1 1.0 0.9 aPTT 27 - 38 seconds 32 29 R, CM Resulting Agency [facility] Narrative Performed by: [facility] The APTT is no longer used for monitoring Unfractionated Heparin Therapy. For monitoring Heparin Therapy, use the Heparin Assay. Specimen Collected: 08/03/24 15:01 Lab Results Component Value Date HGBA1C 5.7 (H) 08/03/2024 EKG 08/03/24 NSR Incomplete RBBB Borderline EKG Vent rate = 59 bpm Assessment and Plan: Patient is a 38-year-old female scheduled for a C4-C6 ACDF with Dr. Nuñez on 08/09/24. Patient has no active cardiac symptoms. Patient denies any chest pain, tightness, heaviness, pressure, radiating pain, palpitations, irregular heartbeats, lightheadedness, cough, congestion, shortness of breath, MATTSON, PND, near syncope, weight loss or gain. RCRI 0 , 3.9 % Risk of MACE Neuro: Migraine H/A - hold triptan dos; cont topiramate on dos Hematology: Patient instructed to ambulate as soon as possible postoperatively to decrease thromboembolic risk. Initiate mechanical DVT prophylaxis as soon as possible and initiate chemical prophylaxis when deemed safe from a bleeding standpoint post surgery. LABS: CBC, BMP, T&S, Coag, MRSA , A1c and EKG ordered Followup: Labs, MRSA and A1c pending Addendum 08/05/24: Labs reviewed and unremarkable STOP BANG: obese = 1 Caprini: 3 Risk assessment complete. Patient is scheduled for a intermediate surgical risk procedure. Preoperative medication instructions were provided and reviewed with the patient. Any additional testing or evaluation was explained to the patient. Nothing by mouth instructions were discussed and patient's questions were answered prior to conclusion to this encounter. Patient verbalized understanding of preoperative instructions given in preadmission testing; discharge instructions available in EMR. This note was dictated by a speech recognition. Minor errors may have been detected in a speech recognition. documented in this encounter [facility] Work Phone: 07-26-2024 History of Present illness Narrative Subjective Patient ID: Tj Villanueva is a 38 y.o. female who presents for HPI Date of surgery: 08/09/2024 Who is the doctor performing the surgery: Dr.Eubanks PAMELA What is the patient having done: C4,5,6 discectomy and fusion Does the patient have a form that needs to be filled out: N Tests required for clearance: Y History of problems with anesthesia: denies Family history of problems with anesthesia: denies History of difficult intubation: denies. No denture or removable oral items. Exercise capacity: able to walk four blocks without symptoms. Lifestyle factors: denies alcohol and tobacco use. Symptoms: none, no chest pain, no dyspnea, no edema and no palpitations. The [employer] recommends use of a validated tool to assess risk for major adverse cardiac events in order to complete preoperative risk assessment (surgical clearance evaluation). One such tool is the RCRI score (1 point for each). High-risk surgery (intrathoracic, intraabdominal or vascular surgery): N Coronary artery disease or [place]: N Congestive heart failure: N Stroke or TIA: N Insulin treatment for diabetes mellitus: N Preoperative serum creatinine > 2.0 mg/dL: lab pending You have none of these (score 0). A score of 0 or 1 indicates low risk of major cardiac adverse events. If risk by this calculator is elevated (2 or more), risk is determined by functional capacity. If excellent functional capacity- 10 mets or more, such as strenuous sports participation- clear for surgery. If good functional capacity- 7-10 mets, such as run a short distance, climb stairs, doubles tennis- clear for surgery. If moderate functional capacity- 4-6 mets, such as walk on level ground at 4mph, do light housework- clear for surgery. If poor functional capacity- 1-3 mets, such as eating, dressing, walking a block or two at 2-3 mph, but cardiac symptoms at any higher activity- need cardiac consultation, consideration of stress test or cath before procedure. You are at 7 functional capacity. Review of Systems All other systems reviewed and are negative. Objective BP 130/61 (BP Location: Right arm, Patient Position: Sitting, BP Cuff Size: Large adult) Pulse 78 Temp 36.6 C (97.8 F) (Temporal) Resp 16 Wt 138 kg (305 lb) LMP 10/02/2020 SpO2 96% BMI 36.17 kg/m Physical Exam Constitutional: Well developed, well nourished, alert and in no acute distress Eyes: Normal external exam. Neck: Supple, no lymphadenopathy or masses. No thyromegaly. Cardiovascular: Regular rate and rhythm, normal S1 and S2, no murmurs, gallops, or rubs. Radial pulses normal. No peripheral edema. Pulmonary: No respiratory distress, lungs clear to auscultation bilaterally. No wheezes, rhonchi, rales. Skin: Warm, well perfused, normal skin turgor and color. Neurologic: Cranial nerves II-XII grossly intact. Psychiatric: Mood calm and affect normal. Assessment/Plan RCRI score is 0. Functional capacity is estimated to be 7. Pending pre-anesthesia evaluation on 08/03 (EKG, labs) Currently, this patient is considered low risk for surgical procedures. documented in this encounter [facility] Work Phone: 07-20-2024 History of Present illness Narrative HPI:Tj Villanueva is a 38-year-old woman with past medical history significant for prior lumbar decompression with Dr. Raissa Cross in 2021. According the patient, her radicular and back symptoms did not improve after that surgery. She continues to have back and radicular symptoms. Unfortunately, more recently, last few months she has developed bilateral upper extremity numbness and tingling. She reports arm pain and neck pain. She has had medications including Lyrica as well as pain management. An MRI was recently done which she comes review today. She is unable to do some of her activities of daily living secondary to terrible radicular pain. ROS: Reviewed on EMR and patient intake sheet. PMH/SH: Reviewed on EMR and patient intake sheet. Exam: Physical Exam Constitutional: Well appearing; no acute distress Eyes: pupils are equal and round Psych: normal affect Respiratory: non-labored breathing Cardiovascular: regular rate and rhythm GI: non-distended abdomen Musculoskeletal: no pain with range of motion of the shoulders bilaterally; no signs of impingement Neurologic: [4+]/5 strength in the upper extremities bilaterally]; [negative] Jacob's; [no hyper-reflexia] Radiology: MRI was personally reviewed. She has a left paracentral disc osteophyte complex at C4-5 with resulting moderate foraminal narrowing and cord rotation. She has a very large C5-C6 disc herniation producing severe spinal cord compression and deformation and the suggestion of some cord signal change. Diagnosis: Cervical stenosis; cervical spinal cord compression; cervical radiculopathy Assessment and Plan: 38-year-old woman with intractable cervical radiculopathy secondary to a massive C5-6 disc herniation producing spinal cord compression. Because of the significant spinal cord compression and intractable pain, the patient is not a good candidate for physical therapy. Indeed physical therapy is contraindicated. She will require an anterior cervical discectomy and fusion to prevent further neurologic worsening and to achieve relief of her terrible radicular pain. We discussed doing a C4-C6 ACDF. Relative CPT codes include: 14313 and 70710 [place] [address] [place] [address] for the MTF allograft spacer [place] demineral[place] [address] for the anterior cervical plate. Patient is a non-smoker. We discussed surgery today at length, including the specifics of the actual proposed procedure, the projected hospital course and post-operative recovery or rehabilitation, and the expected results of this surgery. The potential benefits and risks of the proposed surgery include, but are not limited to, those of infection, spinal fluid leaks, nerve injury or paralysis, whether that be complete or partial paralysis, C5 palsy, dysphagia, hoarseness or vocal cord paralysis, instrumentation failure, non-union, future adjacent segment disease, epidural hematoma, wound dehiscence, esophageal injury, vascular injury, and the general risks of anaesthesia including, but not limited to those of stroke, heart attack, respiratory difficulties and . The patient understands that there are no guarantees in regard to outcome or potential complications associated with the proposed procedure. After this discussion, the patient articulated understanding of the topics covered and felt that all questions had been covered and answered satisfactorily. She would like to proceed to soon as possible. The patient was in agreement with the plan. At the end of the visit today, the patient felt that all questions had been answered satisfactorily. The patient was pleased with the visit and very appreciative for the care rendered. Thank you very much for the kind referral. It is a privilege, and a pleasure, to partner with you in the care of your patients. I would be delighted to assist you with any further consultations as needed. Dustin Nuñez MD Chief of Spine Surgery, [facility] Director of Spine Service, [facility] [employer], Department of Orthopaedics [facility] Medicine [address] [place] [address] P: [phone] [facility] This note was dictated with voice recognition software. It has not been proofread for grammatical errors, typographical mistakes or other semantic inconsistencies. documented in this encounter [facility] Work Phone: 06-21-2024 History of Present illness Narrative Subjective Patient ID: Tj Villanueva is a 38 y.o. female who presents for Neck Pain and Back Pain. HPI Chronic Neck Pain Average pain is 7/10 Progressively worsening Has numbness in bilateral hands/fingers, no weakness Has to hug a pillow at night time to alleviate the hand/finger symptoms, but this is no longer helping The pressure from her bra straps causes worsening neck pain and she develops lower cervical and upper thoracic numbness Xray cervical 05/2023- IMPRESSION: No acute osseous abnormality of the cervical spine Never had an MRI Dad had DDD No ALY to neck Patient has been taking ibuprofen, already taking gabapentin but still has breakthrough pain Has not tried a muscle relaxer, steroid Had a NCT in 2018 at [facility] Xray thoracic 2021- IMPRESSION: Mild upper thoracic multilevel discogenic degenerative disease. No acute findings thoracic spine. Has not tried PT or massotherapy for her neck yet Has not been to pain management recently due to school,injections were not helping alleviate her pain (low back issues) Review of Systems Musculoskeletal: Positive for arthralgias, back pain, myalgias and neck pain. Neurological: Positive for numbness. Negative for weakness. All other systems reviewed and are negative. Objective BP 112/73 (BP Location: Right arm, Patient Position: Sitting, BP Cuff Size: Large adult) Pulse 70 Temp 36.3 C (97.3 F) (Temporal) Resp 16 Wt 139 kg (307 lb) LMP 10/02/2020 SpO2 97% BMI 37.37 kg/m Physical Exam Constitutional: Well developed, well nourished, alert and in no acute distress Eyes: Normal external exam. Neck: Supple, no lymphadenopathy or masses. Vertebral spinous process NTTP, +spurling exam on right, +muscle tissue tension and spasm on right T 3-7, decreased sensation to touch from C7-T4 region midline, discomfort with cervical flexion. Normal hand manager it security bilaterally and finger to thumb ROM, negative tap testing. Cardiovascular: No peripheral edema. Pulmonary: No respiratory distress Skin: Warm, well perfused, normal skin turgor and color. Neurologic: Cranial nerves II-XII grossly intact. Psychiatric: Mood calm and affect normal. Assessment/Plan NCT/EMG ordered MRI Cervical and thoracic spine ordered Start Robaxin muscle relaxer at night time. This may cause drowsiness. Start prednisone burst x 7 days as directed. Practice proper posture, continue daily stretches/exercises documented in this encounter [facility] Work Phone: 11-21-2023 History of Present illness Narrative Associated Order(s): Anoscopy Subjective Patient ID: Tj Villanueva is a 37 y.o. female who presents today with hemorrhoidal issues. HPI She has had the hemorrhoids since the of her children. She started having issues with the hemorrhoids over the past few years. She has been having constipation and diarrhea for the past few years. She will have a soft-hard BM every other day to every few days with straining. She can sit long on the toilet to have a BM. If she has diarrhea, she will have 2-6 loose BM's every day. She has taken fiber gummies and Miralax but nothing is helping. She will have rectal bleeding that comes and goes with her BM's. She will have pain with her BM's as well. The pain can be sharp glass like pain and achy pains with her BM's. No c/o any accidents of stool but she will have a little leakage of stool over the past 6 months. She has had 3 vaginal births with 1 tear. No colonoscopy or any perianal surgeries. Maternal grandmother colon and rectal cancer Hx of a vaginal wart many years ago that was not removed. Review of Systems All other systems reviewed and are negative. Objective Physical Exam Constitutional: Appearance: Normal appearance. HENT: Head: Normocephalic and atraumatic. Pulmonary: Effort: Pulmonary effort is normal. Musculoskeletal: General: Normal range of motion. Skin: General: Skin is warm and dry. Neurological: General: No focal deficit present. Mental Status: She is alert and oriented to person, place, and time. Psychiatric: Mood and Affect: Mood normal. Behavior: Behavior normal. Anoscopy Date/Time: 11/26/2023 1:20 PM Performed by: SULEIMAN Ross Authorized by: SULEIMAN Ross Consent: Consent obtained: Verbal Consent given by: Patient Risks, benefits, and alternatives were discussed: yes Dennis protocol: Procedure explained and questions answered to patient or proxy's satisfaction: yes Patient identity confirmed: Verbally with patient Post-procedure details: Procedure completion: Tolerated Comments: She has 2 small anal condyloma on the right lateral position and a very tiny one on the left lateral position. No external hemorrhoids. On anoscopy, she has mild irritation of the internal hemorrhoids. No condyloma seen. No active bleeding. Assessment/Plan Tj has 3 areas of small anal condyloma that need to be removed. We talked about the risk and benefits of removing the condyloma and she would like to proceed. I will schedule her to have and EUA, excision of condyloma and HRA with Dr. Tarango. For her constipation, she will start taking Metamucil 1-2x/day and Smooth move tea and/or Miralax to keep her stools more soft. For her change in BM's, she will schedule to have a colonoscopy in the near future. She will call with any issues. SULEIMAN Ross 11/21/23 3:02 PM documented in this encounter [facility] Work Phone: 11-18-2023 History of Present illness Narrative Subjective Patient ID: Tj Villanueva is a 37 y.o. female who presents for lump in armpit x3-4 months. Patient states that she noticed the change in size on Friday. HPI X 3 weeks Patient has noted a swelling/mass noted at proximal axilla There is some TTP No skin changes, rashes, fevers Has had a mammogram in past, showed dense tissue No recent vaccinations Had a recent URI 1-2 weeks ago Review of Systems Constitutional: Negative for chills and fever. Skin: Negative for color change and rash. Objective BP 121/71 (BP Location: Left arm, Patient Position: Sitting, BP Cuff Size: Large adult) Pulse 75 Temp 36.6 C (97.9 F) (Temporal) Resp 16 Wt 142 kg (314 lb) LMP 10/02/2020 SpO2 98% BMI 38.22 kg/m Physical Exam Constitutional: Well developed, well nourished, alert and in no acute distress Eyes: Normal external exam. Cardiovascular: No peripheral edema. Pulmonary: No respiratory distress Skin: Warm, well perfused, normal skin turgor and color. Neurologic: Cranial nerves II-XII grossly intact. Psychiatric: Mood calm and affect normal. Axilla: +large, soft, mobile superficial subcutaneous mass palpated at proximal/medial region of left axilla with mild TTP Assessment/Plan US lymph node left axilla Screening mammogram ordered for the year documented in this encounter [facility] Work Phone: 06-13-2023 History and physical note History Of Present Illness Tj Villanueva is a 37 y.o. female presenting for lumbar medial branch block. Past Medical History Past Medical History: Diagnosis Date Acute upper respiratory infection, unspecified 06/04/2021 Viral URI with cough Acute upper respiratory infection, unspecified 08/16/2021 Viral URI with cough Encounter for other orthopedic aftercare 02/28/2022 Encounter for other orthopedic aftercare Encounter for screening for infections with a predominantly sexual mode of transmission 12/18/2020 Screening for STDs (sexually transmitted diseases) Headache, unspecified 01/10/2021 Acute nonintractable headache, unspecified headache type Impaired fasting glucose 10/26/2020 Elevated fasting glucose Mastodynia 01/31/2021 Breast pain in female Mastodynia 01/31/2021 Breast pain, left Nausea 01/10/2021 Nausea in adult Nonscarring hair loss, unspecified 03/07/2022 Hair loss Other muscle spasm 12/05/2020 Trapezius muscle spasm Other specified noninflammatory disorders of vagina 12/18/2020 Vaginal odor Pain, unspecified 03/16/2021 Body aches Pain, unspecified 01/10/2021 Body aches Personal history of diseases of the skin and subcutaneous tissue 08/06/2021 History of psoriasis Personal history of diseases of the skin and subcutaneous tissue 04/24/2022 History of urticaria Personal history of other diseases of the female genital tract 10/24/2020 History of ovarian cyst Personal history of other diseases of the respiratory system 08/16/2021 History of paranasal sinus congestion Surgical History Past Surgical History: Procedure Laterality Date OTHER SURGICAL HISTORY 10/24/2020 Eye surgery OTHER SURGICAL HISTORY 10/30/2020 Hysterectomy Social History She reports that she has never smoked. She has been exposed to tobacco smoke. She has never used smokeless tobacco. She reports that she does not currently use alcohol. She reports that she does not use drugs. Family History Family History Problem Relation Name Age of Onset Hyperlipidemia Mother Thyroid cancer Mother Surgically removed- radiation done Other (histoplasmosis) Father Skin cancer Father Diabetes Father Aplastic anemia Brother in remission Hyperlipidemia Brother Acute lymphoblastic leukemia Daughter Bernabe in remission ADD / ADHD Daughter Alex Breast cancer Maternal Grandmother Colon cancer Maternal Grandmother Rectal cancer Maternal Grandmother Dementia Maternal Grandmother Breast cancer Paternal Grandmother Lung cancer Paternal Grandmother Skin cancer Paternal Grandmother Celiac disease Paternal Grandmother Prostate cancer Paternal Grandfather Metastisized into bone cancer Allergies Patient has no allergy information on record. Review of Systems Respiratory: Negative for shortness of breath. Cardiovascular: Negative for chest pain. Psychiatric/Behavioral: Negative for suicidal ideas. Physical Exam Cardiovascular: Rate and Rhythm: Normal rate. Pulmonary: Effort: Pulmonary effort is normal. Neurological: Mental Status: She is alert and oriented to person, place, and time. Psychiatric: Mood and Affect: Mood normal. Last Recorded Vitals Pulse 65, temperature 35.7 C (96.3 F), temperature source Tympanic, resp. rate 20, last menstrual period 10/02/2020, SpO2 97 %. Assessment/Plan Active Problems: There are no active Hospital Problems. No contraindication for the scheduled procedure. Star Gerard MD [facility] Work Phone: 06-13-2023 History and physical note History Of Present Illness Tj Villanueva is a 37 y.o. female presenting for lumbar medial branch block. Past Medical History Past Medical History: Diagnosis Date Acute upper respiratory infection, unspecified 06/04/2021 Viral URI with cough Acute upper respiratory infection, unspecified 08/16/2021 Viral URI with cough Encounter for other orthopedic aftercare 02/28/2022 Encounter for other orthopedic aftercare Encounter for screening for infections with a predominantly sexual mode of transmission 12/18/2020 Screening for STDs (sexually transmitted diseases) Headache, unspecified 01/10/2021 Acute nonintractable headache, unspecified headache type Impaired fasting glucose 10/26/2020 Elevated fasting glucose Mastodynia 01/31/2021 Breast pain in female Mastodynia 01/31/2021 Breast pain, left Nausea 01/10/2021 Nausea in adult Nonscarring hair loss, unspecified 03/07/2022 Hair loss Other muscle spasm 12/05/2020 Trapezius muscle spasm Other specified noninflammatory disorders of vagina 12/18/2020 Vaginal odor Pain, unspecified 03/16/2021 Body aches Pain, unspecified 01/10/2021 Body aches Personal history of diseases of the skin and subcutaneous tissue 08/06/2021 History of psoriasis Personal history of diseases of the skin and subcutaneous tissue 04/24/2022 History of urticaria Personal history of other diseases of the female genital tract 10/24/2020 History of ovarian cyst Personal history of other diseases of the respiratory system 08/16/2021 History of paranasal sinus congestion Surgical History Past Surgical History: Procedure Laterality Date OTHER SURGICAL HISTORY 10/24/2020 Eye surgery OTHER SURGICAL HISTORY 10/30/2020 Hysterectomy Social History She reports that she has never smoked. She has been exposed to tobacco smoke. She has never used smokeless tobacco. She reports that she does not currently use alcohol. She reports that she does not use drugs. Family History Family History Problem Relation Name Age of Onset Hyperlipidemia Mother Thyroid cancer Mother Surgically removed- radiation done Other (histoplasmosis) Father Skin cancer Father Diabetes Father Aplastic anemia Brother in remission Hyperlipidemia Brother Acute lymphoblastic leukemia Daughter Bernabe in remission ADD / ADHD Daughter Alex Breast cancer Maternal Grandmother Colon cancer Maternal Grandmother Rectal cancer Maternal Grandmother Dementia Maternal Grandmother Breast cancer Paternal Grandmother Lung cancer Paternal Grandmother Skin cancer Paternal Grandmother Celiac disease Paternal Grandmother Prostate cancer Paternal Grandfather Metastisized into bone cancer Allergies Patient has no allergy information on record. Review of Systems Respiratory: Negative for shortness of breath. Cardiovascular: Negative for chest pain. Psychiatric/Behavioral: Negative for suicidal ideas. Physical Exam Cardiovascular: Rate and Rhythm: Normal rate. Pulmonary: Effort: Pulmonary effort is normal. Neurological: Mental Status: She is alert and oriented to person, place, and time. Psychiatric: Mood and Affect: Mood normal. Last Recorded Vitals Pulse 65, temperature 35.7 C (96.3 F), temperature source Tympanic, resp. rate 20, last menstrual period 10/02/2020, SpO2 97 %. Assessment/Plan Active Problems: There are no active Hospital Problems. No contraindication for the scheduled procedure. Star Gerard MD documented in this encounter [facility] Work Phone: 06-13-2023 Miscellaneous Notes *Procedure Note Date: 06/13/2023 OR Location: [facility] NON-OR PROCEDURES Name: Tj Villanueva, : 1985, Age: 37 y.o., , Sex: female Diagnosis Preprocedure diagnosis: lumbar spondylosis Postprocedure diagnosis: Same Procedures Bilateral L3, 4, 5 lumbar medial branch block The patient was seen in the preoperative area. The risks, benefits, complications, treatment options, non-operative alternatives, expected recovery and outcomes were discussed with the patient. The patient concurred with the proposed plan, giving informed consent. Procedure Details: The patient was taken to the procedure area, placed in prone position. The low back was cleaned with ChloraPrep and draped with the usual sterile precautions. Junctions of superior articular process and transverse process was identified in oblique fluoroscopy, 25-gauge 5 inch needles as advanced under AP, oblique, lateral fluoroscopy to junction of SAP and transverse process for Bilateral L3 and L4 medial branches. For dorsal ramus of L5 the needle was advanced to the sacral ala. Contact with the os was made. The position of the needles were confirmed with 0.5 mL of Omnipaque. After negative aspiration 0.5 mL of 0.5% ropivacaine was injected at each level. Fletcher were then removed, the patient tolerated the procedure without any complications. Complications: None; patient tolerated the procedure well. Disposition: home Condition: stable Additional Details: NA Attending Attestation: I performed the procedure. Star Gerard MD documented in this encounter [facility] Work Phone: 06-13-2023 Note Formatting of this n ote might be different from the original. *Procedure Note Date: 06/13/2023 OR Location: [facility] NON-OR PROCEDURES Name: Tj Villanueva, : 1985, Age: 37 y.o., , Sex: female Diagnosis Preprocedure diagnosis: lumbar spondylosis Postprocedure diagnosis: Same Procedures Bilateral L3, 4, 5 lumbar medial branch block The patient was seen in the preoperative area. The risks, benefits, complications, treatment options, non-operative alternatives, expected recovery and outcomes were discussed with the patient. The patient concurred with the proposed plan, giving informed consent. Procedure Details: The patient was taken to the procedure area, placed in prone position. The low back was cleaned with ChloraPrep and draped with the usual sterile precautions. Junctions of superior articular process and transverse process was identified in oblique fluoroscopy, 25-gauge 5 inch needles as advanced under AP, oblique, lateral fluoroscopy to junction of SAP and transverse process for Bilateral L3 and L4 medial branches. For dorsal ramus of L5 the needle was advanced to the sacral ala. Contact with the os was made. The position of the needles were confirmed with 0.5 mL of Omnipaque. After negative aspiration 0.5 mL of 0.5% ropivacaine was injected at each level. Fletcher were then removed, the patient tolerated the procedure without any complications. Complications: None; patient tolerated the procedure well. Disposition: home Condition: stable Additional Details: NA Attending Attestation: I performed the procedure. Star Gerard MD [facility] Work Phone: 05-07-2023 History of Present illness Narrative Subjective Patient ID: Tj Villanueva is a 37 y.o. female who presents for Headache and smelling issue (Smelling cigarette smoke x3 months- no one smokes in home or around pt). Pt declined flu shot today. HPI X 3-4 month Headaches-reports h/o migraines States she has been noticing a cigarette smoke smell in various locations when it is not present. This occurs intermittently, no triggers or trend noted. [place]IN is located around forehead, similar to a tension [place]. Better with napping. Migraines occur typically 1x/month on average. Does have visual aura. Has no associated s/s, [place]IN does not wake her up out of sleep, not worse with activity or coughing Last episode of covid was 2020, had lost sense of smell at that time Takes tylenol and ibuprofen which does improve the headache Has a headache few times a week Admits to stress-work She is not sleeping, but not new due to back pain Not taking Prozac, has been off of it the past few months Denies nasal congestion or allergies,no nosebleeds, change in vision No new supplements or changes in medications Denies neck pain PHQ-9:14 ADAMA:20 Admits to anxiety and depression, feels overwhelmed Emotions are cycling Denies SI Appetite-reduced, but eating regularly Hydrating well Contacted her prior counselor, pending appointment Review of Systems See HPI Objective BP 121/71 (BP Location: Left arm, Patient Position: Sitting, BP Cuff Size: Large adult) Pulse 62 Temp 36.2 C (97.2 F) (Temporal) Resp 16 Wt 144 kg (317 lb 3.2 oz) LMP 10/02/2020 SpO2 98% BMI 38.61 kg/m Physical Exam Constitutional: Well developed, well nourished, alert and in no acute distress Eyes: Normal external exam. Nose: +bilateral dryness with erythema and mild swelling of turbinates. Neck: Supple, no lymphadenopathy or masses. No vertebral TTP. +muscle tension bilateral suboccipital region with TTP. Cardiovascular: No peripheral edema. Pulmonary: No respiratory distress Skin: Warm, well perfused, normal skin turgor and color. Neurologic: Cranial nerves II-XII grossly intact. Psychiatric: Mood calm and affect normal. Assessment/Plan START counseling I personally have reviewed the [place]AR[place] report for this patient. This report is scanned into the electronic medical record. I have considered the risks of abuse, dependence, addiction and diversion. I believe that it is clinically appropriate for the patient to be prescribed this medication. RESTART Xanax only as needed Practice deep breathing and relaxation techniques Use pressure point techniques on suboccipital region START nasal saline rinse 2-3x/day for the next 2 weeks Consider FMLA Follow up in 4 weeks or sooner if needed documented in this encounter [facility] Work Phone: 01-03-2023 Note Pre-procedure Verifi cation and Time Out: Pre-Procedure Verification and Time Out: Procedure Locationprocedure area HUDDLE - Pre-procedure Verificationcompleted TIME OUT - Final Verificationcompleted immediately prior to procedure start DEBRIEFcompleted General Information: Anesthesia Critical Care: Non-Anesthesia Date/Time of Procedure: 03-Jan-2023 08:42 Post-Procedure Diagnosis: Bilateral sacroiliac joint dysfunction Procedure Name: Bilateral sacroiliac joint injection Findings: grossly normal anatomy Procedure performed by: ri Register Of Wills(s): none Estimated Blood Loss (mL): none Specimen: no Informed Consent: written consent obtained Procedure Details: Procedure Details: The patient does not have contraindications for the procedure. Discussed risk, benefits and alternatives. Also risk related to COVID-19 infection discussed with the patient including the contiguous nature of COVID-19 that there is an inherent risk of being infected with COVID-19 by proceeding with this elective procedure. The patient understands the risk and wishes to proceed with elective procedure. The patient was placed in the prone position, and the skin overlying the bilateral sacroiliac joint space was properly prepared with antiseptic solution. With strict aseptic technique, the posterior superior spine of the ilium was identified. The skin at the needle entry site was anesthetized with 5 mL 1% lidocaine with a 25-gauge needle. At this point, a 3.5 inch 35-gauge spinal needle was carefully advanced through the skin and subcutaneous tissues at a 45-degree angle toward the bilateral sacroiliac joint. After the joint space was entered, after negative aspiration a solution containing 40 mg of Kenalog and 2mL of 0.5% ropivacaine was injected into each SI joint, without any resistance or paresthesia. The needle was then removed, and a sterile dressing was applied. The patient was then moved to recovery in stable condition. Tolerance: good Attestation: Note Completion: Attending AttestationI performed the procedure without a resident Electronic Signatures: Star Gerard) (Signed 03-Jan-2023 08:43) Authored: Pre-procedure Verification and Time Out, General Information, Procedure Details, Note Completion Last Updated: 03-Jan-2023 08:43 by Star Gerard) [facility] 12-10-2022 History of Present illness Narrative Subjective Patient ID: Tj Villanueva is a 37 y.o. female who presents for Annual Exam (Pain in right side of stomach for last 2 weeks. Can feel a bump under the skin that she can move when touching. ) HPI Diet: well rounded Supplements/vitamins: none Alcohol use: none Caffeine intake: Y, coffee daily Exercise: Minimal Sleep: not well, due to pain. Last dental appointment: few years Last eye appointment: wears corrective lenses, appt scheduled in January Anxiety/Depression: PHQ-9:6, ADAMA-7: 6 . Taking Prozac 40mg daily. Denies depression or anxiety. More so acute stress. Wants to trial 20mg. Contraception: hysterectomy Last pap smear: no [employer]. Had precancerous cells, +HPV. Hysterectomy and endometriosis. Mammogram: . Saw breast specialist. Taking evening primrose, which has helped somewhat. Fmhx breast cancer: N Cscope: n/a Fmhx colon cancer: Maternal Gma (rectal/colon) Tobacco use/Lung cancer screening: N Recreational drug use: N Immunizations: due for Tdap Specialists: Pain Management, Ortho, Breast specialist Migraine with aura Taking Topamax Gets a migraine 1-2x/month Review of Systems All other systems reviewed and are negative. Objective BP 110/69 (BP Location: Left arm, Patient Position: Sitting, BP Cuff Size: Large adult) Pulse 70 Temp 37.3 C (99.2 F) (Temporal) Resp 12 Ht 1.93 m (6' 4) Wt 143 kg (315 lb 4.8 oz) LMP 10/02/2020 SpO2 96% BMI 38.38 kg/m Physical Exam Constitutional: Well developed, well nourished, alert and in no acute distress. Head and Face: Normocephalic, atraumatic. Eyes: Normal external exam. Pupils equally round and reactive to light with normal accommodation and extraocular movements intact. ENT: External inspection of ears normal, tympanic membranes visualized and normal. Nasal mucosa, septum, and turbinates normal. Oral mucosa moist, oropharynx clear. Neck: Supple, no lymphadenopathy or masses. Thyroid not enlarged, no palpable nodules. Cardiovascular: Regular rate and rhythm, normal S1 and S2, no murmurs, gallops, or rubs. Radial pulses normal. No peripheral edema. No carotid bruits. Pulmonary: No respiratory distress, lungs clear to auscultation bilaterally. No wheezes, rhonchi, rales. Abdomen: Soft, nontender, nondistended, normal bowel sounds. No masses palpated. Musculoskeletal: Gait normal. Muscle strength/tone normal of all 4 extremities. Normal range of motion of all extremities. Skin: Warm, well perfused, normal skin turgor and color, no lesions or rashes noted. Neurologic: Cranial nerves II-XII grossly intact. Deep tendon reflexes were 2+ and symmetric. Sensation normal bilaterally. Psychiatric: Mood calm and affect normal. Assessment/Plan Recommendations for women annual wellness exam: Make sure screenings for cervical and breast cancer are up to date if applicable- pap smears age 21-65-[employer] Discuss mammogram starting at age 40 or sooner if positive family history of breast cancer STD screening Follow a healthy diet (Dash diet, Mediterranean diet) Exercise 150 min/wk Maintain healthy weight (BMI < 25)-your BMI is 38. Do not smoke Alcohol in moderation (up to 1 drink/day) Get enough sleep (7-8 hours/night) Take a vitamin with folic acid if possibility of Make sure immunizations are up to date (influenza, Tdap)-Tdap administered today. Premenopausal women need minimum 1,000 mg calcium and 600-800 IU vitamin D daily (combination of diet + supplement) Talk to your physician if you have concerns about depression or anxiety Visit dentist twice yearly Colon Cancer Screening-n/a Due for labs in the Fall 2022, recheck a1c documented in this encounter [facility] Work Phone: 01-01-2022 History of Present illness Narrative Tj is 3 weeks postop from a L4-5 laminectomy and right-sided partial discectomy performed by Dr. Cross on 01/01.She is currently concerned with some of her residual symptoms since surgery. She states her right leg radiculopathy has not improved since surgery, she has pain in her right buttock that radiates down to her thigh with residual numbness and tingling down her foot. Her right foot weakness has slowly been improving since surgery. She has been participating in at home physical therapy, which she recently completed. Her low back pain has improved since surgery, but continues to be at least 5/10 and at its worst 8/10. She is having difficulty sleeping due to pain.She continues to take gabapentin which she states not helping her symptoms. She is taking Tylenol and Robaxin for pain control. She discontinued use of the oxycodone and would not like a refill today.On exam slow balanced gait with use of a cane. Full strength lower extremities bilaterally with the exception of 3/5 strength of the right foot with dorsiflexion. Her incision is we healing well without excessive drainage or redness.A prescription for prednisone 20 mg was sent to her pharmacy for inflammation. A referral for outpatient physical therapy was provided today. I would like her to call the office to check in in the next 1 to 2 weeks, if the prednisone does not help calm down some of her residual radicular symptoms I would consider a updated MRI of the lumbar spine.This note was dictated using speech recognition software and was not corrected for spelling or grammatical errors. OQ-Aacphsqgggjw-Cfyrzv Work Phone: 12-30-2021 History of Present illness Narrative Ms. Tj Villanueva is a 36-year-old female who was seen in our clinic today for second opinion for chronic low back pain. States that she has a history of chronic low back pain and was also having right radicular leg pain. She was seeing Dr. Cross at that time and was found to have a large disc extrusion at L4-L5. She underwent an L4-L5 laminectomy and discectomy in December 2021. No complication with surgery. Majority of the radicular leg pain seem to have resolved. She was having pain along the right anterior thigh and rausch and foot. After the surgery she continued to have low back pain and occasional pain in the right buttock anterior thigh And Top of the right foot. States that the leg pain comes and goes depending on activity usually worse with standing walking repetitive bending and lifting. However the low back pain is constant. About 80% of the pain is low back pain 20% leg pain. No bowel or bladder disturbances occasionally she will have some mild leakage after urination but that is been present even before her surgery likely from her history of vaginal deliveries.Patient did do some physical therapy after her surgery however she did only a couple sessions of physical therapy and then stopped going in started doing home exercises on her own. She states that she may be does not twice a week. She is also seeing Dr. Gerard from pain management. She underwent a L4-L5 right transforaminal injection in March which she states did not help. She also underwent ketamine infusion which she states also did not help with her back pain. She is currently on Lyrica which helps with the leg pain but not with the back pain.She has a pedroza does not smoke does not drink alcohol. 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 Does not follow any routine exercise program except for the occasional exercises she does on her own. -[facility] Work Phone: 12-12-2021 History of Present illness Narrative New Consult NoteReferring Provider: PCP 's Date: 12/12/2021ssessment: Very pleasant 36-year-old female presenting with low back pain and right lower extremity symptoms. History of psoriatic arthritis with positive HARMEET. sHe is established with rheumatology who recently started her on Humira. Currently on steroid taper without relief of her symptoms. Symptoms continue to be intermittently severe and affecting her ADLs.-Lumbar spondylosis with lumbar radiculopathy symptoms are severe and affecting her ADLs. Primarily affecting right lower extremity. She has both subjective and objective weakness throughout her right lower extremity with progressive neurogenic deficits.-Right hip pain-distribution of pain down right lower extremity does not fully match with findings that were appreciated on CT scan. Additionally, she notes occasional pain down the anterior thigh and into hip crease region. Some suspicion of hip involvement.PLAN:1) Imaging/Diagnostic Studies: Reviewed x-rays of the patient's sacroiliac joints from October 2021 showing mild osteoarthritis of bilateral SI joints. Reviewed thoracic spine x-rays from July 05, 2021 showing mild multilevel discogenic degenerative disease of the upper thoracic region. Order dedicated imaging of lumbar spine and right hip for further evaluation after today's visit. Ordered stat lumbar MRI for diagnostic and therapeutic planning purposes. Patient will be unable to fully participate in physical therapy at this time as she is experiencing severe pain. Additionally, she has objective weakness throughout right lower extremity with progressive neurogenic deficits. Patient had last lumbar MRI in 2019 however her symptoms have changed and have progressed substantially since that time. Report of last MRI details disc bulges at the L4-L5 and L5-S1 level. The L5-S1 level shows moderate right foraminal stenosis as well as an annular fissure.2) Therapy/Rehabilitation: New consult provided for physical therapy. Emphasized the importance of both physical therapy and a consistent at home exercise routine to reduce pain, increase function, and prevent reoccurrence of symptoms. Patient was advised to hold off on physical therapy until updated lumbar MRI.3) Pharmacological Management: New Rx for Gabapentin with instructions to titrate up to 600 mg TID. Patient was advised of potential sedative side effects. Patient was given a handout detailing proper tapering of this medication.4) Spine/Surgical Interventions: Pending updated MRI5) Alternative Treatments: May consider alternative treatment options in the future including manipulation (chiropractor versus osteopathic) and/or acupuncture if patient does not obtain optimal relief with initial treatment plan.6) Consultations: None at this time7) Follow -up: Post MRI to review findings and plan therapeutic options.8) Future treatment considerations: Pending updated MRI of the lumbar spine. Patient understands if she experiences worsening neurogenic deficit loss of bowel or bladder function that she is to seek immediate medical attention.Patient advised of the difference between hurt and harm and advised to continue with all normal activities and exercises. Patient verbalized understanding of the above plan and was happy with the care provided.The above clinical summary has been dictated with voice recognition software. It has not been proofread for grammatical errors, typographical mistakes, or other semantic inconsistencies.Thank you for visiting our office today. It was our pleasure to take part in your healthcare.Do not hesitate to call with any questions regarding your plan of care after leaving at To clinicians, thank you very much for this kind referral. It is a privilege to partner with you in the care of your patients. My office would be delighted to assist you with any further consultations or with questions regarding the plan of care outlined. Do not hesitate to call the office or contact me directly.Sincerely,Guillaume Andrade [facility], [place] - PM&R Interventional SpineWhalyssa Villanueva is a 36-year-old female who presents with LBP and right lower extremity symptoms. Seen in ED last week for severe pain.Location:Asserts b/l LBP starting at the thoracolumbar junction and down b/l aspects of lumbar region. Slightly worse on the R.Radiation: Pain radiates into Rt buttocks and down anterior aspect of the Rt LE into her great toe. Asserts N/T in this same distribution. Does assert sense of weaknessQuality: Sharp shooting pain down leg current 7/10, at its worst 10/10- throughout the last weekExacerbated by lifting objects/ bendingRelieved by nothingOnset, traumatic event: lengthy history of back pain that started with radicular symptoms with her . Worsening over the pastHas tried: ibuprofen, Voltaren gel. On humira for likely psoriatic arthritis. [place]-codone. Ice and heat. Received Dilaudid injecton in ED. Still on prednisone taper through Rheumatology.Valsalva sign is negativeSmoker: noAffects getting to and staying asleepLitigation: noPatient denies bowel/bladder incontinence, denies fever, denies unintentional weight loss, denies clumsiness of hands, feet, or dropping things. Denies any constitutional or myelopathic symptomatology.- some clumsiness of feetPREVIOUS TREATMENTS IN THE LAST SIX MONTHSActive conservative therapy in the last six months (see below)1. Physical therapy: no - last in . Home exercise program after PT: no3. A physician supervised home exercise program (HEP): no4. Advanced Manufacturing Consultant: noPassive conservative therapy in the last six months (see below)1. NSAIDS: yes, OTC2. Prescription pain medication: hydrocodon, several muscle relaxants3. Acupuncture: no4. 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 These were also obtained on new patient forms.PHYSICAL EXAM: Vitals taken and recorded separately. BP, Height/Weight reviewed.GENERAL APPEARANCE: Well nourished, well developed, and no apparent distress.NEURO PSYCH: Patient oriented to person, place, Mood pleasant. Benign affect.MUSCULOSKELETAL and NEUROLOGICALVISUAL INSPECTIONCERVICAL: WNLTHORACIC: WNLLUMBAR: WNLSPINE ROM:CERVICAL ROM: Grossly intact without pain elicitedLUMBAR ROM: Moderate reduction of flexion with reproduction of severe back pain. Extension slightly reduced without reproduction of painPALPATION:SPINOUS PROCESS: Nontender lumbarPARASPINALS: TTP over bilateral lower lumbar paraspinals worse on rightFACET LOADING: Positive on right lumbarMUSCLE BULK: Normal and symmetrical in the upper & lower extremities.MUSCLE TONE: NormalMOTOR: 5/5 in all muscle groups tested in left lower extremity. 4/5 in all muscle groups tested on the right lower extremity most prominent with knee extensionSENSORY: Reduced sensation throughout right L4, L5 and S1 distributionsGAIT: Antalgic gait. Slight difficulty with toe walk/raiseREFLEXES: +2 to bilateral U/L extremitiesLONG TRACT SIGNS: No clonus, Neg Hoffmans.STRAIGHT LEG TEST: Positive on right. Left-sided straight leg test cause pain on right sidePERIPHERAL JOINT ROM:HIP ROM: Full bilaterally-with vague reproduction of pain bilaterally worse on rightFABER/Thigh Thrust/Compression/Chirag Finger: Negative bilaterally with exception of positive right-sided FaberHip Exam including thigh thrust and LOG ROLL: Positive on rightSHOULDER ROM: Full bilaterallyDATA REVIEW:The below imaging studies were personally reviewed and discussed with the patient.Medical Decision Making: The above note constitutes a Moderate to High level of medical decision making based on past data and imaging review, new and chronic symptoms with exacerbation, change in weakness or sensation, new imaging and diagnostic studies ordered, discussion of potential interventional or surgical treatment options, acute or chronic pain that may pose a threat to bodily function. AF-Xistzmkserqw-Xibixc Work Phone: 12-08-2021 History of Present illness Narrative 1. [facility]: [facility]Reason: back painTaking Prednisone and Humira via Rheumatology. Tramadol didn't help her pain.Discharged with Flexeril and [place] #15Imaging:Xray SI joint-mild bilateral arthritic changesMRI L spine: L4 and L5 have patchy areas of edema and sclerosis next to L4-5 disc. L4-5 disc and L5-S1 disc have degenerative dessication and loss of height. L2-3 show mild arthritis, no stenosis. L4-5 severe central right spinal canal and mild left lateral recess stenosis 2/2 to disc protrusion. L5-S1 mildly stenosed by lateral disc protrusion.Ortho note 12/12/21:Seen by GEORGIE AndradeDX: lumbar spondylosis, lumbar radiculopathy, right hip painStarted on Gabapentin 300mg TID (titrating to 600mg TID), Physical Therapy. Has not started gabapentin yet as she has not been able to afford it yet due to finances.Meets with tomorrow (Neurosurgeon)Pain level today is 6/10Norco only takes the edge offComplains of weakness in RLE and bilateral thigh numbness (chronic on right inner thigh and new on left the past 1-2 weeks). Has not been able to drive.denies loss of urine/bladderReports her mother had back surgery around her ageConstipationTaking dulcolax, miralaxHaving daily BMs but are small and has to straindenies nausea, vomiting, abodminal pain+bloating [facility] Work Phone: 11-30-2021 History of Present illness Narrative 36-year-old female referred for evaluation of chronic lower back pain and acute to subacute right lower extremity pain. She has had chronic back pain for several years, over the last few weeks it has been particularly debilitating. She has had steadily worsening right buttock and leg radiating pain, L4/L5 nerve root distribution, for the last several months. It became so severe that a few weeks ago she had to go to the emergency room. She did physical therapy in 2019 for her lower back, things continue to worsen and when the leg pain began she was evaluated by our PM&R department. MRI was obtained that demonstrated a very large disc herniation and she was subsequently referred to me.She denies bowel or bladder incontinence.She is otherwise in fairly good health. She has been on prednisone for possible diagnosis of psoriatic arthritis.She does not smoke.I reviewed the complete 30-point review of systems that was documented on the scanned patient intake form. All other systems are non-contributory except as defined in history of present illness.Const: Well-appearing, well-nourished female in no distress.Eyes: Normal appearing sclera and conjunctiva, no jaundice, pupils normal in appearance.Resp: breathing comfortably, normal respiratory rate.CV: No upper or lower extremity edema.Musculoskeletal: Forward leaning, antalgic gait. Lumbar ROM is greatly restricted in all directions due to pain. Strength exam of the lower extremities reveals 5/5 strength in all major muscle groups with the exception of her right ankle dorsiflexors which are graded at 4/5. Positive straight leg raise test on the right.Neuro: Sensation is intact and equal bilaterally. Deep tendon reflexes are normal and symmetric. No clonus.Skin: Intact without any lesions, normal turgor.Psych: Alert and oriented x3, normal mood and affect.Reviewed x-rays and an MRI of her lumbar spine. X-rays demonstrate kyphotic alignment at the L4-5 disc space with straightening of the lumbar lordosis. This is consistent with muscle spasm. Her MRI shows a large, extruded disc herniation at L4-5 with cephalad migration up behind the L4 pedicle on the right side. This is causing severe central lateral recess stenosis.36-year-old female with massive disc herniation at L4-5, intractable right leg radicular symptoms for over 6 months acutely worsening over the last month. She is absolutely miserable at this point. We discussed continued conservative care versus surgical treatment, given the massive size of the disc herniation in her severe pain I am not so certain that injections are going to help this much at this point. She is physically unable to participate in physical therapy, she has some weakness in her right ankle dorsiflexors as well. I agree with her that pursuing surgery is the best option to alleviate her pain both in the short-term and long-term.I discussed the risks of surgery including bleeding, infection, paralysis, muscle weakness, CSF leak, bowel or bladder dysfunction, incomplete resolution of pain or numbness, DVT/PE, heart attack, stroke, and other unforeseen medical and anesthesia complications. I also explained that the typical success rates for operation such as this fall in the 80-85% range, and that there is a small chance that there will be no improvement, or even less commonly, worsening of the preoperative symptoms. She verbalized understanding of the risks, benefits, and alternatives to surgical treatment. The plan will be for L4-5 laminectomy and discectomy. Surgery was scheduled for January 01.This note was dictated using speech recognition software and was not corrected for spelling or grammatical errors. JB-Witbdzgwumse-Xncfbw Work Phone: 11-26-2021 History of Present illness Narrative Patient is coming in today with complaints of SI join pain on the right sideNo know injuryPatient is seeing Rheumatology and is currently on prednisone (started this last week), taking Humira (4 injections) for psoriatic arthritis. Next appointment is in December. Has not had relief from either medication. She failed diclofenac. She tried Voltaren gel which didn't help. Steroids are only taking the edge off of her pain.Has tried alternating ice/heatShe is going in for back injections ([facility]- Dr. Parrish) on 12/17/21Her pain level currently is a 10/10She c/o constipation due to the prednisone (which is exacerbating her back pain)Has pain in her right hip with radiation into her right thighCan't do house chores without excruciating painShe is taking OTC Aleve and TylenolDidn't do anything to exacerbate her s/sDid PT a long time agoHas pain with ambulationLast BM was Friday, normally has a BM once a dayHas pain sitting as well [facility] Work Phone: 11-19-2021 Miscellaneous Notes Patient requesting refill of Topamax 50 mg. Medication, dose, and refill interval all appropriate. However, patient not seen by an NI provider in 4 years. This RN called patient and advised her to make an office visit gadiel with Dr. Carlisle. Phone number provided for patient to make an appointment. Please review and process accordingly. ELMO: 10/30/2017 IMPRESSION: Migraine headache w aura PLAN: Increase topamax to 50/100. Relpax 40 mg as needed up to twice a day. Headache calendar. Return in 2 months. Physician: lety Fax from pharmacy requesting refill. Please E-Scribe Last OV: 10/30/2017 with Orestes Pending Prescriptions Disp Refills TOPIRAMATE 50 MG TABLET 270 tablet 3 Si tab in AM and 2 tabs in PM. BETSY: No [facility] Phone #:[phone] Liliya Spencer documented in this encounter [facility] 09-01-2021 History of Present illness Narrative AnxietyGAD-7: 9PHQ-9: 7+irritable+stress (work/home)+chronic back pain s/p surgery this yearAnxiety has been chronic, denies depressionHas tried to journal and done counselingTried Buspirone and sertraline in the past, not sure if sertraline helpedBreast Pain, LEFTx January 2021Negative mammogram in 1Patient feels breast tissue has changed, firmer and larger since the past few monthsPain is worseNo rashes, no nipple discharge+fmhx breast cancerDigestive Concerns (Diarrhea)Patient wants to pursue colon cancer screening+paternal fmhx IBS/CeliacPatient has had chronic digestive issues+maternal fmhx colon cancerDiarrhea after eating, severe crampingNo food triggersStill has her gallbladderAlso has constipationTried fiber and miralaxHas a BM every other dayHas not seen GI in the pastRecent abx- none for months [facility] Work Phone: 05-28-2021 History of Present illness Narrative 1. Short Term DisabilityDaughter came home with strep throat early last weekThe patient developed sinus congestion, sneezing and dry cough on Friday, called off work on Friday. Potentially had a close exposure at work with a covid + personPatient is covid-19 vaccinatedWent to the [facility] for covid-like symptoms, swabbed negative for covid-19. She was told she likely had rhinovirus and was told to practice supportive carePatient is feeling improved, but still has a dry cough, no fevers, no dyspnea [facility] Work Phone: 04-09-2021 History of Present illness Narrative Patient is coming in to discuss issue with anxiety and migrainesPatient is going through some issues at home and is having higher anxiety levels than normalHas had at least 3 migraines the last monthStates that they are starting to change positions- in back of head, numbing in face, vision disturbances, nausea and vomiting.She is taking Buspirone just as needed (not working well), Topamax daily since 2009 and Naratriptan only as needed (RX from Neurologist), but it is not helpingStarted getting migraines in gradeDid take Robaxin and it helped somewhat, made her a little drowsyLast migraine was Friday++ stress (family member just passed from covid-), stress at home [facility] Work Phone: 08-16-2020 History of Present illness Narrative Tj Villanueva is a very pleasant 36 year old female [facility] and [facility]. She is here today with her daughter Rodolfo. She first noticed the pain 1-2 year ago. She describes the pain as sharp and states it starts from the nipple and radiates up. She feels a lump at the site of the pain. She denies trauma to the breast. She denies trauma to the breast. She denies nipple discharge, fever or chills. She denies caffeine, fatty food and does not smoke. She has family history of breast cancer. She denies breast surgery or biopsy.BREAST IMAGIN07/14/2022 Bilateral full breast MRI: indicates, BI-RADS Category 1.FEMALE HISTORY: menarche age 12, , first age 21, breastfed x 2 years, OCP's x 10 years, menopause age unknown, hysterectomy with one ovary intact in 10/2016 due to endometriosis and precancer cells, heterogeneous fibroglandular tissueFAMILY CANCER HISTORY:Maternal Grandmother: Breast cancer, age 40, and colon/rectal cancer, 60'sMaternal Great Aunt x3: Breast cancer, unknown agesPaternal Grandfather: Prostate cancer, 60'sMother: Thyroid cancer, 40's-50'sDaughter: Leukemia, age 4Father: Skin cancer, age unknown [facility] Work Phone: 03-19-2020 History of Present illness Narrative This 36 year old female here for evaluation of low back pain, radiating to right lower extremity. The patient has been experiencing these symptoms for last couple of years. The patient describes the pain as aching, sharp and shooting pain. The patient's current pain score is 6-7 on a scale from 0-10. The pain is worsened by standing, activity and is alleviated by resting. Since the start of the symptoms the pain has been slightly improved.The patient denies any fever, chills, weight loss, bladder/ bowel incontinence, history of cancer, history of IV drug abuse, recent trauma. [facility] Work Phone: 09-13-2019 History of Present illness Narrative 35-year-old female referred by Dr. Mancera for positive HARMEET, musculoskeletal symptoms and history of psoriasis.Patient symptoms started about 2 years ago. She has been in physical therapy for her back pain and has been on muscle relaxers, [id number] pain medications, and has had x-rays and MRIs of her back.An MRI of the lumbar spine in 2019 showed disc protrusion moderate right foraminal stenosis at L5-S1 otherwise no significant spinal canal or foraminal stenosis.She does have history of psoriasis, migraines and anxiety. She had a hysterectomy in 2016.Current medications include Topamax, sertraline, methocarbamol.She had been following with a manager hiv and had been on Stelara as well as Tremfya. Neither were effective for her symptoms.She recently had a steroid pack with her PCP because of lower back issues. She has had an episode of Planter fasciitis but it is not recurrent. No history of inflammatory bowel or eye problems. Occasionally her index fingers will hurt especially when he gets cold but they do not really swell.Social history is negative for tobacco, alcohol, illicit drug use. 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 RE-Ixjfvdjnoctu-Npggyx [facility] [place] Work Phone: 09-03-2016 History of Past i llness Narrative Problem Noted Date Resolved Date Menorrhagia with regular cycle 09/03/2016 0 11/11/2016 Abnormal glucose complicating 05/12/20 13 08/31/2013 Overview: 3 hr GTT normal. MH Short interval between pregn ancies complicating , antepartum 03/15/2013 08/31/2013 Overview: 03/15/2013Patient delivered her previous child September 16, 2012. TKRN Late care 03/15/2013 08/31/2013 Overview: 03/15/2013She recently found out she was on March [address] Steffany Bonilla for irregular menses. TKRN April 26, 2013 Had low lying placenta, has resolved. Steffany Bonilla MD IUD 03/15/2013 08/31/2013 Overview: 03/15/2013She had an IUD inserted 11/25/2012. No strings from the IUD were visualized on exam by Dr. Steffany Bonilla. An US was done, EGA was approximately 18w 6 days which would mean conception date was before IUD inserted but a neg hcg was obtained before inserting IUD. TKRN Family history of leukemia 03/15/201308/31 Overview: 03/15/2013 Patient has a 4-year-old daughter that was diagnosed with leukemia November 30, 2012. She is interested in cord blood banking. Information from several blood [place] given to patient. TKRN History of macrosomia in inf ant in prior , currently 03/15/2013 08/31/2013 Overview: 03/15/2013 Patient states her previous deliveries were 11 lbs. 3 oz. and 9 lbs. 15 oz. TKRN Rash 03/15/2013 08/31/2013 Overview: 03/15/2013Patient has a rash on her left arm that has been present for 2 weeks on and off. Patient is advised to go to urgent care to have this looked at. TKRN Patient requested diagnostic testing 03/15/2013 08/31/2013 Overview: 03/15/2013Patient desires quad marker screen. Will plan on obtaining quad marker screen at the next visit when her recent ultrasound results are available.TKRN Tattoos 03/15/2013 08/31/2013 Overview: 03/15/2013 Patient has multiple tattoos. Offered hepatitis C labwork and patient desires to proceed with this. Dr. Webb ordered lab work. LGSIL (low grade squamous intraepithelial dyspla magno) 11/25/2012 01/05/2013 related back pain, antepartum 07/01/20 12 10/29/2012 Overview: referal to PT Vulvar pruritus 05/18/2012 01/05/2013 Vulval lesion 05/18/2012 01/05/2013 Patient requested diagnostic testing 04/30/2012 07/01/2012 Overview: 04/30/2012 Patient is 19w4d by dates. She has felt movement for the past week. She last saw her doctor in [place] one week ago. She states she has already signed a release of records form to have her records sent here from [place]. She states that she would like to have a quad marker screen done. She does not believe this was done in [place] last week but we will wait her records for review. Patient will call her doctor's office today to see if this was done and will let Dr. Bonilla's office know if it still needs to be done. Patient's weight was obtained today and was 281.9 pounds. Patient states she did have an ultrasound early in in [place]. Obesity, unspecified 04/30/2012 08/31/2013 Overview: 03/15/2013Patient is obese. One-hour GCT done today.TKRN History of macrosomia in inf ant in prior , currently 04/30/2012 10/29/2012 Overview: Patient is obese. Patient states her previous delivery was 11 lbs. 3 oz. She does not believe she has not had a one-hour GCT done this yet. Will await medical records from [facility] History of hemorrhoids 04/30/2012 3 Overview: 03/15/2013Patient states she had hemorrhoids with her last . No problems since delivery. Patient is aware to avoid constipation and straining with her bowel movements. Dietary considerations discussed. She may use Colace when necessary. TKRN Rh negative status during 04/30/2012 10/29/2012 Overview: 04/30/2012 patient is Rh-. She is a RhoGAM candidate UTI in 04/30/2012 10/29/2012 Overview: Patient had a positive urinalysis 02/19/2012. She was treated with Keflex. documented as of this encounter (statuses as of 11/20/2021) [facility] note* Diagnosis Migraine with aura and without status migrainosus, not intractable Migraine with aura, without mention of intractable migraine without mention of status migrainosus documented in this encounter [facility] noteNo assessment information availableWSelect [facility] [place] Work Phone: Evaluation note* Diagnosis Encounter for wellness examination in adult- Primary Elevated fasting glucose Impaired fasting glucose Vitamin D deficiency Vitamin B12 deficiency Other B-complex deficiencies Immunization due Acute stress reaction Unspecified acute reaction to stress History of hysterectomy Acquired absence of both cervix and uterus Class 2 obesity due to excess calories without serious comorbidity with body mass index (BMI) of 38.0 to 38.9 in adult documented in this encounter [facility] Work Phone: Evaluation noteN/ADept. of Dermatology Evaluation note* Diagnosis Class 2 obesity due to excess calories without serious comorbidity with body mass index (BMI) of 38.0 to 38.9 in adult- Primary Acute stress reaction Unspecified acute reaction to stress Olfactory hallucination Hallucinations Migraine with visual aura documented in this encounter [facility] Work Phone: Evaluation note* Diagnosis Lumbosacral spondylosis without myelopathy documented in this encounter [facility] Work Phone: Evaluation note* Diagnosis Olfactory hallucination Hallucinations Migraine with visual aura documented in this encounter [facility] Work Phone: Evaluation note* Diagnosis Axillary mass, left- Primary Screening mammogram for breast cancer documented in this encounter [facility] Work Phone: Evaluation note* Diagnosis Constipation, unspecified constipation type- Primary Bleeding external hemorrhoids External hemorrhoids with other complication Diarrhea, unspecified type Anal condyloma Condyloma acuminatum documented in this encounter [facility] Work Phone: Evaluation note* Diagnosis Condyloma- Primary Condyloma acuminatum Screening mammogram for breast cancer Condyloma Condyloma acuminatum documented in this encounter [facility] Work Phone: [phone] note* Diagnosis Condyloma- Primary Condyloma acuminatum Screening mammogram for breast cancer Condyloma Condyloma acuminatum documented in this encounter [facility] Work Phone: [phone] note* Diagnosis Condyloma- Primary Condyloma acuminatum Axillary mass, left Condyloma Condyloma acuminatum documented in this encounter [facility] Work Phone: [phone] note* Diagnosis Chronic neck pain- Primary Cervicalgia Chronic midline thoracic back pain DDD (degenerative disc disease), thoracic Degeneration of thoracic or thoracolumbar intervertebral disc Numbness and tingling in left hand Disturbance of skin sensation Numbness and tingling in right hand Disturbance of skin sensation Muscle spasm of back documented in this encounter [facility] Work Phone: [phone] note* Diagnosis Chronic neck pain Cervicalgia Numbness and tingling in left hand Disturbance of skin sensation Numbness and tingling in right hand Disturbance of skin sensation documented in this encounter [facility] Work Phone: [phone] note* Diagnosis Chronic midline thoracic back pain DDD (degenerative disc disease), thoracic Degeneration of thoracic or thoracolumbar intervertebral disc Numbness and tingling in left hand Disturbance of skin sensation Numbness and tingling in right hand Disturbance of skin sensation documented in this encounter [facility] Work Phone: [phone] note* Diagnosis Cervical spinal stenosis- Primary Spinal stenosis in cervical region Cervical spinal cord compression Unspecified disease of spinal cord Cervical radiculopathy Brachial neuritis or radiculitis nos Cervical disc displacement Displacement of cervical intervertebral disc without myelopathy documented in this encounter [facility] Work Phone: [phone] note* Diagnosis Cervical spinal stenosis Spinal stenosis in cervical region Cervical radiculitis Brachial neuritis or radiculitis nos Spinal cord compression (Multi) Unspecified disease of spinal cord Preoperative clearance- Primary Unspecified pre-operative examination Cervical spinal stenosis Spinal stenosis in cervical region Cervical radiculitis Brachial neuritis or radiculitis nos Spinal cord compression (Multi) Unspecified disease of spinal cord documented in this encounter [facility] Work Phone: Evaluation note* Diagnosis Cervical radiculitis- Primary Brachial neuritis or radiculitis nos Cervical radiculitis Brachial neuritis or radiculitis nos Cervical spinal stenosis Spinal stenosis in cervical region Spinal cord compression (Multi) Unspecified disease of spinal cord Constipation due to opioid therapy Postoperative nausea Postoperative pain after spinal surgery Cervical spinal stenosis Spinal stenosis in cervical region Spinal cord compression (Multi) Unspecified disease of spinal cord documented in this encounter [facility] Work Phone: [phone] note* Diagnosis Jaw pain- Primary Muscle spasm Spasm of muscle Somatic dysfunction of head region documented in this encounter [facility] Work Phone: Evaluation note* Diagnosis Status post cervical spinal fusion- Primary Arthrodesis status Lumbar pain Lumbago Cervical radiculitis Brachial neuritis or radiculitis nos documented in this encounter [facility] Work Phone: [phone] note* Diagnosis Status post cervical spinal fusion Arthrodesis status documented in this encounter [facility] Work Phone: Evaluation note* Diagnosis Constipation, unspecified constipation type Diarrhea, unspecified type documented in this encounter [facility] Work Phone: Evaluation note* Diagnosis Prediabetes- Primary Other abnormal glucose Elevated glucose level Hair loss Unspecified alopecia Routine health maintenance Unspecified examination Anxiety Anxiety state, unspecified Acute stress reaction Unspecified acute reaction to stress documented in this encounter [facility] Work Phone: History of Present illness Narrative* 1. * Xrays thoracic spine showed several level of arthritic changes * Has been taking muscle relaxer, tylenol, ibuprofen, heat/ice without relief. Today she has taken motrin only. * Pain is across low back * When sitting, right hip is numb * Thinks she worsened her back when watching her niece and picking her up out of the pack n play * +fmhx back surgery * Did PT 07/2020 * Had an MRI in the past-thought it was psoriatic arthritis (never saw Ortho, but did see Derm for psoriasis), never went to [facility] due to PTO * Pain level is an 8/10 * ++stress * Used to be treated by derm for psoriasis with several medications, none worked well and currently not taking any * Unable to lay flat due to her pain * Has to keep shifting weight while sitting due to her tingling sensation of her right hip, no numbness * denies weakness or recent falls -[facility] Work Phone: History of Present illness Narrative* Patient identified by name and * Patient presents with antalgic gait pattern with WBOS noted this date. Patient demo's lumbopelvic and BLE weakness, but able to tolerate treatment with no increased symptoms. [facility] [place] Work Phone: History of Present illness NarrativeThis 36 year-old patient here for follow-up of low back pain radiating to right lower extremity. The patient rates the pain at 5 on a scale from 0-10. The patient describes pain as aching. The pain is making it hard for the patient to do walking, sleep, work. Since the last visit the pain has been unchanged. The patient denies any side effects from the current medications.[facility] Work Phone: History of Present illness NarrativeThis [] year-old patient here for follow-up of []. The patient rates the pain at [] on a scale from0-10. The patient describes pain as []. The pain is making it hard for the patient to do []. Since the last visit the pain has []. The patient denies any side effects from the current medications.[facility] Work Phone: History of Present illness Narrative* Yvette Mancera, DO - 05/14/2024 3:30 PM EDT Subjective Patient ID: Tj Villanueva is a 38 y.o. female who presents for left sided jaw pain. HPI Patient has had pain x 1 week. Denies fevers, bruxism, clenching or TMJ. Sees the dentist routinely. Reports limited range of motion of jaw with opening secondary to left sided pain. Unknown trigger/etiology. Has not taken any muscle relaxers. Has had this occur periodically in the past. Review of Systems HENT: Negative for dental problem, drooling and trouble swallowing. All other systems reviewed and are negative. Objective LMP 10/02/2020 Physical Exam Constitutional: Well developed, well nourished, alert and in no acute distress Eyes: Normal external exam. Mouth: MMM, significant jaw deviation to the left with opening, limited opening. +tight maseter muscles on left. Neck: Supple, no lymphadenopathy or masses. Cardiovascular: No peripheral edema. Pulmonary: No respiratory distress Skin: Warm, well perfused, normal skin turgor and color. Neurologic: Cranial nerves II-XII grossly intact. Psychiatric: Mood calm and affect normal. Assessment/Plan Osteopathic manipulation performed with improved range of motion and reduced leftward deviation with jaw opening. Improved muscle tension. Ligamentous balancing, ME, suboccipital release and myofascial release performed today and tolerated well. Start baclofen muscle relaxer at night time as this may cause drowsiness, refer to hand out for more information. Perform gentle massage, jaw deviation/stretching as discussed during visit and per hand out attached to summary Please contact me if not improving [facility] Work Phone: Instructions* Attachments The following attachments cannot be sent through Care Everywhere. * Baclofen, ADULT (Bahamian) * TMJ Exercises (Bahamian) documented in this encounterUnMary[facility] Work Phone: Reason for referral (narrative)* Name Reason for referral NA NA Dept. of Dermatology Reason for referral (narrative)* Procedure (Routine) - Authorized Specialty Diagnoses / Procedures Referred By Clara junior Referred To Contact Pain Medicine Diagnoses Lumbosacral spondylosis without myelopathy Procedures Medial Nerve Branch Block ID NJX DX/THER AGT PVRT FACET JT LMBR/SAC 1 LEVEL Star Gerard MD [address] [facility] [place] [address] Referral ID Status Reason Start Date Expiration Date Visits Requested Visits Authorized [id number] Authorized Perform Procedure 3 12/09/2023 1 2 [facility] Work Phone: reason for visit Narrative* Procedure (Routine) - Authorized Specialty Diagnoses / Procedures Referred By Contac t Referred To Contact Pain Medicine Diagnoses Lumbosacral spondylosis without myelopathy Procedures Medial Nerve Branch Block ID NJX DX/THER AGT PVRT FACET JT LMBR/SAC 1 LEVEL Star Gerard MD [address] [place] [address] Referral ID Status Reason Start Date Expiration Date Visits Requested Visits Authorized [id number] Authorized Perform Procedure 3 12/09/2023 1 2 [facility] Work Phone: reason for visit Narrative* Consultation (Routine) - Authorized Specialty Diagnoses / Procedures Referred By Contac t Referred To Contact Colon and Rectal Surgery / General Surgery Diagnoses Bleeding external hemorrhoids Yvette Mancera DO [address] [facility] [address] [place] [id number] Referral ID Status Reason Start Date Expiration Date Visits Requested Visits Authorized [id number] Authorized Specialty Services Required 3 06/18/2024 1 1 [facility] Work Phone: reason for visit Narrative* Imaging (Routine) - Authorized Specialty Diagnoses / Procedures Referred By Contac t Referred To Contact Radiology Diagnoses Chronic neck pain Numbness and tingling in left hand Numbness and tingling in right hand Procedures MR cervical spine wo IV contrast Yvette Mancera DO [address] [facility] [address] [place] [address] Phone: tel: fax: Referral ID Status Reason Start Date Expiration Date Visits Requested Visits Authorized [id number] Authorized Perform Procedure 4 06/21/2025 1 1 [facility] Work Phone: Rexlsl for visit Narrative* Imaging (Routine) - Authorized Specialty Diagnoses / Procedures Referred By Contac t Referred To Contact Radiology Diagnoses Chronic midline thoracic back pain DDD (degenerative disc disease), thoracic Numbness and tingling in left hand Numbness and tingling in right hand Procedures MR thoracic spine wo IV contrast Yvette Mancera, DO [address] [facility] [place] [address] [place] [address] Phone: tel: fax: Referral ID Status Reason Start Date Expiration Date Visits Requested Visits Authorized [id number] Authorized Perform Procedure 4 06/21/2025 1 1 [facility] Work Phone: reason for visit Narrative* Auth/Cert Specialty Diagnoses / Procedures Referred By Clara t Referred To Contact Diagnoses Cervical spinal stenosis Cervical radiculitis Spinal cord compression (Multi) Cervical spinal stenosis [M48.02] Cervical radiculitis [M54.12] Spinal cord compression (Multi) [G95.20] Procedures ID ARTHRD ANT INTERBODY DECOMPRESS CERVICAL BELW C2 ID ARTHRD ANT INTERDY CERVCL BELW C2 EA ADDL NTRSPC ID ALLOGRAFT FOR SPINE SURGERY ONLY MORSELIZED ID ALLOGRAFT FOR SPINE SURGERY ONLY STRUCTURAL ID ANTERIOR INSTRUMENTATION 2-3 VERTEBRAL SEGMENTS ID ARTHRD ANT INTERDY CERVCL BELW C2 EA ADDL NTRSPC ID ALLOGRAFT FOR SPINE SURGERY ONLY MORSELIZED ID ALLOGRAFT FOR SPINE SURGERY ONLY STRUCTURAL C4-C6 Anterior Cervical Discectomy and Fusion C4-C6 Anterior Cervical Discectomy and Fusion C4-C6 Anterior Cervical Discectomy and Fusion C4-C6 Anterior Cervical Discectomy and Fusion C4-C6 Anterior Cervical Discectomy and Fusion Dustin Nuñ[place] [address] [address] Department [place] [address] Phone: tel: fax: [facility] [place]note 2[place] [address] [place] [address] fax: Referral ID Status Reason Start Date Expiration Date Visits Re quested Visits Authorized [id number] 1 1 [facility] Work Phone: Reason for visit Narrative* Imaging (Routine) - Authorized Specialty Diagnoses / Procedures Referred By Contac t Referred To Contact Radiology Diagnoses Status post cervical spinal fusion Procedures XR cervical spine 2-3 views Guillermo Maki PA-C [address] [place] [address] Phone: tel: fax: Referral ID Status Reason Start Date Expiration Date Visits Requested Visits Authorized [id number] Authorized Perform Procedure 4 08/24/2025 1 1 [facility] Work Phone: Reason for visit Narrative* Endoscopy (Routine) - Authorized Specialty Diagnoses / Procedures Referred By Clara t Referred To Contact Gastroenterology Diagnoses Constipation, unspecified constipation type Diarrhea, unspecified type Procedures Colonoscopy Screening; Average Risk Patient ID COLONOSCOPY FLX DX W/COLLJ SPEC WHEN PFRMD ID COLON CA SCRN NOT HI RSK IND ID COLORECTAL SCRN; HI RISK IND ID COLONOSCOPY W/BIOPSY SINGLE/MULTIPLE ID COLSC FLX W/RMVL OF TUMOR POLYP LESION SNARE TQ ID COLSC FLX W/REMOVAL LESION BY HOT BX FORCEPS Cristo Robert, FILM EDITOR SUPERVISOR-FRETTED INSTRUMENT INSPECTOR [address] [facility], [place] [address] [place] [address] Phone: tel: fax: Referral ID Status Reason Start Date Expiration Date V isits Requested Visits Authorized [id number] Authorized 11/21/2023 11/20/2024 1 1 [facility] Work Phone: Summary Purpose Family History No Family History Records FoundUnknown Family Member Name Dates Details Family history of malignant neoplasm of skin: Father(V16.8, Z80.8) Status:Active Family history of histoplasm osis: Father(V18.8, Z83.1) Status:Active Family history of malignant neoplasm of thyroid: Mother(V16.8, Z80.8) Status:Active Family history of hyperlipid emia: Mother(V18.19, Z83.438) Status:Active Family history of breast can cer: Maternal Grandmother(V16.3, Z80.3) Status:Active Family history of malignant neoplasm of colon: Maternal Grandmother(V16.0, Z80.0) Status:Active Rectal carcinoma: Maternal G randmother Status:Active Family history of malignant neoplasm of breast: Maternal Grandmother, Paternal Grandmother(V16.3, Z80.3) Status:Active Family history of acute lymp hoblastic leukemia (ALL) in remission: Daughter(V16.6, Z80.6) Status:Active Unknown Family Member Name Dates Details Family history of malignant neoplasm of skin: Father(V16.8, Z80.8) Status:Active Family history of histoplasm osis: Father(V18.8, Z83.1) Status:Active Family history of malignant neoplasm of thyroid: Mother(V16.8, Z80.8) Status:Active Family history of hyperlipid emia: Mother(V18.19, Z83.438) Status:Active Family history of breast can cer: Maternal Grandmother(V16.3, Z80.3) Status:Active Family history of malignant neoplasm of colon: Maternal Grandmother(V16.0, Z80.0) Status:Active Rectal carcinoma: Maternal G randmother Status:Active Family history of malignant neoplasm of breast: Maternal Grandmother, Paternal Grandmother(V16.3, Z80.3) Status:Active Family history of acute lymp hoblastic leukemia (ALL) in remission: Daughter(V16.6, Z80.6) Status:Active Unknown Family Member Name Dates Details Family history of malignant neoplasm of skin: Father(V16.8, Z80.8) Status:Active Family history of histoplasm osis: Father(V18.8, Z83.1) Status:Active Family history of malignant neoplasm of thyroid: Mother(V16.8, Z80.8) Status:Active Family history of hyperlipid emia: Mother(V18.19, Z83.438) Status:Active Family history of breast can cer: Maternal Grandmother(V16.3, Z80.3) Status:Active Family history of malignant neoplasm of colon: Maternal Grandmother(V16.0, Z80.0) Status:Active Rectal carcinoma: Maternal G randmother Status:Active Family history of malignant neoplasm of breast: Maternal Grandmother, Paternal Grandmother(V16.3, Z80.3) Status:Active Family history of acute lymp hoblastic leukemia (ALL) in remission: Daughter(V16.6, Z80.6) Status:Active Unknown Family Member Name Dates Details Family history of acute lymp hoblastic leukemia (ALL) in remission: Daughter(V16.6, Z80.6) Status:Active Family history of malignant neoplasm of breast: Maternal Grandmother, Paternal Grandmother(V16.3, Z80.3) Status:Active Rectal carcinoma: Maternal G randmother Status:Active Family history of malignant neoplasm of colon: Maternal Grandmother(V16.0, Z80.0) Status:Active Family history of breast can cer: Maternal Grandmother(V16.3, Z80.3) Status:Active Family history of hyperlipid emia: Mother(V18.19, Z83.438) Status:Active Family history of malignant neoplasm of thyroid: Mother(V16.8, Z80.8) Status:Active Family history of histoplasm osis: Father(V18.8, Z83.1) Status:Active Family history of malignant neoplasm of skin: Father(V16.8, Z80.8) Status:Active Unknown Family Member Name Dates Details Family history of malignant neoplasm of skin: Father(V16.8, Z80.8) Status:Active Family history of histoplasm osis: Father(V18.8, Z83.1) Status:Active Family history of malignant neoplasm of thyroid: Mother(V16.8, Z80.8) Status:Active Family history of hyperlipid emia: Mother(V18.19, Z83.438) Status:Active Family history of breast can cer: Maternal Grandmother(V16.3, Z80.3) Status:Active Family history of malignant neoplasm of colon: Maternal Grandmother(V16.0, Z80.0) Status:Active Rectal carcinoma: Maternal G randmother Status:Active Family history of malignant neoplasm of breast: Maternal Grandmother, Paternal Grandmother(V16.3, Z80.3) Status:Active Family history of acute lymp hoblastic leukemia (ALL) in remission: Daughter(V16.6, Z80.6) Status:Active Unknown Family Member Name Dates Details Family history of malignant neoplasm of skin: Father(V16.8, Z80.8) Status:Active Family history of histoplasm osis: Father(V18.8, Z83.1) Status:Active Family history of malignant neoplasm of thyroid: Mother(V16.8, Z80.8) Status:Active Family history of hyperlipid emia: Mother(V18.19, Z83.438) Status:Active Family history of breast can cer: Maternal Grandmother(V16.3, Z80.3) Status:Active Family history of malignant neoplasm of colon: Maternal Grandmother(V16.0, Z80.0) Status:Active Rectal carcinoma: Maternal G randmother Status:Active Family history of malignant neoplasm of breast: Maternal Grandmother, Paternal Grandmother(V16.3, Z80.3) Status:Active Family history of acute lymp hoblastic leukemia (ALL) in remission: Daughter(V16.6, Z80.6) Status:Active Unknown Family Member Name Dates Details Family history of malignant neoplasm of skin: Father(V16.8, Z80.8) Status:Active Family history of histoplasm osis: Father(V18.8, Z83.1) Status:Active Family history of malignant neoplasm of thyroid: Mother(V16.8, Z80.8) Status:Active Family history of hyperlipid emia: Mother(V18.19, Z83.438) Status:Active Family history of breast can cer: Maternal Grandmother(V16.3, Z80.3) Status:Active Family history of malignant neoplasm of colon: Maternal Grandmother(V16.0, Z80.0) Status:Active Rectal carcinoma: Maternal G randmother Status:Active Family history of malignant neoplasm of breast: Maternal Grandmother, Paternal Grandmother(V16.3, Z80.3) Status:Active Family history of acute lymp hoblastic leukemia (ALL) in remission: Daughter(V16.6, Z80.6) Status:Active Unknown Family Member Name Dates Details Rectal carcinoma: Maternal G randmother Status:Active Family history of acute lymp hoblastic leukemia (ALL) in remission: Daughter(V16.6, Z80.6) Status:Active Family history of malignant neoplasm of breast: Maternal Grandmother, Paternal Grandmother(V16.3, Z80.3) Status:Active Family history of malignant neoplasm of colon: Maternal Grandmother(V16.0, Z80.0) Status:Active Family history of breast can cer: Maternal Grandmother(V16.3, Z80.3) Status:Active Family history of hyperlipid emia: Mother(V18.19, Z83.438) Status:Active Family history of malignant neoplasm of thyroid: Mother(V16.8, Z80.8) Status:Active Family history of histoplasm osis: Father(V18.8, Z83.1) Status:Active Family history of malignant neoplasm of skin: Father(V16.8, Z80.8) Status:Active Unknown Family Member Name Dates Details Family history of malignant neoplasm of skin: Father(V16.8, Z80.8) Status:Active Family history of histoplasm osis: Father(V18.8, Z83.1) Status:Active Family history of malignant neoplasm of thyroid: Mother(V16.8, Z80.8) Status:Active Family history of hyperlipid emia: Mother(V18.19, Z83.438) Status:Active Family history of breast can cer: Maternal Grandmother(V16.3, Z80.3) Status:Active Family history of malignant neoplasm of colon: Maternal Grandmother(V16.0, Z80.0) Status:Active Rectal carcinoma: Maternal G randmother Status:Active Family history of malignant neoplasm of breast: Maternal Grandmother, Paternal Grandmother(V16.3, Z80.3) Status:Active Family history of acute lymp hoblastic leukemia (ALL) in remission: Daughter(V16.6, Z80.6) Status:Active Unknown Family Member Name Dates Details Family history of malignant neoplasm of skin: Father(V16.8, Z80.8) Status:Active Family history of histoplasm osis: Father(V18.8, Z83.1) Status:Active Family history of malignant neoplasm of thyroid: Mother(V16.8, Z80.8) Status:Active Family history of hyperlipid emia: Mother(V18.19, Z83.438) Status:Active Family history of breast can cer: Maternal Grandmother(V16.3, Z80.3) Status:Active Family history of malignant neoplasm of colon: Maternal Grandmother(V16.0, Z80.0) Status:Active Rectal carcinoma: Maternal G randmother Status:Active Family history of malignant neoplasm of breast: Maternal Grandmother, Paternal Grandmother(V16.3, Z80.3) Status:Active Family history of acute lymp hoblastic leukemia (ALL) in remission: Daughter(V16.6, Z80.6) Status:Active Unknown Family Member Name Dates Details Family history of malignant neoplasm of skin: Father(V16.8, Z80.8) Status:Active Family history of histoplasm osis: Father(V18.8, Z83.1) Status:Active Family history of malignant neoplasm of thyroid: Mother(V16.8, Z80.8) Status:Active Family history of hyperlipid emia: Mother(V18.19, Z83.438) Status:Active Family history of breast can cer: Maternal Grandmother(V16.3, Z80.3) Status:Active Family history of malignant neoplasm of colon: Maternal Grandmother(V16.0, Z80.0) Status:Active Rectal carcinoma: Maternal G randmother Status:Active Family history of malignant neoplasm of breast: Maternal Grandmother, Paternal Grandmother(V16.3, Z80.3) Status:Active Family history of acute lymp hoblastic leukemia (ALL) in remission: Daughter(V16.6, Z80.6) Status:Active Unknown Family Member Name Dates Details Family history of malignant neoplasm of skin: Father(V16.8, Z80.8) Status:Active Family history of histoplasm osis: Father(V18.8, Z83.1) Status:Active Family history of malignant neoplasm of thyroid: Mother(V16.8, Z80.8) Status:Active Family history of hyperlipid emia: Mother(V18.19, Z83.438) Status:Active Family history of breast can cer: Maternal Grandmother(V16.3, Z80.3) Status:Active Family history of malignant neoplasm of colon: Maternal Grandmother(V16.0, Z80.0) Status:Active Rectal carcinoma: Maternal G randmother Status:Active Family history of malignant neoplasm of breast: Maternal Grandmother, Paternal Grandmother(V16.3, Z80.3) Status:Active Family history of acute lymp hoblastic leukemia (ALL) in remission: Daughter(V16.6, Z80.6) Status:Active Unknown Family Member Name Dates Details Family history of malignant neoplasm of skin: Father(V16.8, Z80.8) Status:Active Family history of histoplasm osis: Father(V18.8, Z83.1) Status:Active Family history of malignant neoplasm of thyroid: Mother(V16.8, Z80.8) Status:Active Family history of hyperlipid emia: Mother(V18.19, Z83.438) Status:Active Family history of breast can cer: Maternal Grandmother(V16.3, Z80.3) Status:Active Family history of malignant neoplasm of colon: Maternal Grandmother(V16.0, Z80.0) Status:Active Rectal carcinoma: Maternal G randmother Status:Active Family history of malignant neoplasm of breast: Maternal Grandmother, Paternal Grandmother(V16.3, Z80.3) Status:Active Family history of acute lymp hoblastic leukemia (ALL) in remission: Daughter(V16.6, Z80.6) Status:Active Unknown Family Member Name Dates Details Family history of malignant neoplasm of skin: Father(V16.8, Z80.8) Status:Active Family history of histoplasm osis: Father(V18.8, Z83.1) Status:Active Family history of malignant neoplasm of thyroid: Mother(V16.8, Z80.8) Status:Active Family history of hyperlipid emia: Mother(V18.19, Z83.438) Status:Active Family history of breast can cer: Maternal Grandmother(V16.3, Z80.3) Status:Active Family history of malignant neoplasm of colon: Maternal Grandmother(V16.0, Z80.0) Status:Active Rectal carcinoma: Maternal G randmother Status:Active Family history of malignant neoplasm of breast: Maternal Grandmother, Paternal Grandmother(V16.3, Z80.3) Status:Active Family history of acute lymp hoblastic leukemia (ALL) in remission: Daughter(V16.6, Z80.6) Status:Active Unknown Family Member Name Dates Details Family history of acute lymp hoblastic leukemia (ALL) in remission: Daughter(V16.6, Z80.6) Status:Active Family history of malignant neoplasm of breast: Maternal Grandmother, Paternal Grandmother(V16.3, Z80.3) Status:Active Rectal carcinoma: Maternal G randmother Status:Active Family history of malignant neoplasm of colon: Maternal Grandmother(V16.0, Z80.0) Status:Active Family history of breast can cer: Maternal Grandmother(V16.3, Z80.3) Status:Active Family history of hyperlipid emia: Mother(V18.19, Z83.438) Status:Active Family history of malignant neoplasm of thyroid: Mother(V16.8, Z80.8) Status:Active Family history of histoplasm osis: Father(V18.8, Z83.1) Status:Active Family history of malignant neoplasm of skin: Father(V16.8, Z80.8) Status:Active Unknown Family Member Name Dates Details Family history of breast can cer: Maternal Grandmother(V16.3, Z80.3) Status:Active Family history of malignant neoplasm of colon: Maternal Grandmother(V16.0, Z80.0) Status:Active Rectal carcinoma: Maternal G randmother Status:Active Family history of malignant neoplasm of breast: Maternal Grandmother, Paternal Grandmother(V16.3, Z80.3) Status:Active Family history of acute lymp hoblastic leukemia (ALL) in remission: Daughter(V16.6, Z80.6) Status:Active Family history of hyperlipid emia: Mother(V18.19, Z83.438) Status:Active Family history of malignant neoplasm of thyroid: Mother(V16.8, Z80.8) Status:Active Family history of histoplasm osis: Father(V18.8, Z83.1) Status:Active Family history of malignant neoplasm of skin: Father(V16.8, Z80.8) Status:Active Unknown Family Member Name Dates Details Family history of malignant neoplasm of skin: Father(V16.8, Z80.8) Status:Active Family history of histoplasm osis: Father(V18.8, Z83.1) Status:Active Family history of malignant neoplasm of thyroid: Mother(V16.8, Z80.8) Status:Active Family history of hyperlipid emia: Mother(V18.19, Z83.438) Status:Active Family history of breast can cer: Maternal Grandmother(V16.3, Z80.3) Status:Active Family history of malignant neoplasm of colon: Maternal Grandmother(V16.0, Z80.0) Status:Active Rectal carcinoma: Maternal G randmother Status:Active Family history of malignant neoplasm of breast: Maternal Grandmother, Paternal Grandmother(V16.3, Z80.3) Status:Active Family history of acute lymp hoblastic leukemia (ALL) in remission: Daughter(V16.6, Z80.6) Status:Active Unknown Family Member Name Dates Details Family history of malignant neoplasm of skin: Father(V16.8, Z80.8) Status:Active Family history of histoplasm osis: Father(V18.8, Z83.1) Status:Active Family history of malignant neoplasm of thyroid: Mother(V16.8, Z80.8) Status:Active Family history of hyperlipid emia: Mother(V18.19, Z83.438) Status:Active Family history of breast can cer: Maternal Grandmother(V16.3, Z80.3) Status:Active Family history of malignant neoplasm of colon: Maternal Grandmother(V16.0, Z80.0) Status:Active Rectal carcinoma: Maternal G randmother Status:Active Family history of malignant neoplasm of breast: Maternal Grandmother, Paternal Grandmother(V16.3, Z80.3) Status:Active Family history of acute lymp hoblastic leukemia (ALL) in remission: Daughter(V16.6, Z80.6) Status:Active Unknown Family Member Name Dates Details Family history of malignant neoplasm of skin: Father(V16.8, Z80.8) Status:Active Family history of histoplasm osis: Father(V18.8, Z83.1) Status:Active Family history of malignant neoplasm of thyroid: Mother(V16.8, Z80.8) Status:Active Family history of hyperlipid emia: Mother(V18.19, Z83.438) Status:Active Family history of breast can cer: Maternal Grandmother(V16.3, Z80.3) Status:Active Family history of malignant neoplasm of colon: Maternal Grandmother(V16.0, Z80.0) Status:Active Rectal carcinoma: Maternal G randmother Status:Active Family history of malignant neoplasm of breast: Maternal Grandmother, Paternal Grandmother(V16.3, Z80.3) Status:Active Family history of acute lymp hoblastic leukemia (ALL) in remission: Daughter(V16.6, Z80.6) Status:Active Unknown Family Member Name Dates Details Family history of malignant neoplasm of skin: Father(V16.8, Z80.8) Status:Active Family history of histoplasm osis: Father(V18.8, Z83.1) Status:Active Family history of malignant neoplasm of thyroid: Mother(V16.8, Z80.8) Status:Active Family history of hyperlipid emia: Mother(V18.19, Z83.438) Status:Active Family history of breast can cer: Maternal Grandmother(V16.3, Z80.3) Status:Active Family history of malignant neoplasm of colon: Maternal Grandmother(V16.0, Z80.0) Status:Active Rectal carcinoma: Maternal G randmother Status:Active Family history of malignant neoplasm of breast: Maternal Grandmother, Paternal Grandmother(V16.3, Z80.3) Status:Active Family history of acute lymp hoblastic leukemia (ALL) in remission: Daughter(V16.6, Z80.6) Status:Active Unknown Family Member Name Dates Details Family history of malignant neoplasm of skin: Father(V16.8, Z80.8) Status:Active Family history of histoplasm osis: Father(V18.8, Z83.1) Status:Active Family history of malignant neoplasm of thyroid: Mother(V16.8, Z80.8) Status:Active Family history of hyperlipid emia: Mother(V18.19, Z83.438) Status:Active Family history of breast can cer: Maternal Grandmother(V16.3, Z80.3) Status:Active Family history of malignant neoplasm of colon: Maternal Grandmother(V16.0, Z80.0) Status:Active Rectal carcinoma: Maternal G randmother Status:Active Family history of malignant neoplasm of breast: Maternal Grandmother, Paternal Grandmother(V16.3, Z80.3) Status:Active Family history of acute lymp hoblastic leukemia (ALL) in remission: Daughter(V16.6, Z80.6) Status:Active Unknown Family Member Name Dates Details Family history of malignant neoplasm of skin: Father(V16.8, Z80.8) Status:Active Family history of histoplasm osis: Father(V18.8, Z83.1) Status:Active Family history of malignant neoplasm of thyroid: Mother(V16.8, Z80.8) Status:Active Family history of hyperlipid emia: Mother(V18.19, Z83.438) Status:Active Family history of breast can cer: Maternal Grandmother(V16.3, Z80.3) Status:Active Family history of malignant neoplasm of colon: Maternal Grandmother(V16.0, Z80.0) Status:Active Rectal carcinoma: Maternal G randmother Status:Active Family history of malignant neoplasm of breast: Maternal Grandmother, Paternal Grandmother(V16.3, Z80.3) Status:Active Family history of acute lymp hoblastic leukemia (ALL) in remission: Daughter(V16.6, Z80.6) Status:Active Unknown Family Member Name Dates Details Family history of acute lymp hoblastic leukemia (ALL) in remission: Daughter(V16.6, Z80.6) Status:Active Family history of malignant neoplasm of breast: Maternal Grandmother, Paternal Grandmother(V16.3, Z80.3) Status:Active Rectal carcinoma: Maternal G randmother Status:Active Family history of malignant neoplasm of colon: Maternal Grandmother(V16.0, Z80.0) Status:Active Family history of breast can cer: Maternal Grandmother(V16.3, Z80.3) Status:Active Family history of hyperlipid emia: Mother(V18.19, Z83.438) Status:Active Family history of malignant neoplasm of thyroid: Mother(V16.8, Z80.8) Status:Active Family history of histoplasm osis: Father(V18.8, Z83.1) Status:Active Family history of malignant neoplasm of skin: Father(V16.8, Z80.8) Status:Active Unknown Family Member Name Dates Details Family history of malignant neoplasm of skin: Father(V16.8, Z80.8) Status:Active Family history of histoplasm osis: Father(V18.8, Z83.1) Status:Active Family history of malignant neoplasm of thyroid: Mother(V16.8, Z80.8) Status:Active Family history of hyperlipid emia: Mother(V18.19, Z83.438) Status:Active Family history of breast can cer: Maternal Grandmother(V16.3, Z80.3) Status:Active Family history of malignant neoplasm of colon: Maternal Grandmother(V16.0, Z80.0) Status:Active Rectal carcinoma: Maternal G randmother Status:Active Family history of malignant neoplasm of breast: Maternal Grandmother, Paternal Grandmother(V16.3, Z80.3) Status:Active Family history of acute lymp hoblastic leukemia (ALL) in remission: Daughter(V16.6, Z80.6) Status:Active Unknown Family Member Name Dates Details Family history of malignant neoplasm of skin: Father(V16.8, Z80.8) Status:Active Family history of histoplasm osis: Father(V18.8, Z83.1) Status:Active Family history of malignant neoplasm of thyroid: Mother(V16.8, Z80.8) Status:Active Family history of hyperlipid emia: Mother(V18.19, Z83.438) Status:Active Family history of breast can cer: Maternal Grandmother(V16.3, Z80.3) Status:Active Family history of malignant neoplasm of colon: Maternal Grandmother(V16.0, Z80.0) Status:Active Rectal carcinoma: Maternal G randmother Status:Active Family history of malignant neoplasm of breast: Maternal Grandmother, Paternal Grandmother(V16.3, Z80.3) Status:Active Family history of acute lymp hoblastic leukemia (ALL) in remission: Daughter(V16.6, Z80.6) Status:Active Unknown Family Member Name Dates Details Family history of malignant neoplasm of skin: Father(V16.8, Z80.8) Status:Active Family history of histoplasm osis: Father(V18.8, Z83.1) Status:Active Family history of malignant neoplasm of thyroid: Mother(V16.8, Z80.8) Status:Active Family history of hyperlipid emia: Mother(V18.19, Z83.438) Status:Active Family history of breast can cer: Maternal Grandmother(V16.3, Z80.3) Status:Active Family history of malignant neoplasm of colon: Maternal Grandmother(V16.0, Z80.0) Status:Active Rectal carcinoma: Maternal G randmother Status:Active Family history of malignant neoplasm of breast: Maternal Grandmother, Paternal Grandmother(V16.3, Z80.3) Status:Active Family history of acute lymp hoblastic leukemia (ALL) in remission: Daughter(V16.6, Z80.6) Status:Active Relationship Condition Age at Onset Recorded Date/T jonny Not Specified Diabetes mellitus Unknown Malignant neoplasm Unknown Unknown Family Member Name Dates Details Family history of malignant neoplasm of skin: Father(V16.8, Z80.8) Status:Active Family history of histoplasm osis: Father(V18.8, Z83.1) Status:Active Family history of malignant neoplasm of thyroid: Mother(V16.8, Z80.8) Status:Active Family history of hyperlipid emia: Mother(V18.19, Z83.438) Status:Active Family history of breast can cer: Maternal Grandmother(V16.3, Z80.3) Status:Active Family history of malignant neoplasm of colon: Maternal Grandmother(V16.0, Z80.0) Status:Active Rectal carcinoma: Maternal G randmother Status:Active Family history of malignant neoplasm of breast: Maternal Grandmother, Paternal Grandmother(V16.3, Z80.3) Status:Active Family history of acute lymp hoblastic leukemia (ALL) in remission: Daughter(V16.6, Z80.6) Status:Active Unknown Family Member Name Dates Details Family history of malignant neoplasm of skin: Father(V16.8, Z80.8) Status:Active Family history of histoplasm osis: Father(V18.8, Z83.1) Status:Active Family history of malignant neoplasm of thyroid: Mother(V16.8, Z80.8) Status:Active Family history of hyperlipid emia: Mother(V18.19, Z83.438) Status:Active Family history of breast can cer: Maternal Grandmother(V16.3, Z80.3) Status:Active Family history of malignant neoplasm of colon: Maternal Grandmother(V16.0, Z80.0) Status:Active Rectal carcinoma: Maternal G randmother Status:Active Family history of malignant neoplasm of breast: Maternal Grandmother, Paternal Grandmother(V16.3, Z80.3) Status:Active Family history of acute lymp hoblastic leukemia (ALL) in remission: Daughter(V16.6, Z80.6) Status:Active Unknown Family Member Name Dates Details Family history of malignant neoplasm of skin: Father(V16.8, Z80.8) Status:Active Family history of histoplasm osis: Father(V18.8, Z83.1) Status:Active Family history of malignant neoplasm of thyroid: Mother(V16.8, Z80.8) Status:Active Family history of hyperlipid emia: Mother(V18.19, Z83.438) Status:Active Family history of breast can cer: Maternal Grandmother(V16.3, Z80.3) Status:Active Family history of malignant neoplasm of colon: Maternal Grandmother(V16.0, Z80.0) Status:Active Family history of malignant neoplasm of breast: Maternal Grandmother, Paternal Grandmother(V16.3, Z80.3) Status:Active Family history of acute lymp hoblastic leukemia (ALL) in remission: Daughter(V16.6, Z80.6) Status:Active Rectal carcinoma: Maternal G randmother Status:Active Unknown Family Member Name Dates Details Family history of malignant neoplasm of skin: Father(V16.8, Z80.8) Status:Active Family history of histoplasm osis: Father(V18.8, Z83.1) Status:Active Family history of malignant neoplasm of thyroid: Mother(V16.8, Z80.8) Status:Active Family history of hyperlipid emia: Mother(V18.19, Z83.438) Status:Active Family history of breast can cer: Maternal Grandmother(V16.3, Z80.3) Status:Active Family history of malignant neoplasm of colon: Maternal Grandmother(V16.0, Z80.0) Status:Active Rectal carcinoma: Maternal G randmother Status:Active Family history of malignant neoplasm of breast: Maternal Grandmother, Paternal Grandmother(V16.3, Z80.3) Status:Active Family history of acute lymp hoblastic leukemia (ALL) in remission: Daughter(V16.6, Z80.6) Status:Active Unknown Family Member Name Dates Details Family history of malignant neoplasm of skin: Father(V16.8, Z80.8) Status:Active Family history of histoplasm osis: Father(V18.8, Z83.1) Status:Active Family history of malignant neoplasm of thyroid: Mother(V16.8, Z80.8) Status:Active Family history of hyperlipid emia: Mother(V18.19, Z83.438) Status:Active Family history of breast can cer: Maternal Grandmother(V16.3, Z80.3) Status:Active Family history of malignant neoplasm of colon: Maternal Grandmother(V16.0, Z80.0) Status:Active Rectal carcinoma: Maternal G randmother Status:Active Family history of malignant neoplasm of breast: Maternal Grandmother, Paternal Grandmother(V16.3, Z80.3) Status:Active Family history of acute lymp hoblastic leukemia (ALL) in remission: Daughter(V16.6, Z80.6) Status:Active Unknown Family Member Name Dates Details Family history of malignant neoplasm of skin: Father(V16.8, Z80.8) Status:Active Family history of histoplasm osis: Father(V18.8, Z83.1) Status:Active Family history of malignant neoplasm of thyroid: Mother(V16.8, Z80.8) Status:Active Family history of hyperlipid emia: Mother(V18.19, Z83.438) Status:Active Family history of breast can cer: Maternal Grandmother(V16.3, Z80.3) Status:Active Family history of malignant neoplasm of colon: Maternal Grandmother(V16.0, Z80.0) Status:Active Rectal carcinoma: Maternal G randmother Status:Active Family history of malignant neoplasm of breast: Maternal Grandmother, Paternal Grandmother(V16.3, Z80.3) Status:Active Family history of acute lymp hoblastic leukemia (ALL) in remission: Daughter(V16.6, Z80.6) Status:Active Unknown Family Member Name Dates Details Family history of malignant neoplasm of skin: Father(V16.8, Z80.8) Status:Active Family history of histoplasm osis: Father(V18.8, Z83.1) Status:Active Family history of malignant neoplasm of thyroid: Mother(V16.8, Z80.8) Status:Active Family history of hyperlipid emia: Mother(V18.19, Z83.438) Status:Active Family history of breast can cer: Maternal Grandmother(V16.3, Z80.3) Status:Active Family history of malignant neoplasm of colon: Maternal Grandmother(V16.0, Z80.0) Status:Active Rectal carcinoma: Maternal G randmother Status:Active Family history of malignant neoplasm of breast: Maternal Grandmother, Paternal Grandmother(V16.3, Z80.3) Status:Active Family history of acute lymp hoblastic leukemia (ALL) in remission: Daughter(V16.6, Z80.6) Status:Active Unknown Family Member Name Dates Details Family history of malignant neoplasm of skin: Father(V16.8, Z80.8) Status:Active Family history of histoplasm osis: Father(V18.8, Z83.1) Status:Active Family history of malignant neoplasm of thyroid: Mother(V16.8, Z80.8) Status:Active Family history of hyperlipid emia: Mother(V18.19, Z83.438) Status:Active Family history of breast can cer: Maternal Grandmother(V16.3, Z80.3) Status:Active Family history of malignant neoplasm of colon: Maternal Grandmother(V16.0, Z80.0) Status:Active Rectal carcinoma: Maternal G randmother Status:Active Family history of malignant neoplasm of breast: Maternal Grandmother, Paternal Grandmother(V16.3, Z80.3) Status:Active Family history of acute lymp hoblastic leukemia (ALL) in remission: Daughter(V16.6, Z80.6) Status:Active Unknown Family Member Name Dates Details Family history of malignant neoplasm of skin: Father(V16.8, Z80.8) Status:Active Family history of histoplasm osis: Father(V18.8, Z83.1) Status:Active Family history of malignant neoplasm of thyroid: Mother(V16.8, Z80.8) Status:Active Family history of hyperlipid emia: Mother(V18.19, Z83.438) Status:Active Family history of breast can cer: Maternal Grandmother(V16.3, Z80.3) Status:Active Family history of malignant neoplasm of colon: Maternal Grandmother(V16.0, Z80.0) Status:Active Rectal carcinoma: Maternal G randmother Status:Active Family history of malignant neoplasm of breast: Maternal Grandmother, Paternal Grandmother(V16.3, Z80.3) Status:Active Family history of acute lymp hoblastic leukemia (ALL) in remission: Daughter(V16.6, Z80.6) Status:Active Unknown Family Member Name Dates Details Family history of acute lymp hoblastic leukemia (ALL) in remission: Daughter(V16.6, Z80.6) Status:Active Family history of malignant neoplasm of breast: Maternal Grandmother, Paternal Grandmother(V16.3, Z80.3) Status:Active Rectal carcinoma: Maternal G randmother Status:Active Family history of malignant neoplasm of colon: Maternal Grandmother(V16.0, Z80.0) Status:Active Family history of breast can cer: Maternal Grandmother(V16.3, Z80.3) Status:Active Family history of hyperlipid emia: Mother(V18.19, Z83.438) Status:Active Family history of malignant neoplasm of thyroid: Mother(V16.8, Z80.8) Status:Active Family history of histoplasm osis: Father(V18.8, Z83.1) Status:Active Family history of malignant neoplasm of skin: Father(V16.8, Z80.8) Status:Active Unknown Family Member Name Dates Details Family history of malignant neoplasm of skin: Father(V16.8, Z80.8) Status:Active Family history of histoplasm osis: Father(V18.8, Z83.1) Status:Active Family history of malignant neoplasm of thyroid: Mother(V16.8, Z80.8) Status:Active Family history of hyperlipid emia: Mother(V18.19, Z83.438) Status:Active Family history of breast can cer: Maternal Grandmother(V16.3, Z80.3) Status:Active Family history of malignant neoplasm of colon: Maternal Grandmother(V16.0, Z80.0) Status:Active Rectal carcinoma: Maternal G randmother Status:Active Family history of malignant neoplasm of breast: Maternal Grandmother, Paternal Grandmother(V16.3, Z80.3) Status:Active Family history of acute lymp hoblastic leukemia (ALL) in remission: Daughter(V16.6, Z80.6) Status:Active Unknown Family Member Name Dates Details Family history of malignant neoplasm of skin: Father(V16.8, Z80.8) Status:Active Family history of histoplasm osis: Father(V18.8, Z83.1) Status:Active Family history of malignant neoplasm of thyroid: Mother(V16.8, Z80.8) Status:Active Family history of hyperlipid emia: Mother(V18.19, Z83.438) Status:Active Family history of breast can cer: Maternal Grandmother(V16.3, Z80.3) Status:Active Family history of malignant neoplasm of colon: Maternal Grandmother(V16.0, Z80.0) Status:Active Rectal carcinoma: Maternal G randmother Status:Active Family history of malignant neoplasm of breast: Maternal Grandmother, Paternal Grandmother(V16.3, Z80.3) Status:Active Family history of acute lymp hoblastic leukemia (ALL) in remission: Daughter(V16.6, Z80.6) Status:Active Unknown Family Member Name Dates Details Family history of malignant neoplasm of skin: Father(V16.8, Z80.8) Status:Active Family history of histoplasm osis: Father(V18.8, Z83.1) Status:Active Family history of malignant neoplasm of thyroid: Mother(V16.8, Z80.8) Status:Active Family history of hyperlipid emia: Mother(V18.19, Z83.438) Status:Active Family history of breast can cer: Maternal Grandmother(V16.3, Z80.3) Status:Active Family history of malignant neoplasm of colon: Maternal Grandmother(V16.0, Z80.0) Status:Active Rectal carcinoma: Maternal G randmother Status:Active Family history of malignant neoplasm of breast: Maternal Grandmother, Paternal Grandmother(V16.3, Z80.3) Status:Active Family history of acute lymp hoblastic leukemia (ALL) in remission: Daughter(V16.6, Z80.6) Status:Active Unknown Family Member Name Dates Details Family history of malignant neoplasm of skin: Father(V16.8, Z80.8) Status:Active Family history of histoplasm osis: Father(V18.8, Z83.1) Status:Active Family history of malignant neoplasm of thyroid: Mother(V16.8, Z80.8) Status:Active Family history of hyperlipid emia: Mother(V18.19, Z83.438) Status:Active Family history of breast can cer: Maternal Grandmother(V16.3, Z80.3) Status:Active Family history of malignant neoplasm of colon: Maternal Grandmother(V16.0, Z80.0) Status:Active Rectal carcinoma: Maternal G randmother Status:Active Family history of malignant neoplasm of breast: Maternal Grandmother, Paternal Grandmother(V16.3, Z80.3) Status:Active Family history of acute lymp hoblastic leukemia (ALL) in remission: Daughter(V16.6, Z80.6) Status:Active Unknown Family Member Name Dates Details Family history of malignant neoplasm of skin: Father(V16.8, Z80.8) Status:Active Family history of histoplasm osis: Father(V18.8, Z83.1) Status:Active Family history of malignant neoplasm of thyroid: Mother(V16.8, Z80.8) Status:Active Family history of hyperlipid emia: Mother(V18.19, Z83.438) Status:Active Family history of breast can cer: Maternal Grandmother(V16.3, Z80.3) Status:Active Family history of malignant neoplasm of colon: Maternal Grandmother(V16.0, Z80.0) Status:Active Rectal carcinoma: Maternal G randmother Status:Active Family history of malignant neoplasm of breast: Maternal Grandmother, Paternal Grandmother(V16.3, Z80.3) Status:Active Family history of acute lymp hoblastic leukemia (ALL) in remission: Daughter(V16.6, Z80.6) Status:Active Unknown Family Member Name Dates Details Family history of malignant neoplasm of skin: Father(V16.8, Z80.8) Status:Active Family history of histoplasm osis: Father(V18.8, Z83.1) Status:Active Family history of malignant neoplasm of thyroid: Mother(V16.8, Z80.8) Status:Active Family history of hyperlipid emia: Mother(V18.19, Z83.438) Status:Active Family history of breast can cer: Maternal Grandmother(V16.3, Z80.3) Status:Active Family history of malignant neoplasm of colon: Maternal Grandmother(V16.0, Z80.0) Status:Active Rectal carcinoma: Maternal G randmother Status:Active Family history of malignant neoplasm of breast: Maternal Grandmother, Paternal Grandmother(V16.3, Z80.3) Status:Active Family history of acute lymp hoblastic leukemia (ALL) in remission: Daughter(V16.6, Z80.6) Status:Active Unknown Family Member Name Dates Details Family history of malignant neoplasm of skin: Father(V16.8, Z80.8) Status:Active Family history of histoplasm osis: Father(V18.8, Z83.1) Status:Active Family history of malignant neoplasm of thyroid: Mother(V16.8, Z80.8) Status:Active Family history of hyperlipid emia: Mother(V18.19, Z83.438) Status:Active Family history of breast can cer: Maternal Grandmother(V16.3, Z80.3) Status:Active Family history of malignant neoplasm of colon: Maternal Grandmother(V16.0, Z80.0) Status:Active Rectal carcinoma: Maternal G randmother Status:Active Family history of malignant neoplasm of breast: Maternal Grandmother, Paternal Grandmother(V16.3, Z80.3) Status:Active Family history of acute lymp hoblastic leukemia (ALL) in remission: Daughter(V16.6, Z80.6) Status:Active Unknown Family Member Name Dates Details Family history of acute lymp hoblastic leukemia (ALL) in remission: Daughter(V16.6, Z80.6) Status:Active Family history of malignant neoplasm of breast: Maternal Grandmother, Paternal Grandmother(V16.3, Z80.3) Status:Active Rectal carcinoma: Maternal G randmother Status:Active Family history of malignant neoplasm of colon: Maternal Grandmother(V16.0, Z80.0) Status:Active Family history of breast can cer: Maternal Grandmother(V16.3, Z80.3) Status:Active Family history of hyperlipid emia: Mother(V18.19, Z83.438) Status:Active Family history of malignant neoplasm of thyroid: Mother(V16.8, Z80.8) Status:Active Family history of histoplasm osis: Father(V18.8, Z83.1) Status:Active Family history of malignant neoplasm of skin: Father(V16.8, Z80.8) Status:Active Unknown Family Member Name Dates Details Family history of malignant neoplasm of skin: Father(V16.8, Z80.8) Status:Active Family history of histoplasm osis: Father(V18.8, Z83.1) Status:Active Family history of malignant neoplasm of thyroid: Mother(V16.8, Z80.8) Status:Active Family history of hyperlipid emia: Mother(V18.19, Z83.438) Status:Active Family history of breast can cer: Maternal Grandmother(V16.3, Z80.3) Status:Active Family history of malignant neoplasm of colon: Maternal Grandmother(V16.0, Z80.0) Status:Active Rectal carcinoma: Maternal G randmother Status:Active Family history of malignant neoplasm of breast: Maternal Grandmother, Paternal Grandmother(V16.3, Z80.3) Status:Active Family history of acute lymp hoblastic leukemia (ALL) in remission: Daughter(V16.6, Z80.6) Status:Active Unknown Family Member Name Dates Details Family history of malignant neoplasm of skin: Father(V16.8, Z80.8) Status:Active Family history of histoplasm osis: Father(V18.8, Z83.1) Status:Active Family history of malignant neoplasm of thyroid: Mother(V16.8, Z80.8) Status:Active Family history of hyperlipid emia: Mother(V18.19, Z83.438) Status:Active Family history of breast can cer: Maternal Grandmother(V16.3, Z80.3) Status:Active Family history of malignant neoplasm of colon: Maternal Grandmother(V16.0, Z80.0) Status:Active Rectal carcinoma: Maternal G randmother Status:Active Family history of malignant neoplasm of breast: Maternal Grandmother, Paternal Grandmother(V16.3, Z80.3) Status:Active Family history of acute lymp hoblastic leukemia (ALL) in remission: Daughter(V16.6, Z80.6) Status:Active Unknown Family Member Name Dates Details Family history of malignant neoplasm of skin: Father(V16.8, Z80.8) Status:Active Family history of histoplasm osis: Father(V18.8, Z83.1) Status:Active Family history of malignant neoplasm of thyroid: Mother(V16.8, Z80.8) Status:Active Family history of hyperlipid emia: Mother(V18.19, Z83.438) Status:Active Family history of breast can cer: Maternal Grandmother(V16.3, Z80.3) Status:Active Family history of malignant neoplasm of colon: Maternal Grandmother(V16.0, Z80.0) Status:Active Rectal carcinoma: Maternal G randmother Status:Active Family history of malignant neoplasm of breast: Maternal Grandmother, Paternal Grandmother(V16.3, Z80.3) Status:Active Family history of acute lymp hoblastic leukemia (ALL) in remission: Daughter(V16.6, Z80.6) Status:Active Unknown Family Member Name Dates Details Family history of malignant neoplasm of skin: Father(V16.8, Z80.8) Status:Active Family history of histoplasm osis: Father(V18.8, Z83.1) Status:Active Family history of malignant neoplasm of thyroid: Mother(V16.8, Z80.8) Status:Active Family history of hyperlipid emia: Mother(V18.19, Z83.438) Status:Active Family history of breast can cer: Maternal Grandmother(V16.3, Z80.3) Status:Active Family history of malignant neoplasm of colon: Maternal Grandmother(V16.0, Z80.0) Status:Active Rectal carcinoma: Maternal G randmother Status:Active Family history of malignant neoplasm of breast: Maternal Grandmother, Paternal Grandmother(V16.3, Z80.3) Status:Active Family history of acute lymp hoblastic leukemia (ALL) in remission: Daughter(V16.6, Z80.6) Status:Active Unknown Family Member Name Dates Details Family history of malignant neoplasm of skin: Father(V16.8, Z80.8) Status:Active Family history of histoplasm osis: Father(V18.8, Z83.1) Status:Active Family history of malignant neoplasm of thyroid: Mother(V16.8, Z80.8) Status:Active Family history of hyperlipid emia: Mother(V18.19, Z83.438) Status:Active Family history of breast can cer: Maternal Grandmother(V16.3, Z80.3) Status:Active Family history of malignant neoplasm of colon: Maternal Grandmother(V16.0, Z80.0) Status:Active Rectal carcinoma: Maternal G randmother Status:Active Family history of malignant neoplasm of breast: Maternal Grandmother, Paternal Grandmother(V16.3, Z80.3) Status:Active Family history of acute lymp hoblastic leukemia (ALL) in remission: Daughter(V16.6, Z80.6) Status:Active Unknown Family Member Name Dates Details Family history of malignant neoplasm of skin: Father(V16.8, Z80.8) Status:Active Family history of histoplasm osis: Father(V18.8, Z83.1) Status:Active Family history of malignant neoplasm of thyroid: Mother(V16.8, Z80.8) Status:Active Family history of hyperlipid emia: Mother(V18.19, Z83.438) Status:Active Family history of breast can cer: Maternal Grandmother(V16.3, Z80.3) Status:Active Family history of malignant neoplasm of colon: Maternal Grandmother(V16.0, Z80.0) Status:Active Rectal carcinoma: Maternal G randmother Status:Active Family history of malignant neoplasm of breast: Maternal Grandmother, Paternal Grandmother(V16.3, Z80.3) Status:Active Family history of acute lymp hoblastic leukemia (ALL) in remission: Daughter(V16.6, Z80.6) Status:Active Unknown Family Member Name Dates Details Family history of malignant neoplasm of skin: Father(V16.8, Z80.8) Status:Active Family history of histoplasm osis: Father(V18.8, Z83.1) Status:Active Family history of malignant neoplasm of thyroid: Mother(V16.8, Z80.8) Status:Active Family history of hyperlipid emia: Mother(V18.19, Z83.438) Status:Active Family history of breast can cer: Maternal Grandmother(V16.3, Z80.3) Status:Active Family history of malignant neoplasm of colon: Maternal Grandmother(V16.0, Z80.0) Status:Active Rectal carcinoma: Maternal G randmother Status:Active Family history of malignant neoplasm of breast: Maternal Grandmother, Paternal Grandmother(V16.3, Z80.3) Status:Active Family history of acute lymp hoblastic leukemia (ALL) in remission: Daughter(V16.6, Z80.6) Status:Active Unknown Family Member Name Dates Details Family history of malignant neoplasm of skin: Father(V16.8, Z80.8) Status:Active Family history of histoplasm osis: Father(V18.8, Z83.1) Status:Active Family history of malignant neoplasm of thyroid: Mother(V16.8, Z80.8) Status:Active Family history of hyperlipid emia: Mother(V18.19, Z83.438) Status:Active Family history of breast can cer: Maternal Grandmother(V16.3, Z80.3) Status:Active Family history of malignant neoplasm of colon: Maternal Grandmother(V16.0, Z80.0) Status:Active Rectal carcinoma: Maternal G randmother Status:Active Family history of malignant neoplasm of breast: Maternal Grandmother, Paternal Grandmother(V16.3, Z80.3) Status:Active Family history of acute lymp hoblastic leukemia (ALL) in remission: Daughter(V16.6, Z80.6) Status:Active Unknown Family Member Name Dates Details Family history of malignant neoplasm of skin: Father(V16.8, Z80.8) Status:Active Family history of histoplasm osis: Father(V18.8, Z83.1) Status:Active Family history of malignant neoplasm of thyroid: Mother(V16.8, Z80.8) Status:Active Family history of hyperlipid emia: Mother(V18.19, Z83.438) Status:Active Family history of breast can cer: Maternal Grandmother(V16.3, Z80.3) Status:Active Family history of malignant neoplasm of colon: Maternal Grandmother(V16.0, Z80.0) Status:Active Rectal carcinoma: Maternal G randmother Status:Active Family history of malignant neoplasm of breast: Maternal Grandmother, Paternal Grandmother(V16.3, Z80.3) Status:Active Family history of acute lymp hoblastic leukemia (ALL) in remission: Daughter(V16.6, Z80.6) Status:Active Unknown Family Member Name Dates Details Family history of malignant neoplasm of skin: Father(V16.8, Z80.8) Status:Active Family history of histoplasm osis: Father(V18.8, Z83.1) Status:Active Family history of malignant neoplasm of thyroid: Mother(V16.8, Z80.8) Status:Active Family history of hyperlipid emia: Mother(V18.19, Z83.438) Status:Active Family history of breast can cer: Maternal Grandmother(V16.3, Z80.3) Status:Active Family history of malignant neoplasm of colon: Maternal Grandmother(V16.0, Z80.0) Status:Active Rectal carcinoma: Maternal G randmother Status:Active Family history of malignant neoplasm of breast: Maternal Grandmother, Paternal Grandmother(V16.3, Z80.3) Status:Active Family history of acute lymp hoblastic leukemia (ALL) in remission: Daughter(V16.6, Z80.6) Status:Active Unknown Family Member Name Dates Details Family history of malignant neoplasm of skin: Father(V16.8, Z80.8) Status:Active Family history of histoplasm osis: Father(V18.8, Z83.1) Status:Active Family history of malignant neoplasm of thyroid: Mother(V16.8, Z80.8) Status:Active Family history of hyperlipid emia: Mother(V18.19, Z83.438) Status:Active Family history of breast can cer: Maternal Grandmother(V16.3, Z80.3) Status:Active Family history of malignant neoplasm of colon: Maternal Grandmother(V16.0, Z80.0) Status:Active Rectal carcinoma: Maternal G randmother Status:Active Family history of malignant neoplasm of breast: Maternal Grandmother, Paternal Grandmother(V16.3, Z80.3) Status:Active Family history of acute lymp hoblastic leukemia (ALL) in remission: Daughter(V16.6, Z80.6) Status:Active Unknown Family Member Name Dates Details Family history of malignant neoplasm of skin: Father(V16.8, Z80.8) Status:Active Family history of histoplasm osis: Father(V18.8, Z83.1) Status:Active Family history of malignant neoplasm of thyroid: Mother(V16.8, Z80.8) Status:Active Family history of hyperlipid emia: Mother(V18.19, Z83.438) Status:Active Family history of breast can cer: Maternal Grandmother(V16.3, Z80.3) Status:Active Family history of malignant neoplasm of colon: Maternal Grandmother(V16.0, Z80.0) Status:Active Rectal carcinoma: Maternal G randmother Status:Active Family history of malignant neoplasm of breast: Maternal Grandmother, Paternal Grandmother(V16.3, Z80.3) Status:Active Family history of acute lymp hoblastic leukemia (ALL) in remission: Daughter(V16.6, Z80.6) Status:Active Unknown Family Member Name Dates Details Family history of malignant neoplasm of skin: Father(V16.8, Z80.8) Status:Active Family history of histoplasm osis: Father(V18.8, Z83.1) Status:Active Family history of malignant neoplasm of thyroid: Mother(V16.8, Z80.8) Status:Active Family history of hyperlipid emia: Mother(V18.19, Z83.438) Status:Active Family history of breast can cer: Maternal Grandmother(V16.3, Z80.3) Status:Active Family history of malignant neoplasm of colon: Maternal Grandmother(V16.0, Z80.0) Status:Active Rectal carcinoma: Maternal G randmother Status:Active Family history of malignant neoplasm of breast: Maternal Grandmother, Paternal Grandmother(V16.3, Z80.3) Status:Active Family history of acute lymp hoblastic leukemia (ALL) in remission: Daughter(V16.6, Z80.6) Status:Active Unknown Family Member Name Dates Details Family history of malignant neoplasm of skin: Father(V16.8, Z80.8) Status:Active Family history of histoplasm osis: Father(V18.8, Z83.1) Status:Active Family history of malignant neoplasm of thyroid: Mother(V16.8, Z80.8) Status:Active Family history of hyperlipid emia: Mother(V18.19, Z83.438) Status:Active Family history of breast can cer: Maternal Grandmother(V16.3, Z80.3) Status:Active Family history of malignant neoplasm of colon: Maternal Grandmother(V16.0, Z80.0) Status:Active Rectal carcinoma: Maternal G randmother Status:Active Family history of malignant neoplasm of breast: Maternal Grandmother, Paternal Grandmother(V16.3, Z80.3) Status:Active Family history of acute lymp hoblastic leukemia (ALL) in remission: Daughter(V16.6, Z80.6) Status:Active Unknown Family Member Name Dates Details Family history of malignant neoplasm of skin: Father(V16.8, Z80.8) Status:Active Family history of histoplasm osis: Father(V18.8, Z83.1) Status:Active Family history of malignant neoplasm of thyroid: Mother(V16.8, Z80.8) Status:Active Family history of hyperlipid emia: Mother(V18.19, Z83.438) Status:Active Family history of breast can cer: Maternal Grandmother(V16.3, Z80.3) Status:Active Family history of malignant neoplasm of colon: Maternal Grandmother(V16.0, Z80.0) Status:Active Rectal carcinoma: Maternal G randmother Status:Active Family history of malignant neoplasm of breast: Maternal Grandmother, Paternal Grandmother(V16.3, Z80.3) Status:Active Family history of acute lymp hoblastic leukemia (ALL) in remission: Daughter(V16.6, Z80.6) Status:Active Unknown Family Member Name Dates Details Family history of malignant neoplasm of skin: Father(V16.8, Z80.8) Status:Active Family history of histoplasm osis: Father(V18.8, Z83.1) Status:Active Family history of malignant neoplasm of thyroid: Mother(V16.8, Z80.8) Status:Active Family history of hyperlipid emia: Mother(V18.19, Z83.438) Status:Active Family history of breast can cer: Maternal Grandmother(V16.3, Z80.3) Status:Active Family history of malignant neoplasm of colon: Maternal Grandmother(V16.0, Z80.0) Status:Active Rectal carcinoma: Maternal G randmother Status:Active Family history of malignant neoplasm of breast: Maternal Grandmother, Paternal Grandmother(V16.3, Z80.3) Status:Active Family history of acute lymp hoblastic leukemia (ALL) in remission: Daughter(V16.6, Z80.6) Status:Active Unknown Family Member Name Dates Details Family history of malignant neoplasm of skin: Father(V16.8, Z80.8) Status:Active Family history of histoplasm osis: Father(V18.8, Z83.1) Status:Active Family history of malignant neoplasm of thyroid: Mother(V16.8, Z80.8) Status:Active Family history of hyperlipid emia: Mother(V18.19, Z83.438) Status:Active Family history of breast can cer: Maternal Grandmother(V16.3, Z80.3) Status:Active Family history of malignant neoplasm of colon: Maternal Grandmother(V16.0, Z80.0) Status:Active Rectal carcinoma: Maternal G randmother Status:Active Family history of malignant neoplasm of breast: Maternal Grandmother, Paternal Grandmother(V16.3, Z80.3) Status:Active Family history of acute lymp hoblastic leukemia (ALL) in remission: Daughter(V16.6, Z80.6) Status:Active Unknown Family Member Name Dates Details Family history of malignant neoplasm of skin: Father(V16.8, Z80.8) Status:Active Family history of histoplasm osis: Father(V18.8, Z83.1) Status:Active Family history of malignant neoplasm of thyroid: Mother(V16.8, Z80.8) Status:Active Family history of hyperlipid emia: Mother(V18.19, Z83.438) Status:Active Family history of breast can cer: Maternal Grandmother(V16.3, Z80.3) Status:Active Family history of malignant neoplasm of colon: Maternal Grandmother(V16.0, Z80.0) Status:Active Rectal carcinoma: Maternal G randmother Status:Active Family history of malignant neoplasm of breast: Maternal Grandmother, Paternal Grandmother(V16.3, Z80.3) Status:Active Family history of acute lymp hoblastic leukemia (ALL) in remission: Daughter(V16.6, Z80.6) Status:Active Unknown Family Member Name Dates Details Family history of malignant neoplasm of skin: Father(V16.8, Z80.8) Status:Active Family history of histoplasm osis: Father(V18.8, Z83.1) Status:Active Family history of malignant neoplasm of thyroid: Mother(V16.8, Z80.8) Status:Active Family history of hyperlipid emia: Mother(V18.19, Z83.438) Status:Active Family history of breast can cer: Maternal Grandmother(V16.3, Z80.3) Status:Active Family history of malignant neoplasm of colon: Maternal Grandmother(V16.0, Z80.0) Status:Active Rectal carcinoma: Maternal G randmother Status:Active Family history of malignant neoplasm of breast: Maternal Grandmother, Paternal Grandmother(V16.3, Z80.3) Status:Active Family history of acute lymp hoblastic leukemia (ALL) in remission: Daughter(V16.6, Z80.6) Status:Active Unknown Family Member Name Dates Details Family history of malignant neoplasm of skin: Father(V16.8, Z80.8) Status:Active Family history of histoplasm osis: Father(V18.8, Z83.1) Status:Active Family history of malignant neoplasm of thyroid: Mother(V16.8, Z80.8) Status:Active Family history of hyperlipid emia: Mother(V18.19, Z83.438) Status:Active Family history of breast can cer: Maternal Grandmother(V16.3, Z80.3) Status:Active Family history of malignant neoplasm of colon: Maternal Grandmother(V16.0, Z80.0) Status:Active Rectal carcinoma: Maternal G randmother Status:Active Family history of malignant neoplasm of breast: Maternal Grandmother, Paternal Grandmother(V16.3, Z80.3) Status:Active Family history of acute lymp hoblastic leukemia (ALL) in remission: Daughter(V16.6, Z80.6) Status:Active Unknown Family Member Name Dates Details Family history of malignant neoplasm of skin: Father(V16.8, Z80.8) Status:Active Family history of histoplasm osis: Father(V18.8, Z83.1) Status:Active Family history of malignant neoplasm of thyroid: Mother(V16.8, Z80.8) Status:Active Family history of hyperlipid emia: Mother(V18.19, Z83.438) Status:Active Family history of breast can cer: Maternal Grandmother(V16.3, Z80.3) Status:Active Family history of malignant neoplasm of colon: Maternal Grandmother(V16.0, Z80.0) Status:Active Rectal carcinoma: Maternal G randmother Status:Active Family history of malignant neoplasm of breast: Maternal Grandmother, Paternal Grandmother(V16.3, Z80.3) Status:Active Family history of acute lymp hoblastic leukemia (ALL) in remission: Daughter(V16.6, Z80.6) Status:Active Unknown Family Member Name Dates Details Family history of malignant neoplasm of skin: Father(V16.8, Z80.8) Status:Active Family history of histoplasm osis: Father(V18.8, Z83.1) Status:Active Family history of malignant neoplasm of thyroid: Mother(V16.8, Z80.8) Status:Active Family history of hyperlipid emia: Mother(V18.19, Z83.438) Status:Active Family history of breast can cer: Maternal Grandmother(V16.3, Z80.3) Status:Active Family history of malignant neoplasm of colon: Maternal Grandmother(V16.0, Z80.0) Status:Active Rectal carcinoma: Maternal G randmother Status:Active Family history of malignant neoplasm of breast: Maternal Grandmother, Paternal Grandmother(V16.3, Z80.3) Status:Active Family history of acute lymp hoblastic leukemia (ALL) in remission: Daughter(V16.6, Z80.6) Status:Active Unknown Family Member Name Dates Details Family history of malignant neoplasm of skin: Father(V16.8, Z80.8) Status:Active Family history of histoplasm osis: Father(V18.8, Z83.1) Status:Active Family history of malignant neoplasm of thyroid: Mother(V16.8, Z80.8) Status:Active Family history of hyperlipid emia: Mother(V18.19, Z83.438) Status:Active Family history of breast can cer: Maternal Grandmother(V16.3, Z80.3) Status:Active Family history of malignant neoplasm of colon: Maternal Grandmother(V16.0, Z80.0) Status:Active Rectal carcinoma: Maternal G randmother Status:Active Family history of malignant neoplasm of breast: Maternal Grandmother, Paternal Grandmother(V16.3, Z80.3) Status:Active Family history of acute lymp hoblastic leukemia (ALL) in remission: Daughter(V16.6, Z80.6) Status:Active Unknown Family Member Name Dates Details Family history of malignant neoplasm of skin: Father(V16.8, Z80.8) Status:Active Family history of histoplasm osis: Father(V18.8, Z83.1) Status:Active Family history of malignant neoplasm of thyroid: Mother(V16.8, Z80.8) Status:Active Family history of hyperlipid emia: Mother(V18.19, Z83.438) Status:Active Family history of breast can cer: Maternal Grandmother(V16.3, Z80.3) Status:Active Family history of malignant neoplasm of colon: Maternal Grandmother(V16.0, Z80.0) Status:Active Family history of malignant neoplasm of breast: Maternal Grandmother, Paternal Grandmother(V16.3, Z80.3) Status:Active Family history of acute lymp hoblastic leukemia (ALL) in remission: Daughter(V16.6, Z80.6) Status:Active Rectal carcinoma: Maternal G randmother Status:Active Unknown Family Member Name Dates Details Family history of malignant neoplasm of skin: Father(V16.8, Z80.8) Status:Active Family history of histoplasm osis: Father(V18.8, Z83.1) Status:Active Family history of malignant neoplasm of thyroid: Mother(V16.8, Z80.8) Status:Active Family history of hyperlipid emia: Mother(V18.19, Z83.438) Status:Active Family history of breast can cer: Maternal Grandmother(V16.3, Z80.3) Status:Active Family history of malignant neoplasm of colon: Maternal Grandmother(V16.0, Z80.0) Status:Active Rectal carcinoma: Maternal G randmother Status:Active Family history of malignant neoplasm of breast: Maternal Grandmother, Paternal Grandmother(V16.3, Z80.3) Status:Active Family history of acute lymp hoblastic leukemia (ALL) in remission: Daughter(V16.6, Z80.6) Status:Active Unknown Family Member Name Dates Details Family history of malignant neoplasm of skin: Father(V16.8, Z80.8) Status:Active Family history of histoplasm osis: Father(V18.8, Z83.1) Status:Active Family history of malignant neoplasm of thyroid: Mother(V16.8, Z80.8) Status:Active Family history of hyperlipid emia: Mother(V18.19, Z83.438) Status:Active Family history of breast can cer: Maternal Grandmother(V16.3, Z80.3) Status:Active Family history of malignant neoplasm of colon: Maternal Grandmother(V16.0, Z80.0) Status:Active Rectal carcinoma: Maternal G randmother Status:Active Family history of malignant neoplasm of breast: Maternal Grandmother, Paternal Grandmother(V16.3, Z80.3) Status:Active Family history of acute lymp hoblastic leukemia (ALL) in remission: Daughter(V16.6, Z80.6) Status:Active Unknown Family Member Name Dates Details Family history of malignant neoplasm of skin: Father(V16.8, Z80.8) Status:Active Family history of histoplasm osis: Father(V18.8, Z83.1) Status:Active Family history of malignant neoplasm of thyroid: Mother(V16.8, Z80.8) Status:Active Family history of hyperlipid emia: Mother(V18.19, Z83.438) Status:Active Family history of breast can cer: Maternal Grandmother(V16.3, Z80.3) Status:Active Family history of malignant neoplasm of colon: Maternal Grandmother(V16.0, Z80.0) Status:Active Rectal carcinoma: Maternal G randmother Status:Active Family history of malignant neoplasm of breast: Maternal Grandmother, Paternal Grandmother(V16.3, Z80.3) Status:Active Family history of acute lymp hoblastic leukemia (ALL) in remission: Daughter(V16.6, Z80.6) Status:Active Unknown Family Member Name Dates Details Family history of malignant neoplasm of skin: Father(V16.8, Z80.8) Status:Active Family history of histoplasm osis: Father(V18.8, Z83.1) Status:Active Family history of malignant neoplasm of thyroid: Mother(V16.8, Z80.8) Status:Active Family history of hyperlipid emia: Mother(V18.19, Z83.438) Status:Active Family history of breast can cer: Maternal Grandmother(V16.3, Z80.3) Status:Active Family history of malignant neoplasm of colon: Maternal Grandmother(V16.0, Z80.0) Status:Active Rectal carcinoma: Maternal G randmother Status:Active Family history of malignant neoplasm of breast: Maternal Grandmother, Paternal Grandmother(V16.3, Z80.3) Status:Active Family history of acute lymp hoblastic leukemia (ALL) in remission: Daughter(V16.6, Z80.6) Status:Active Advance Directives No Advanced Directives Records FoundDocuments on File Type Date Recorded Patient Transfusion Aide Expl anation Advance Directive(s) 09/10/2016 12:49 PM Advance Directive(s) 09/04/2016 9:40 AM Advance Directive Response Recorded Date/ Time Living Will No December 08, 2021 2:59am Power of Lead Teller No December 08 2:59am Chief Complaint Anxiety and MigrainesFollow Now clinicHip/LBP* New Patient * Positive HARMEET R SI joint / hip pain [id number] pain/sciaticaDisability/ ED Follow uppatient here for npv lumbar spine pain. -MApatient here 3 1/2 weeks s/p lumbar spine sx dos 01-01-22 -MA* Hx of back surgery w/ Dr. Cross * herniated disk * - current pain in the L4,L5 area. pain radiates to right leg * gabapentin has not relieved the pain * currently in PT FUV- Patient reports low back pain, taking Celebrex daily without issue at this time. Patient reports one recent fall after gait imbalance. Reporting pain on right side this visit. Patient denies relief from pain with lumbar transforaminal performed on 03/27.* Benadryl was ordered for pt on 04/24/[address] Mancera. * Medication was administered and tolerated. spot on breast, anxiety, and stomach issuesNew patient, left breast pain and lumpEstablished patient; 2nd opinion for continue low back painFUV for pain in right side of hip and buttocks. Had xray done on 11/28. Would like to go over. currently taking alpha-lipioc acid, Celebrex,and Pregablin. Chief Complaint and Reason for Visit Chief Complaint back pain Reason for Referral Specialty Diagnoses / Procedures Referred By Clara junior Referred To Contact Radiology Diagnoses Olfactory hallucination Migraine with visual aura Procedures MR brain w and wo IV contrast Yvette Mancera DO [address] [facility], [address] [place] [id number] Referral ID Status Reason Start Date Expiration Date Visits Requested Visits Authorized [id number] Authorized Perform Procedure 05/21/2023 11/17/2023 1 1 Specialty Diagnoses / Procedures Referred By Clara junior Referred To Contact Radiology Diagnoses Screening mammogram for breast cancer Procedures BI mammo bilateral screening tomosynthesis Yvette Mancera DO [address] [facility], [address] [place] [id number] Referral ID Status Reason Start Date Expiration Date Visits Requested Visits Authorized [id number] Authorized Perform Procedure 11/18/2023 11/17/2024 1 1 Specialty Diagnoses / Procedures Referred By Contac t Referred To Contact Radiology Diagnoses Axillary mass, left Procedures US lymph nodes Yvette Mancera, DO [address] [facility], [address] [address] Referral ID Status Reason Start Date Expiration Date Visits Requested Visits Authorized [id number] Authorized Perform Procedure 11/18/2023 11/17/2024 1 1 Specialty Diagnoses / Procedures Referred By Contac t Referred To Contact Gastroenterology Diagnoses Constipation, unspecified constipation type Diarrhea, unspecified type Procedures Colonoscopy Screening; Average Risk Patient ID COLONOSCOPY FLX DX W/COLLJ SPEC WHEN PFRMD ID COLON CA SCRN NOT HI RSK IND ID COLORECTAL SCRN; HI RISK IND ID COLONOSCOPY W/BIOPSY SINGLE/MULTIPLE ID COLSC FLX W/RMVL OF TUMOR POLYP LESION SNARE TQ ID COLSC FLX W/REMOVAL LESION BY HOT BX FORCEPS Cristo Robert, FILM EDITOR SUPERVISOR-FRETTED INSTRUMENT INSPECTOR [address] [facility], [address] [place] [address] Referral ID Status Reason Start Date Expiration Date V isits Requested Visits Authorized [id number] Pending Review 11/21/2023 11/20/2024 1 1 Specialty Diagnoses / Procedures Referred By Contac t Referred To Contact Radiology Diagnoses Screening mammogram for breast cancer Procedures BI mammo bilateral diagnostic tomosynthesis BI mammo bilateral screening tomosynthesis Yvette Mancera, DO [address] [facility], [facility] [address] [place] [address] Specialty Diagnoses / Procedures Referred By Contac t Referred To Contact Radiology Diagnoses Axillary mass, left Procedures BI US breast limited left US lymph nodes Yvette Mancera, DO [address] [facility], [address] [address] Additional Source Comments INFORMATION SOURCE (unrecogn ized section and content) DATE CREATED AUTHOR 07/27/2020 [facility] DATE CREATED AUTHOR AUTHOR'S ORGANIZ ATION 10/06/2021 [facility] DATE CREATED AUTHOR AUTHOR'S ORGANIZ ATION 04/04/2022 [facility] DATE CREATED AUTHOR AUTHOR'S ORGANIZ ATION 07/14/2022 [facility] [place][note 2] DATE CREATED AUTHOR AUTHOR'S ORGANIZ ATION 05/22/2023 [facility] DATE CREATED AUTHOR AUTHOR'S ORGANIZ ATION 06/05/2023 [facility] DATE CREATED AUTHOR AUTHOR'S ORGANIZ ATION 06/29/2023 [facility] DATE CREATED AUTHOR AUTHOR'S ORGANIZ ATION 09/12/2023 [facility] DATE CREATED AUTHOR AUTHOR'S ORGANIZ ATION 10/31/2023 [facility] DATE CREATED AUTHOR AUTHOR'S ORGANIZ ATION 02/10/2024 [facility] DATE CREATED AUTHOR AUTHOR'S ORGANIZ ATION 08/05/2024 [facility] DATE CREATED AUTHOR AUTHOR'S ORGANIZ ATION 09/15/2024 [facility] DATE CREATED AUTHOR AUTHOR'S ORGANIZ ATION 01/04/2025 [facility] DATE CREATED AUTHOR AUTHOR'S ORGANIZ ATION 01/06/2025 [facility] DATE CREATED AUTHOR AUTHOR'S ORGANIZ ATION 01/13/2025 [facility] DATE CREATED AUTHOR AUTHOR'S ORGANIZ ATION 01/13/2025 [facility] Source Comments (unrecognize d section and content) In the event this informatio n is protected by the Federal Confidentiality of Alcohol and Drug Abuse Patient Records regulations: The Federal rules restrict any use of the information to criminally investigate or prosecute any alcohol or drug abuse patient.[facility] Reason for Visit (unrecogniz ed section and content) Reason Onset Date Comments Refill Request 11/19/2021 Reason Comments Annual Exam Pain in right side o f stomach for last 2 weeks. Can feel a bump under the skin that she can move when touching. Reason Comments Headache smelling issue Smelling cigarette s moke x3 months- no one smokes in home or around pt Specialty Diagnoses / Procedures Referred By Contac t Referred To Contact Radiology Diagnoses Olfactory hallucination Migraine with visual aura Procedures MR brain w and wo IV contrast Yvette Mancera, DO [address] [facility], [address] [place] [address] Referral ID Status Reason Start Date Expiration Date Visits Requested Visits Authorized [id number] Authorized Perform Procedure 05/21/2023 11/17/2023 1 1 Specialty Diagnoses / Procedures Referred By Contac t Referred To Contact Radiology Diagnoses Screening mammogram for breast cancer Procedures BI mammo bilateral diagnostic tomosynthesis BI mammo bilateral screening tomosynthesis Yvette Mancera, DO [address] [facility], [address] [place] [address] Referral ID Status Reason Start Date Expiration Date Visits Requested Visits Authorized [id number] Authorized Perform Procedure 11/18/2023 11/17/2024 1 1 Specialty Diagnoses / Procedures [facility] Referred To Contact Radiology Diagnoses Axillary mass, left Procedures BI US breast limited left US lymph nodes Yvette Mancera, DO [address] [facility], [address] [place] [address] Referral ID Status Reason Start Date Expiration Date Visits Requested Visits Authorized [id number] Authorized Perform Procedure 11/18/2023 11/17/2024 1 1 Reason Comments Neck Pain Back Pain Reason Comments New Patient Visit Reason Comments Post-op Problem Reason Comments Post-op SR08/09/24 Reason Comments Follow-up The patient was made aware that AI (artificial intelligence) technology will be utilized during today's visit. The patient expressed understanding and verbally accepts the use of AI technology. Care Teams (unrecognized sec tion and content) Senior Clerk Relationship Specialty Start Date End Date Jeet Scott, DO [address] [place] [address] PCP - General Family Practice 12/14/13 Senior Clerk Relationship Specialty Start Date End Date Yvette Mancera DO [address] [facility], [address] [place] [address] PCP - General 03/14/22 Yvette Mancera DO [address] [facility], [address] [place] [address] PCP - Employee ACO PCP 09/01/21 Senior Clerk Relationship Specialty Start Date End Date Yvette Mancera DO [address] [facility], [address] [place] [address] PCP - General 03/14/22 Yvette Mancera DO [address] [facility], [address] [place] [address] PCP - Employee ACO PCP 09/01/21 Senior Clerk Relationship Specialty Start Date End Date Yvette Mancera DO [address] [facility], [address] [place] [address] PCP - General 03/14/22 Yvette Mancera DO [address] [facility], [address] [place] [address] PCP - Employee ACO PCP 09/01/21 Senior Clerk Relationship Specialty Start Date End Date Yvette Mancera DO [address] [facility], [address] [place] [address] PCP - General 03/14/22 Yvette Mancera DO [address] [facility], [address] [place] [address] PCP - Employee ACO PCP 09/01/21 Senior Clerk Relationship Specialty Start Date End Date Yvette Mancera DO [address] [facility], [address] [place] [address] PCP - General 03/14/22 Yvette Mancera DO [address] [facility], [address] [place] [address] PCP - Employee ACO PCP 09/01/23 Senior Clerk Relationship Specialty Start Date End Date Yvette Mancera DO [address] [facility], [address] [place] [address] PCP - General 03/14/22 Yvette Mancera DO [address] [facility], [address] [place] [address] PCP - Employee ACO PCP 09/01/23 Senior Clerk Relationship Specialty Start Date End Date Yvette Mancera DO [address] [facility], [address] [place] [address] PCP - General 03/14/22 Yvette Mancera DO [address] [facility], [address] [place] [address] PCP - Employee ACO PCP 09/01/23 Senior Clerk Relationship Specialty Start Date End Date Yvette Mancera DO [address] [facility], [address] [place] [address] PCP - General 03/14/22 Yvette Mancera DO [address] [facility], [address] [place] [address] PCP - Employee ACO PCP 09/01/23 Senior Clerk Relationship Specialty Start Date End Date Yvette Mancera DO [address] [facility], [address] [place] [address] PCP - General 03/14/22 Yvette Mancera DO [address] [facility], [address] [place] [address] PCP - Employee ACO PCP 09/01/23 Senior Clerk Relationship Specialty Start Date End Date Yvette Mancera DO [address] [facility], [address] [place] [address] PCP - General 03/14/22 Yvette Mancera DO [address] [facility], [address] [place] [address] PCP - Employee ACO PCP 09/01/23 Senior Clerk Relationship Specialty Start Date End Date Yvette Mancera DO [address] [facility], [address] [place] [address] PCP - General 03/14/22 Yvette Mancera DO [address] [facility], [address] [place] [address] PCP - Employee ACO PCP 09/01/23 Deidre Garcia, RN Nurse Navigator 07/22/24 09/23/24 Senior Clerk Relationship Specialty Start Date End Date Yvette Mancera DO [address] [facility], [address] [place] [address] PCP - General 03/14/22 Yvette Mancera DO [address] [facility], [address] [place] [address] PCP - Employee ACO PCP 09/01/23 Deidre Garcia, RN Nurse Navigator 07/22/24 09/23/24 Senior Clerk Relationship Specialty Start Date End Date Yvette Mancera DO [address] [facility], [address] [place] [address] PCP - General 03/14/22 Yvette Mancera DO [address] [facility], [address] [place] [address] PCP - Employee ACO PCP 09/01/23 Senior Clerk Relationship Specialty Start Date End Date Yvette Mancera DO [address] [facility], [address] [place] [address] PCP - General 03/14/22 Deidre Garcia, RN Nurse Navigator 07/22/24 09/23/24 Senior Clerk Relationship Specialty Start Date End Date Yvette Mancera DO [address] [facility], [address] [place] [address] PCP - General 03/14/22 Deidre Garcia, RN Nurse Navigator 07/22/24 09/23/24 Senior Clerk Relationship Specialty Start Date End Date Yvette Mancera DO [address] [facility], [facility] [address] [place] [address] PCP - General 03/14/22 Deidre Garcia RN Nurse Navigator 07/22/24 09/23/24 Senior Clerk Relationship Specialty Start Date End Date Yvette Mancera DO [address] [facility], [facility] 1 [place], [place] [address] PCP - General 03/14/22 Yvette Mancera DO [address] [facility], [facility] 1 [place], [place] [id number] PCP - Employee ACO PCP 09/01/24 Goals (unrecognized section and content) Goals may be documented in a n alternate section Scheduled Active and Recently Administ ered Medications (unrecognized section and content) Medication Order 08/07/2024 08/08/2024 08/09/2024 lidocaine PF (Xylocaine) 10 mg/mL (1 %) injection 1 mg 1 mg (0.1 mL), subcutaneous, Once, On Fri08/09/24 at 1200, For 1 dose, Recovery (only), To be used for IV insertion ONLY 1200 (Due) Continuous Medication Order 08/07/2024 08/08/2024 08/09/2024 lactated Ringer's infusion 100 mL/hr, intravenous, Continuous, Starting on Fri08/09/24 at 1200, For 1 day, Recovery (only) 1200 (Due) PRN Medication Order 08/07/2024 08/08/2024 08/09/2024 albuterol 2.5 mg /3 mL (0.083 %) nebulizer solution 2.5 mg 2.5 mg, nebulization, Once as needed, wheezing, Starting on Fri08/09/24 at 1135, For 1 dose, Recovery (only) gelatin absorbable (Gelfoam) 100 sponge (CANCELED) As needed, Starting on Fri08/09/24 at 1014, Intraprocedure 1014 (Given - Provid er: Dustin Nuñez MD - Comment: DISPENSED TO STERILE FIELD) hydrALAZINE (Apresoline) injection 5 mg 5 mg, intravenous, Administer over 2 Minutes, Every 30 min PRN, systolic blood pressure greater than 180 mmHg and heart rate less than 60 BPM, Starting on Fri08/09/24 at 1135, For 2 doses, Recovery (only) HYDROmorphone (Dilaudid) injection 0.2 mg 0.2 mg, intravenous, Every 5 min PRN, pain moderate (4-6), first line, Starting on Fri08/09/24 at 1135, Recovery (only), Max total of 4 mg regardless of dose. HYDROmorphone (Dilaudid) injection 0.5 mg 0.5 mg, intravenous, Every 5 min PRN, pain severe (7-10), first line, Starting on Fri08/09/24 at 1135, Recovery (only), Max total of 4 mg regardless of dose. 1210 (Given - Provid er: Kristi Pop RN) labetaloL (Normodyne,Trandate) injection 5 mg 5 mg, intravenous, Administer over 1 Minutes, Once as needed, systolic blood pressure greater than 180 mmHg, dystolic blood pressure greater than 100 mmHg and heart rate greater than 60 BPM, Starting on Fri08/09/24 at 1135, For 1 dose, Recovery (only) lidocaine 4 % patch (CANCELED) Administer over 12 Hours, As needed, Starting on Fri08/09/24 at 1015, Intraprocedure 1015 (Given - Provid er: Dustin Nuñez MD - Comment: BILATERAL NECK) ondansetron (Zofran) injection 4 mg (COMPLETED) 4 mg, intravenous, Once as needed, nausea/vomiting, first line, Starting on Fri08/09/24 at 1135, For 1 dose, Recovery (only), When administering via IV Push, administer over 3-5 minutes. 1238 (Given - Provid er: Kristi Pop RN) oxyCODONE (Roxicodone) immediate release tablet 5 mg 5 mg, oral, Every 4 hours PRN, pain mild (1-3), first line, Starting on Fri08/09/24 at 1135, Recovery (only), When able to take oral medications., If ordered PRN for pain, nurse is permitted to administer this medication for higher pain scores based on patient preference? Yes 1317 (Given - Provid er: Dalia Pineda RN) oxygen (O2) therapy inhalation, Continuous PRN - O2/gases, other, Starting on Fri08/09/24 at 1135, Recovery (only), Device: Nasal Cannula, Rate in liters per minute: Other, Custom Value: 1-6 LPM, Keep O2 Sat Above: 92% 1140 (Start - Provid er: Kristi Pop RN)1200 (Stopped - Provider: Kristi Pop RN)1223 (Start - Provider: Kristi Pop RN)1315 (Stopped - Provider: Dalia Pineda RN) promethazine (Phenergan) 6.25 mg in sodium chloride 0.9% 50 mL IV 6.25 mg, intravenous, Administer over 15 Minutes, Once as needed, Nausea/vomiting, second line, Starting on Fri08/09/24 at 1135, For 1 dose, Recovery (only) sodium chloride 0.9 % irrigation solution (CANCELED) As needed, Starting on Fri08/09/24 at 1015, Intraprocedure 1015 (Given - Provid er: Dustin Nuñez MD - Comment: DISPENSED TO STERILE FIELD) thrombin-bovine (JMI) 5,000 unit topical solution (CANCELED) As needed, Starting on Fri08/09/24 at 1015, Intraprocedure 1015 (Given - Provid er: Dustin Nuñez MD - Comment: DISPENSED TO STERILE FIELD) FOR RECORDS PERTAINING TO PATIENTS WHO ARE OR HAVE BEEN ENROLLED IN A CHEMICAL DEPENDENCY/SUBSTANCEABUSE PROGRAM, SOME INFORMATION MAY BE OMITTED. This clinical summary was aggregated from multiple sources. Caution should be exercised in using it in the provision of clinical care. This summary normalizes information from multiple sources, and as a consequence, information in this document may materially change the coding, format and clinical context of patient data. In addition, data may be omitted in some cases. CLINICAL DECISIONS SHOULD BE BASED ON THE PRIMARY CLINICAL RECORDS. [facility]. provides no warranty or guarantee of the accuracy or completeness of information in this document.
[2025-03-25] MEDS: 0.9% Normal Saline (1000mL) 1,000 ML 999 ML IV (05:16)
[2025-03-25 05:17] LABS: Hematocrit 41.3 % (37-47); Hemoglobin 14.0 g/dL (12.0-15.0); Immature Granulocytes Count 0.020 X10^3/uL (0.0-0.0); Mean Corp Hgb Conc 33.9 g/dL (32-36); Mean Corpuscular Volume 85.0 fL (81-99); Mean Platelet Vol. 10.2 fl (6.2-12.0); NRBC Flagged by Analyzer 0 % (0-5); Platelet Count 225 K/mm3 (150-450); RBC Distribution Width CV 12.6 % (11.6-14.6); RBC Distribution Width SD 39.1 fl (35.1-43.9); Red Blood Count 4.86 M/mm3 (4.2-5.4); White Blood Count 8.1 K/mm3 (4.4-11.0)
[2025-03-25 05:18] VITALS: TEMP 37.7
[2025-03-25 05:18] LABS: Color, Urine Yellow (Yellow); Glucose, Dipstick Normal (Normal); Ketone-Dipstick Negative (Negative); Leukocyte Esterase-Dipstick Negative /ul (Negative); Mucous, Urine 0 SEEN /hpf (<or=2+); Nitrite-Dipstick Negative (Negative); Occult Blood-Urine Negative /ul (Negative); Protein-Dipstick 15 mg/dl (Negative); Red Blood Cells-Urine 0 SEEN /hpf (0-5); Specific Gravity, Urine 1.015 (1.002-1.030); Urine Bilirubin Dipstick Negative (Negative)
[2025-03-25 05:23] LABS: Internal QC Validated? YES +Cl - CLEAR BKGD; Pregnancy, Urine Negative Negative
[2025-03-25 05:25] LABS: Record Kit Lot#,Urine Preg 0000962302; Squamous Epithelial Cells - UA 10-25 SEEN /hpf (5-10)
[2025-03-25 05:40] LABS: Anion Gap 11 (5-15); BUN 12 mg/dL (4-19); BUN/Creat Ratio 11.9 RATIO (10-20); Calcium,Total 8.8 mg/dL (7.6-11.0); Carbon Dioxide 20.8 mmol/L (21.0-32.0); Chloride 109 mmol/L (98-108); Estimated Creatinine Clearance 120.95 ml/min (50-250); Glucose 119 mg/dL (70-99); Potassium 3.7 mmol/L (3.3-5.1)
--- NOTE | 2025-03-25 05:40 | CT_ITS ---
PROCEDURE: ABDOMEN/PELVIS W IV CONT ONLY 03/25/2025 REASON FOR EXAM: LOWER ABD PAIN TECHNIQUE: ABDOMEN/PELVIS W IV CONT ONLY Coronal and Sagittal reconstruction series were provided. CONTRAST: Isovue 370 VOLUME: 93 mL One or more dose reduction techniques were used (e.g., Automated exposure control, adjustment of the mA and/or kV according to patient size, use of iterative reconstruction technique. RADIATION DOSE SUMMARY: CTDlvol: 32 mGy DLP: 1334 mGycm COMPARISON: No FINDINGS: Under aerated lung bases. Normal heart size. Normal gallbladder. Upper abdominal solid organs are unremarkable. No hydronephrosis or ureteral stone. Normal bladder. Status post hysterectomy. Normal ovaries. No retroperitoneal or pelvic adenopathy. No free air. Nondistended bowel. Normal appendix. No acute large bowel findings. Lumbar spine degeneration. No acute abdominal wall findings. CT/Abdomen/Pelvis W IV Cont ONLY IMPRESSION: No acute findings. Reading Location: [place] [address]
[2025-03-25 06:21] VITALS: BP 133/67; PULSE 68; RESP 18; TEMP 37.7; O2SAT 98
--- NOTE | 2025-03-25 06:44 | EX.ED.DYSGE1 ---
HPI History of Present Illness Chief Complaint: Nausea/Vomiting Informant: patient Narrative Narrative: Presents increasing nausea and abdominal cramping since yesterday. Lower abdomen. Hysterectomy in the past. She states history of constipation and occasionally will use stool softeners. Stools are hard. This past Friday noted blood in her stool saw her PCP the following day was told she had ruptured hemorrhoids. She is put on topical creams. She is still have blood in her stools. She had attempted colonoscopy this past September through however she had an incomplete preparation. She was not told to follow-up per patient. She did not like her visit with the doctor there. No anticoagulants. States yesterday having chills. No urinary symptoms no cough. Prior similar symptoms: No PFSH PFSH Medical History Lab test negative for COVID-19 virus Headache Chronic neck and back pain Home Medications ?Medication ?Instructions ?Recorded ?Last Taken ?Type gabapentin 300 mg capsule 300 mg PO DAILY 02/10/24 Unknown History prednisone 20 mg tablet 20 mg PO BID #10 tabs 02/10/24 Unknown Rx topiramate 50 mg tablet (Topamax) 100 mg PO DAILY 02/10/24 Unknown History docusate sodium 100 mg capsule 100 mg PO BID #60 caps 03/25/25 Unknown Rx (Colace) hyoscyamine sulfate 0.125 mg 0.125 mg sublingual Q8H PRN 03/25/25 Unknown Rx sublingual tablet (Levsin/SL) abdominal discomfort #10 tabs ondansetron 4 mg disintegrating 4 mg PO Q8H PRN PRN Nausea #10 tabs 03/25/25 Unknown Rx tablet Allergy/AdvReac Type Severity Reaction Status Date / Time No Known Allergies Allergy Verified 03/25/25 04:21 Family History Other Cancer Diabetes Surgical History S/P partial hysterectomy Social History Smoking Status: Never smoker ROS ROS ED Constitutional Constitutional ED: Reports chills; Denies fever(s) or sweats ENT ENT ED: Denies sore throat Cardiovascular Cardiovascular: Denies chest pain, leg edema, palpitations or racing heartbeat Respiratory/Chest Respiratory/Chest: Denies cough, dyspnea or dyspnea on exertion Gastrointestinal Gastrointestinal: Reports abdominal pain and nausea; Denies diarrhea or vomiting Genitourinary Genitourinary ED: Denies dysuria, hematuria or urinary frequency Musculoskeletal Musculoskeletal: Denies back pain, extremity pain or neck pain Integumentary Denies rash or wounds Neurologic Neurologic: Denies headache(s), paresthesias or weakness EXAM Physical Exam Const Vital Signs: 03/25/25 04:22 03/25/25 05:18 03/25/25 06:21 Temperature 99.6 F H 99.9 F H 99.9 F H Temperature Source Oral Oral Pulse Rate 79 68 Respiratory Rate 18 18 Blood Pressure 121/68 H 133/67 H Blood Pressure Mean 85 89 Pulse Ox 99 98 Oxygen Delivery Method Room Air Positive well nourished and well developed General Appearance ED: well developed and NAD HEENT Reports moist mucous membranes normocephalic and atraumatic Eyes General Eye ED: Yes normal appearance of both eyes Neck full ROM Chest Wall Chest: Negative for tenderness Resp normal respiratory effort and normal air movement Effort and Inspection: symmetric chest movement; Negative for respiratory distress Cardio regular rate, regular rhythm and no murmurs Peripheral Pulses: pulses 2+ throughout GI normal to inspection, nondistended, normoactive bowel sounds GI Narrative: Mild tenderness suprapubic. Negative Hernandez's or McBurney's tenderness. Nursing administrative aide for rectal exam: No hemorrhoids noted there was a fissure noted at 6 o'clock position minimal bleeding noted. Palpation: Negative for guarding or rebound tenderness present Extremity normal to inspection General Extremety ED: Negative for edema or tenderness General Extremity: Negative for edema Neuro oriented x3 and no sensory deficits noted Sensorium / Orientation: awake and alert Skin no rashes or lesions noted and no wounds MDM MDM MDM Narrative Medical decision making narrative: Interventions / MDM: Differential diagnosis: Rectal fissure abdominal pain Diagnosis considered but do not suspect: Appendicitis, diverticulitis however CT negative. No clinical hemorrhoids externally seen. My EKG interpretation: N/A Imaging independently reviewed and interpreted by myself: CT abdomen pelvis: No acute process. Normal appendix. External documents reviewed: N/A Test considered but not ordered:N/A ED course: Patient progress abdominal pain low suprapubic abdomen and reports chills. Basic labs are ordered fluids and Zofran. CT scan abdomen pelvis IV contrast. Interim nausea improved are still had cramping in order for Levsin. Labs stable hemoglobin [address] scan normal appendix no acute process. Urine without infection. Clinical exam noted rectal fissure minimal blood. She has had constipation issues. Likely her source for bleeding. No clear findings symptoms causing her chills. Nonspecific at this time. No cough symptoms. Urine negative for infection. She will monitor symptoms. Zofran as needed Levsin as needed. Prescription for stool softeners written. Outpatient follow-up given with GI. All questions were answered. Re-evaluation: stable Disposition discussed with patient/family/significant other: Patient and significant other Case discussed with consulting clinician: N/A This note was generated with [employer] dictation software. It may contain incorrect words, spelling, and punctuation that were not noted in checking the note before signing. Lab Data Attestation: I reviewed the patient's lab results. Labs: Laboratory Results - last 24 hr 03/25/25 03/25/25 04:35 04:42 WBC 8.1 RBC 4.86 Hgb 14.0 Hct 41.3 MCV 85.0 MCH 28.8 MCHC 33.9 RDW Std Deviation 39.1 RDW Coeff of [place] 12.6 Plt Count 225 MPV 10.2 Immature Gran % (Auto) 0.200 Neut % (Auto) 82.4 H Lymph % (Auto) 10.3 L [place] % (Auto) 5.1 Eos % (Auto) 1.4 Baso % (Auto) 0.6 Absolute Neuts (auto) 6.6 Absolute Lymphs (auto) 0.83 Nucleated RBC % 0 Sodium 140 Potassium 3.7 Chloride 109 H Carbon Dioxide 20.8 L Anion Gap 11 BUN 12 Creatinine 0.99 Estim Creat Clear Calc 120.95 Est GFR (MDRD) Non-Af 74 BUN/Creatinine Ratio 11.9 Glucose 119 H Calcium 8.8 Urine Color Yellow Urine Clarity Clear Urine pH 6.5 Ur Specific [place] 1.015 Urine Protein 15 H Urine Glucose (UA) Normal Urine Ketones Negative Urine Occult Blood Negative Urine Nitrite Negative Urine Bilirubin Negative Urine Urobilinogen Normal Ur Leukocyte Esterase Negative Urine RBC 0 SEEN Urine WBC 0 SEEN Ur Squamous Epith Cells 10-25 SEEN Urine Bacteria 2+ Urine Mucus 0 SEEN Urine Test Negative Radiography Diagnostic Testing: Clinical Impression(s) from Imaging Studies Abdomen/Pelvis CT 03/25/25 05:40 IMPRESSION: No acute findings. Reading Location: [place] [id number] Discharge Plan Triage Chief Complaint: Nausea/Vomiting ED Provider: Meliton Ko Dx/Rx/DC Orders Clinical Impression: Rectal fissure, Abdominal cramping Instructions: ED Understanding Anal Fissures Prescriptions: New docusate sodium [Colace] 100 mg capsule 100 mg PO BID Qty: 60 0RF hyoscyamine sulfate [Levsin/SL] 0.125 mg tablet, sublingual 0.125 mg sublingual Q8H PRN (Reason: abdominal discomfort) Qty: 10 0RF ondansetron 4 mg tablet,disintegrating 4 mg PO Q8H PRN PRN (Reason: Nausea) Qty: 10 0RF No Action gabapentin 300 mg capsule 300 mg PO DAILY topiramate [Topamax] 50 mg tablet 100 mg PO DAILY prednisone 20 mg tablet 20 mg PO BID Qty: 10 0RF Stand Alone Forms: ED Work / School Excuse Primary Care Provider: Yvette Esquivel Referrals: Mayo Chi DO [Med Staff - Active Staff] - 1-2 Weeks Yvette Esquivel DO [Primary Care Provider] - Activity Restrictions/Additional Instructions: CT scan negative. Normal appendix. No diverticulitis noted. Labs are normal. Your exam is consistent more of a rectal fissure. Use stool softener as prescribed. Take Zofran and Levsin as needed for cramping or nausea. Follow-up with gastroenterology. Print Language: Sami Disposition Disposition: Home, Self Care
[2025-03-25 07:00] VITALS: BP 108/57; PULSE 66
== END 2025-03-25 07:14 | disposition home or self-care (01) ==
PROVIDERS: Emergency Provider Emergency Medicine; PCP Family Medicine; Visit Provider Emergency Medicine
DX: K60.2 Anal fissure, unspecified (principal); R11.2 Nausea with vomiting, unspecified; K92.1 Melena; R10.9 Unspecified abdominal pain
CPT/HCPCS: 74177; 80048; 81001; 81025; 85025; 96361; 96374; 99282; Q9967; A4216; J2405